=== PATIENT | male | born 1945 | race Caucasian/White ===

== ENCOUNTER 2020-08-28 09:01 | Outpatient (REF) | payer MEDICARE, SELFPAY ==
[2020-08-28 10:28] LABS: Alanine Aminotransferase 25 U/L (0-40); Alkaline Phosphatase 61 U/L (39-117); Anion Gap 12 (12-20); Aspartate Amino Transferase 19 U/L (5-37); Bilirubin Total 0.3 mg/dL (0.0-1.0); Blood Urea Nitrogen 15 mg/dL (9-16); Calcium 8.9 mg/dL (8.4-10.2); Carbon Dioxide 25 mmol/L (22-29); Chloride 106 mmol/L (96-108); Cholesterol 125 mg/dL; Estimated Glomerular Filt Rate > 60; Glucose Fasting 107 mg/dL (60-99); HDL Cholesterol 44 mg/dL; LDL Cholesterol Calculated 68 mg/dl; Potassium 4.4 mmol/l (3.3-5.1); Sodium 139 mmol/L (135-145); Total Protein 6.4 g/dL (6.5-8.0); Triglycerides 69 mg/dL
== END 2020-08-28 09:02 | disposition home or self-care (01) ==
LOC: HO.LAB 09:01
PROVIDERS: PCP Internal Medicine; Visit Provider Internal Medicine
DX: E78.5 Hyperlipidemia, unspecified (principal); R73.01 Impaired fasting glucose
CPT/HCPCS: 36415; 80053; 80061

== ENCOUNTER 2021-05-15 07:16 | Day surgery (SDC) | payer MEDICARE, SELFPAY ==
--- NOTE | 2021-05-09 13:35 | P.CONAN_ITS ---
HPI - Anesthesia Eval Consult details Narrative: 76yo M for Colonoscopy Xarelto for afib. S/P pulm vein isolation 08/2020. No issues since per last cardiac eval. [facility] Active Problems Active Problems: All Active Problems (Updated 05/09/21 @ 10:22 by Prudence Knight) Low back pain (Acute) Obesity (BMI 30-39.9) (Acute) Coronary artery disease (Acute) BPH (benign prostatic hyperplasia) (Acute) Hyperlipidemia (Acute) Impaired glucose tolerance (Acute) Hypertension (Acute) Paroxysmal atrial fibrillation (Acute) Past Medical History Medical History BPH (benign prostatic hyperplasia) COPD (chronic obstructive pulmonary disease) Coronary artery disease Hx of bronchitis Hx of myocardial infarction Hyperlipidemia Hypertension Impaired glucose tolerance Nephrolithiasis Obesity (BMI 30-39.9) On anticoagulant therapy On beta didi at home Paroxysmal atrial fibrillation PONV (postoperative nausea and vomiting) Family History Family History Father No problems noted. Mother No problems noted. Surgical History Surgical History H/O excision of lamina of cervical vertebra for decompression of spinal cord H/O rhinoplasty History of blepharoplasty History of cardiac radiofrequency ablation (RFA) History of lumbar surgery Hx of appendectomy Social History Social History Alcohol intake: never Patient Tobacco Use Status: Former Tobacco user Use of substances other than those prescribed or required for medical reasons: No Have you been hit, kicked, punched, or otherwise hurt by someone within the past year? If so, by whom?: No Are you DNR?: No Advance Directives: No Advance Directives Information Provided: Yes Meds Allergies Allergy/AdvReac Type Severity Reaction Status Date / Time morphine [MORPHINE] Allergy Unknown NAUSEA & Verified 05/09/21 10:23 VOMITING simvastatin Allergy Unknown muscle Verified 05/09/21 10:23 pains and med ineffective enviromental allergies Allergy Unknown Unknown Uncoded 05/09/21 10:23 Home Medications Medication Instructions Recorded Confirmed Last Taken Type albuterol sulfate 90 mcg/actuation 2 inh INHALATION Q4-6H PRN 09/13/20 05/09/21 Unknown History breath activated powder inhaler aspirin 81 mg tablet,delayed 81 mg PO DAILY 09/13/20 05/09/21 Unknown History release finasteride 5 mg tablet 5 mg PO DAILY 09/13/20 05/09/21 Unknown History mometasone 50 mcg/actuation nasal 2 spray INTRANASAL DAILY 09/13/20 05/09/21 Unknown History spray metoprolol succinate 25 mg 37.5 mg PO DAILY tab 01/15/21 05/09/21 Unknown History tablet,extended release 24 hr rivaroxaban 20 mg tablet 20 mg PO DAILY 01/15/21 05/09/21 Unknown History Exam Exam Date and Time: May 09, 2021 1335 Narrative Narrative: Echo 11/2019 1. LV is normal in size. Mild concentric LVH. No RWMA 2. Normal LV systolic function. LVEF 55-60%. Mild diastolic relaxation abnormality. 3. RV is normal in size and function 4. Mild aortic insufficiency. 5. Asc aortic dilation (4.1cm) Per cardiac note, last nuc stress done 2015 was negative Assessment and Plan Assessment Anesthesia Assessment: Chart Reviewed
[2021-05-15 08:04] VITALS: BP 143/76; PULSE 85; RESP 18; TEMP 36.3; O2SAT 95
[2021-05-15 08:10] VITALS: BMI 29.0
[2021-05-15] MEDS: Lactated Ringers 1,000 ML 100 ML IVCONT (08:15)
--- NOTE | 2021-05-15 08:26 | HO.ANESPROP2 ---
[facility] Active Problems Active Problems: All Active Problems (Updated 05/09/21 @ 10:22 by Prudence Knight) Low back pain (Acute) Obesity (BMI 30-39.9) (Acute) Coronary artery disease (Acute) BPH (benign prostatic hyperplasia) (Acute) Hyperlipidemia (Acute) Impaired glucose tolerance (Acute) Hypertension (Acute) Paroxysmal atrial fibrillation (Acute) Past Medical History Medical History BPH (benign prostatic hyperplasia) COPD (chronic obstructive pulmonary disease) Coronary artery disease Hx of bronchitis Hx of myocardial infarction Hyperlipidemia Hypertension Impaired glucose tolerance Nephrolithiasis Obesity (BMI 30-39.9) On anticoagulant therapy On beta didi at home Paroxysmal atrial fibrillation PONV (postoperative nausea and vomiting) Family History Family History Father No problems noted. Mother No problems noted. Surgical History Surgical History H/O excision of lamina of cervical vertebra for decompression of spinal cord H/O rhinoplasty History of blepharoplasty History of cardiac radiofrequency ablation (RFA) History of lumbar surgery Hx of appendectomy Social History Social History Alcohol intake: never Patient Tobacco Use Status: Former Tobacco user Use of substances other than those prescribed or required for medical reasons: No Have you been hit, kicked, punched, or otherwise hurt by someone within the past year? If so, by whom?: No Are you DNR?: No Advance Directives: No Advance Directives Information Provided: Yes Meds Allergies Allergy/AdvReac Type Severity Reaction Status Date / Time morphine [MORPHINE] Allergy Unknown NAUSEA & Verified 05/09/21 10:23 VOMITING simvastatin Allergy Unknown muscle Verified 05/09/21 10:23 pains and med ineffective enviromental allergies Allergy Unknown Unknown Uncoded 05/09/21 10:23 Active Medications: Current Medications Generic Name Dose Route Start Last Admin Trade Name Freq PRN Reason Stop Dose Admin Albuterol Sulfate 2.5 mg 05/15/21 07:34 Albuterol Sulfate (0.083%) 2.5 Mg/3 Ml Vial.Neb INHALE ONCE PRN Shortness of Breath/Wheezing Lactated Ringer's 1,000 mls @ 100 mls/hr 05/15/21 07:45 05/15/21 08:15 Lr IVCONT 100 mls/hr .Q10H MARLENY Administration Home Medications Medication Instructions Recorded Confirmed Last Taken Type albuterol sulfate 90 mcg/actuation 2 inh INHALATION Q4-6H PRN 09/13/20 05/09/21 Unknown History breath activated powder inhaler aspirin 81 mg tablet,delayed 81 mg PO DAILY 09/13/20 05/09/21 Unknown History release finasteride 5 mg tablet 5 mg PO DAILY 09/13/20 05/09/21 Unknown History mometasone 50 mcg/actuation nasal 2 spray INTRANASAL DAILY 09/13/20 05/09/21 Unknown History spray metoprolol succinate 25 mg 37.5 mg PO DAILY tab 01/15/21 05/09/21 Unknown History tablet,extended release 24 hr rivaroxaban 20 mg tablet 20 mg PO DAILY 01/15/21 05/09/21 Unknown History Exam Exam Date and Time: May 15, 2021 0826 Height,Weight and Vital Signs: Height 5 ft 8 in Weight 86.636 kg Last Vital Signs Temp 97.3 F 05/15/21 08:04 Pulse 85 05/15/21 08:04 Resp 18 05/15/21 08:04 BP 143/76 H 05/15/21 08:04 Pulse Ox 95 05/15/21 08:04 Airway Mallampati Class: III TM Dist: >3cm Neck ROM: Full Heart: RRR Lungs: CTA
--- NOTE | 2021-05-15 08:40 | MHC.SHP ---
Pre-Procedural Eval Section B Chief Complaint: screening Details of Present Illness: see H&P no changes Relevant Family History (Specify if Yes): No Relevant Social History: None Present Medications: see Short Stay Collaborative assessment Medical History: No relevant PMH History of Previous Operations: No relevant previous surgery Allergies: Allergies Allergy/AdvReac Type Severity Reaction Status Date / Time morphine [MORPHINE] Allergy Unknown NAUSEA & Verified 05/09/21 10:23 VOMITING simvastatin Allergy Unknown muscle Verified 05/09/21 10:23 pains and med ineffective enviromental allergies Allergy Unknown Unknown Uncoded 05/09/21 10:23 Review of Systems Sugical H&P ROS: Negative: Constitution, Cardiovascular, Respiratory, Neurological, Psychiatric, Hem-Onc, Allergic/Immunologic, Gastrointestinal, Genitourinary, Musculoskeletal, Integumentary, Endocrine and Eyes/Ears/Nose/Throat Exam Surgical H&P Exam: Normal: HEENT, Normal: Heart, Normal: Lungs, Normal: Extremities, Normal: Abdomen, Normal: Skin and Normal: Neurological Plan Diagnosis/Plan: Unchanged I have reviewed the history and physical and performed a pertinent physical examination on my patient. No changes have occurred unless specified.
--- NOTE | 2021-05-15 09:21 | PM.OP ---
Brief Operative Note Date of Service: 05/15/21 Pre-op diagnosis: screening Post-op diagnosis: same (colon polyps) Procedure: colonosocpy Surgeon: Osmany Alcantar Anesthesia: MAC Was an Correspondence Representative used for this Procedure?: No Estimated blood loss (mL): 2 Pathology: other (multiple polyps) Condition: stable Disposition: PACU
[2021-05-15 09:24] VITALS: BP 95/40; PULSE 66; RESP 16; TEMP 36.4; O2SAT 99
[2021-05-15 09:38] VITALS: BP 110/61; PULSE 68; RESP 15; TEMP 36.4; O2SAT 97
--- NOTE | 2021-05-15 11:51 | HO.POSTANES ---
Post Anesthesia Evaluation Post Anesthesia Evaluation Vital Signs: Vital Signs Temp Pulse Resp BP Pulse Ox 05/15/21 09:38 97.6 F 68 15 110/61 97 05/15/21 09:24 97.6 F 66 16 95/40 L 99 05/15/21 08:04 97.3 F 85 18 143/76 H 95 Anesthesia: Monitored Mental Status: Awake Pain Control: Satisfactory Nausea/Vomiting: None Hydration: Adequate Anesthesia-Related Issues: No Anes. Related Issues
--- NOTE | 2021-05-15 12:39 | OP_ITS ---
SURGEON: Osmany Alcantar MD INDICATIONS: Colon cancer screening. PREOPERATIVE DIAGNOSIS: POSTOPERATIVE DIAGNOSIS: PROCEDURE PERFORMED: Colonoscopy to the terminal ileum with snare polypectomy and biopsy. ESTIMATED BLOOD LOSS: COMPLICATIONS: ANESTHESIA: ASSISTANTS: SPECIMENS: MEDICATIONS: Monitored anesthesia care. DESCRIPTION OF PROCEDURE: History and physical performed. The risks and benefits of the procedure were explained to the patient. Informed consent was obtained. The patient was placed in the left lateral decubitus position. A digital rectal exam was performed and was found to be normal. The Olympus pediatric video colonoscope was introduced into the rectum and advanced to the cecum without difficulty. The cecum was identified by transillumination, palpation, and identification of ileocecal valve. Examination was performed and the scope was removed. He tolerated the procedure well and was taken to recovery area in stable condition. FINDINGS: The terminal ileum was examined and appeared normal. The visualized colonic mucosa was normal. Multiple colonic polyps were present and were removed using the snare and biopsy forceps. One was located in the cecum measuring 6 mm. Two were located/snared in the right colon, one measured 10 mm, one measured 5 mm. There was a polyp at 40 cm that was removed with a snare measuring 6 mm and a polyp at 25 cm that was removed with biopsy forceps measuring less than 5 mm. There was mild sigmoid diverticulosis. There was some liquid stool coating the mucosa, which was removed using suction. There were several less than 5 mm hyperplastic appearing rectal polyps that were not removed. In the rectum on retroflexed view, internal hemorrhoids were noted. There was a 10mm nonbleeding AVM in the cecum. IMPRESSION: Colon polyps. RECOMMENDATION: Follow up the biopsy results. MD KADI Dockery/HERVE / [id number] MTDD
== END 2021-05-15 10:18 | disposition home or self-care (01) ==
PROVIDERS: PCP Internal Medicine; Visit Provider Internal Medicine Gastroenterology
PROC: 0DJD8ZZ Inspection of Lower Intestinal Tract, Via Natural or Artificial Opening Endoscopic (ICD-10-PCS; CPT 45378; principal; 2021-05-15 08:50)
DX: Z12.11 Encounter for screening for malignant neoplasm of colon (principal); D12.0 Benign neoplasm of cecum; D12.2 Benign neoplasm of ascending colon; D12.5 Benign neoplasm of sigmoid colon; K62.1 Rectal polyp; K57.30 Diverticulosis of large intestine without perforation or abscess without bleeding; K64.8 Other hemorrhoids; J44.9 Chronic obstructive pulmonary disease, unspecified; I10 Essential (primary) hypertension; I48.0 Paroxysmal atrial fibrillation; Z79.01 Long term (current) use of anticoagulants; Z79.82 Long term (current) use of aspirin; Z79.899 Other long term (current) drug therapy; Z87.891 Personal history of nicotine dependence; Z88.8 Allergy status to other drugs, medicaments and biological substances
CPT/HCPCS: 45385; 45380; 88305

== ENCOUNTER 2021-09-28 10:03 | Outpatient (REF) | payer MEDICARE, SELFPAY ==
--- NOTE | ~2021-09-28 | XR_ITS ---
EXAMINATION: XR SACRUM AND COCCYX CLINICAL INFORMATION: Sacrococcygeal disorder, not elsewhere classified. COMPARISON: None TECHNIQUE: 2 views of the sacrum and 2 views of the coccyx were obtained. FINDINGS: There are no fractures. No bone, joint abnormality is demonstrated. Note is made of postsurgical changes between the spinous process of L4 and L5 with intact hardware. Note is also made of degenerative spondylosis at L4-L5 and L5-S1. Mild diffuse osteopenia. Note is made of significant atherosclerotic disease of the aortoiliac arteries. XR/XR sacrum coccyx min 2V IMPRESSION: No radiographic evidence of any osseous or articular abnormalities. Significant atherosclerotic disease of the aortoiliac arteries.
[2021-09-28 10:49] LABS: MANUAL DIFF FLAG NO
[2021-09-28 11:06] LABS: Basophils Percent Auto 0.7 % (0-2); Eosinophils Absolute Auto 0.1 X10*3/uL (0.0-0.4); Eosinophils Percent Auto 1.7 % (0-4); Hemoglobin 14.9 g/dl (14.0-18.0); Imm Gran Abs Auto 0.02 X10*3/uL (0.00-0.03); Imm Gran Pct Auto 0.4 % (0.0-0.4); Lymphocytes Absolute Auto 1.9 X10*3/uL (1.2-4.9); Lymphocytes Percent Auto 34.6 % (20-40); Mean Corpuscular HGB Conc 33.1 g/dl (31.0-36.0); Mean Corpuscular Hemoglobin 31.4 pg (27.0-33.0); Mean Corpuscular Volume 94.9 fL (80.0-98.0); Mean Platelet Volume 9.7 fL (9.4-12.4); Monocytes Absolute Auto 0.6 X10*3/uL (0.1-1.2); Monocytes Percent Auto 11.1 % (2-11); Neutrophils Absolute Auto 2.8 x10*3/uL (2.0-8.3); Neutrophils Percent Auto 51.5 % (45-73); Platelet Count 236 X10*3/uL (160-400); Red Blood Count 4.74 X10*6/uL (4.60-5.80); Red Cell Distribution Width 13.1 % (11.0-16.0); White Blood Count 5.4 X10*3/uL (4.8-10.8)
[2021-09-28 11:31] LABS: Alanine Aminotransferase 19 U/L (0-40); Albumin Level 4.1 g/dL (3.5-5.0); Alkaline Phosphatase 76 U/L (39-117); Anion Gap 11 (12-20); Aspartate Amino Transferase 19 U/L (5-37); Bilirubin Total 0.9 mg/dL (0.0-1.0); Blood Urea Nitrogen 16 mg/dL (9-16); Calcium 9.2 mg/dL (8.4-10.2); Carbon Dioxide 26 mmol/L (22-29); Chloride 107 mmol/L (96-108); Cholesterol 187 mg/dL; Estimated Glomerular Filt Rate > 60; Glucose Random 108 mg/dL (60-115); HDL Cholesterol 43 mg/dL; LDL Cholesterol Calculated 124 mg/dl; Potassium 4.8 mmol/L (3.3-5.1); Sodium 139 mmol/L (135-145); Total Protein 6.8 g/dL (6.5-8.0); Triglycerides 102 mg/dL
[2021-09-28 11:33] LABS: B Type Natriuretic Peptide 30 pg/mL (<100)
[2021-09-28 11:55] LABS: Thyroid Stimulating Hormone 1.08 uIU/mL (0.32-4.0)
[2021-09-28 12:11] LABS: Folate 13.3 ng/mL (> or = 4.0); Vitamin B12 381 pg/mL (200-900)
== END 2021-09-28 10:04 | disposition home or self-care (01) ==
LOC: HO.XRAY 10:03
PROVIDERS: PCP Internal Medicine; Visit Provider Internal Medicine
DX: N40.1 Benign prostatic hyperplasia with lower urinary tract symptoms (principal); R39.12 Poor urinary stream; I10 Essential (primary) hypertension; E78.00 Pure hypercholesterolemia, unspecified; R73.02 Impaired glucose tolerance (oral); M53.3 Sacrococcygeal disorders, not elsewhere classified
CPT/HCPCS: 36415; 51798; 72220; 80053; 80061; 82607; 82746; 83880; 84439; 84443; 85025; 99212

== ENCOUNTER 2022-03-29 08:52 | Outpatient (REF) | payer MEDICARE, SELFPAY ==
[2022-03-29 10:24] LABS: Alanine Aminotransferase 19 U/L (0-40); Albumin Level 3.9 g/dL (3.5-5.0); Alkaline Phosphatase 80 U/L (39-117); Anion Gap 10 (12-20); Aspartate Amino Transferase 15 U/L (5-37); Bilirubin Total 0.4 mg/dL (0.0-1.0); Blood Urea Nitrogen 19 mg/dL (9-16); Calcium 9.5 mg/dL (8.4-10.2); Carbon Dioxide 28 mmol/L (22-29); Chloride 108 mmol/L (96-108); Cholesterol 147 mg/dL; Estimated Glomerular Filt Rate > 60; Glucose Random 112 mg/dL (60-115); HDL Cholesterol 47 mg/dL; LDL Cholesterol Calculated 90 mg/dl; Sodium 141 mmol/L (135-145); Total Protein 6.9 g/dL (6.5-8.0); Triglycerides 54 mg/dL
== END 2022-03-29 08:53 | disposition home or self-care (01) ==
LOC: HO.LAB 08:52
PROVIDERS: PCP Internal Medicine; Visit Provider Internal Medicine
DX: E78.00 Pure hypercholesterolemia, unspecified (principal)
CPT/HCPCS: 36415; 80053; 80061

== ENCOUNTER → 2022-05-09 14:51 | Outpatient (REF) | payer MEDICARE, SELFPAY ==
--- NOTE | 2022-05-09 14:56 | CA_ITS ---
Transthoracic Echocardiogram Patient (Last, First, Middle): Dl Rollins B Gender: Male Date of : 1945 Age: 77 Procedure Date: 05/09/2022 Procedure Type: Transthoracic Echocardiogram Location: OP Height: 172.72 cm Weight: 89.81 kg BSA: 2.04 m2 Heart Rate: bpm BP: 128 / 50 mmHg Machine Printer Hose: KATE Referring MD: Bianca You MD Tube Drawing Supervisor: Lupillo Tinajero MD Symptoms: I77.810 - Thoracic aortic ectasia Study Quality: Adequate ECG Rhythm: Sinus Conclusions: - 1. Normal LV systolic function with impaired relaxation filling pattern 2. Mild aortic regurgitation most likely due to ascending aortic pathology 3. Mildly dilated ascending aorta at 4 cm 4. No pericardial effusion Findings Left Ventricle Normal left ventricular size, thickness, and systolic function. The visually estimated ejection fraction is between 55-60%. Spectral Doppler is indicative of an impaired relaxation filling pattern. E/E prime ratio is <8, consistent with normal filling pressures. Evidence suggests grade I (mild) diastolic dysfunction. Right Ventricle Normal right ventricular cavity size and systolic function. Atria Both atria are normal in size. Interatrial shunt cannot be excluded. Aortic Valve The aortic valve was not well visualized. There is no aortic valve stenosis. There is mild aortic valve regurgitation. Mitral Valve Likely normal mitral valve structure and function. There is trace mitral valve regurgitation. There is no mitral valve stenosis. Pulmonic Valve The pulmonic valve was not well visualized. Tricuspid Valve Normal tricuspid valve structure. Tricuspid regurgitation envelope is inadequate for calculation of right ventricular systolic pressure. Great Vessels The pulmonary artery was not well visualized. There is mild dilatation of the ascending aorta measuring 4.00 cm. Small plaque is seen in the sino tubular ridge. Venous The inferior vena cava was not well visualized. Pericardium/Pleural There is no evidence of pericardial effusion. Prior Study Comparison Changes noted compared to prior study dated: 07/21/2019. Mildly dilated ascending aorta Measurements 2D Linear Measurements IVSd: 0.90 0.6-0.9/0.6-1.0 cm LVIDd: 4.85 3.9-5.3/4.2-5.9 cm LVIDd Index: 2.38 2.4-3.2/2.2-3.1 cm/m2 LVIDs: 3.23 2.0-3.6 cm LVPWd: 1.03 0.7-1.1 cm LA Diam: 3.40 2.7-3.8/3.0-4.0 cm LAIDs Index: 1.67 1.5-2.3 cm/m2 LV Mass: 205.20 67-162/88-224 g LV Mass Index: 100.59 43-95/49-115 g/m2 LVOT Diam: 2.00 3.0+(-)1.3 cm 2D Systolic Function EF 4C: 57.70 >55% EF 2C: 53.70 >55% EF BiP: 55.70 >55% Mitral Valve MV Pk E: 0.85 MV PK A: 1.17 MV Decel Time: 295.00 E/A: 0.70 E'Lateral: 8.70 E'Medial: 6.31 E/E' Med: 13.40 E/E' Lat: 9.70 PHT: 86.00 MVA PHT: 2.56 Decel [place]: 2.87 Aortic Valve AoV Pk Sukhdev: 2.05 AoV Mn Sukhdev: 1.37 AoV VTI: 0.42 AoV Pk Grad: 17.00 Aov Mn Grad: 9.00 EVENS Cont.VTI: 2.48 LVOT LVOT Pk Sukhdev: 1.34 LVOT Mn Sukhdev: 0.91 LVOT VTI: 0.33 LVOT Pk Grad: 7.00 LVOT Mn Grad: 4.00 LVOT Diam: 2.00 LVOT Area: 3.14 Diastolic Function MV Pk E: 0.85 MV Pk A: 1.17 E/A: 0.70 E'Medial: 6.31 E/E' Med: 13.40 E' Laterial: 8.70 E/E' Lat: 9.70 Right Ventricle TAPSE (mm): 19.20 TVS' Sukhdev: 9.25 Great Vessels Aorta Sinus of Valsalva: 3.98 2.0-3.[address] [place]: 3.02 1.7-3.4 cm Ao Asc: 4.00 2.1-3.4 cm Updated in Other Vendor System with Status of Final Lupillo Tinajero MD electronically signed on 05/10/2022 8:49:48 AM with status of Final
== END ==
LOC: HO.CARD 14:51
PROVIDERS: Visit Provider Internal Medicine
DX: I77.810 Thoracic aortic ectasia (principal)
CPT/HCPCS: 93306

== ENCOUNTER 2022-07-19 08:14 | Outpatient (REF) | payer MEDICARE, SELFPAY ==
--- NOTE | ~2022-07-19 | XR_ITS ---
EXAMINATION: XR FOOT, RIGHT CLINICAL INFORMATION: M67.88 - Other specified disorders of synovium and tendon, other site. COMPARISON: None TECHNIQUE: AP, lateral, and oblique views of the right foot. FINDINGS: Moderate sized enthesopathic spurs are present at the Achilles tendon insertion and plantar fascial origin on the calcaneus. No fracture or malalignment. Bone mineralization is normal. Mild 1st MTP osteoarthritis. Joints are otherwise relatively well preserved. No erosions. Bone mineralization is normal. XR/XR foot RT min 3V IMPRESSION: Prominent enthesopathic spurs at the Achilles tendon insertion and plantar fascial origin on the calcaneus. Mild 1st MTP osteoarthritis.
[2022-07-19 08:38] LABS: MANUAL DIFF FLAG NO
[2022-07-19 08:56] LABS: Basophils Percent Auto 0.8 % (0-2); Eosinophils Absolute Auto 0.1 X10*3/uL (0.0-0.4); Eosinophils Percent Auto 1.9 % (0-4); Hematocrit 44.1 % (42.0-52.0); Hemoglobin 14.9 g/dl (14.0-18.0); Imm Gran Abs Auto 0.01 X10*3/uL (0.00-0.03); Imm Gran Pct Auto 0.2 % (0.0-0.4); Lymphocytes Absolute Auto 1.9 X10*3/uL (1.2-4.9); Lymphocytes Percent Auto 35.2 % (20-40); Mean Corpuscular HGB Conc 33.8 g/dl (31.0-36.0); Mean Corpuscular Hemoglobin 31.8 pg (27.0-33.0); Mean Platelet Volume 9.3 fL (9.4-12.4); Monocytes Percent Auto 19.3 % (2-11); Neutrophils Absolute Auto 2.3 x10*3/uL (2.0-8.3); Neutrophils Percent Auto 42.6 % (45-73); Platelet Count 210 X10*3/uL (160-400); Red Blood Count 4.69 X10*6/uL (4.60-5.80); Red Cell Distribution Width 13.3 % (11.0-16.0); White Blood Count 5.3 X10*3/uL (4.8-10.8)
[2022-07-19 09:06] LABS: Estimated Average Glucose 120 mg/dL; Hemoglobin A1c % 5.8 %
[2022-07-19 09:31] LABS: Alanine Aminotransferase 26 U/L (0-40); Alkaline Phosphatase 78 U/L (39-117); Anion Gap 12 (12-20); Aspartate Amino Transferase 24 U/L (5-37); Bilirubin Total 0.6 mg/dL (0.0-1.0); Blood Urea Nitrogen 19 mg/dL (9-16); Calcium 8.9 mg/dL (8.4-10.2); Carbon Dioxide 26 mmol/L (22-29); Chloride 105 mmol/L (96-108); Cholesterol 143 mg/dL; Estimated Glomerular Filt Rate > 60; Glucose Random 113 mg/dL (60-115); HDL Cholesterol 42 mg/dL; LDL Cholesterol Calculated 87 mg/dl; Potassium 4.4 mmol/L (3.3-5.1); Sodium 139 mmol/L (135-145); Total Protein 6.7 g/dL (6.5-8.0); Triglycerides 72 mg/dL
[2022-07-19 09:54] LABS: Free T4 (Free Thyroxine) 1.28 ng/dL (0.71-1.85); Thyroid Stimulating Hormone 1.27 uIU/mL (0.32-4.0)
== END 2022-07-19 08:15 | disposition home or self-care (01) ==
LOC: HO.LAB 08:14
PROVIDERS: PCP Internal Medicine; Visit Provider Internal Medicine
DX: E78.00 Pure hypercholesterolemia, unspecified (principal); R73.02 Impaired glucose tolerance (oral)
CPT/HCPCS: 36415; 73630; 80053; 80061; 83036; 84439; 84443; 85025

== ENCOUNTER 2022-07-25 14:00 | Outpatient (RCR) | payer MEDICARE, SELFPAY ==
--- NOTE | 2022-06-07 13:51 | MHC.PT.EP ---
[facility] [place] Office [place] Office [place] Office [address] [phone] F: [phone] F: [phone] F: [phone] F: [phone] Physical Therapy Plan of Care Date of Evaluation: Date of Surgery: N/A Diagnosis: R insertional achilles tendonitis/bursitis Assessment: Pt is a pleasant 77yo M who presents to PT with R heel/achilles pain after hitting the back of his heel on a deck on 03/28/22. Pt presents with current impairments in pain, decreased R ankle ROM, decreased ankle strength, soft tissue restrictions, and decreased muscle length. He is TTP throughout R lateral ankle, achilles tendon, and gastroc/soleus complex. He is limited functionally by prolonged standing and walking, ascending stairs, golfing, and biking. Pt is a good candidate for skilled PT in order to address current impairments to facilitate return to PLOF. Pt will be seen 2x/week for 4 weeks and will be reassessed at that time. Frequency and Duration: The patient will be seen 2x/week for 4 weeks Short Term Goals: Pt will be I with HEP to promote self management of symptoms Pt will improve R DF by 5 degrees [place] Goals: Pt will demonstrate full ROM and strength throughout R ankle Pt will return to golfing on even and uneven surfaces with minimal to no pain or compensation Pt will demonstrate improvements in function as evidenced by statistically significant improvement in LEFI outcome measure Treatment Plan: Modalities to reduce pain, spasms and effusion. Manual therapy to restore motion and function. Therapeutic exercise to improve strength and flexibility. Neuromuscular re-education for posture and balance. Therapeutic activities to return to functional activities of daily living. Electronically signed by: Shira Nguyen, PT, DPT Please sign and return to therapist. Thank you for your referral.
--- NOTE | 2022-07-26 14:31 | MHC.PT.DC ---
[facility] [place] Office [place] Office [place] Office [address]a Alvarado [address] [phone] F: [phone] F: [phone] F: [phone] F: [phone] Physical Therapy Discharge Report Diagnosis: R insertional achilles tendonitis/bursitis Date of Surgery: N/A Date of Evaluation: 06/06/22 Date of Discharge: 07/26/22 Treatments to Date: 13 Cancellations to Date: 1 No Shows to Date: 0 Discharge Status: Achieved Goals Improved Function Independent with HEP Discharge Summary: Pt was seen for PT from 06/06/22-07/25/22. He has made good progress since SOC. He has met his STGs and LTGs. He has ROM and strength WFL throughout R ankle. He has returned to biking and golfing. He has improved his score on LEFI outcome measure from 23/80 on initial PT evaluation to 50/80 at D/C. Pt is I with HEP. Pt is being D/C from skilled PT at this time. Electronically signed by: Shira Nguyen, PT, DPT Please sign and return to therapist. Thank you for your referral.
== END 2022-07-26 14:32 | disposition home or self-care (01) ==
LOC: HO.PT 14:00
PROVIDERS: PCP Internal Medicine; Visit Provider Podiatrist
DX: M76.61 Achilles tendinitis, right leg (principal)
CPT/HCPCS: 97110; 97112; 97140; 97162; 97530

== ENCOUNTER → 2022-08-23 12:46 | Outpatient (BNVA) | payer MEDICARE, SELFPAY | PROVIDERS: PCP Internal Medicine; Visit Provider Physician Assistant | DX: M76.61 Achilles tendinitis, right leg (principal) | CPT/HCPCS: 99202 ==

== ENCOUNTER → 2022-09-27 09:24 | Outpatient (BNVA) | payer MEDICARE, SELFPAY | PROVIDERS: PCP Internal Medicine; Visit Provider Urology | DX: N40.1 Benign prostatic hyperplasia with lower urinary tract symptoms (principal); N13.8 Other obstructive and reflux uropathy; R31.29 Other microscopic hematuria; R39.12 Poor urinary stream; R73.02 Impaired glucose tolerance (oral) | CPT/HCPCS: 99212 ==

== ENCOUNTER 2023-03-11 07:32 | Outpatient (REF) | payer MEDICARE, SELFPAY ==
--- NOTE | ~2023-03-11 | XR_ITS ---
EXAMINATION: XR KNEE, RIGHT CLINICAL INFORMATION: Pain in right knee. COMPARISON: None available. TECHNIQUE: 2 views of the right knee. FINDINGS: Trace joint effusion. Bones and joint spaces appear normal. Surrounding bone and soft tissues unremarkable. XR/XR knee RT 2V IMPRESSION: Trace joint effusion.
[2023-03-11 07:49] LABS: MANUAL DIFF FLAG NO
[2023-03-11 08:19] LABS: Basophils Absolute Auto 0.1 X10*3/uL (0.0-0.2); Basophils Percent Auto 0.9 % (0-2); Eosinophils Absolute Auto 0.1 X10*3/uL (0.0-0.4); Eosinophils Percent Auto 1.6 % (0-4); Hematocrit 43.8 % (42.0-52.0); Hemoglobin 14.3 g/dl (14.0-18.0); Imm Gran Abs Auto 0.02 X10*3/uL (0.00-0.03); Imm Gran Pct Auto 0.3 % (0.0-0.4); Lymphocytes Absolute Auto 2.6 X10*3/uL (1.2-4.9); Mean Corpuscular HGB Conc 32.6 g/dl (31.0-36.0); Mean Corpuscular Hemoglobin 31.4 pg (27.0-33.0); Mean Corpuscular Volume 96.3 fL (80.0-98.0); Monocytes Absolute Auto 0.8 X10*3/uL (0.1-1.2); Monocytes Percent Auto 11.3 % (2-11); Neutrophils Absolute Auto 3.3 x10*3/uL (2.0-8.3); Neutrophils Percent Auto 47.9 % (45-73); Platelet Count 238 X10*3/uL (160-400); Red Blood Count 4.55 X10*6/uL (4.60-5.80); Red Cell Distribution Width 13.7 % (11.0-16.0); White Blood Count 6.9 X10*3/uL (4.8-10.8)
[2023-03-11 08:56] LABS: Estimated Average Glucose 123 mg/dL; Hemoglobin A1c % 5.9 %
[2023-03-11 09:02] LABS: Alanine Aminotransferase 27 U/L (0-40); Albumin Level 3.9 g/dL (3.5-5.0); Alkaline Phosphatase 73 U/L (39-117); Anion Gap 13 (12-20); Aspartate Amino Transferase 19 U/L (5-37); Bilirubin Total 0.4 mg/dL (0.0-1.0); Blood Urea Nitrogen 18 mg/dL (9-16); Carbon Dioxide 25 mmol/L (22-29); Chloride 109 mmol/L (96-108); Cholesterol 163 mg/dL; Estimated Glomerular Filt Rate > 60; Glucose Random 109 mg/dL (60-115); HDL Cholesterol 45 mg/dL; LDL Cholesterol Calculated 106 mg/dl; Potassium 4.6 mmol/L (3.3-5.1); Sodium 142 mmol/L (135-145); Total Protein 6.3 g/dL (6.5-8.0); Triglycerides 62 mg/dL
[2023-03-11 09:22] LABS: Free T4 (Free Thyroxine) 1.05 ng/dL (0.71-1.85); Thyroid Stimulating Hormone 2.26 uIU/mL (0.32-4.0)
== END 2023-03-11 07:33 | disposition home or self-care (01) ==
LOC: HO.LAB 07:32
PROVIDERS: PCP Internal Medicine; Visit Provider Internal Medicine
DX: I25.10 Atherosclerotic heart disease of native coronary artery without angina pectoris (principal); E78.00 Pure hypercholesterolemia, unspecified; R73.02 Impaired glucose tolerance (oral); M25.561 Pain in right knee
CPT/HCPCS: 36415; 73560; 80053; 80061; 83036; 84439; 84443; 85025

== ENCOUNTER 2023-06-13 14:34 | Outpatient (AMB) | payer MEDICARE, SELFPAY ==
--- NOTE | 2023-06-13 14:37 | A.OFFPC_ITS ---
Vital Signs 06/13/23 14:38 Height 5 ft 8 in Weight 201 lb BMI 30.6 BP 140/78 H Blood Pressure Location Lt brachial Position Sitting Pulse 67 Pulse Source Pulse Oximeter Pulse Oximetry (%) 98 Intake Visit Reasons: cholesterol Intake Note: pt is here for cholesterol [employer] Planner Required: No Allergies morphine [MORPHINE] Allergy (Unknown, Verified 06/13/23 14:37) NAUSEA & VOMITING simvastatin Allergy (Unknown, Verified 06/13/23 14:37) muscle pains and med ineffective enviromental allergies Allergy (Unknown, Uncoded 06/13/23 14:37) Unknown Medication List - Last Reconciled 06/13/23 by Bianca Alicea Po, albuterol sulfate 90 mcg/actuation (ProAir HFA) 2 puffs inhalation Q6H PRN aspirin (Adult Aspirin Regimen) 81 mg PO DAILY celecoxib (Celebrex) 200 mg PO DAILY finasteride 5 mg PO DAILY isosorbide mononitrate ER 30 mg PO DAILY metoprolol succinate ER 50 mg PO DAILY mometasone 50 mcg/actuation (Nasonex) 2 sprays intranasal DAILY rivaroxaban (Xarelto) 20 mg PO DAILY rosuvastatin 10 mg PO DAILY 90 days Tobacco use date assessed: 12/11/22 Fall risk assessment: 1 Fall in past year Last assessed Fall Risk: 06/13/23 Dental Screening Dental Screen Date: 06/13/23 Did you have a dental visit in the last 12 months?: Yes Did you have a dental problem in the last 6 months where you did not have access to dental care?: No Was dental information given to patient?: Patient has dentist HPI cholesterol HPI Details 78-year-old obese male smoker with atrial fibrillation status post ablation August 2020 hypertension impaired glucose tolerance hypercholesterolemia ascending aorta dilatation last seen in February 2023 patient complained of right knee pain and x-ray was requested. Echocardiogram last done January 2023 normal ejection fraction ascending aorta 4.2 cm. Patient just followed up with cardiology . Patient was started on isosorbide mononitrate 30 mg once a day Saurav Vasc for on anticoagulation Xarelto patient advised to have event monitor and referred to kacey Cannon ear checked. BM= diarrhea 5 weeks- state no new med PFSH Medical History BPH (benign prostatic hyperplasia) COPD (chronic obstructive pulmonary disease) Coronary artery disease Hx of bronchitis Hx of myocardial infarction Hyperlipidemia Hypertension Impaired glucose tolerance Nephrolithiasis Obesity (BMI 30-39.9) On anticoagulant therapy On beta didi at home Paroxysmal atrial fibrillation PONV (postoperative nausea and vomiting) Surgical History H/O excision of lamina of cervical vertebra for decompression of spinal cord H/O rhinoplasty History of blepharoplasty History of cardiac radiofrequency ablation (RFA) History of lumbar surgery Hx of appendectomy Family History Father No problems noted. Mother No problems noted. Social History Housing: House Alcohol intake: never Patient Tobacco Use Status: Former Tobacco user Tobacco use type: Cigarette e-Cigarette/Vaping Use: Never Used Second Hand Smoke Exposure: No Current occupational status: retired Cognitive needs: No Hearing needs: No Vision needs: Yes Questionnaire Thrive Questionnaire Date Thrive assessed: 12/11/22 FLYNN-7 AMB Questionnaire FLYNN-7 Date FLYNN - 7 assessed: 12/11/22 Source: Developed by Drs. Pierce Nair, Malena Crowell, James Huynh and colleagues, with an educational yonas from [employer]. Physical exam (Primary Care) Vital Signs: Last Vital Signs Pulse 67 06/13/23 14:38 BP 140/78 H 06/13/23 14:38 Pulse Ox 98 06/13/23 14:38 BMI result Body Mass Index 30.6 Tobacco/Smoking Status: Tobacco use Status Tobacco use date assessed 12/11/22 06/13/23 14:38 Patient Tobacco Use Status Former Tobacco user 06/13/23 14:38 Tobacco use type Cigarette 06/13/23 14:38 e-Cigarette/Vaping Use Never Used 06/13/23 14:38 Thrive Assessment: Date of Thrive Assessment Date Thrive assessed 12/11/22 06/13/23 14:38 Const General: alert; No acute distress Eyes Conjunctivae: conjunctivae normal Resp Auscultation: clear to auscultation bilaterally Cardio Rate: regular rate Rhythm: regular rhythm GI Inspection: Yes normal to inspection Extrem General: Yes normal to inspection and No edema Assessment and Plan Assessment & Plan (1) Paroxysmal atrial fibrillation: Comment: June 2019 echo normal LV impaired relaxation, November 2019 ear 55-60% her tick dilatation [address] Bonner 08/2020 Code(s): I48.0 - Paroxysmal atrial fibrillation Plan: Continue with anticoagulation patient was advised to see Dr. Yoder (2) Hypertension: Code(s): I10 - Essential (primary) hypertension Qualifiers: Hypertension type: essential hypertension Qualified Code(s): I10 - Essential (primary) hypertension Plan: Continue with blood pressure medication. Decrease salt intake and exercise patient is taking metoprolol 25 twice a day and has been started on isosorbide mononitrate (3) Impaired glucose tolerance: Code(s): R73.02 - Impaired glucose tolerance (oral) Plan: Decrease the amount of carbohydrate intake, pasta, bread, rice and potatoes are all sugar and that is aside from all the sweet stuff, remember that fruits are good but they are Sweet also. (4) Hyperlipidemia: Code(s): E78.5 - Hyperlipidemia, unspecified Qualifiers: Hyperlipidemia type: pure hypercholesterolemia Qualified Code(s): E78.00 - Pure hypercholesterolemia, unspecified Plan: Avoid fried foods, chicken skin, eggs, butter margarine, pastries and meat. Be it pork or beef they have a lot of cholesterol LDL goal of less than 70 and triglyceride of less than 150 patient on rosuvastatin 10 once a day (5) BPH (benign prostatic hyperplasia): Code(s): N40.0 - Benign prostatic hyperplasia without lower urinary tract symptoms Qualifiers: Lower urinary tract symptom presence: symptoms present Lower urinary tract symptom detail: weak urinary stream Qualified Code(s): N40.1 - Benign prostatic hyperplasia with lower urinary tract symptoms; R39.12 - Poor urinary stream Plan: Continue with finasteride 5 mg once a day (6) Coronary artery disease: Comment: 1995 Dr. Stacy Code(s): I25.10 - Atherosclerotic heart disease of [place] coronary artery without angina pectoris Qualifiers: Coronary Disease-Associated Artery/Lesion type: [place] artery [place] vs. transplanted heart: [place] heart Associated angina: without angina Qualified Code(s): I25.10 - Atherosclerotic heart disease of [place] coronary artery without angina pectoris Plan: Control the cholesterol, weight, blood pressure (7) Obesity (BMI 30-39.9): Code(s): E66.9 - Obesity, unspecified Plan: Diet and exercise (8) COPD (chronic obstructive pulmonary disease): Code(s): J44.9 - Chronic obstructive pulmonary disease, unspecified Plan: Continue with inhaler as needed (9) Ascending aorta dilatation: Comment: April 2022Normal LV systolic function with impaired relaxation ? ? ? filling pattern? 2.? Mild aortic regurgitation mos January 2023echocardiogram left ventricular hypertrophy ejection fraction 55-60% normal left ventricular diastolic function. ascending aorta 4.2 cm Code(s): I77.810 - Thoracic aortic ectasia Plan: Will continue to monitor (10) Diarrhea: Code(s): R19.7 - Diarrhea, unspecified (11) Otitis externa of right ear: Code(s): H60.91 - Unspecified otitis externa, right ear Orders: Orders Lipid Panel 3 Months E78.00 - Pure hypercholesterolemia, unspecified Comprehensive Met. Panel 3 Months E78.00 - Pure hypercholesterolemia, unspecified Hemoglobin A1c 3 Months R73.02 - Impaired glucose tolerance (oral) CDiff Gene PCR Today R19.7 - Diarrhea, unspecified Leukocytes Stool Qualitative Today R19.7 - Diarrhea, unspecified Medications: New isosorbide mononitrate ER 30 mg PO DAILY 30 tabs 0RF [id number] 3.5-10,000-1 mg/mL-unit/mL-% 4 drps otic (ear) right TID 10 days 10 mL 0RF H60.91 - Unspecified otitis externa, right ear Changed From rosuvastatin 10 mg PO DAILY 90 days 90 tabs 3RF E78.00 - Pure hypercholesterolemia, unspecified To rosuvastatin 20 mg PO DAILY 90 days 90 tabs 3RF E78.00 - Pure hypercholesterolemia, unspecified Coding Level of Care Code Est Pt Level 4 (98359) Diagnoses Paroxysmal atrial fibrillation I48.0 Hypertension I10 Hypertension type: essential hypertension Impaired glucose tolerance R73.02 Hyperlipidemia E78.00 Hyperlipidemia type: pure hypercholesterolemia BPH (benign prostatic hyperplasia) N40.1; R39.12 Lower urinary tract symptom presence: symptoms present Lower urinary tract symptom detail: weak urinary stream Coronary artery disease I25.10 Coronary Disease-Associated Artery/Lesion type: [place] artery [place] vs. transplanted heart: [place] heart Associated angina: without angina Obesity (BMI 30-39.9) E66.9 COPD (chronic obstructive pulmonary disease) J44.9 Ascending aorta dilatation I77.810 Diarrhea R19.7 Otitis externa of right ear H60.91
[2023-06-13 14:38] VITALS: BP 140/78; PULSE 67; O2SAT 98; BMI 30.6
== END 2023-06-13 15:26 | disposition home or self-care (01) ==
PROVIDERS: Visit Provider Internal Medicine
DX: E78.00 Pure hypercholesterolemia, unspecified (principal); I48.0 Paroxysmal atrial fibrillation; Z68.30 Body mass index [BMI] 30.0-30.9, adult; I10 Essential (primary) hypertension; R73.02 Impaired glucose tolerance (oral); E66.9 Obesity, unspecified; N40.1 Benign prostatic hyperplasia with lower urinary tract symptoms; R39.12 Poor urinary stream; I25.10 Atherosclerotic heart disease of native coronary artery without angina pectoris; J44.9 Chronic obstructive pulmonary disease, unspecified; I77.810 Thoracic aortic ectasia; H60.91 Unspecified otitis externa, right ear
CPT/HCPCS: 99214

== ENCOUNTER 2023-09-16 13:14 | Outpatient (AMB) | payer MEDICARE, SELFPAY ==
[2023-09-16 13:29] VITALS: BP 142/72; PULSE 76; RESP 16; O2SAT 96; BMI 30.9
--- NOTE | 2023-09-16 13:29 | A.OFFPC_ITS ---
Vital Signs 3 09/16/23 13:29 Height 5 ft 8 in Weight 203 lb BMI 30.9 BP 142/72 H Blood Pressure Location Lt brachial Position Sitting Respiration 16 Pulse 76 Pulse Source Pulse Oximeter Pulse Oximetry (%) 96 Oxygen Delivery Method Room Air Intake Visit Reasons: Cyst right side face/ear Intake Note: Pt is here for cyst near the ear on the right side of the face. Dynamic Etching Processor Required: No Accompanied by: Self / Same As Patient Allergies morphine [MORPHINE] Allergy (Unknown, Verified 06/13/23 14:37) NAUSEA & VOMITING simvastatin Allergy (Unknown, Verified 06/13/23 14:37) muscle pains and med ineffective enviromental allergies Allergy (Unknown, Uncoded 06/13/23 14:37) Unknown Tobacco use date assessed: 12/11/22 HPI HPI Comments 2 History of Present Illness0 Details 78-year-old obese male smoker with atria l fibrillation status post ablation August 2020 hypertension impaired glucose tolerance hypercholesterolemia ascending aorta dilatation. Patient reports 10 days ago noticed a lump to right cheek above ear. Patient states he went to [facility] last and was told he has at abscess cyst to right cheek and patient was prescribed cephalexin for this and advised to follow-up with PCP for general surgery consult for removal. Patient reports since being on cephalexin this cyst has decreased in size. Patient denies any fevers, chills, states cyst is tender to touch. [facility] Medical History BPH (benign prostatic hyperplasia) COPD (chronic obstructive pulmonary disease) Coronary artery disease Hx of bronchitis Hx of myocardial infarction Hyperlipidemia Hypertension Impaired glucose tolerance Nephrolithiasis Obesity (BMI 30-39.9) On anticoagulant therapy On beta didi at home Paroxysmal atrial fibrillation PONV (postoperative nausea and vomiting) Surgical History History of cardiac radiofrequency ablation (RFA) History of blepharoplasty Hx of appendectomy History of lumbar surgery H/O excision of lamina of cervical vertebra for decompression of spinal cord H/O rhinoplasty Family History Father No problems noted. Mother No problems noted. Social History Housing: House Alcohol intake: never Patient Tobacco Use Status: Former Tobacco user Tobacco use type: Cigarette e-Cigarette/Vaping Use: Never Used Second Hand Smoke Exposure: No Current occupational status: retired Cognitive needs: No Hearing needs: No Vision needs: Yes Questionnaire Thrive Questionnaire Date Thrive assessed: 12/11/22 FLYNN-7 AMB Questionnaire FLYNN-7 Date FLYNN - 7 assessed: 12/11/22 Source: Developed by Drs. Pierce Nair, Malena Crowell, James Huynh and colleagues, with an educational yonas from [employer]. Review of Systems Const Denies chills, Denies fatigue, Denies fever(s) and Denies poor appetite Eyes Denies no additional complaints ENT Reports Normal hearing present and Reports other (cyst right cheek above ear) Card Denies chest pain, Denies syncope, Denies rapid heart rate and Denies dyspnea Resp Denies cough and Denies dyspnea GI Denies change in stool character, Denies constipation, Denies diarrhea, Denies nausea and Denies vomiting Denies dysuria, Denies urinary frequency and Denies urinary urgency Neuro Reports Normal hearing present, Denies confusion and Denies syncope Psych Denies confusion Endo Denies fatigue Physical exam (Primary Care) Vital Signs: Last Vital Signs Pulse 76 09/16/23 13:29 Resp 16 09/16/23 13:29 BP 142/72 H 09/16/23 13:29 Pulse Ox 96 09/16/23 13:29 Oxygen Delivery Method Room Air 09/16/23 13:29 BMI result Body Mass Index 30.9 Tobacco/Smoking Status: Tobacco use Status Tobacco use date assessed 12/11/22 09/16/23 13:30 Patient Tobacco Use Status Former Tobacco user 09/16/23 13:30 Tobacco use type Cigarette 09/16/23 13:30 e-Cigarette/Vaping Use Never Used 09/16/23 13:30 Thrive Assessment: Date of Thrive Assessment Date Thrive assessed 12/11/22 09/16/23 13:30 Const General: No confusion Orientation/consciousness: No confusion HENMT Head: Yes normocephalic and Yes atraumatic Head images: 2 1. approxiamately 1 x 1cm firm nodule, erythematous cyst noted to right cheek above ear, non fluctuant, non indurated. no drainage noted. Eyes Conjunctivae: conjunctivae normal Chest Chest palpation & inspection: normal inspection of the chest Resp Effort & Inspection: normal respiratory effort Auscultation: clear to auscultation bilaterally, no crackles, no rhonchi and no wheezes Cardio Rate: regular rate Rhythm: regular rhythm Heart sounds: S1 normal heart sound present and S2 normal heart sound present GI Inspection: Yes normal to inspection Neuro General: No confusion Cranial nerves: Yes Normal hearing present Extrem General: No edema Assessment and Plan Assessment & Plan (1) Abscess: Comment: right face abscessed cyst. Code(s): L02.91 - Cutaneous abscess, unspecified Plan: Patient advised to complete previously prescribed cephalexin in its entirety. Referral entered to general surgery for removal of abscessed cyst. (2) Hypertension: Code(s): I10 - Essential (primary) hypertension Qualifiers: Hypertension type: essential hypertension Qualified Code(s): I10 - Essential (primary) hypertension Plan: Continue on Imdur 30 mg daily Follow low-salt diet and exercise (3) Paroxysmal atrial fibrillation: Comment: June 2019 echo normal LV impaired relaxation, November 2019 ear 55-60% her tick dilatation [address] Bonner 08/2020 Code(s): I48.0 - Paroxysmal atrial fibrillation Plan: Continue on Xarelto for anticoagulation and metoprolol for rate control. (4) Hyperlipidemia: Code(s): E78.5 - Hyperlipidemia, unspecified Qualifiers: Hyperlipidemia type: pure hypercholesterolemia Qualified Code(s): E 78.00 - Pure hypercholesterolemia, unspecified Plan: Continue on rosuvastatin 20 mg daily. Follow low-cholesterol diet. Plan Keep scheduled follow-up with PCP or follow-up sooner if needed. Orders: Referrals 2 General Surgery Referral L02.91 - Cutaneous abscess, unspecified Coding Level of Care Code Est Pt Level 3 (89045) Diagnoses Abscess L02.91 Essential hypertension I10 Hypertension type: essential hypertension Paroxysmal atrial fibrillation I48.0 Pure hypercholesterolemia E78.00 Hyperlipidemia type: pure hypercholesterolemia
== END 2023-09-16 13:43 | disposition home or self-care (01) ==
PROVIDERS: PCP Internal Medicine; Visit Provider Nurse Practitioner Family
DX: L02.91 Cutaneous abscess, unspecified (principal); I10 Essential (primary) hypertension; I48.0 Paroxysmal atrial fibrillation; E78.00 Pure hypercholesterolemia, unspecified
CPT/HCPCS: 99213

== ENCOUNTER 2023-09-23 14:11 | Outpatient (AMB) | payer MEDICARE, SELFPAY ==
--- NOTE | 2023-09-23 14:30 | A.OFFVIS_ITS ---
Intake Vital Signs 09/23/23 14:35 Height 5 ft 8 in Weight 204 lb 9.423 oz BMI 31.1 BP 183/74 H Blood Pressure Location Rt brachial Position Sitting Pulse 69 Intake Visit Reasons: Cyst~ Rt cheek above ear Intake Note: Patient referred for cyst on Rt superior preauricular area. Seen at urgent care 3wks ago for swelling and pain. Finished cephalexin course last . Cyst has decreased in size. Parachute Repairer Required: No Accompanied by: Self / Same As Patient Allergies morphine [MORPHINE] Allergy (Unknown, Verified 09/23/23 14:32) NAUSEA & VOMITING simvastatin Allergy (Unknown, Verified 09/23/23 14:32) muscle pains and med ineffective enviromental allergies Allergy (Unknown, Uncoded 09/23/23 14:32) Unknown HPI HPI Comments History of Present Illness Details Patient presents for evaluation of resolving right latter day area infected sebaceous cyst. This was seen at a walk-in clinic approximately 10 days ago and patient was given antibiotics and local wound care. The cyst has markedly decreased in size and become less symptomatic. Chart was reviewed patient evaluated. Patient is on Xarelto for atrial fibrillation. [facility] Medical History COPD (chronic obstructive pulmonary disease) Nephrolithiasis Hx of bronchitis Hx of myocardial infarction PONV (postoperative nausea and vomiting) On beta didi at home On anticoagulant therapy Obesity (BMI 30-39.9) Coronary artery disease BPH (benign prostatic hyperplasia) Hyperlipidemia Impaired glucose tolerance Hypertension Paroxysmal atrial fibrillation Surgical History History of cardiac radiofrequency ablation (RFA) History of blepharoplasty Hx of appendectomy History of lumbar surgery H/O excision of lamina of cervical vertebra for decompression of spinal cord H/O rhinoplasty Family History Father No problems noted. Mother No problems noted. Social History Housing: House Alcohol intake: never Patient Tobacco Use Status: Former Tobacco user Tobacco use type: Cigarette e-Cigarette/Vaping Use: Never Used Second Hand Smoke Exposure: No Current occupational status: retired Cognitive needs: No Hearing needs: No Vision needs: Yes Physical Exam Vital Signs: Last Vital Signs Pulse 69 09/23/23 14:35 BP 183/74 H 09/23/23 14:35 BMI result Body Mass Index 31.1 HEENT Other: Patient has a resolving infected sebaceous cyst measuring approximately 2 x 2 cm of the right preauricular area of the latter day. No cervical periclavicular adenopathy. Assessment & Plan Assessment & Plan (1) Sebaceous cyst: Code(s): L72.3 - Sebaceous cyst Plan Current plan is continue conservative therapy; warm compresses. He will see me in a proximal weeks time. Once the inflammatory process has completely resolved, consideration will be made for excision of the cyst with appropriate holding of Xarelto prior. All questions were answered. Coding Level of Care Code New Pt Level 4 (29251) Diagnoses Sebaceous cyst L72.3
[2023-09-23 14:35] VITALS: BP 183/74; PULSE 69; BMI 31.1
== END 2023-09-23 14:44 | disposition home or self-care (01) ==
PROVIDERS: PCP Internal Medicine; Referring Provider Nurse Practitioner Family; Visit Provider Surgery
DX: L72.3 Sebaceous cyst (principal)
CPT/HCPCS: 99204

== ENCOUNTER → 2023-09-23 14:11 | Outpatient (BNVA) | payer MEDICARE, SELFPAY | PROVIDERS: PCP Internal Medicine; Referring Provider Nurse Practitioner Family; Visit Provider Surgery | DX: L72.3 Sebaceous cyst (principal) | CPT/HCPCS: 99202 ==

== ENCOUNTER 2023-09-24 09:54 | Outpatient (AMB) | payer MEDICARE, SELFPAY ==
--- NOTE | 2023-09-24 09:55 | MHC.OFFVIS ---
Intake Intake Visit Reasons: 1yr follow up Intake Note: Patient is Present for Telephone Follow Up Urology Med: Finasteride Antibiotic Allergy: None Blood Thinner: Xarelto Pharamcy: [facility] Allergies morphine [MORPHINE] Allergy (Unknown, Verified 09/24/23 09:56) NAUSEA & VOMITING simvastatin Allergy (Unknown, Verified 09/24/23 09:56) muscle pains and med ineffective enviromental allergies Allergy (Unknown, Uncoded 09/24/23 09:56) Unknown HPI HPI Comments History of Present Illness Details Dl TITUS is a very pleasant male. They are a patient of Dr Jones. They are seen in the office today for the following urologic conditions. 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 - lower urinary tract symptoms - microscopic hematuria Telemedicine Evaluation 15 min Consultation Second Decimal Ottoniel Video attempted Continue finasteride [id number] Happy with current voiding parameters Nocturia x1 Lower urinary tract symptoms Happy with current urinary performance Minimal nocturia Main issue currently is bone spur on right Achilles which wakes him at night Not waking to void Current medication finasteride every other day Microscopic Hematuria:? Stable ? Microscopic hematuria was diagnosed during?routine UA.? Since the last visit the patient has?noticed gross hematuria ?- occured when started xeralto at 20mg Jun 2017.? Relevant medical history for?anticoagulation therapy - xeralto and ASA ?, tobacco use 40 yppd ?,workplace exposures - organic solvents.? Radiographic imaging:?CT IVP 08/10 .? Radiology report?enlarged prostate , I have reviewed the films.? Other investigations?08/10 , cytology, normal.? Cystoscopy findings?08/10 enlarged prostate right lobe.? Therapeutic plan?follow in 12 months with appropriate investigations, continue medications.? PFSH Medical History COPD (chronic obstructive pulmonary disease) Nephrolithiasis Hx of bronchitis Hx of myocardial infarction PONV (postoperative nausea and vomiting) On beta didi at home On anticoagulant therapy Obesity (BMI 30-39.9) Coronary artery disease BPH (benign prostatic hyperplasia) Hyperlipidemia Impaired glucose tolerance Hypertension Paroxysmal atrial fibrillation Surgical History History of cardiac radiofrequency ablation (RFA) History of blepharoplasty Hx of appendectomy History of lumbar surgery H/O excision of lamina of cervical vertebra for decompression of spinal cord H/O rhinoplasty Family History Father No problems noted. Mother No problems noted. Social History Housing: House Alcohol intake: never Patient Tobacco Use Status: Former Tobacco user Tobacco use type: Cigarette e-Cigarette/Vaping Use: Never Used Second Hand Smoke Exposure: No Current occupational status: retired Cognitive needs: No Hearing needs: No Vision needs: Yes Review of Systems Const All systems reviewed & are unremarkable except as noted in HPI and below Reports no additional complaints Resp Reports no additional complaints GI Reports no additional complaints Reports as per HPI Musc Reports no additional complaints Physical Exam Telemedicine evaluation Appropriate responses Regular breathing rate and rhythm HEENT Head: Yes normal to inspection Ears: hearing grossly normal bilaterally Eyes General: appearance normal, both eyes and all related structures Neck Neck: Yes normal visual inspection Chest Chest palpation & inspection: normal inspection of the chest Resp Effort & Inspection: normal respiratory effort and able to speak in complete sentences Assessment & Plan Assessment & Plan (1) BPH (benign prostatic hyperplasia): Code(s): N40.0 - Benign prostatic hyperplasia without lower urinary tract symptoms Qualifiers: Lower urinary tract symptom presence: symptoms present Lower urinary tract symptom detail: weak urinary stream Qualified Code(s): N40.1 - Benign prostatic hyperplasia with lower urinary tract symptoms; R39.12 - Poor urinary stream Plan Continue finasteride every other day Patient Instructions: Imaging studies, laboratory and physical exam results were discussed and reviewed in detail. No major barriers to patient understanding were identified. An opportunity to ask questions regarding the treatment plan was provided. All questions were answered. The patient expressed understanding and agreement with the above treatment plan. The patient is aware they should contact our office by phone for worsening of their current condition or the appearance of new urologic symptoms. Compliance is encouraged with any medications and followup testing that is ordered. It is a privilege to participate in the urologic care of your patient. If you have any questions or concerns regarding treatment for the above conditions, or other urologic issues, please do not hesitate to contact me. The office telephone contact is [phone]. This note is constructed using voice recognition software. While every effort has been made to ensure accuracy check pilot errors may have been included. Yours sincerely, Dr Thom Billingsley MD, [facility] - Urology Providers of Expert, Compassionate Care for the Genitourinary System Telehealth Telehealth Location of provider rendering services: practice address Location of patient: address on file Patient Identification confirmed using: Name, : Yes Telehealth method: video Patient verbally consented to treatment: Yes Patient verbally consented to billing insurance company: Yes Patient informed of any privacy concerns related to visit: Yes Coding Level of Care Code Tele Est Pt Level 4 (64823) Diagnoses Benign prostatic hyperplasia with weak urinary stream N40.1; R39.12 Lower urinary tract symptom presence: symptoms present Lower urinary tract symptom detail: weak urinary stream
== END 2023-09-24 10:49 | disposition home or self-care (01) ==
LOC: HO.HUSH 09:54
PROVIDERS: PCP Internal Medicine; Visit Provider Urology
DX: N40.1 Benign prostatic hyperplasia with lower urinary tract symptoms (principal); R39.12 Poor urinary stream
CPT/HCPCS: 99213

== ENCOUNTER → 2023-09-24 09:54 | Outpatient (BNVA) | payer MEDICARE, SELFPAY | PROVIDERS: PCP Internal Medicine; Visit Provider Urology ==

== ENCOUNTER 2023-09-30 15:14 | Outpatient (AMB) | payer MEDICARE, SELFPAY ==
[2023-09-30 15:34] VITALS: BP 159/72; PULSE 69; BMI 31.3
--- NOTE | 2023-09-30 15:34 | A.OFFVIS_ITS ---
Intake Vital Signs 09/30/23 15:34 Height 5 ft 8 in Weight 206 lb BMI 31.3 BP 159/72 H Blood Pressure Location Rt brachial Position Sitting Pulse 69 Intake Visit Reasons: Sebaceous cyst, 1 wk follow up Intake Note: Patient here to f/u cyst above Rt ear along hairline. Patient reports improvement since finished cephalexin course. 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 Required: No Accompanied by: Self / Same As Patient Allergies morphine [MORPHINE] Allergy (Unknown, Verified 09/30/23 15:35) NAUSEA & VOMITING simvastatin Allergy (Unknown, Verified 09/30/23 15:35) muscle pains and med ineffective enviromental allergies Allergy (Unknown, Uncoded 09/30/23 15:35) Unknown Medication List - Last Reconciled 09/30/23 by Harris Covarrubias MD albuterol sulfate 90 mcg/actuation (ProAir HFA) 2 puffs inhalation Q6H PRN aspirin (Adult Aspirin Regimen) 81 mg PO DAILY celecoxib (Celebrex) 200 mg PO DAILY finasteride 5 mg PO DAILY isosorbide mononitrate ER 30 mg PO DAILY losartan 25 mg PO DAILY mometasone 50 mcg/actuation (Nasonex) 2 sprays intranasal DAILY rivaroxaban (Xarelto) 20 mg PO DAILY rosuvastatin 20 mg PO DAILY 90 days HPI HPI Comments History of Present Illness Details Patient presents for follow-up of his left jainism sebaceous cyst. Symptoms are completely resolved. And exam the cyst demonstrates complete resolution of the erythema . Patient wishes to have this excised today. [facility] Medical History COPD (chronic obstructive pulmonary disease) Nephrolithiasis Hx of bronchitis Hx of myocardial infarction PONV (postoperative nausea and vomiting) On beta didi at home On anticoagulant therapy Obesity (BMI 30-39.9) Coronary artery disease BPH (benign prostatic hyperplasia) Hyperlipidemia Impaired glucose tolerance Hypertension Paroxysmal atrial fibrillation Surgical History History of cardiac radiofrequency ablation (RFA) History of blepharoplasty Hx of appendectomy History of lumbar surgery H/O excision of lamina of cervical vertebra for decompression of spinal cord H/O rhinoplasty Family History Father No problems noted. Mother No problems noted. Social History Housing: House Alcohol intake: never Patient Tobacco Use Status: Former Tobacco user Tobacco use type: Cigarette e-Cigarette/Vaping Use: Never Used Second Hand Smoke Exposure: No Current occupational status: retired Cognitive needs: No Hearing needs: No Vision needs: Yes Physical Exam Vital Signs: Last Vital Signs Pulse 69 09/30/23 15:34 BP 159/72 H 09/30/23 15:34 BMI result Body Mass Index 31.3 Office Procedures Excision Details: Risks, benefits, alternatives of right temporal sebaceous cyst excision reviewed the patient and included but not limited to bleeding, infection, recurrence, numbness, pain, scarring and the patient wished to proceed. All questions were answered. Consent was signed. After appropriate positioning, patient under 1% lidocaine and Betadine prep to the right jainism sebaceous cyst. A longitudinal bi- elliptical incision made around the lesion and there was uneventfully dissected out. Specimen sent to pathology. Wound was irrigated, secured hemostasis, and closed using running subcuticular 3-0 Vicryl suture followed by Steri-Strips and sterile dressing. Patient tolerated procedure well. 46415-Ektthvdp scalp/neck/hands/feet/genitalia 2.1cm-3cm Procedure code (CPT) selection complete Office Meds lidocaine 1 %-epinephrine 1:100,000 injection solution Performing Provider: Harris Covarrubias MD Performing Location[place] [facility] Administered by: Harris Covarrubias MD on 09/30/23 16:13 Dose Route Admin Location Dispensed Lot Number Expiration Date [facility] Leather Colorer 10 mL Infiltration 10 mL Assessment & Plan Assessment & Plan (1) Sebaceous cyst: Code(s): L72.3 - Sebaceous cyst Plan: Patient has been given local wound instructions including ice to the wound periodically today and tomorrow, may shower in 2 days, and will follow-up as directed or p.r.n.. Orders: Orders AMB Excision Today L72.3 - Sebaceous cyst Coding Level of Care Code Est Pt Level 4 (39718) Diagnoses Sebaceous cyst L72.3 CPT Codes Scalp/Neck/Hands/Feet/Genetalia - CPT: 54510-Afingscm scalp/neck/hands/feet/genitalia 2.1cm-3cm ([id number])
== END 2023-09-30 16:02 | disposition home or self-care (01) ==
PROVIDERS: PCP Internal Medicine; Visit Provider Surgery
DX: L72.0 Epidermal cyst (principal)
CPT/HCPCS: 11423

== ENCOUNTER 2023-09-30 15:14 | Outpatient (REF) | payer MEDICARE, SELFPAY | END 2023-09-30 15:15 | disposition home or self-care (01) | LOC: HO.LNP 15:14 | PROVIDERS: PCP Internal Medicine; Visit Provider Surgery | DX: L72.3 Sebaceous cyst (principal); Z79.899 Other long term (current) drug therapy | CPT/HCPCS: 11423; 88304 ==

== ENCOUNTER 2023-10-10 09:47 | Outpatient (AMB) | payer MEDICARE, SELFPAY ==
[2023-10-10 09:57] VITALS: BP 142/65; PULSE 89; O2SAT 96; BMI 31.4
--- NOTE | 2023-10-10 09:57 | A.OFFVIS_ITS ---
Intake Vital Signs 3 10/10/23 09:57 Height 5 ft 8 in Weight 206 lb 5.643 oz BMI 31.4 BP 142/65 H Blood Pressure Location Lt brachial Position Sitting Pulse 89 Pulse Source Pulse Oximeter Pulse Oximetry (%) 96 Oxygen Delivery Method Room Air Intake Visit Reasons: 1 wk follow up, sebaceous cyst Intake Note: Pt presents to the office today for a 1 week follow up for sebaceous cyst. Pt states he is feeling well but he states that he can still feel a bump above his ear. Allergies morphine [MORPHINE] Allergy (Unknown, Verified 10/10/23 09:59) NAUSEA & VOMITING simvastatin Allergy (Unknown, Verified 10/10/23 09:59) muscle pains and med ineffective enviromental allergies Allergy (Unknown, Uncoded 10/10/23 09:59) Unknown HPI HPI Comments 2 History of Present Illness0 Details Patient returns 1 week following excision of a sebaceous cyst over the right ear. He feels well and denies any bleeding or discharge. He does note a small bump in the posterior aspect of the incision. He denies any pain associated with this. He is uncertain if this is a new cyst or related to the suture. [facility] Medical History COPD (chronic obstructive pulmonary disease) Nephrolithiasis Hx of bronchitis Hx of myocardial infarction PONV (postoperative nausea and vomiting) On beta didi at home On anticoagulant therapy Obesity (BMI 30-39.9) Coronary artery disease BPH (benign prostatic hyperplasia) Hyperlipidemia Impaired glucose tolerance Hypertension Paroxysmal atrial fibrillation Surgical History History of cardiac radiofrequency ablation (RFA) History of blepharoplasty Hx of appendectomy History of lumbar surgery H/O excision of lamina of cervical vertebra for decompression of spinal cord H/O rhinoplasty Family History Father No problems noted. Mother No problems noted. Social History Housing: House Alcohol intake: never Patient Tobacco Use Status: Former Tobacco user Tobacco use type: Cigarette e-Cigarette/Vaping Use: Never Used Second Hand Smoke Exposure: No Current occupational status: retired Cognitive needs: No Hearing needs: No Vision needs: Yes Physical Exam Vital Signs: Last Vital Signs Pulse 89 10/10/23 09:57 BP 142/65 H 10/10/23 09:57 Pulse Ox 96 10/10/23 09:57 Oxygen Delivery Method Room Air 10/10/23 09:57 BMI result Body Mass Index 31.4 HEENT Other: Well-healed incision over the right ear with a small lump measuring approximately 3 mm in the posterior aspect of the incision. This may be the not from the underlying Vicryl suture. Head images: 2 1. Incision over right ear Assessment & Plan Assessment & Plan (1) Sebaceous cyst: Code(s): L72.3 - Sebaceous cyst Plan: Status post excision of a cyst over the right ear. His wounds are clean and intact without evidence of infection. Recommending observing the lump in the posterior scalp for 1 month. If still present he should call the office for follow-up visit. Coding Level of Care Code Global (81372) Diagnoses Sebaceous cyst L72.3
== END 2023-10-10 10:10 | disposition home or self-care (01) ==
PROVIDERS: PCP Internal Medicine; Visit Provider Surgery
DX: L72.3 Sebaceous cyst (principal)
CPT/HCPCS: 99024

== ENCOUNTER → 2023-10-10 09:47 | Outpatient (BNVA) | payer MEDICARE, SELFPAY | PROVIDERS: PCP Internal Medicine; Visit Provider Surgery ==

== ENCOUNTER 2023-12-16 09:24 | Outpatient (AMB) | payer MEDICARE, SELFPAY ==
[2023-12-16 10:42] VITALS: BP 128/74; PULSE 76; TEMP 36.8; O2SAT 97; BMI 30.2
--- NOTE | 2023-12-16 10:42 | MHC.OFFWIV ---
Intake Vital Signs 12/16/23 10:42 Height 5 ft 8 in Weight 198 lb 6 oz BMI 30.2 BP 128/74 Blood Pressure Location Lt brachial Position Sitting Pulse 76 Pulse Source Pulse Oximeter Temp 98.3 F Temp Source Oral Pulse Oximetry (%) 97 Intake Visit Reasons: EP COVID + 12/03 RT side pain/Blood in Mucus Intake Note: pt is here for c.o right side pain, blood in mucus had positive covid test on 12/03/23 Patient Tobacco Use Status: Former Tobacco user Allergies morphine [MORPHINE] Allergy (Unknown, Verified 12/16/23 10:43) NAUSEA & VOMITING simvastatin Allergy (Unknown, Verified 12/16/23 10:43) muscle pains and med ineffective enviromental allergies Allergy (Unknown, Uncoded 10/10/23 09:59) Unknown Do you need a note to return to daycare/school/sports/work: Yes HPI HPI Comments History of Present Illness Details Patient is a 78-year-old male in today for a sick visit. He states that for the past several days he has developed symptoms of sore throat, cough, right-sided chest wall pain, and subjective fever. Denies chest pain, shortness a breath, dyspnea on exertion, nausea, vomiting, diarrhea, dizziness, numbness. He has tried taking [id number] medicine with little effect. He has a past medical history significant for COPD, hypertension, proximal AFib. [facility] Medical History COPD (chronic obstructive pulmonary disease) Nephrolithiasis Hx of bronchitis Hx of myocardial infarction PONV (postoperative nausea and vomiting) On beta didi at home On anticoagulant therapy Obesity (BMI 30-39.9) Coronary artery disease BPH (benign prostatic hyperplasia) Hyperlipidemia Impaired glucose tolerance Hypertension Paroxysmal atrial fibrillation Surgical History History of cardiac radiofrequency ablation (RFA) History of blepharoplasty Hx of appendectomy History of lumbar surgery H/O excision of lamina of cervical vertebra for decompression of spinal cord H/O rhinoplasty Family History Father No problems noted. Mother No problems noted. Social History Housing: House Alcohol intake: never Patient Tobacco Use Status: Former Tobacco user Tobacco use type: Cigarette e-Cigarette/Vaping Use: Never Used Second Hand Smoke Exposure: No Current occupational status: retired Cognitive needs: No Hearing needs: No Vision needs: Yes Review of Systems Const Details: Constitutional : No Weight loss, No Fever, No Chills, Admits Fatigue, No Malaise ENT/Mouth : Admits sore throat, No Rhinorrhea. Denies ear fullness. Eyes: No Eye Pain, No Swelling, No Redness Cardiovascular : No Chest Pain, No SOB, No Dyspnea on Exertion, No Orthopnea, No Edema, No Palpitations Respiratory : Admits Cough, Admits Sputum, Admits Wheezing Gastrointestinal : No Nausea, No Vomiting, Denies diarrhea, No Constipation, No abdominal Pain, No Hematochezia, No Melena Genitourinary : No Dysuria, No Urinary Frequency, No Hematuria, Musculoskeletal : No joint pain, Admits Myalgias, No Joint Swelling Skin : No Skin Lesions, No rash Neuro : No Weakness, No Numbness, No Dizziness, No Headache Psych : No Anxiety/Panic, No Depression Heme/Lymph: No Bruising, No Bleeding,No Lymphadenopathy Endocrine : No Polyuria, No Polydipsia All other systems reviewed and are negative Physical Exam Vital Signs: Last Vital Signs Temp 98.3 F 12/16/23 10:42 Pulse 76 12/16/23 10:42 BP 128/74 12/16/23 10:42 Pulse Ox 97 12/16/23 10:42 BMI result Body Mass Index 30.2 Patient's vital signs reviewed and stable. Results Reviewed Results Reviewed: Results of x-ray demonstrates atelectasis. Assessment & Plan Assessment & Plan (1) Pneumonia: Comment: X-ray in office demonstrated atelectasis. Based on patient's physical exam and presentation will treat for pneumonia. Will prescribe Augmentin, doxycycline, prednisone. Patient has been instructed on the side effects of these medications. Patient has been educated on signs of worsening symptoms when to report back to the walk-in clinic and when to report to the emergency room. Patient states he understands Code(s): J18.9 - Pneumonia, unspecified organism Qualifiers: Pneumonia type: due to unspecified organism Laterality: unspecified laterality Lung location: unspecified part of lung Qualified Code(s): J18.9 - Pneumonia, unspecified organism Plan: Take your medications as prescribed. If you were prescribed antibiotics today, it is important that you take your medication to their entirety, do not skip any doses, do not finish them early. Follow-up with your primary care provider this week. Return to the emergency department with new or worsening symptoms. Such as fevers, chills, chest pain, shortness of breath, nausea, vomiting, dizziness, headache, vision changes, lethargy In case of emergency call 911 Plan Follow-up with PCP. Orders: Orders XR chest 2V Today J06.9 - Acute upper respiratory infection, unspecified Medications: New doxycycline hyclate 100 mg PO BID 20 caps 0RF amoxicillin-pot clavulanate 875-125 mg 1 tab PO Q12H 20 tabs 0RF prednisone 20 mg PO BID 10 tabs 0RF benzonatate 100 mg PO BID-TID PRN 30 caps 0RF cough Coding Level of Care Code Est Pt Level 3 (41041) Diagnoses Pneumonia due to infectious organism, unspecified laterality, unspecified part of lung J18.9 Pneumonia type: due to unspecified organism Laterality: unspecified laterality Lung location: unspecified part of lung Time Spent (min) 28
== END 2023-12-16 13:11 | disposition home or self-care (01) ==
PROVIDERS: PCP Internal Medicine; Visit Provider Nurse Practitioner Primary Care
DX: J18.9 Pneumonia, unspecified organism (principal)
CPT/HCPCS: 99213

== ENCOUNTER 2023-12-16 11:00 | Outpatient (REF) | payer MEDICARE, SELFPAY ==
--- NOTE | ~2023-12-16 | XR_ITS ---
EXAMINATION: XR CHEST CLINICAL INFORMATION: Acute upper respiratory infection COMPARISON: Chest CT August 13, 2019 and chest x-ray June 24, 2019 TECHNIQUE: 2 views of the chest were obtained. FINDINGS: Cardiac silhouette is normal in size. Lungs are well aerated. Subtle bibasilar linear opacities are most suggestive of atelectasis. No lobar consolidation. No pleural effusion or pneumothorax. Mild to moderate degenerative changes of the spine. XR/XR chest 2V IMPRESSION: Suspected bibasilar atelectasis. No lobar consolidation.
== END 2023-12-16 11:01 | disposition home or self-care (01) ==
LOC: HO.HMGCX 11:00
PROVIDERS: PCP Internal Medicine; Visit Provider Nurse Practitioner Primary Care
DX: J06.9 Acute upper respiratory infection, unspecified (principal)
CPT/HCPCS: 71046

== ENCOUNTER 2023-12-25 15:37 | Outpatient (AMB) | payer MEDICARE, SELFPAY ==
[2023-12-25 15:40] VITALS: BP 140/70; PULSE 83; O2SAT 96; BMI 30.4
--- NOTE | 2023-12-25 15:40 | A.OFFPC_ITS ---
Vital Signs 12/25/23 15:40 Height 5 ft 8 in Weight 200 lb 0.6 oz BMI 30.4 BP 140/70 H Blood Pressure Location Lt brachial Position Sitting Pulse 83 Pulse Source Pulse Oximeter Pulse Oximetry (%) 96 Oxygen Delivery Method Room Air Intake Visit Reasons: 3mth f/u Intake Note: Patient is here to follow up on 3 months Roof Slater Required: No Allergies morphine [MORPHINE] Allergy (Unknown, Verified 12/25/23 15:40) NAUSEA & VOMITING simvastatin Allergy (Unknown, Verified 12/25/23 15:40) muscle pains and med ineffective enviromental allergies Allergy (Unknown, Uncoded 12/25/23 15:40) Unknown Tobacco use date assessed: 12/25/23 HPI 3mth f/u HPI Details 78-year-old obese male with hypertension atrial fibrillation ablation 2019 hypercholesterolemia last seen in August 2023. Patient had cyst that became an abscess and was taken out by the surgeon. Patient is here for follow- up patient's colonoscopy is up-to-date April 2021 last echocardiogram January 2023 ejection fraction normal ascending aorta 4.2 cm. Recent Urgent Center had pneumonia treated with Augmentin and doxycycline and was given prednisone. Patient is so Cardiology September [address]23 Dr. Faith has been feeling better with addition of Multaq. With the elevation in blood pressure losartan increased from 25-50 mg patient follows up with urology also microscopic hematuria on cat steride every other day now continues to have some problem with breathing not any better after 1 week of the antibiotic had a chest x-ray done which did not reveal any pneumonia but had some mild atelectasis. Presently patient keeps on coughing sore throat as well as productive cough. Patient did have COVID-19 infection early on around the month. [facility] Medical History COPD (chronic obstructive pulmonary disease) Nephrolithiasis Hx of bronchitis Hx of myocardial infarction PONV (postoperative nausea and vomiting) On beta didi at home On anticoagulant therapy Obesity (BMI 30-39.9) Coronary artery disease BPH (benign prostatic hyperplasia) Hyperlipidemia Impaired glucose tolerance Hypertension Paroxysmal atrial fibrillation Surgical History History of cardiac radiofrequency ablation (RFA) History of blepharoplasty Hx of appendectomy History of lumbar surgery H/O excision of lamina of cervical vertebra for decompression of spinal cord H/O rhinoplasty Family History Father No problems noted. Mother No problems noted. Social History Housing: House Alcohol intake: never Patient Tobacco Use Status: Former Tobacco user Tobacco use type: Cigarette e-Cigarette/Vaping Use: Never Used Second Hand Smoke Exposure: No Current occupational status: retired Cognitive needs: No Hearing needs: No Vision needs: Yes Questionnaire Thrive Questionnaire Date Thrive assessed: 12/25/23 AUDIT C Alcohol Use Questionnaire (AUDIT-C) 1. How often do you have a drink containing alcohol?: Never 3. How often do you have six or more drinks on one occasion?: Never Total Score: 0 FLYNN-7 AMB Questionnaire FLYNN-7 Date FLYNN - 7 assessed: 12/25/23 Source: Developed by Drs. Pierce Nair, Malena Crowell, James Huynh and colleagues, with an educational yonas from [employer]. Physical exam (Primary Care) Vital Signs: Last Vital Signs Pulse 83 12/25/23 15:40 BP 140/70 H 12/25/23 15:40 Pulse Ox 96 12/25/23 15:40 Oxygen Delivery Method Room Air 12/25/23 15:40 BMI result Body Mass Index 30.4 Tobacco/Smoking Status: Tobacco use Status Tobacco use date assessed 12/25/23 12/25/23 15:41 Patient Tobacco Use Status Former Tobacco user 12/25/23 15:41 Tobacco use type Cigarette 12/25/23 15:41 e-Cigarette/Vaping Use Never Used 12/25/23 15:41 Thrive Assessment: Date of Thrive Assessment Date Thrive assessed 12/25/23 12/25/23 15:41 Const General: alert; No acute distress Eyes Conjunctivae: conjunctivae normal Resp Other: Rhonchi noted bilateral with crackles. Cardio Rate: regular rate Rhythm: regular rhythm GI Other: Tender on the right lower quadrant with no rebound but some guarding Extrem General: Yes normal to inspection and No edema Assessment and Plan Assessment & Plan (1) Paroxysmal atrial fibrillation: Comment: June 2019 echo normal LV impaired relaxation, November 2019 ear 55-60% her tick dilatation [address] Bonner 08/2020 Code(s): I48.0 - Paroxysmal atrial fibrillation Plan: Patient is being followed up by Cardiology and Dr. Mcintosh placed on Multaq (2) Hypertension: Code(s): I10 - Essential (primary) hypertension Qualifiers: Hypertension type: essential hypertension Qualified Code(s): I10 - Essential (primary) hypertension Plan: Continue with blood pressure medication. Decrease salt intake and exercise losartan increased to 50 mg (3) Impaired glucose tolerance: Code(s): R73.02 - Impaired glucose tolerance (oral) Plan: Decrease the amount of carbohydrate intake, pasta, bread, rice and potatoes are all sugar and that is aside from all the sweet stuff, remember that fruits are good but they are Sweet also. (4) Hyperlipidemia: Code(s): E78.5 - Hyperlipidemia, unspecified Qualifiers: Hyperlipidemia type: pure hypercholesterolemia Qualified Code(s): E78.00 - Pure hypercholesterolemia, unspecified Plan: Avoid fried foods, chicken skin, eggs, butter margarine, pastries and meat. Be it pork or beef they have a lot of cholesterol presently on rosuvastatin 20 mg once a day LDL goal of less than 70 (5) BPH (benign prostatic hyperplasia): Code(s): N40.0 - Benign prostatic hyperplasia without lower urinary tract symptoms Qualifiers: Lower urinary tract symptom presence: symptoms present Lower urinary tract symptom detail: weak urinary stream Qualified Code(s): N40.1 - Benign prostatic hyperplasia with lower urinary tract symptoms; R39.12 - Poor urinary stream Plan: Follows up with urology continuing with finasteride (6) Coronary artery disease: Comment: 1995 Dr. Stacy Code(s): I25.10 - Atherosclerotic heart disease of [place] coronary artery without angina pectoris Qualifiers: Coronary Disease-Associated Artery/Lesion type: [place] artery [place] vs. transplanted heart: [place] heart Associated angina: without angina Qualified Code(s): I25.10 - Atherosclerotic heart disease of [place] coronary artery without angina pectoris Plan: Control the cholesterol, weight, blood pressure, diabetes continue with anticoagulation and aspirin (7) COPD (chronic obstructive pulmonary disease): Code(s): J44.9 - Chronic obstructive pulmonary disease, unspecified Plan: Continue with the inhaler as needed COPD exacerbation steroid prescription sent in sent in controller inhaler Symbicort continue with albuterol inhaler antibiotic changed to 3rd generation cephalosporin, (8) Ascending aorta dilatation: Comment: April 2022Normal LV systolic function with impaired relaxation ? ? ? filling pattern? 2.? Mild aortic regurgitation mos January 2023echocardiogram left ventricular hypertrophy ejection fraction 55-60% normal left ventricular diastolic function. ascending aorta 4.2 cm Code(s): I77.810 - Thoracic aortic ectasia Plan: Advised follow-up echocardiogram (9) Pneumonia: Comment: X-ray in office demonstrated atelectasis. Based on patient's physical exam and presentation will treat for pneumonia. Will prescribe Augmentin, doxycycline, prednisone. Patient has been instructed on the side effects of these medications. Patient has been educated on signs of worsening symptoms when to report back to the walk-in clinic and when to report to the emergency room. Patient states he understands Code(s): J18.9 - Pneumonia, unspecified organism Qualifiers: Pneumonia type: due to unspecified organism Laterality: unspecified laterality Lung location: unspecified part of lung Qualified Code(s): J18.9 - Pneumonia, unspecified organism Plan: Repeat chest x-ray done and changed antibiotic. Can not do macrolide due to Multaq. (10) RLQ abdominal pain: Code(s): R10.31 - Right lower quadrant pain Plan: CT scan of and abdomen requested Orders: Orders CT abdomen pelvis w IV con Today R10.31 - Right lower quadrant pain XR chest 2V Today J18.9 - Pneumonia, unspecified organism Medications: New cefpodoxime must administer with a meal/food 200 mg PO Q12H 14 tabs 0RF J44.9 - Chronic obstructive pulmonary disease, unspecified budesonide-formoterol 160-4.5 mcg/actuation (Symbicort) 2 puffs inhalation BID 10.2 grams 12RF J44.9 - Chronic obstructive pulmonary disease, unspecified prednisone 4 tabs QD x 2 days then 3 tabs QD x 2 days then 2 tabs Qd x 2 days then 1 tab QD x 2 days PO daily; 20 tabs 0RF J44.9 - Chronic obstructive pulmonary disease, unspecified, J45.909 - Unspecified asthma, uncomplicated Coding Level of Care Code Est Pt Level 4 (75084) Diagnoses Paroxysmal atrial fibrillation I48.0 Essential hypertension I10 Hypertension type: essential hypertension Impaired glucose tolerance R73.02 Pure hypercholesterolemia E78.00 Hyperlipidemia type: pure hypercholesterolemia Benign prostatic hyperplasia with weak urinary stream N40.1; R39.12 Lower urinary tract symptom presence: symptoms present Lower urinary tract symptom detail: weak urinary stream Coronary artery disease involving [place] coronary artery of [place] heart without angina pectoris I25.10 Coronary Disease-Associated Artery/Lesion type: [place] artery [place] vs. transplanted heart: [place] heart Associated angina: without angina COPD (chronic obstructive pulmonary disease) J44.9 Ascending aorta dilatation I77.810 Pneumonia due to infectious organism, unspecified laterality, unspecified part of lung J18.9 Pneumonia type: due to unspecified organism Laterality: unspecified laterality Lung location: unspecified part of lung RLQ abdominal pain R10.31
== END 2023-12-25 16:41 | disposition home or self-care (01) ==
PROVIDERS: PCP Internal Medicine; Visit Provider Internal Medicine
DX: I48.0 Paroxysmal atrial fibrillation (principal); J44.9 Chronic obstructive pulmonary disease, unspecified; I77.810 Thoracic aortic ectasia; I10 Essential (primary) hypertension; R73.02 Impaired glucose tolerance (oral); E78.00 Pure hypercholesterolemia, unspecified; N40.1 Benign prostatic hyperplasia with lower urinary tract symptoms; R39.12 Poor urinary stream; I25.10 Atherosclerotic heart disease of native coronary artery without angina pectoris; J18.9 Pneumonia, unspecified organism; R10.31 Right lower quadrant pain
CPT/HCPCS: 99214

== ENCOUNTER 2023-12-26 08:12 | Outpatient (REF) | payer MEDICARE, SELFPAY ==
--- NOTE | ~2023-12-26 | XR_ITS ---
EXAMINATION: XR CHEST 2 VIEWS CLINICAL INFORMATION: Cough. COMPARISON: Chest radiographs dated 12/16/2023. TECHNIQUE: Frontal and lateral views of the chest were obtained. FINDINGS: The heart, great vessels, pulmonary vasculature and mediastinum are normal. The lungs show no focal infiltrate, effusion or pneumothorax. There is no acute osseous abnormality. There is multi-level thoracic spondylosis. XR/XR chest 2V IMPRESSION: No active cardiopulmonary disease.
[2023-12-26 15:07] LABS: Appearance Urine Clear; Color Urine Dark Yellow; Glucose Urine UA Negative (Negative); Leukocyte Esterase Urine Trace (Negative); Nitrite Urine Negative (Negative); Specific Gravity - Urine >= 1.030 (1.005-1.025); UMIC TRIGGER UA YES; Urine Blood Negative (Negative); Urine Ketones Trace mg/dL (Negative); Urine Protein Trace mg/dL (Neg-Trace)
[2023-12-26 15:12] LABS: Bacteria Urine None Seen (None Seen); Hyaline Casts Urine 0-2 /LPF (0-2); RBC Urine 0-2 /HPF (0-2); Squamous Epithelial Cell Urine 0-2 /HPF (0-2)
== END 2023-12-26 08:13 | disposition home or self-care (01) ==
LOC: HO.XRAY 08:12
PROVIDERS: Urology; PCP Internal Medicine; Visit Provider Internal Medicine
DX: J18.9 Pneumonia, unspecified organism (principal); R39.12 Poor urinary stream; N40.1 Benign prostatic hyperplasia with lower urinary tract symptoms
CPT/HCPCS: 71046; 81001; 87086

== ENCOUNTER 2024-01-20 12:45 | Outpatient (AMB) | payer MEDICARE, SELFPAY ==
--- NOTE | 2024-01-20 13:03 | MHC.OFFVIS ---
Intake Intake Visit Reasons: nocturia concerns(Conf) Intake Note: Patient is Present for Follow Up Nocturia issues Urology Medication: Finasteride Antibiotic Allergies:None Blood Thinners: Xarelto PVR:42 Patient states he is feeling a lot of discomfort and feels that he is urinating a whole lot. Patient is scheduled for CT scan by pcp february 22. Recent culture results shown no infection. Allergies morphine [MORPHINE] Allergy (Unknown, Verified 01/20/24 13:15) NAUSEA & VOMITING simvastatin Allergy (Unknown, Verified 01/20/24 13:15) muscle pains and med ineffective enviromental allergies Allergy (Unknown, Uncoded 01/20/24 13:15) Unknown HPI HPI Comments History of Present Illness Details Dl TITUS is a very pleasant male. They are a patient of Dr Jones. They are seen in the office today for the following urologic conditions. 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 - lower urinary tract symptoms - microscopic hematuria Has been on finasteride every other day Recurrence of weak stream with frequent urination since end of last year Had some stomach related issues and had been on antibiotics for COVID in November with pneumonia Suggest cystoscopy Has planned CT scan beginning of February Trial terazosin Lower urinary tract symptoms Happy with current urinary performance Minimal nocturia Main issue currently is bone spur on right Achilles which wakes him at night Not waking to void Current medication finasteride every other day Microscopic Hematuria:? Stable ? Microscopic hematuria was diagnosed during?routine UA.? Since the last visit the patient has?noticed gross hematuria ?- occured when started xeralto at 20mg Jun 2017.? Relevant medical history for?anticoagulation therapy - xeralto and ASA ?, tobacco use 40 yppd ?,workplace exposures - organic solvents.? Radiographic imaging:?CT IVP 08/10 .? Radiology report?enlarged prostate , I have reviewed the films.? Other investigations?08/10 , cytology, normal.? Cystoscopy findings?08/10 enlarged prostate right lobe.? Therapeutic plan?follow in 12 months with appropriate investigations, continue medications.? [facility] Medical History COPD (chronic obstructive pulmonary disease) Nephrolithiasis Hx of bronchitis Hx of myocardial infarction PONV (postoperative nausea and vomiting) On beta didi at home On anticoagulant therapy Obesity (BMI 30-39.9) Coronary artery disease BPH (benign prostatic hyperplasia) Hyperlipidemia Impaired glucose tolerance Hypertension Paroxysmal atrial fibrillation Surgical History History of cardiac radiofrequency ablation (RFA) History of blepharoplasty Hx of appendectomy History of lumbar surgery H/O excision of lamina of cervical vertebra for decompression of spinal cord H/O rhinoplasty Family History Father No problems noted. Mother No problems noted. Social History Housing: House Alcohol intake: never Patient Tobacco Use Status: Former Tobacco user Tobacco use type: Cigarette e-Cigarette/Vaping Use: Never Used Second Hand Smoke Exposure: No Current occupational status: retired Cognitive needs: No Hearing needs: No Vision needs: Yes Review of Systems Const Denies chills and Denies fever(s) Card Reports no additional complaints and Denies syncope Resp Denies cough GI Denies abdominal pain and Denies heartburn Reports as per HPI and Denies change in libido Neuro Denies syncope Psych Denies change in libido Endo Denies change in libido Physical Exam Const General: cooperative, healthy appearing, comfortable and no acute distress Orientation/consciousness: patient oriented x3 HEENT Face and sinus: Yes normal facial exam Mouth: moist mucous membranes Neck Neck: Yes normal visual inspection, Yes full ROM and Yes trachea midline Chest Chest palpation & inspection: normal inspection of the chest Resp Effort & Inspection: normal respiratory effort, able to speak in complete sentences and no respiratory distress GI Inspection: Yes normal to inspection Back/Spine/Pelvis Cervical Spine: normal cervical lordosis Thoracic/Lumbar Spine: thoracic and lumbar spine normal to inspection Skin General skin exam: no rashes or lesions noted Neuro General: patient oriented x3, gait normal, tone normal and moves all extremities Extrem General: Yes normal to inspection and Yes capillary refill normal Office Procedures Post Void Residual Post Residual Void Post Void Residual (PVR): 42 [id number] Void Residual by ultrasound Assessment & Plan Assessment & Plan (1) Weak urinary stream: Code(s): R39.12 - Poor urinary stream Plan Trial terazosin Plan cystoscopy Orders: Orders AMB Urinalysis Automated Today Z13.9 - Encounter for screening, unspecified AMB Post Void Residual by ultrasound Today N40.1 - Benign prostatic hyperplasia with lower urinary tract symptoms, R39.12 - Poor urinary stream Medications: New terazosin 5 mg PO BEDTIME 30 caps 1RF 30 days N40.1 - Benign prostatic hyperplasia with lower urinary tract symptoms, R35.0 - Frequency of micturition, R39.12 - Poor urinary stream Patient Instructions: Imaging studies, laboratory and physical exam results were discussed and reviewed in detail. No major barriers to patient understanding were identified. An opportunity to ask questions regarding the treatment plan was provided. All questions were answered. The patient expressed understanding and agreement with the above treatment plan. The patient is aware they should contact our office by phone for worsening of their current condition or the appearance of new urologic symptoms. Compliance is encouraged with any medications and followup testing that is ordered. It is a privilege to participate in the urologic care of your patient. If you have any questions or concerns regarding treatment for the above conditions, or other urologic issues, please do not hesitate to contact me. The office telephone contact is [phone]. This note is constructed using voice recognition software. While every effort has been made to ensure accuracy grant specialist errors may have been included. Yours sincerely, Dr Thom Billingsley MD, [facility] - Urology Providers of Expert, Compassionate Care for the Genitourinary System Coding Level of Care Code Est Pt Level 4 (51189) Diagnoses Weak urinary stream R39.12 CPT Codes Post Residual Void - PVR CPT Code: 62385-Ikya Void Residual by ultrasound ([id number])
== END 2024-01-20 13:43 | disposition home or self-care (01) ==
PROVIDERS: PCP Internal Medicine; Visit Provider Urology
DX: R39.12 Poor urinary stream (principal)
CPT/HCPCS: 99214

== ENCOUNTER → 2024-01-20 12:45 | Outpatient (BNVA) | payer MEDICARE, SELFPAY | PROVIDERS: PCP Internal Medicine; Visit Provider Urology | DX: R39.12 Poor urinary stream (principal) | CPT/HCPCS: 51798; 99212 ==

== ENCOUNTER 2024-01-27 14:47 | Outpatient (AMB) | payer MEDICARE, SELFPAY ==
[2024-01-27 14:48] VITALS: BP 152/76; PULSE 87; O2SAT 97; BMI 30.9
--- NOTE | 2024-01-27 14:48 | MHC.PC.OV ---
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: No Allergies morphine [MORPHINE] Allergy (Unknown, Verified 01/27/24 14:49) NAUSEA & VOMITING simvastatin Allergy (Unknown, Verified 01/27/24 14:49) muscle pains and med ineffective enviromental allergies Allergy (Unknown, Uncoded 01/27/24 14:49) Unknown Tobacco use date assessed: 01/27/24 Fall risk assessment: No Falls in past year Last assessed Fall Risk: 01/27/24 HPI COPD exacerbation, right lower quadrant pain HPI Details 78-year-old obese male with atrial fibrillation hypertension impaired glucose tolerance hypercholesterolemia BPH coronary artery disease COPD ascending aorta dilatation last seen in December 2023. Patient had right lower quadrant abdominal pain and CT scan was requested. Patient is up-to-date with colonoscopy. Patient was seen by Urology for nocturia planned cystoscopy placed on terazosin. Patient also was seen by the vascular and had ankle-brachial index showing peripheral vascular disease. [facility] Medical History COPD (chronic obstructive pulmonary disease) Nephrolithiasis Hx of bronchitis Hx of myocardial infarction PONV (postoperative nausea and vomiting) On beta didi at home On anticoagulant therapy Obesity (BMI 30-39.9) Coronary artery disease BPH (benign prostatic hyperplasia) Hyperlipidemia Impaired glucose tolerance Hypertension Paroxysmal atrial fibrillation Surgical History History of cardiac radiofrequency ablation (RFA) History of blepharoplasty Hx of appendectomy History of lumbar surgery H/O excision of lamina of cervical vertebra for decompression of spinal cord H/O rhinoplasty Family History Father No problems noted. Mother No problems noted. Social History Housing: House Alcohol intake: never Patient Tobacco Use Status: Former Tobacco user Tobacco use type: Cigarette e-Cigarette/Vaping Use: Never Used Second Hand Smoke Exposure: No Current occupational status: retired Cognitive needs: No Hearing needs: No Vision needs: Yes Questionnaire Thrive Questionnaire Date Thrive assessed: 12/25/23 AUDIT C Alcohol Use Questionnaire (AUDIT-C) 1. How often do you have a drink containing alcohol?: Never 3. How often do you have six or more drinks on one occasion?: Never Total Score: 0 FLYNN-7 AMB Questionnaire FLYNN-7 Date FLYNN - 7 assessed: 12/25/23 Source: Developed by Drs. Pierce Nair, Malena Crowell, James Huynh and colleagues, with an educational yonas from [employer]. Physical exam (Primary Care) Vital Signs: Last Vital Signs Pulse 87 01/27/24 14:48 BP 152/76 H 01/27/24 14:48 Pulse Ox 97 01/27/24 14:48 Oxygen Delivery Method Room Air 01/27/24 14:48 BMI result Body Mass Index 30.9 Tobacco/Smoking Status: Tobacco use Status Tobacco use date assessed 01/27/24 01/27/24 14:51 Patient Tobacco Use Status Former Tobacco user 01/27/24 14:51 Tobacco use type Cigarette 01/27/24 14:51 e-Cigarette/Vaping Use Never Used 01/27/24 14:51 Thrive Assessment: Date of Thrive Assessment Date Thrive assessed 12/25/23 01/27/24 14:51 Const General: alert; No acute distress Eyes Conjunctivae: conjunctivae normal Resp Other: Noted rhonchi bilaterally Cardio Rate: regular rate Rhythm: regular rhythm GI Inspection: Yes normal to inspection Extrem General: Yes normal to inspection and No edema Assessment and Plan Assessment & Plan (1) RLQ abdominal pain: Code(s): R10.31 - Right lower quadrant pain Plan: CT scan pending February 2024 (2) Peripheral vascular disease: Comment: December 2023 ankle-brachial index right below 0.8, left below 0.7 Code(s): I73.9 - Peripheral vascular disease, unspecified Plan: When sitting down elevate the legs, exercise, and support stockings patient follows up with vascular surgeon and will be seeing tomorrow (3) Ascending aorta dilatation: Comment: April 2022Normal LV systolic function with impaired relaxation ? ? ? filling pattern? 2.? Mild aortic regurgitation mos January 2023echocardiogram left ventricular hypertrophy ejection fraction 55-60% normal left ventricular diastolic function. ascending aorta 4.2 cm January 2023 Code(s): I77.810 - Thoracic aortic ectasia Plan: Continuing to follow-up last time tested January 2023 (4) Obesity (BMI 30-39.9): Code(s): E66.9 - Obesity, unspecified Plan: Diet and exercise (5) Coronary artery disease: Comment: 1995 Dr. Stacy Code(s): I25.10 - Atherosclerotic heart disease of [place] coronary artery without angina pectoris Qualifiers: Coronary Disease-Associated Artery/Lesion type: [place] artery [place] vs. transplanted heart: [place] heart Associated angina: without angina Qualified Code(s): I25.10 - Atherosclerotic heart disease of [place] coronary artery without angina pectoris Plan: Control the cholesterol, weight, blood pressure, diabetes (6) Hypertension: Code(s): I10 - Essential (primary) hypertension Qualifiers: Hypertension type: essential hypertension Qualified Code(s): I10 - Essential (primary) hypertension Plan: Continue with blood pressure medication. Decrease salt intake and exercise takes losartan 50 mg once a day (7) Hyperlipidemia: Code(s): E78.5 - Hyperlipidemia, unspecified Qualifiers: Hyperlipidemia type: pure hypercholesterolemia Qualified Code(s): E78.00 - Pure hypercholesterolemia, unspecified Plan: Avoid fried foods, chicken skin, eggs, butter margarine, pastries and meat. Be it pork or beef they have a lot of cholesterol on rosuvastatin 20 mg once a day (8) Paroxysmal atrial fibrillation: Comment: June 2019 echo normal LV impaired relaxation, November 2019 ear 55-60% her tick dilatation [address] Bonner 08/2020 Code(s): I48.0 - Paroxysmal atrial fibrillation Plan: Continue with anticoagulation with Xarelto (9) COPD (chronic obstructive pulmonary disease): Code(s): J44.9 - Chronic obstructive pulmonary disease, unspecified Plan: Patient has coughing a lot Breo is taken at nighttime and starts to cough during the daytime but does help at night. With this discussed about a 2nd controller to help with breathing. Call if not having any success/relief Orders: Orders CA echo transthoracic complete Today I77.810 - Thoracic aortic ectasia Medications: New umeclidinium 62.5 mcg/actuation (Incruse Ellipta) 1 inh inhalation DAILY 30 ea 2RF J44.9 - Chronic obstructive pulmonary disease, unspecified Coding Level of Care Code Est Pt Level 4 (83485) Diagnoses RLQ abdominal pain R10.31 Peripheral vascular disease I73.9 Ascending aorta dilatation I77.810 Obesity (BMI 30-39.9) E66.9 Coronary artery disease involving [place] coronary artery of [place] heart without angina pectoris I25.10 Coronary Disease-Associated Artery/Lesion type: [place] artery [place] vs. transplanted heart: [place] heart Associated angina: without angina Essential hypertension I10 Hypertension type: essential hypertension Pure hypercholesterolemia E78.00 Hyperlipidemia type: pure hypercholesterolemia Paroxysmal atrial fibrillation I48.0 COPD (chronic obstructive pulmonary disease) J44.9
== END 2024-01-27 15:46 | disposition home or self-care (01) ==
PROVIDERS: PCP Internal Medicine; Visit Provider Internal Medicine
DX: I73.9 Peripheral vascular disease, unspecified (principal); I77.810 Thoracic aortic ectasia; I48.0 Paroxysmal atrial fibrillation; J44.9 Chronic obstructive pulmonary disease, unspecified; R10.31 Right lower quadrant pain; Z68.30 Body mass index [BMI] 30.0-30.9, adult; E66.9 Obesity, unspecified; I25.10 Atherosclerotic heart disease of native coronary artery without angina pectoris; I10 Essential (primary) hypertension; E78.00 Pure hypercholesterolemia, unspecified
CPT/HCPCS: 99214

== ENCOUNTER 2024-02-09 07:37 | Outpatient (REF) | payer MEDICARE, SELFPAY ==
[2024-02-09 08:11] LABS: Estimated Average Glucose 123 mg/dL; Hemoglobin A1c % 5.9 % (<6.0)
[2024-02-09 08:30] LABS: Anion Gap 12 (12-20); Blood Urea Nitrogen 16 mg/dL (9-16); Calcium 9.2 mg/dL (8.4-10.2); Carbon Dioxide 26 mmol/L (22-29); Chloride 108 mmol/L (96-108); Cholesterol 109 mg/dL (<200); Estimated Glomerular Filt Rate > 60; Glucose Random 120 mg/dL (60-115); HDL Cholesterol 46 mg/dL (>40); LDL Cholesterol Calculated 51 mg/dL (<100); Potassium 3.8 mmol/L (3.3-5.1); Sodium 142 mmol/L (135-145); Triglycerides 61 mg/dL (<150)
== END 2024-02-09 07:38 | disposition home or self-care (01) ==
LOC: HO.LAB 07:37
PROVIDERS: PCP Internal Medicine; Visit Provider Internal Medicine
DX: R73.02 Impaired glucose tolerance (oral) (principal); E78.00 Pure hypercholesterolemia, unspecified; R10.31 Right lower quadrant pain
CPT/HCPCS: 36415; 80048; 80061; 83036

== ENCOUNTER → 2024-02-20 12:32 | Outpatient (REF) | payer MEDICARE, SELFPAY ==
--- NOTE | 2024-02-20 12:36 | CA_ITS ---
Transthoracic Echocardiogram Patient (Last, First, Middle): Dl Rollins B Gender: Male Date of : 1945 Age: 79 Procedure Date: 02/20/2024 Procedure Type: Transthoracic Echocardiogram Location: OP Height: 172.72 cm Weight: 88.91 kg BSA: 2.03 m2 Heart Rate: bpm BP: 150 / 68 mmHg Esl Tutor: TO Referring MD: Bianca You MD Symptoms: I77.810 - Thoracic aortic ectasia Study Quality: Adequate Conclusions: - Normal left ventricular size and systolic function. The visually estimated ejection fraction is between 55-60%. There is no evidence of regional wall motion abnormalities. Abnormal diastolic function is noted. Spectral Doppler is indicative of an impaired relaxation filling pattern. E/E prime ratio is between 8 and 15 consistent with indeterminate filling pressures. There is severe septal asymmetric hypertrophy. - Normal right ventricular cavity size and systolic function. - There is mild aortic valve stenosis. - There is mild aortic valve regurgitation. - There is mild dilatation of the sinuses of Valsalva measuring 4.17 cm and mild dilatation of the ascending aorta measuring 4.10 cm. Findings Left Ventricle Normal left ventricular size and systolic function. The visually estimated ejection fraction is between 55-60%. There is no evidence of regional wall motion abnormalities. Abnormal diastolic function is noted. Spectral Doppler is indicative of an impaired relaxation filling pattern. E/E prime ratio is between 8 and 15 consistent with indeterminate filling pressures. There is severe septal asymmetric hypertrophy. Right Ventricle Normal right ventricular cavity size and systolic function. Atria The left atrium is likely dilated. The right atrium is normal in size. Aortic Valve There is a normal trileaflet aortic valve. There is mild calcification of the aortic valve. There is mild aortic valve stenosis. There is mild aortic valve regurgitation. Mitral Valve The mitral valve appears normal. There is no mitral valve regurgitation. There is no mitral valve stenosis. Pulmonic Valve The pulmonic valve is normal. There is no pulmonic valve regurgitation. Tricuspid Valve Normal tricuspid valve structure. There is no tricuspid valve regurgitation. Normal right atrial pressure. There is no evidence of pulmonary hypertension. Great Vessels There is mild dilatation of the sinuses of Valsalva measuring 4.17 cm and mild dilatation of the ascending aorta measuring 4.10 cm. The visualized portions of the pulmonary artery and branches are normal. Venous The inferior vena cava is normal in size and collapses greater than 50% with inspiration. Pericardium/Pleural There is no evidence of pericardial effusion. Prior Study Comparison No significant change compared to prior study dated: 05/09/2022. Ascending aorta 4.1 cm. Measurements 2D Linear Measurements IVSd: 1.58 0.6-0.9/0.6-1.0 cm LVIDd: 4.34 3.9-5.3/4.2-5.9 cm LVIDd Index: 2.14 2.4-3.2/2.2-3.1 cm/m2 LVIDs: 2.91 2.0-3.6 cm LVPWd: 1.00 0.7-1.1 cm LA Diam: 3.60 2.7-3.8/3.0-4.0 cm LAIDs Index: 1.77 1.5-2.3 cm/m2 LV Mass: 259.61 67-162/88-224 g LV Mass Index: 127.89 43-95/49-115 g/m2 LVOT Diam: 2.30 3.0+(-)1.3 cm 2D Systolic Function EF 4C: 60.90 >55% EF 2C: 62.40 >55% EF BiP: 62.00 >55% Mitral Valve MV VTI: 0.38 MV Pk Sukhdev: 1.48 MV Mn Sukhdev: 0.72 MV Pk Grad: 9.00 MV Mn Grad: 3.00 MV Pk E: 0.90 MV PK A: 1.25 MV Decel Time: 232.00 E/A: 0.70 E'Lateral: 7.07 E'Medial: 6.09 E/E' Med: 14.80 E/E' Lat: 12.70 PHT: 68.00 MVA PHT: 3.24 MVA Continuity: 3.03 Decel [place]: 3.88 Aortic Valve AoV Pk Sukhdev: 1.98 AoV Mn Sukhdev: 1.35 AoV VTI: 0.42 AoV Pk Grad: 16.00 Aov Mn Grad: 8.00 [place] Cont.VTI: 2.88 LVOT LVOT Pk Sukhdev: 1.23 LVOT Mn Sukhdev: 0.76 LVOT VTI: 0.28 LVOT Pk Grad: 6.00 LVOT Mn Grad: 3.00 LVOT Diam: 2.30 LVOT Area: 4.15 Diastolic Function MV Pk E: 0.90 MV Pk A: 1.25 E/A: 0.70 E'Medial: 6.09 E/E' Med: 14.80 E' Laterial: 7.07 E/E' Lat: 12.70 Right Ventricle TAPSE (mm): 21.70 TVS' Sukhdev: 13.50 Tricuspid Valve TR Pk Sukhdev: 1.89 TR Pk Grad: 14.00 RA Press: 3.00 RVSP: 17.00 Great Vessels Aorta Sinus of Valsalva: 4.17 2.0-3.5 cm Ao Asc: 4.10 2.1-3.4 cm Ao Arch: 3.40 Updated in Other Vendor System with Status of Final Antonio Nunez MD electronically signed on 02/22/2024 11:36:56 AM with status of Final
== END ==
LOC: HO.CARD 12:32
PROVIDERS: PCP Internal Medicine; Visit Provider Internal Medicine
DX: I77.810 Thoracic aortic ectasia (principal)
CPT/HCPCS: 93306

== ENCOUNTER → 2024-02-20 12:36 | Outpatient (BNV) | payer MEDICARE, SELFPAY | PROVIDERS: PCP Internal Medicine; Visit Provider Internal Medicine Cardiovascular Disease | DX: I35.2 Nonrheumatic aortic (valve) stenosis with insufficiency (principal); I71.21 Aneurysm of the ascending aorta, without rupture | CPT/HCPCS: 93306 ==

== ENCOUNTER 2024-02-23 08:15 | Outpatient (REF) | payer MEDICARE, SELFPAY ==
--- NOTE | ~2024-02-23 | CT_ITS ---
EXAMINATION: CT ABDOMEN AND PELVIS WITH CONTRAST CLINICAL INFORMATION: Right lower quadrant pain. COMPARISON: Multiple prior CT scans of the abdomen and pelvis, most recently 01/26/2018. TECHNIQUE: Multidetector volumetric images were obtained from the superior aspect of the liver through the pubic symphysis following administration 85 mL of Omnipaque 350 intravenous contrast. Sagittal and coronal reformatted images were obtained on the technologist's workstation. Oral contrast: No This CT examination was performed using dose optimization techniques as appropriate, variously including the following: *Automated exposure control *Adjustment of mA and/or kV according to patient size (this includes techniques or standardized protocols for targeted exams where dose is matched to indication/reason for exam; i.e. extremities or head) *Use of iterative reconstruction technique DLP: 488 mGy-cm. FINDINGS: LUNG BASES: The visualized lung bases are unremarkable aside from some mild bronchial thickening. LIVER, GALLBLADDER, AND BILIARY TREE: The liver is normal in size, shape, and attenuation. No focal hepatic lesion or biliary ductal dilatation is present. The gallbladder is unremarkable with no evidence of radiopaque gallstones, gallbladder wall thickening, or obvious pericholecystic inflammatory changes. PANCREAS: Unremarkable. SPLEEN: Unremarkable. ADRENAL GLANDS: Tiny water density nodule seen in the right adrenal gland consistent with a benign adenoma. KIDNEYS AND URETERS: The kidneys are normal in size, shape, and attenuation. No hydronephrosis, hydroureter, or calculi seen. No perinephric stranding. BLADDER AND PROSTATE: The prostate is mildly enlarged. There is some irregularity at the bladder base, which may be due to the median lobe of the prostate. Correlate with microscopic hematuria. GASTROINTESTINAL TRACT: The small and large bowel are unremarkable. The appendix has been removed. ABDOMINAL WALL: No significant hernia is appreciated. There are small bilateral inguinal hernias seen containing only fat. Tiny periumbilical hernia contains fat. LYMPH NODES: No retroperitoneal lymphadenopathy is seen. Minimally prominent cisterna chyli at thoracoabdominal junction. VASCULAR: Severe calcific atherosclerotic changes are present in the aorta and iliofemoral vessels. There is no evidence of an abdominal aortic aneurysm. PELVIC VISCERA: No free pelvic fluid is seen. Please see discussion above regarding prostate. Seminal vesicles appear normal. OSSEOUS STRUCTURES: Mild degenerative changes are present in the spine. No bony destructive lesions. CT/CT abdomen pelvis w IV con IMPRESSION: 1. A cause for the patient's right lower quadrant pain has not been found. 2. Tiny right adrenal adenoma needs no additional imaging or follow-up. 3. Mildly enlarged prostate with some irregularity at the bladder base. Correlate with microscopic hematuria. 4. Severe calcific atherosclerotic changes in the aorta and iliofemoral vessels. 5. Small bilateral inguinal hernias containing only fat and tiny periumbilical hernia containing fat. Fleischner guidelines were followed.
[2024-02-23] MEDS: iohexoL 350 MG/ML 100 ML INFUS..BTL 85 ML IV (10:45)
[2024-02-23] MEDS: Barium Sulfate Oral (Vanilla) 450 ML ORAL.SUSP 900 ML PO (10:46)
== END 2024-02-23 08:16 | disposition home or self-care (01) ==
LOC: HO.CT 08:15
PROVIDERS: PCP Internal Medicine; Visit Provider Internal Medicine
DX: R10.31 Right lower quadrant pain (principal)
CPT/HCPCS: 74177; Q9967

== ENCOUNTER 2024-02-24 12:15 | Outpatient (AMB) | payer MEDICARE, SELFPAY ==
[2024-02-24 12:32] VITALS: BP 158/72; PULSE 69; O2SAT 95; BMI 30.7
--- NOTE | 2024-02-24 12:32 | A.OFFPC_ITS ---
Vital Signs 3 02/24/24 12:32 Height 5 ft 8 in Weight 202 lb 0.8 oz BMI 30.7 BP 158/72 H Blood Pressure Location Lt brachial Position Sitting Pulse 69 Pulse Source Pulse Oximeter Pulse Oximetry (%) 95 Oxygen Delivery Method Room Air Intake Visit Reasons: Follow Up Allergies morphine [MORPHINE] Allergy (Unknown, Verified 02/24/24 12:35) NAUSEA & VOMITING simvastatin Allergy (Unknown, Verified 02/24/24 12:35) muscle pains and med ineffective enviromental allergies Allergy (Unknown, Uncoded 02/24/24 12:35) Unknown Medication List - Last Reconciled 02/24/24 by Bianca Alicea Po, albuterol sulfate 90 mcg/actuation (ProAir HFA) 2 puffs inhalation Q6H PRN amoxicillin-pot clavulanate 875-125 mg 1 tab PO Q12H aspirin (Adult Aspirin Regimen) 81 mg PO DAILY benzonatate 100 mg PO BID-TID PRN celecoxib (Celebrex) 200 mg PO DAILY dronedarone (Multaq) 400 mg PO BID finasteride 5 mg PO DAILY 90 days fluticasone furoate-vilanterol 200-25 mcg/dose (Breo Ellipta) 1 inh inhalation DAILY isosorbide mononitrate ER 30 mg PO DAILY losartan 50 mg PO DAILY rivaroxaban (Xarelto) 20 mg PO DAILY rosuvastatin 20 mg PO DAILY 90 days terazosin 5 mg PO BEDTIME 30 days umeclidinium 62.5 mcg/actuation (Incruse Ellipta) 1 inh inhalation DAILY Tobacco use date assessed: 02/24/24 Fall risk assessment: No Falls in past year Last assessed Fall Risk: 02/24/24 Dental Screening Dental Screen Date: 06/13/23 HPI Follow Up 2 HPI0 Details 79-year-old obese male with multiple med ical problems patient has atrial fibrillation hypertension impaired glucose tolerance hypercholesterolemia BPH coronary artery disease COPD last seen last month. Patient had right lower quadrant abdominal pain and CT scan was ordered. Results are pending. Echocardiogram done January 2024 Normal left ventricular size and systolic function. The visually estimated ejection fraction is between 55-60%. There is no evidence of regional wall motion abnormalities. Abnormal diastolic function is noted. Spectral Doppler is indicative of an impaired relaxation filling pattern. E/E prime ratio is between 8 and 15 consistent with indeterminate filling pressures. There is severe septal asymmetric hypertrophy. - Normal right ventricular cavity size a nd systolic function. - There is mild aortic valve stenosis. - There is mild aortic valve regurgitati on. - There is mild dilatation of the sinuse s of Valsalva measuring 4.17 cm and mild dilatation of the ascen ding aorta measuring 4.10 cm. Is familiar with the labs and awaiting the results of the CT scan also. As for acute problems right now. Cough is less with the use of Incruse and Breo and would like refills on the Incruse. Complains also when he coughs that he has this pain on his right anterior year area radiating to the right temporal area. Denies any ear discharge and would like to have the ears checked. Patient on Tessalon and would like an increase in dose. Patient also complains of the pilonidal cyst having a problem and does know to call the surgeon but meanwhile with the infection right now would like an antibiotic. [facility] Medical History COPD (chronic obstructive pulmonary disease) Nephrolithiasis Hx of bronchitis Hx of myocardial infarction PONV (postoperative nausea and vomiting) On beta didi at home On anticoagulant therapy Obesity (BMI 30-39.9) Coronary artery disease BPH (benign prostatic hyperplasia) Hyperlipidemia Impaired glucose tolerance Hypertension Paroxysmal atrial fibrillation Surgical History History of cardiac radiofrequency ablation (RFA) History of blepharoplasty Hx of appendectomy History of lumbar surgery H/O excision of lamina of cervical vertebra for decompression of spinal cord H/O rhinoplasty Family History Father No problems noted. Mother No problems noted. Social History Housing: House Alcohol intake: never Patient Tobacco Use Status: Former Tobacco user Tobacco use type: Cigarette e-Cigarette/Vaping Use: Never Used Second Hand Smoke Exposure: No Current occupational status: retired Cognitive needs: No Hearing needs: No Vision needs: Yes Questionnaire Thrive Questionnaire Date Thrive assessed: 12/25/23 AUDIT C Alcohol Use Questionnaire (AUDIT-C) 1. How often do you have a drink containing alcohol?: Never 3. How often do you have six or more drinks on one occasion?: Never Total Score: 0 FLYNN-7 AMB Questionnaire FLYNN-7 Date FLYNN - 7 assessed: 12/25/23 Source: Developed by Drs. Pierce Nair, Malena Crowell, James Huynh and colleagues, with an educational yonas from [employer]. Physical exam (Primary Care) Tobacco/Smoking Status: Tobacco use Status Tobacco use date assessed 01/27/24 01/27/24 14:51 Patient Tobacco Use Status Former Tobacco user 01/27/24 14:51 Tobacco use type Cigarette 01/27/24 14:51 e-Cigarette/Vaping Use Never Used 01/27/24 14:51 Thrive Assessment: Date of Thrive Assessment Date Thrive assessed 12/25/23 01/27/24 14:51 Const General: alert; No acute distress Eyes Conjunctivae: conjunctivae normal Resp Auscultation: clear to auscultation bilaterally Cardio Rate: regular rate Rhythm: regular rhythm GI Inspection: Yes normal to inspection Back/Spine/Pelvis Back/spine/pelvis image: 2 1. 2. Noted 2 cm polypoid mass out of the rectum. Extrem General: Yes normal to inspection and No edema Assessment and Plan Assessment & Plan (1) Ascending aorta dilatation: Comment: April 2022Normal LV systolic function with impaired relaxation ? ? ? filling pattern? 2.? Mild aortic regurgitation mos January 2023echocardiogram left ventricular hypertrophy ejection fraction 55-60% normal left ventricular diastolic function. ascending aorta 4.2 cm January 202301/2024 4.1 cm Code(s): I77.810 - Thoracic aortic ectasia Plan: January 2024 echocardiogram stable size (2) Paroxysmal atrial fibrillation: Comment: June 2019 echo normal LV impaired relaxation, November 2019 ear 55-60% her tick dilatation [address] Bonner 08/2020 Code(s): I48.0 - Paroxysmal atrial fibrillation Plan: Continue with anticoagulation (3) RLQ abdominal pain: Code(s): R10.31 - Right lower quadrant pain Plan: CT scan done in the waiting reading. (4) Infected pilonidal cyst: Code(s): L05.91 - Pilonidal cyst without abscess Plan: Antibiotics sent and patient knows to call the surgeon. (5) COPD (chronic obstructive pulmonary disease): Code(s): J44.9 - Chronic obstructive pulmonary disease, unspecified Plan: Better with the inhalers will increase the Tessalon to help with the cough. Medications: New 2 amoxicillin-pot clavulanate 875-125 mg 1 tab PO Q12H 14 tabs 0RF L05.91 - Pilonidal cyst without abscess Changed 2 From benzonatate 100 mg PO BID-TID PRN 30 caps 0RF cough L05.91 - Pilonidal cyst without abscess To benzonatate 200 mg PO BID-TID PRN 60 caps 0RF cough L05.91 - Pilonidal cyst without abscess Refilled 2 umeclidinium 62.5 mcg/actuation (Incruse Ellipta) 1 inh inhalation DAILY 3 ea 3RF J44.9 - Chronic obstructive pulmonary disease, unspecified Coding Level of Care Code Est Pt Level 4 (74626) Diagnoses Ascending aorta dilatation I77.810 Paroxysmal atrial fibrillation I48.0 RLQ abdominal pain R10.31 Infected pilonidal cyst L05.91 COPD (chronic obstructive pulmonary disease) J44.9
== END 2024-02-24 12:52 | disposition home or self-care (01) ==
PROVIDERS: PCP Internal Medicine; Visit Provider Internal Medicine
DX: I77.810 Thoracic aortic ectasia (principal); I48.0 Paroxysmal atrial fibrillation; J44.9 Chronic obstructive pulmonary disease, unspecified; R10.31 Right lower quadrant pain; L05.91 Pilonidal cyst without abscess
CPT/HCPCS: 99214

== ENCOUNTER 2024-02-28 12:10 | Emergency (ER) | payer MEDICARE, SELFPAY ==
[2024-02-28 12:16] VITALS: BP 151/45; PULSE 90; RESP 20; TEMP 36.5; O2SAT 94; BMI 30.7
--- NOTE | 2024-02-28 12:16 | ED.GENADULT ---
HPI - General Adult General Chief complaint: Skin/Abscess/Foreign Body Stated complaint: Cyst Time Seen by Provider: 02/28/24 17:39 History of Present Illness HPI narrative: Patient is 79 years old presents today with having a cyst in his right gluteal area. Red swollen. Patient has been taking Augmentin since Friday. No history of diabetes. No nausea no vomiting. Related Data Home Medications ?Medication ?Instructions ?Recorded ?Confirmed aspirin 81 mg tablet,delayed 81 mg PO DAILY 09/13/20 02/24/24 release (Adult Aspirin Regimen) rivaroxaban 20 mg tablet (Xarelto) 20 mg PO DAILY 07/17/22 02/24/24 dronedarone 400 mg tablet (Multaq) 400 mg PO BID 12/16/23 02/24/24 losartan 50 mg tablet 50 mg PO DAILY 01/27/24 02/24/24 Previous Rx's ?Medication ?Instructions ?Recorded celecoxib 200 mg capsule (Celebrex) 200 mg PO DAILY #90 caps 12/16/22 isosorbide mononitrate 30 mg 30 mg PO DAILY #30 tabs 06/13/23 tablet,extended release 24 hr rosuvastatin 20 mg tablet 20 mg PO DAILY 90 days #90 tabs 06/13/23 finasteride 5 mg tablet 5 mg PO DAILY 90 days #90 tabs 11/11/23 fluticasone furoate 200 1 inh inhalation DAILY #60 ea 12/26/23 mcg-vilanterol 25 mcg/dose inhalation powder (Breo Ellipta) albuterol sulfate 90 mcg/actuation 2 puff inhalation Q6H PRN 01/20/24 aerosol inhaler (ProAir HFA) shortness of breath or wheezing #8.5 grams terazosin 5 mg capsule 5 mg PO BEDTIME 30 days #30 caps 01/20/24 amoxicillin 875 mg-potassium 1 tab PO Q12H #14 tabs 02/24/24 clavulanate 125 mg tablet benzonatate 200 mg capsule 200 mg PO BID-TID PRN cough #60 02/24/24 caps umeclidinium 62.5 mcg/actuation 1 inh inhalation DAILY #3 ea 02/24/24 blister powder for inhalation (Incruse Ellipta) Allergies Allergy/AdvReac Type Severity Reaction Status Date / Time morphine [MORPHINE] Allergy Unknown NAUSEA & Verified 02/28/24 12:19 VOMITING simvastatin Allergy Unknown muscle Verified 02/28/24 12:19 pains and med ineffective enviromental allergies Allergy Unknown Unknown Uncoded 02/24/24 12:35 Review of Systems Review of Systems: No chest pain or shortness of breath no diaphoresis Yes all other systems are reviewed and are negative [facility] Past Medical History Attestation statement: The following information was validated with the patient. Medical History COPD (chronic obstructive pulmonary disease) Nephrolithiasis Hx of bronchitis Hx of myocardial infarction PONV (postoperative nausea and vomiting) On beta didi at home On anticoagulant therapy Obesity (BMI 30-39.9) Coronary artery disease BPH (benign prostatic hyperplasia) Hyperlipidemia Impaired glucose tolerance Hypertension Paroxysmal atrial fibrillation Surgical History History of cardiac radiofrequency ablation (RFA) History of blepharoplasty Hx of appendectomy History of lumbar surgery H/O excision of lamina of cervical vertebra for decompression of spinal cord H/O rhinoplasty Family History Family History Father No problems noted. Mother No problems noted. Social History Social History Housing: House Alcohol intake: never Patient Tobacco Use Status: Former Tobacco user Tobacco use type: Cigarette e-Cigarette/Vaping Use: Never Used Second Hand Smoke Exposure: No Advance Directives: No Advance Directives Information Provided: Yes Current occupational status: retired Cognitive needs: No Hearing needs: No Vision needs: Yes Physical Exam ED Vital Signs: Vital Signs - 24 hr 02/28/24 12:16 02/28/24 20:09 Temperature 97.7 F 98.0 F Pulse Rate 90 71 Respiratory Rate 20 20 Blood Pressure 151/45 H 143/49 H Pulse Oximetry 94 95 Oxygen Delivery Method Room Air Room Air BMI result Body Mass Index 30.7 Appearance: Alert. Oriented X3. No acute distress. Eyes: Pupils equal, round and reactive to light. ENT: Pharynx normal. Neck: Normal inspection. Neck supple. No lymph nodes noted. No crepitus CVS: Normal heart rate and rhythm. Pulses normal. Normal S1 and S2 Respiratory: No respiratory distress. Breath sounds normal. No Wheezing. No rales Abdomen: Soft and nontender. No rigidity. No distention. good BS x4 Skin: Positive redness warmth touch positive fluctuant mass in the right gluteal area not involving the anus approximately 5 cm x 3 cm in size. Oozing pus Extremities: No lower extremity edema. Neurovascular intact to all extremities. No Lacerations. No Rash Neuro: Oriented X 3. No motor deficit. No sensory deficit. Moving all extermities. No slurred speech Course Course Course Narrative: This is a Rapid Medical Examination (RME) in triage, full HPI, ROS, assessment and plan per primary provider in the Main ED. 79 yo male with history of afib on Xarelto, history of pilonidal cyst excision 10 years ago presents to the ER for worsening pain and swelling due to an enlarging cyst. He states it starts in the right upper buttock area and extends down to his rectal area. Pain 10/10 this morning and took oxycodone. Has been on Amoxicillin for 4 days with worsening symptoms. He is not diabetic. Plan: labs, exam, imaging per primary provider Medications Administered Discontinued Medications Generic Name Dose Route Start Last Admin Trade Name Freq PRN Reason Stop Dose Admin Lidocaine HCl 15 ml 02/28/24 18:05 02/28/24 19:04 Lidocaine Hcl 1 % Mpf 5 Ml Vial SUBCUT 02/28/24 18:06 15 ml ONCE ONE Administration Medical Decision Making Medical Decision Making [facility] Narrative: Patient has a large abscess that was I and D. Risks and benefits of I and D explained to patient including the risk of bleeding as patient is on Xarelto. Patient's wound was open hospitalist express packed make sure bleeding stopped. Patient well-appearing no distress. Is already on Augmentin will have patient continue patient's white count is 10 kidney functions are normal will discharge patient home close follow-up on an outpatient basis patient already has an appointment for surgery on Friday. Differential Diagnosis Differential Diagnoses: The differential diagnosis associated with the presentation includes Perirectal abscess, pilonidal cyst, abscess Admission/Observation Consideration of admission/observation: Escalation of care including admission/observation considered Lab Data [facility] Lab Attestation statement: I reviewed the patient's lab results. 02/28/24 12:51 02/28/24 12:51 Labs: Lab Results 04/06/24 04/06/24 Range/Units 12:51 18:13 WBC 9.4 (4.8-10.8) X10*3/uL RBC 3.88 L (4.60-5.80) X10*6/uL Hgb 12.3 L (14.0-18.0) g/dl Hct 36.5 L (42.0-52.0) % MCV 94.1 (80.0-98.0) fL MCH 31.7 (27.0-33.0) pg MCHC 33.7 (31.0-36.0) g/dl RDW 13.7 (11.0-16.0) % Plt Count 241 (160-400) X10*3/uL MPV 9.3 L (9.4-12.4) fL Immature Gran % (Auto) 0.3 (0.0-0.4) % Neut % (Auto) 67.7 (45-73) % Lymph % (Auto) 18.0 L (20-40) % Mills % (Auto) 12.5 H (2-11) % Eos % (Auto) 1.1 (0-4) % Baso % (Auto) 0.4 (0-2) % Lymph # (Auto) 1.7 (1.2-4.9) X10*3/uL Mills # (Auto) 1.2 (0.1-1.2) X10*3/uL Eos # (Auto) 0.1 (0.0-0.4) X10*3/uL Baso # (Auto) 0.0 (0.0-0.2) X10*3/uL Abs Immat Gran (auto) 0.03 (0.00-0.03) X10*3/uL Absolute Neuts (auto) 6.3 (2.0-8.3) x10*3/uL Absolute Nucleated RBC 0.000 (0.0-0.012) X10*3/uL Nucleated RBC % (auto) 0.0 (0.0-0.2) /100WBC ESR 34 H (0-15) MM/HR Sodium 141 (135-145) mmol/L Potassium 4.0 (3.3-5.1) mmol/L Chloride 110 H (96-108) mmol/L Carbon Dioxide 26 (22-29) mmol/L Anion Gap 9 L (12-20) BUN 19 H (9-16) mg/dL Creatinine 0.92 (0.5-1.4) mg/dL Estim Creat Clear Calc 73.9 Estimated GFR > 60 Random Glucose 126 H (60-115) mg/dL Calcium 9.0 (8.4-10.2) mg/dL Magnesium 2.3 (1.6-2.6) mg/dL Total Bilirubin 0.3 (0.0-1.0) mg/dL Direct Bilirubin 0.2 (0.0-0.5) mg/dL AST 12 (5-37) U/L ALT 12 (0-40) U/L Alkaline Phosphatase 62 (39-117) U/L C-Reactive Protein 3.83 H (< or = 0.50) mg/dL Total Protein 6.7 (6.5-8.0) g/dL Albumin 3.5 (3.5-5.0) g/dL Urine Color Dark Yellow Urine Appearance Cloudy Urine pH 5.0 (5.0-9.0) Ur Specific [place] >= 1.030 H (1.005-1.025) Urine Protein Trace (Neg-Trace) mg/dL Urine Glucose (UA) Negative (Negative) mg/dL Urine Ketones Trace (Negative) mg/dL Urine Blood Negative (Negative) Urine Nitrite Negative (Negative) Ur Leukocyte Esterase Trace H (Negative) Urine RBC 0-2 (0-2) /HPF Urine WBC 21-50 H (0-5) /HPF Ur Squamous Epith Cells 0-2 (0-2) /HPF Urine Bacteria None Seen (None Seen) Hyaline Casts 0-2 (0-2) /LPF External Record Review External record reviewed: Inpatient record Chronic Conditions Patient?s care impacted by: Diabetes History of peripheral vascular disease Discharge Plan Discharge Clinical Impression: Abscess Patient Disposition: Home, Self-Care Instructions: Abscess (ED), Abscess Incision and Drainage (DC) Prescriptions: No Action celecoxib [Celebrex] 200 mg capsule 200 mg PO DAILY Qty: 90 2RF finasteride 5 mg tablet 5 mg PO DAILY 90 Days Qty: 90 1RF fluticasone furoate-vilanterol [Breo Ellipta] 200-25 mcg/dose blister with device 1 inh inhalation DAILY Qty: 60 12RF albuterol sulfate [ProAir HFA] 90 mcg/actuation HFA aerosol inhaler 2 puff inhalation Q6H PRN (Reason: shortness of breath or wheezing) Qty: 8.5 0RF aspirin [Adult Aspirin Regimen] 81 mg tablet,delayed release (DR/EC) 81 mg PO DAILY Hold Instructions: Resume on 05/22/21. restart in 1 week Multaq 400 mg tablet 400 mg PO BID Xarelto 20 mg tablet 20 mg PO DAILY Rx Instructions: must administer with evening meal isosorbide mononitrate 30 mg tablet extended release 24 hr 30 mg PO DAILY Qty: 30 0RF rosuvastatin 20 mg tablet 20 mg PO DAILY 90 Days Qty: 90 3RF amoxicillin-pot clavulanate 875-125 mg tablet 1 tab PO Q12H Qty: 14 0RF Incruse Ellipta 62.5 mcg/actuation blister with device 1 inh inhalation DAILY Qty: 3 3RF benzonatate 200 mg capsule 200 mg PO BID-TID PRN (Reason: cough) Qty: 60 0RF losartan 50 mg tablet 50 mg PO DAILY terazosin 5 mg capsule 5 mg PO BEDTIME 30 Days Qty: 30 1RF Referrals: Harris Covarrubias MD [Physician] - 03/03/24 Print Language: Burmese
[2024-02-28 12:55] LABS: MANUAL DIFF FLAG NO
[2024-02-28 13:00] LABS: Basophils Percent Auto 0.4 % (0-2); Eosinophils Absolute Auto 0.1 X10*3/uL (0.0-0.4); Eosinophils Percent Auto 1.1 % (0-4); Hematocrit 36.5 % (42.0-52.0); Hemoglobin 12.3 g/dl (14.0-18.0); Imm Gran Abs Auto 0.03 X10*3/uL (0.00-0.03); Imm Gran Pct Auto 0.3 % (0.0-0.4); Lymphocytes Absolute Auto 1.7 X10*3/uL (1.2-4.9); Mean Corpuscular HGB Conc 33.7 g/dl (31.0-36.0); Mean Corpuscular Hemoglobin 31.7 pg (27.0-33.0); Mean Corpuscular Volume 94.1 fL (80.0-98.0); Mean Platelet Volume 9.3 fL (9.4-12.4); Monocytes Absolute Auto 1.2 X10*3/uL (0.1-1.2); Monocytes Percent Auto 12.5 % (2-11); Neutrophils Absolute Auto 6.3 x10*3/uL (2.0-8.3); Neutrophils Percent Auto 67.7 % (45-73); Platelet Count 241 X10*3/uL (160-400); Red Blood Count 3.88 X10*6/uL (4.60-5.80); Red Cell Distribution Width 13.7 % (11.0-16.0); White Blood Count 9.4 X10*3/uL (4.8-10.8)
[2024-02-28 13:19] LABS: Alanine Aminotransferase 12 U/L (0-40); Albumin Level 3.5 g/dL (3.5-5.0); Alkaline Phosphatase 62 U/L (39-117); Anion Gap 9 (12-20); Aspartate Amino Transferase 12 U/L (5-37); Bilirubin Direct 0.2 mg/dL (0.0-0.5); Bilirubin Total 0.3 mg/dL (0.0-1.0); Blood Urea Nitrogen 19 mg/dL (9-16); C Reactive Protein 3.83 mg/dL (< or = 0.50); Carbon Dioxide 26 mmol/L (22-29); Chloride 110 mmol/L (96-108); Creatinine Clr Calc Pharmacy 73.9; Estimated Glomerular Filt Rate > 60; Glucose Random 126 mg/dL (60-115); Magnesium 2.3 mg/dL (1.6-2.6); Sodium 141 mmol/L (135-145); Total Protein 6.7 g/dL (6.5-8.0)
[2024-02-28 13:48] LABS: Erythrocyte Sedimentation Rate 34 MM/HR (0-15)
--- NOTE | 2024-02-28 18:13 | ED.SKABFB ---
HPI - Skin/Abscess/Foreign Bdy General Chief complaint: Skin/Abscess/Foreign Body Stated complaint: Cyst Time Seen by Provider: 02/28/24 17:39 Related Data Home Medications ?Medication ?Instructions ?Recorded ?Confirmed aspirin 81 mg tablet,delayed 81 mg PO DAILY 09/13/20 02/24/24 release (Adult Aspirin Regimen) rivaroxaban 20 mg tablet (Xarelto) 20 mg PO DAILY 07/17/22 02/24/24 dronedarone 400 mg tablet (Multaq) 400 mg PO BID 12/16/23 02/24/24 losartan 50 mg tablet 50 mg PO DAILY 01/27/24 02/24/24 Previous Rx's ?Medication ?Instructions ?Recorded celecoxib 200 mg capsule (Celebrex) 200 mg PO DAILY #90 caps 12/16/22 isosorbide mononitrate 30 mg 30 mg PO DAILY #30 tabs 06/13/23 tablet,extended release 24 hr rosuvastatin 20 mg tablet 20 mg PO DAILY 90 days #90 tabs 06/13/23 finasteride 5 mg tablet 5 mg PO DAILY 90 days #90 tabs 11/11/23 fluticasone furoate 200 1 inh inhalation DAILY #60 ea 12/26/23 mcg-vilanterol 25 mcg/dose inhalation powder (Breo Ellipta) albuterol sulfate 90 mcg/actuation 2 puff inhalation Q6H PRN 01/20/24 aerosol inhaler (ProAir HFA) shortness of breath or wheezing #8.5 grams terazosin 5 mg capsule 5 mg PO BEDTIME 30 days #30 caps 01/20/24 amoxicillin 875 mg-potassium 1 tab PO Q12H #14 tabs 02/24/24 clavulanate 125 mg tablet benzonatate 200 mg capsule 200 mg PO BID-TID PRN cough #60 02/24/24 caps umeclidinium 62.5 mcg/actuation 1 inh inhalation DAILY #3 ea 02/24/24 blister powder for inhalation (Incruse Ellipta) Allergies Allergy/AdvReac Type Severity Reaction Status Date / Time morphine [MORPHINE] Allergy Unknown NAUSEA & Verified 02/28/24 12:19 VOMITING simvastatin Allergy Unknown muscle Verified 02/28/24 12:19 pains and med ineffective enviromental allergies Allergy Unknown Unknown Uncoded 02/24/24 12:35 [facility] Past Medical History Medical History COPD (chronic obstructive pulmonary disease) Nephrolithiasis Hx of bronchitis Hx of myocardial infarction PONV (postoperative nausea and vomiting) On beta didi at home On anticoagulant therapy Obesity (BMI 30-39.9) Coronary artery disease BPH (benign prostatic hyperplasia) Hyperlipidemia Impaired glucose tolerance Hypertension Paroxysmal atrial fibrillation Surgical History History of cardiac radiofrequency ablation (RFA) History of blepharoplasty Hx of appendectomy History of lumbar surgery H/O excision of lamina of cervical vertebra for decompression of spinal cord H/O rhinoplasty Family History Family History Father No problems noted. Mother No problems noted. Social History Social History Housing: House Alcohol intake: never Patient Tobacco Use Status: Former Tobacco user Tobacco use type: Cigarette e-Cigarette/Vaping Use: Never Used Second Hand Smoke Exposure: No Advance Directives: No Advance Directives Information Provided: Yes Current occupational status: retired Cognitive needs: No Hearing needs: No Vision needs: Yes Physical Exam Vital Signs: Vital Signs: Last Vital Signs Temp 97.7 F 02/28/24 12:16 Pulse 90 02/28/24 12:16 Resp 20 02/28/24 12:16 BP 151/45 H 02/28/24 12:16 Pulse Ox 94 02/28/24 12:16 O2 Del Method Room Air 02/28/24 12:16 BMI result Body Mass Index 30.7 Medical Decision Making Medical Decision Making [facility] Narrative: Significant abscess to the gluteal area. Not involving the anus. The area was numb subsequently drained. Large amount of pus resulted. The area was packed. Prior to procedure discussed with patient the risk of bleeding as patient is on Xarelto. Patient states understanding she continue antibiotics follow-up on an outpatient basis with Dr. Covarrubias. Differential Diagnosis Differential Diagnoses: The differential diagnosis associated with the presentation includes Pilonidal abscess, perirectal abscess, gluteal abscess Admission/Observation Consideration of admission/observation: Escalation of care including admission/observation considered Symptom improved dramatically no need for admission Lab Data [facility] Lab Attestation statement: I reviewed the patient's lab results. 02/28/24 12:51 02/28/24 12:51 Labs: Lab Results 02/28/24 02/28/24 Range/Units 12:51 18:13 WBC 9.4 (4.8-10.8) X10*3/uL RBC 3.88 L (4.60-5.80) X10*6/uL Hgb 12.3 L (14.0-18.0) g/dl Hct 36.5 L (42.0-52.0) % MCV 94.1 (80.0-98.0) fL MCH 31.7 (27.0-33.0) pg MCHC 33.7 (31.0-36.0) g/dl RDW 13.7 (11.0-16.0) % Plt Count 241 (160-400) X10*3/uL MPV 9.3 L (9.4-12.4) fL Immature Gran % (Auto) 0.3 (0.0-0.4) % Neut % (Auto) 67.7 (45-73) % Lymph % (Auto) 18.0 L (20-40) % Elk % (Auto) 12.5 H (2-11) % Eos % (Auto) 1.1 (0-4) % Baso % (Auto) 0.4 (0-2) % Lymph # (Auto) 1.7 (1.2-4.9) X10*3/uL Elk # (Auto) 1.2 (0.1-1.2) X10*3/uL Eos # (Auto) 0.1 (0.0-0.4) X10*3/uL Baso # (Auto) 0.0 (0.0-0.2) X10*3/uL Abs Immat Gran (auto) 0.03 (0.00-0.03) X10*3/uL Absolute Neuts (auto) 6.3 (2.0-8.3) x10*3/uL Absolute Nucleated RBC 0.000 (0.0-0.012) X10*3/uL Nucleated RBC % (auto) 0.0 (0.0-0.2) /100WBC ESR 34 H (0-15) MM/HR Sodium 141 (135-145) mmol/L Potassium 4.0 (3.3-5.1) mmol/L Chloride 110 H (96-108) mmol/L Carbon Dioxide 26 (22-29) mmol/L Anion Gap 9 L (12-20) BUN 19 H (9-16) mg/dL Creatinine 0.92 (0.5-1.4) mg/dL Estim Creat Clear Calc 73.9 Estimated GFR > 60 Random Glucose 126 H (60-115) mg/dL Calcium 9.0 (8.4-10.2) mg/dL Magnesium 2.3 (1.6-2.6) mg/dL Total Bilirubin 0.3 (0.0-1.0) mg/dL Direct Bilirubin 0.2 (0.0-0.5) mg/dL AST 12 (5-37) U/L ALT 12 (0-40) U/L Alkaline Phosphatase 62 (39-117) U/L C-Reactive Protein 3.83 H (< or = 0.50) mg/dL Total Protein 6.7 (6.5-8.0) g/dL Albumin 3.5 (3.5-5.0) g/dL Urine Color Dark Yellow Urine Appearance Cloudy Urine pH 5.0 (5.0-9.0) Ur Specific Colon >= 1.030 H (1.005-1.025) Urine Protein Trace (Neg-Trace) mg/dL Urine Glucose (UA) Negative (Negative) mg/dL Urine Ketones Trace (Negative) mg/dL Urine Blood Negative (Negative) Urine Nitrite Negative (Negative) Ur Leukocyte Esterase Trace H (Negative) Urine RBC 0-2 (0-2) /HPF Urine WBC 21-50 H (0-5) /HPF Ur Squamous Epith Cells 0-2 (0-2) /HPF Urine Bacteria None Seen (None Seen) Hyaline Casts 0-2 (0-2) /LPF Prescription Management I considered prescription management with: Antibiotic Patient already on antibiotics Chronic Conditions History of peripheral vascular disease on blood thinners Procedures Abscess I/D Site: other (Right gluteal) Local Anesthetic: lidocaine 1% Amount of anesthesia used (mL): 5 Technique: needle aspiration and incised with blade Amount of fluid expressed (mL): 15 Sent for culture/gram staining?: Yes Irrigation: Yes Packing used?: plain Discharge Plan Discharge Clinical Impression: Abscess Patient Disposition: Home, Self-Care Instructions: Abscess (ED), Abscess Incision and Drainage (DC) Prescriptions: No Action celecoxib [Celebrex] 200 mg capsule 200 mg PO DAILY Qty: 90 2RF finasteride 5 mg tablet 5 mg PO DAILY 90 Days Qty: 90 1RF fluticasone furoate-vilanterol [Breo Ellipta] 200-25 mcg/dose blister with device 1 inh inhalation DAILY Qty: 60 12RF albuterol sulfate [ProAir HFA] 90 mcg/actuation HFA aerosol inhaler 2 puff inhalation Q6H PRN (Reason: shortness of breath or wheezing) Qty: 8.5 0RF aspirin [Adult Aspirin Regimen] 81 mg tablet,delayed release (DR/EC) 81 mg PO DAILY Hold Instructions: Resume on 05/22/21. restart in 1 week Multaq 400 mg tablet 400 mg PO BID Xarelto 20 mg tablet 20 mg PO DAILY Rx Instructions: must administer with evening meal isosorbide mononitrate 30 mg tablet extended release 24 hr 30 mg PO DAILY Qty: 30 0RF rosuvastatin 20 mg tablet 20 mg PO DAILY 90 Days Qty: 90 3RF amoxicillin-pot clavulanate 875-125 mg tablet 1 tab PO Q12H Qty: 14 0RF Incruse Ellipta 62.5 mcg/actuation blister with device 1 inh inhalation DAILY Qty: 3 3RF benzonatate 200 mg capsule 200 mg PO BID-TID PRN (Reason: cough) Qty: 60 0RF losartan 50 mg tablet 50 mg PO DAILY terazosin 5 mg capsule 5 mg PO BEDTIME 30 Days Qty: 30 1RF Referrals: Harris Covarrubias MD [Physician] - 03/03/24 Print Language: Nepali
[2024-02-28 18:25] LABS: Appearance Urine Cloudy; Color Urine Dark Yellow; Glucose Urine UA Negative (Negative); Leukocyte Esterase Urine Trace (Negative); Nitrite Urine Negative (Negative); Specific Gravity - Urine >= 1.030 (1.005-1.025); UMIC TRIGGER UACC YES; Urine Blood Negative (Negative); Urine Ketones Trace mg/dL (Negative); Urine Protein Trace mg/dL (Neg-Trace)
[2024-02-28 18:27] LABS: Bacteria Urine None Seen (None Seen); Hyaline Casts Urine 0-2 /LPF (0-2); RBC Urine 0-2 /HPF (0-2); Squamous Epithelial Cell Urine 0-2 /HPF (0-2); UACC Culture Trigger YES; WBC Urine 21-50 /HPF (0-5)
[2024-02-28] MEDS: Lidocaine HCl 1 % MPF 5 ML VIAL 15 ML SUBCUT (19:04)
[2024-02-28 20:09] VITALS: BP 143/49; PULSE 71; RESP 20; TEMP 36.7; O2SAT 95
[2024-02-29 07:20] VITALS: BP 143/49; PULSE 71; RESP 20; TEMP 36.6; O2SAT 95
== END 2024-02-28 20:50 | disposition home or self-care (01) ==
PROVIDERS: Physician Assistant; Emergency Provider Emergency Medicine Emergency Medical Services; PCP Internal Medicine
DX: L02.31 Cutaneous abscess of buttock (principal); Z79.899 Other long term (current) drug therapy
CPT/HCPCS: 10060; 36415; 80048; 80076; 81001; 83735; 85025; 85652; 86140; 87086; 99284

== ENCOUNTER 2024-03-03 14:22 | Outpatient (AMB) | payer MEDICARE, SELFPAY ==
--- NOTE | 2024-03-03 14:25 | A.OFFVIS_ITS ---
Intake Vital Signs 03/03/24 14:31 Weight 200 lb 9.93 oz BP 136/88 Blood Pressure Location Rt brachial Position Sitting Pulse 88 Intake Visit Reasons: Pilonidal cyst abscess Intake Note: Patient here for pilonidal cyst on Rt buttock PCP Dr. You prescribed amoxicillin and course finished yesterday only on for 7d. Patient c/o: pain, swelling. Was seen at ER on Friday. Was I&D and currently packed. Previously seen on 09-30-23 for cyst above rt ear along hairline. Reports exc site healed well. Barber Stylist Required: No Accompanied by: Self / Same As Patient Allergies morphine [MORPHINE] Allergy (Unknown, Verified 03/03/24 14:) NAUSEA & VOMITING simvastatin Allergy (Unknown, Verified 03/03/24 14:) muscle pains and med ineffective enviromental allergies Allergy (Unknown, Uncoded 03/03/24:) Unknown HPI HPI Comments History of Present Illness Details Patient is well known to me who presents here status post I&D of a pilonidal cyst abscess in the emergency department over the weekend. Patient presents for wound follow-up. 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 [facility] Medical History COPD (chronic obstructive pulmonary disease) Nephrolithiasis Hx of bronchitis Hx of myocardial infarction PONV (postoperative nausea and vomiting) On beta didi at home On anticoagulant therapy Obesity (BMI 30-39.9) Coronary artery disease BPH (benign prostatic hyperplasia) Hyperlipidemia Impaired glucose tolerance Hypertension Paroxysmal atrial fibrillation Surgical History History of cardiac radiofrequency ablation (RFA) History of blepharoplasty Hx of appendectomy History of lumbar surgery H/O excision of lamina of cervical vertebra for decompression of spinal cord H/O rhinoplasty Family History Father No problems noted. Mother No problems noted. Social History Housing: House Alcohol intake: never Patient Tobacco Use Status: Former Tobacco user Tobacco use type: Cigarette e-Cigarette/Vaping Use: Never Used Second Hand Smoke Exposure: No Current occupational status: retired Cognitive needs: No Hearing needs: No Vision needs: Yes Physical Exam Vital Signs: Last Vital Signs Pulse 88 03/03/24 14:31 BP 136/88 03/03/24 14:31 Back/Spine/Pelvis Other: Right sided cleft I&D site from pilonidal cyst drainage. Wound granulating well. Packing removed. Dressing applied. Assessment & Plan Assessment & Plan (1) Infected pilonidal cyst: Code(s): L05. - Pilonidal cyst without abscess Plan Current plan is for patient to go home and shower and to return tomorrow for every other day packing changes which would be undertaken by Berry. He is to complete his antibiotic course. He does not wish any analgesics. He is taken Tylenol. He has been instructed take one 1 hour prior to visit. All questions answered. Patient will see me in the proximal weeks time for follow-up. All questions answered. Coding Level of Care Code New Pt Level 4 (96070) Diagnoses Infected pilonidal cyst L
[2024-03-03 14:31] VITALS: BP 136/88; PULSE 88
== END 2024-03-03 14:38 | disposition home or self-care (01) ==
PROVIDERS: PCP Internal Medicine; Visit Provider Surgery
DX: L05.91 Pilonidal cyst without abscess (principal)
CPT/HCPCS: 99214

== ENCOUNTER → 2024-03-03 14:22 | Outpatient (BNVA) | payer MEDICARE, SELFPAY | PROVIDERS: PCP Internal Medicine; Visit Provider Surgery | DX: L05.91 Pilonidal cyst without abscess (principal) | CPT/HCPCS: 99212 ==

== ENCOUNTER → 2024-03-04 12:44 | Outpatient (BNVA) | payer MEDICARE, SELFPAY | PROVIDERS: PCP Internal Medicine; Visit Provider Surgery ==

== ENCOUNTER → 2024-03-05 10:46 | Outpatient (BNVA) | payer MEDICARE, SELFPAY | PROVIDERS: PCP Internal Medicine; Visit Provider Surgery ==

== ENCOUNTER 2024-03-12 12:47 | Outpatient (AMB) | payer MEDICARE, SELFPAY ==
--- NOTE | 2024-03-12 13:04 | A.OFFVIS_ITS ---
Intake Visit Reasons: cysto(Confirmed) Intake Note: Patient is Present for Cystoscopy Urology Med: Finasteride, Terazosin Antibiotic Allergy: None Blood Thinner: Xarelto URO- G Disposable Cystoscope lot: [id number] exp: 10/02/2026 Allergies morphine [MORPHINE] Allergy (Unknown, Verified 03/12/24 13:09) NAUSEA & VOMITING simvastatin Allergy (Unknown, Verified 03/12/24 13:09) muscle pains and med ineffective enviromental allergies Allergy (Unknown, Uncoded 03/12/24 13:09) Unknown HPI Comments Details: Dl TITUS is a very pleasant male. They are a patient of Dr Jones. They are seen in the office today for the following urologic conditions. 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 - lower urinary tract symptoms - microscopic hematuria Cystoscopy today shows enlarged right lateral lobe impinging on the bladder outlet Recommend GreenLight laser prostatectomy He is busy with golf season through August Has been on finasteride every other day Lower urinary tract symptoms Happy with current urinary performance Minimal nocturia Main issue currently is bone spur on right Achilles which wakes him at night Not waking to void Current medication finasteride every other day Microscopic Hematuria:? Stable ? Microscopic hematuria was diagnosed during?routine UA.? Since the last visit the patient has?noticed gross hematuria ?- occured when started xeralto at 20mg Jun 2017.? Relevant medical history for?anticoagulation therapy - xeralto and ASA ?, tobacco use 40 yppd ?,workplace exposures - organic solvents.? Radiographic imaging:?CT IVP 08/10 .? Radiology report?enlarged prostate , I have reviewed the films.? Other investigations?08/10 , cytology, normal.? Cystoscopy findings?08/10 enlarged prostate right lobe.? Therapeutic plan?follow in 12 months with appropriate investigations, continue medications.? PFSH Medical History COPD (chronic obstructive pulmonary disease) Nephrolithiasis Hx of bronchitis Hx of myocardial infarction PONV (postoperative nausea and vomiting) On beta didi at home On anticoagulant therapy Obesity (BMI 30-39.9) Coronary artery disease BPH (benign prostatic hyperplasia) Hyperlipidemia Impaired glucose tolerance Hypertension Paroxysmal atrial fibrillation Surgical History History of cardiac radiofrequency ablation (RFA) History of blepharoplasty Hx of appendectomy History of lumbar surgery H/O excision of lamina of cervical vertebra for decompression of spinal cord H/O rhinoplasty Family History Father No problems noted. Mother No problems noted. Social History Housing: House Alcohol intake: never Patient Tobacco Use Status: Former Tobacco user Tobacco use type: Cigarette e-Cigarette/Vaping Use: Never Used Second Hand Smoke Exposure: No Current occupational status: retired Cognitive needs: No Hearing needs: No Vision needs: Yes Review of Systems Const Denies chills and Denies fever(s) Card Reports no additional complaints and Denies syncope Resp Denies cough GI Denies abdominal pain and Denies heartburn Reports as per HPI and Denies change in libido Neuro Denies syncope Psych Denies change in libido Endo Denies change in libido Physical Exam Const General: cooperative, healthy appearing, comfortable and no acute distress Orientation/consciousness: patient oriented x3 HEENT Face and sinus: Yes normal facial exam Mouth: moist mucous membranes Neck Neck: Yes normal visual inspection, Yes full ROM and Yes trachea midline Chest Chest palpation & inspection: normal inspection of the chest Resp Effort & Inspection: normal respiratory effort, able to speak in complete sentences and no respiratory distress GI Inspection: Yes normal to inspection Back/Spine/Pelvis Cervical Spine: normal cervical lordosis Thoracic/Lumbar Spine: thoracic and lumbar spine normal to inspection Skin General skin exam: no rashes or lesions noted Neuro General: patient oriented x3, gait normal, tone normal and moves all extremities Extrem General: Yes normal to inspection and Yes capillary refill normal Office Procedures Cystoscopy Consent Discussed risk and benefit or proposed procedure with the patient. Information consent for procedure given to the patient. Discussed technical aspects, risks, benefits and alternatives in full. Addressed all of the patient's questions and concerns regarding the procedure. The patient demonstrated knowledge and understanding. They wish to proceed with this procedure. Preparation The patient was prepped in the usual manner. A highway traffic control technician was present and in the room. Genitalia was prepped with betadine solution in a sterile manner. Lidocaine Jelly 2% was placed into the urethra and 16Fr flexible Olympus cystoscope was inserted into the meatus after adequate lubrication. Procedure Cystoscopy performed using a disposable Urovue digital 16 Persian cystoscope. Meatus circumcised Urethra anterior and posterior urethra normal Prostatic Urethra impinging right lateral lobe, with enlarged prostate Bladder examination with retroflexion of cystoscope Bladder Orifices normal shape and position Bladder Capacity normal Trabeculations grade 1/2 Cellule Formation - Diverticulum Formation - Mucosal Erythema - Bladder Tumor - [id number] DISPOSABLE SCOPE URO-G FLEXIBLE SCOPE Procedure code (CPT) selection complete Office Meds lidocaine HCl 2 % mucosal jelly in applicator Performing Provider: Thom Billingsley MD Performing Location: [facility] [place] [facility] Administered by: Sharon Zarco RN on 03/12/24 13:21 Dose Route Admin Location Dispensed Lot Number Expiration Date [facility] Recreation Leader 10 mL intra-urethral 10 mL nitrofurantoin monohydrate/macrocrystals 100 mg capsule Performing Provider: Thom Billingsley MD Performing Location: [facility] [place] [facility] Administered by: Sharon Zarco RN on 03/12/24 13:21 Dose Route Admin Location Dispensed Lot Number Expiration Date [place] Re[employer] Leader 100 mg PO 1 cap naproxen 500 mg tablet Performing Provider: Thom Billingsley MD Performing Location: [facility] [place] [facility] Administered by: Sharon Zarco RN on 03/12/24 13:21 Dose Route Admin Location Dispensed Lot Number Expiration Date [place] [employer] 500 mg PO 1 tab Results AMB Urinalysis, Automated UA Leukoctes 0 Whitney/uL Last Edit by HUMZA Merlos on 03/12/24 13:16 UA Nitrite Negative Last Edit by HUMZA Merlos on 03/12/24 13:16 UA Urobilinogen 0.2 mg/dL Last Edit by HUMZA Merlos on 03/12/24 13:1 6 UA Protein 0 mg/dL Last Edit by HUMZA Merlos on 03/12/24 13:16 UA pH 5.0 Last Edit by Sonja Hernandez, RMA on 03/12/24 13:16 UA Blood 0 Gildardo/uL Last Edit by Sonja Hernandez, RMA on 03/12/24 13:16 UA Specific [place] 1.015 Last Edit by Sonjamomo Hernandez, RMA on 03/12/24 13: 16 UA Ketone Negative Last Edit by Sonja Hernandez, RMA on 03/12/24 13:16 UA Bilirubin 0 mg/dL Last Edit by Sonja Hernandez, RMA on 03/12/24 13:16 UA Glucose 0 mg/dL Last Edit by Sonja Hernandez, RMA on 03/12/24 13:16 Results Reviewed Results Reviewed: Laboratory Last Values Urine pH (Auto) 5.0 03/12/24 13:10 Specific [place] (Auto) 1.015 03/12/24 13:10 Urine Protein (Auto) 0 mg/dL 03/12/24 13:10 Glucose (UA)(Auto) 0 mg/dL 03/12/24 13:10 Urine Ketones (Auto) Negative 03/12/24 13:10 Urine Blood (Auto) 0 Gildardo/uL 03/12/24 13:10 Urine Nitrite (Auto) Negative 03/12/24 13:10 Urine Bilirubin (Auto) 0 mg/dL 03/12/24 13:10 Urine Urobilinogen (Auto) 0.2 mg/dL 03/12/24 13:10 Leukocyte Esterase (Auto) 0 Whitney/uL 03/12/24 13:10 Assessment & Plan Assessment & Plan (1) Weak urinary stream: Code(s): R39.12 - Poor urinary stream Category: Medical (2) BPH (benign prostatic hyperplasia): Code(s): N40.0 - Benign prostatic hyperplasia without lower urinary tract symptoms Category: Medical Qualifiers: Lower urinary tract symptom presence: symptoms present Lower urinary tract symptom detail: weak urinary stream Qualified Code(s): N40.1 - Benign prostatic hyperplasia with lower urinary tract symptoms; R39.12 - Poor urinary stream Plan We discussed the nature of the decision and reasonable options for performing a prostate intervention. Interventions include TURP, GreenLight laser enucleation of the prostate, GreenLight laser ablation of the prostate, transurethral incision of the prostate, and I-Tend prostate procedure. Options such as medical therapy were discussed. The relative uncertainties and benefits related to each alternate procedure were adequately discussed. General surgical risks including, but not limited to, pain, bleeding, infection, myocardial infarction, pulmonary embolus, deep vein thrombosis and cerebrovascular accident which may result in further hospitalization were discussed. Full disclosure of the procedure as well as all major risks, benefits and complications were discussed including but not limited to damage to the urethra or bladder neck, recurrent BPH, retrograde ejaculation, bladder infection, urge, de toya frequency, incomplete emptying, dysuria, remote chance of erectile dysfunction, epididymitis, and meatal stenosis. The success rate of the procedure was discussed. Success of the procedure in the short-term does not necessarily guarantee that long-term success will be maintained. Suitable follow up will need to be maintained. The patient showed understanding of discussion. An opportunity was provided for questions to be answered and wishes to proceed with the following procedure. - GreenLight laser prostate October Orders: Orders AMB Urinalysis Automated Today Z13.9 - Encounter for screening, unspecified AMB Cystoscopy Today N40.1 - Benign prostatic hyperplasia with lower urinary tract symptoms, R39.12 - Poor urinary stream Patient Instructions: Imaging studies, laboratory and physical exam results were discussed and reviewed in detail. No major barriers to patient understanding were identified. An opportunity to ask questions regarding the treatment plan was provided. All questions were answered. The patient expressed understanding and agreement with the above treatment plan. The patient is aware they should contact our office by phone for worsening of their current condition or the appearance of new urologic symptoms. Compliance is encouraged with any medications and followup testing that is ordered. It is a privilege to participate in the urologic care of your patient. If you have any questions or concerns regarding treatment for the above conditions, or other urologic issues, please do not hesitate to contact me. The office telephone contact is [phone]. This note is constructed using voice recognition software. While every effort has been made to ensure accuracy traffic or system dispatcher errors may have been included. Yours sincerely, Dr Thom Billingsley MD, [facility] - Urology Providers of Expert, Compassionate Care for the Genitourinary System
== END 2024-03-12 13:58 | disposition home or self-care (01) ==
PROVIDERS: PCP Internal Medicine; Visit Provider Urology
DX: N40.1 Benign prostatic hyperplasia with lower urinary tract symptoms (principal); R39.12 Poor urinary stream; Z13.9 Encounter for screening, unspecified
CPT/HCPCS: 52000; 99214

== ENCOUNTER → 2024-03-12 12:47 | Outpatient (BNVA) | payer MEDICARE, SELFPAY | PROVIDERS: PCP Internal Medicine; Visit Provider Urology | DX: N40.1 Benign prostatic hyperplasia with lower urinary tract symptoms (principal); R39.12 Poor urinary stream | CPT/HCPCS: 52000; 81003; 99212 ==

== ENCOUNTER 2024-03-15 13:04 | Outpatient (AMB) | payer MEDICARE, SELFPAY ==
--- NOTE | 2024-03-15 13:09 | MHC.OFFVIS ---
Vital Signs 03/15/24 13:10 Weight 200 lb BP 142/49 H Blood Pressure Location Rt brachial Position Sitting Pulse 71 Intake Visit Reasons: Wound Check (Cash) Intake Note: Patient here to f/u pilonidal cyst on Rt buttock. Reports healing well. Finished amoxicillin course. Tag Meter Operator Required: No Accompanied by: Self / Same As Patient Allergies morphine [MORPHINE] Allergy (Unknown, Verified 03/15/24 13:09) NAUSEA & VOMITING simvastatin Allergy (Unknown, Verified 03/15/24 13:09) muscle pains and med ineffective enviromental allergies Allergy (Unknown, Uncoded 03/15/24 13:09) Unknown HPI Comments Details: The infected pilonidal cyst symptoms nearly completely resolved. [facility] Medical History COPD (chronic obstructive pulmonary disease) Nephrolithiasis Hx of bronchitis Hx of myocardial infarction PONV (postoperative nausea and vomiting) On beta didi at home On anticoagulant therapy Obesity (BMI 30-39.9) Coronary artery disease BPH (benign prostatic hyperplasia) Hyperlipidemia Impaired glucose tolerance Hypertension Paroxysmal atrial fibrillation Surgical History History of cardiac radiofrequency ablation (RFA) History of blepharoplasty Hx of appendectomy History of lumbar surgery H/O excision of lamina of cervical vertebra for decompression of spinal cord H/O rhinoplasty Family History Father No problems noted. Mother No problems noted. Social History Housing: House Alcohol intake: never Patient Tobacco Use Status: Former Tobacco user Tobacco use type: Cigarette e-Cigarette/Vaping Use: Never Used Second Hand Smoke Exposure: No Current occupational status: retired Cognitive needs: No Hearing needs: No Vision needs: Yes Physical Exam Vital Signs: Last Vital Signs Pulse 71 03/15/24 13:10 BP 142/49 H 03/15/24 13:10 Skin Other: Right upper buttock/molly cleft I&D site completely healed. Assessment & Plan Assessment & Plan (1) Infected pilonidal cyst: Code(s): L05.91 - Pilonidal cyst without abscess Category: Surgical Plan Patient has been given local instructions, and will follow-up p.r.n.. Should he have recurrence, patient instructed to call the office for evaluation and/or antibiotics. All questions answered. Patient will otherwise follow-up p.r.n..
[2024-03-15 13:10] VITALS: BP 142/49; PULSE 71
== END 2024-03-15 13:19 | disposition home or self-care (01) ==
LOC: HO.HGS 13:04
PROVIDERS: PCP Internal Medicine; Visit Provider Surgery
DX: L05.91 Pilonidal cyst without abscess (principal)
CPT/HCPCS: 99214

== ENCOUNTER → 2024-03-15 13:04 | Outpatient (BNVA) | payer MEDICARE, SELFPAY | PROVIDERS: PCP Internal Medicine; Visit Provider Surgery | DX: Z48.1 Encounter for planned postprocedural wound closure (principal); Z98.890 Other specified postprocedural states | CPT/HCPCS: 99212 ==

== ENCOUNTER 2024-03-23 10:40 | Outpatient (AMB) | payer MEDICARE, SELFPAY ==
[2024-03-23 10:45] VITALS: BP 140/62; PULSE 101
--- NOTE | 2024-03-23 10:45 | MHC.OFFVIS ---
Vital Signs 03/23/24 10:45 Weight 198 lb BP 140/62 H Blood Pressure Location Lt brachial Position Sitting Pulse 101 H Intake Visit Reasons: Pilonidal draining Intake Note: Patient tucked in this morning for inflamed pilonidal cyst. Patient c/o: redness, pain, oozing. Manager Corporate Marketing Required: No Accompanied by: Self / Same As Patient Allergies morphine [MORPHINE] Allergy (Unknown, Verified 03/23/24 10:46) NAUSEA & VOMITING simvastatin Allergy (Unknown, Verified 03/23/24 10:46) muscle pains and med ineffective enviromental allergies Allergy (Unknown, Uncoded 03/23/24 10:46) Unknown HPI Comments Details: Patient was riding his Vicryl in the weekend over the last few days developed pain and swelling of his recent pilonidal cyst drainage site. It is spontaneously drained and not presents here for further evaluation. This has been a chronic problem for him. [facility], [facility] Medical History COPD (chronic obstructive pulmonary disease) Nephrolithiasis Hx of bronchitis Hx of myocardial infarction PONV (postoperative nausea and vomiting) On beta didi at home On anticoagulant therapy Obesity (BMI 30-39.9) Coronary artery disease BPH (benign prostatic hyperplasia) Hyperlipidemia Impaired glucose tolerance Hypertension Paroxysmal atrial fibrillation Surgical History History of cardiac radiofrequency ablation (RFA) History of blepharoplasty Hx of appendectomy History of lumbar surgery H/O excision of lamina of cervical vertebra for decompression of spinal cord H/O rhinoplasty Family History Father No problems noted. Mother No problems noted. Social History Housing: House Alcohol intake: never Patient Tobacco Use Status: Former Tobacco user Tobacco use type: Cigarette e-Cigarette/Vaping Use: Never Used Second Hand Smoke Exposure: No Current occupational status: retired Cognitive needs: No Hearing needs: No Vision needs: Yes Physical Exam Vital Signs: Last Vital Signs Pulse 101 H 03/23/24 10:45 BP 140/62 H 03/23/24 10:45 Skin Other: Right upper cleft area spontaneously draining status post prior I&D of pilonidal cyst. Erythema but no underlying abscess. Assessment & Plan Assessment & Plan (1) Infected pilonidal cyst: Code(s): L05.91 - Pilonidal cyst without abscess Category: Surgical Plan Patient will be given a script for antibiotics and local wound care and see me in the proximal weeks time. During the center infiltrated of any issues actually been instructed to call the office. Down the road once this in infective process has resolved, consideration for excision should be discussed because of the chronicity and recurrence of his pilonidal issues. Coding Level of Care Code Est Pt Level 4 (98618) Diagnoses Infected pilonidal cyst L05.91
== END 2024-03-23 10:51 | disposition home or self-care (01) ==
PROVIDERS: PCP Internal Medicine; Visit Provider Surgery
DX: L05.91 Pilonidal cyst without abscess (principal)
CPT/HCPCS: 99214

== ENCOUNTER → 2024-03-23 10:40 | Outpatient (BNVA) | payer MEDICARE, SELFPAY | PROVIDERS: PCP Internal Medicine; Visit Provider Surgery | DX: L05.91 Pilonidal cyst without abscess (principal) | CPT/HCPCS: 99212 ==

== ENCOUNTER 2024-03-30 14:07 | Outpatient (AMB) | payer MEDICARE, SELFPAY ==
--- NOTE | 2024-03-30 13:47 | A.OFFVIS_ITS ---
Vital Signs 03/30/24 13:51 Weight 198 lb BP 137/63 Blood Pressure Location Lt brachial Position Sitting Pulse 87 Intake Visit Reasons: Pilonidal draining 1 week follow up Intake Note: Patient here for 1wk f/u pilonidal cyst on Rt upper molly cleft. Reports improvement with Cephalexin course. Patient c/o: has 2 more days of abx. 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 He has had improvement of his pilonidal symptoms. He is completing his antibiotic course. Drainage has completely resolved. [facility] Medical History COPD (chronic obstructive pulmonary disease) Nephrolithiasis Hx of bronchitis Hx of myocardial infarction PONV (postoperative nausea and vomiting) On beta didi at home On anticoagulant therapy Obesity (BMI 30-39.9) Coronary artery disease BPH (benign prostatic hyperplasia) Hyperlipidemia Impaired glucose tolerance Hypertension Paroxysmal atrial fibrillation Surgical History History of cardiac radiofrequency ablation (RFA) History of blepharoplasty Hx of appendectomy History of lumbar surgery H/O excision of lamina of cervical vertebra for decompression of spinal cord H/O rhinoplasty Family History Father No problems noted. Mother No problems noted. Social History Housing: House Alcohol intake: never Patient Tobacco Use Status: Former Tobacco user Tobacco use type: Cigarette e-Cigarette/Vaping Use: Never Used Second Hand Smoke Exposure: No Current occupational status: retired Cognitive needs: No Hearing needs: No Vision needs: Yes Physical Exam Vital Signs: Last Vital Signs Pulse 87 03/30/24 13:51 BP 137/63 03/30/24 13:51 Chest Other: Chest breath sounds bilaterally, HS 1 in 2 GI Other: Abdomen is soft, benign Back/Spine/Pelvis Other: Resolving pilonidal cyst inflammation of right buttock. Assessment & Plan Assessment & Plan (1) Infected pilonidal cyst: Code(s): L05. - Pilonidal cyst without abscess Category: Surgical Plan Patient would like to undergo an elective excision of this chronic recurring pilonidal cyst. Risks, benefits, alternatives of the procedure consisting of wide local excision of pilonidal cyst of cleft were reviewed with the patient and included but not limited to bleeding, infection, recurrence, numbness, pain, scarring, seroma formation, wound dehiscence. All questions answered. Patient wishes to proceed. I emphasized that he must remain sedentary for a few weeks after to avoid any wound issues. All questions answered. Arrangements were made for this. Coding Level of Care Code Est Pt Level 5 (08383) Diagnoses Infected pilonidal cyst L05.91
[2024-03-30 13:51] VITALS: BP 137/63; PULSE 87
== END 2024-03-30 14:26 | disposition home or self-care (01) ==
LOC: HO.HGS 14:07
PROVIDERS: PCP Internal Medicine; Visit Provider Surgery
DX: L05.91 Pilonidal cyst without abscess (principal)
CPT/HCPCS: 99214

== ENCOUNTER → 2024-03-30 14:07 | Outpatient (BNVA) | payer MEDICARE, SELFPAY | PROVIDERS: PCP Internal Medicine; Visit Provider Surgery | DX: L05.91 Pilonidal cyst without abscess (principal) | CPT/HCPCS: 99212 ==

== ENCOUNTER → 2024-04-15 13:42 | Outpatient (BNV) | payer MEDICARE, SELFPAY | PROVIDERS: PCP Internal Medicine; Visit Provider Internal Medicine Cardiovascular Disease | DX: L05.91 Pilonidal cyst without abscess (principal); Z01.810 Encounter for preprocedural cardiovascular examination | CPT/HCPCS: 93010 ==

== ENCOUNTER 2024-04-23 07:39 | Day surgery (SDC) | payer MEDICARE, SELFPAY ==
--- NOTE | 2024-04-15 | ECG_ITS ---
Test Reason : PREOP Blood Pressure : / mmHG Vent. Rate : 073 BPM Atrial Rate : 073 BPM P-R Int : 158 ms QRS Dur : 096 ms QT Int : 378 ms P-R-T Axes : -12 013 049 degrees QTc Int : 416 ms Normal sinus rhythm Normal ECG When compared with ECG of 26-JAN-2018 09:37, Premature ventricular complexes are no longer Present Referred By: Gail Rascon Electronically Signed By:Antonio Nunez
[2024-04-15 12:42] VITALS: BP 147/64; PULSE 95; RESP 16; O2SAT 96; BMI 29.6
--- NOTE | 2024-04-15 12:58 | P.CONAN_ITS ---
Documented by User: Gail Rascon NP 04/21/24 10:36 HPI - Anesthesia Eval Consult details Narrative: 79yo M for Wide Local Excision of pilonidal cyst molly cleft Pt would like to avoid GETA - prefers TIVA or spinal No recent illness No CP/SOB with biking 5 miles daily (pedal bike) Follows [facility]. Last office visit 09/2023 with 6 month f/u Xarelto for afib CAD stable COPD/Chronic cough: productive clear, scheduled inhalers BID, Albuterol rescue 2-3 x weekly PAD/AAA: follows vascular, last visit 03/2024 with 1 year f/u PONV: Scop not effective. Will try aponvie [facility] Active Problems Active Problems: All Active Problems Infected pilonidal cyst (Acute) Peripheral vascular disease (Acute) RLQ abdominal pain (Acute) Pneumonia (Acute) Upper respiratory infection (Acute) Sebaceous cyst (Acute) Abscess (Acute) Otitis externa of right ear (Acute) Diarrhea (Acute) Knee pain, right (Acute) Microscopic hematuria (Acute) Weak urinary stream (Acute) Calcaneal spur of right foot (Acute) Achilles tendinosis (Acute) Achilles tendinitis of right lower extremity (Acute) Ascending aorta dilatation (Acute) Medicare annual wellness visit, initial (Acute) Sacral pain (Acute) Low back pain (Acute) COPD (chronic obstructive pulmonary disease) (Acute) Obesity (BMI 30-39.9) (Acute) Coronary artery disease (Acute) BPH (benign prostatic hyperplasia) (Acute) Hyperlipidemia (Acute) Impaired glucose tolerance (Acute) Hypertension (Acute) Paroxysmal atrial fibrillation (Acute) Past Medical History Medical History (Updated 04/15/24 @ 12:59 by Lissett Ortez, WARNER) Abdominal aortic aneurysm (AAA) Chronic bronchitis Renal calculi COPD (chronic obstructive pulmonary disease) Nephrolithiasis Hx of myocardial infarction PONV (postoperative nausea and vomiting) On beta didi at home On anticoagulant therapy Obesity (BMI 30-39.9) Coronary artery disease BPH (benign prostatic hyperplasia) Hyperlipidemia Impaired glucose tolerance Hypertension Paroxysmal atrial fibrillation Family History Family History Father No problems noted. Mother No problems noted. Surgical History Surgical History (Updated 04/15/24 @ 12:41 by Lissett Ortez, RN) Hx of Achilles tendon repair (10/2022) Hx of basal cell carcinoma excision (~04/09/24) Hx of colonoscopy History of cardiac radiofrequency ablation (RFA) History of blepharoplasty Hx of appendectomy History of lumbar surgery H/O excision of lamina of cervical vertebra for decompression of spinal cord H/O rhinoplasty History of Problems with Anesthesia: Yes (PONV) Social History Social History (Updated 04/15/24 @ 12:52 by Lissett Ortez RN) Housing: House Are you a primary hospice spiritual care coordinator to a significant other at home: No Do you presently have visiting nurse or other home services: No Alcohol intake: never Patient Tobacco Use Status: Former Tobacco user Tobacco use type: Cigarette and Cigar Cigarettes Per Day: 0 (Cigar on occasion) Years Smoked: 48 e-Cigarette/Vaping Use: Never Used Second Hand Smoke Exposure: No Use of substances other than those prescribed or required for medical reasons: No Have you been hit, kicked, punched, or otherwise hurt by someone within the past year? If so, by whom?: No Are you DNR?: No Advance Directives: No Advance Directives Information Provided: Yes Advance Directives on File: No Recently lost weight without trying: No Poor oral hygiene: No Current occupational status: retired Cognitive needs: No Hearing needs: No Vision needs: Yes Meds Allergies Allergy/AdvReac Type Severity Reaction Status Date / Time morphine [MORPHINE] Allergy Unknown NAUSEA & Verified 03/23/24 10:46 VOMITING simvastatin Allergy Unknown muscle Verified 03/23/24 10:46 pains and med ineffective enviromental allergies Allergy Unknown Unknown Uncoded 03/23/24 10:46 Home Medications ?Medication ?Instructions ?Recorded ?Confirmed ?Last Taken ?Type aspirin 81 mg tablet,delayed 81 mg PO DAILY 09/13/20 04/15/24 04/19/24 History release (Adult Aspirin Regimen) rivaroxaban 20 mg tablet (Xarelto) 20 mg PO DAILY 07/17/22 04/15/24 04/19/24 History losartan 50 mg tablet 50 mg PO DAILY 01/27/24 04/15/24 Unknown History celecoxib 200 mg capsule (Celebrex) 200 mg PO DAILY PRN Pain 04/15/24 04/15/24 Unknown History dronedarone 400 mg tablet (Multaq) 400 mg PO BID 04/15/24 04/15/24 04/23/24 History finasteride 5 mg tablet 5 mg PO DAILY@1700 04/15/24 04/15/24 Unknown History fluticasone furoate 200 1 inh inhalation .QEVENING 04/15/24 04/15/24 04/23/24 History mcg-vilanterol 25 mcg/dose inhalation powder (Breo Ellipta) loratadine 10 mg tablet (Claritin) 10 mg PO DAILY 04/15/24 04/15/24 04/23/24 History Exam Height,Weight and Vital Signs: Height 5 ft 8 in Weight 88.451 kg Last Vital Signs Pulse 95 04/15/24 12:42 Resp 16 04/15/24 12:42 BP 147/64 H 04/15/24 12:42 Pulse Ox 96 04/15/24 12:42 O2 Del Method Room Air 04/15/24 12:42 Narrative Narrative: EKG 03/2024 Vent. Rate : 073 BPM Atrial Rate : 073 BPM P-R Int : 158 ms QRS Dur : 096 ms QT Int : 378 ms P-R-T Axes : -12 013 049 degrees QTc Int : 416 ms Normal sinus rhythm Normal ECG When compared with ECG of 26-JAN-2018 09:37, Premature ventricular complexes are no longer Present ECHO 01/2024 Conclusions: - Normal left ventricular size and systolic function. The visually estimated ejection fraction is between 55-60%. There is no evidence of regional wall motion abnormalities. Abnormal diastolic function is noted. Spectral Doppler is indicative of an impaired relaxation filling pattern. E/E prime ratio is between 8 and 15 consistent with indeterminate filling pressures. There is severe septal asymmetric hypertrophy. - Normal right ventricular cavity size and systolic function. - There is mild aortic valve stenosis. - There is mild aortic valve regurgitation. - There is mild dilatation of the sinuses of Valsalva measuring 4.17 cm and mild dilatation of the ascending aorta measuring 4.10 cm. Airway Mallampati Class: I TM Dist: >3cm Neck ROM: Limited Loose/Missing/Broken Teeth: Yes (2 x pulled, 1 x crown) Heart: RRR Lungs: RLL coarse, but clears wih deep cough Assessment and Plan Assessment Anesthesia Assessment: Anesthesia Plan Discussed and PAT Visit Final Anesthetic Review History of Problems with Anesthesia: Yes (PONV) Documented by User: Edward Villarreal MD 04/23/24 08:34 [facility] Past Medical History Medical History (Updated 04/15/24 @ 12:59 by Lissett Ortez, RN) Abdominal aortic aneurysm (AAA) Chronic bronchitis Renal calculi COPD (chronic obstructive pulmonary disease) Nephrolithiasis Hx of myocardial infarction PONV (postoperative nausea and vomiting) On beta didi at home On anticoagulant therapy Obesity (BMI 30-39.9) Coronary artery disease BPH (benign prostatic hyperplasia) Hyperlipidemia Impaired glucose tolerance Hypertension Paroxysmal atrial fibrillation Family History Family History Father No problems noted. Mother No problems noted. Family history of problems with anesthesia: No Surgical History Surgical History (Updated 04/15/24 @ 12:41 by Lissett Ortez RN) Hx of Achilles tendon repair (10/2022) Hx of basal cell carcinoma excision (~04/09/24) Hx of colonoscopy History of cardiac radiofrequency ablation (RFA) History of blepharoplasty Hx of appendectomy History of lumbar surgery H/O excision of lamina of cervical vertebra for decompression of spinal cord H/O rhinoplasty History of Problems with Anesthesia: No (PONV) Social History Social History (Updated 04/15/24 @ 12:52 by Lissett Ortez RN) Housing: House Are you a primary hospice spiritual care coordinator to a significant other at home: No Do you presently have visiting nurse or other home services: No Alcohol intake: never Patient Tobacco Use Status: Former Tobacco user Tobacco use type: Cigarette and Cigar Cigarettes Per Day: 0 (Cigar on occasion) Years Smoked: 48 e-Cigarette/Vaping Use: Never Used Second Hand Smoke Exposure: No Use of substances other than those prescribed or required for medical reasons: No Have you been hit, kicked, punched, or otherwise hurt by someone within the past year? If so, by whom?: No Are you DNR?: No Advance Directives: No Advance Directives Information Provided: Yes Advance Directives on File: No Recently lost weight without trying: No Poor oral hygiene: No Current occupational status: retired Cognitive needs: No Hearing needs: No Vision needs: Yes Meds Allergies Allergy/AdvReac Type Severity Reaction Status Date / Time morphine [MORPHINE] Allergy Unknown NAUSEA & Verified 03/23/24 10:46 VOMITING simvastatin Allergy Unknown muscle Verified 03/23/24 10:46 pains and med ineffective enviromental allergies Allergy Unknown Unknown Uncoded 03/23/24 10:46 Home Medications ?Medication ?Instructions ?Recorded ?Confirmed ?Last Taken ?Type aspirin 81 mg tablet,delayed 81 mg PO DAILY 09/13/20 04/15/24 04/19/24 History release (Adult Aspirin Regimen) rivaroxaban 20 mg tablet (Xarelto) 20 mg PO DAILY 07/17/22 04/15/24 04/19/24 History losartan 50 mg tablet 50 mg PO DAILY 01/27/24 04/15/24 Unknown History celecoxib 200 mg capsule (Celebrex) 200 mg PO DAILY PRN Pain 04/15/24 04/15/24 Unknown History dronedarone 400 mg tablet (Multaq) 400 mg PO BID 04/15/24 04/15/24 04/23/24 History finasteride 5 mg tablet 5 mg PO DAILY@1700 04/15/24 04/15/24 Unknown History fluticasone furoate 200 1 inh inhalation .QEVENING 04/15/24 04/15/24 04/23/24 History mcg-vilanterol 25 mcg/dose inhalation powder (Breo Ellipta) loratadine 10 mg tablet (Claritin) 10 mg PO DAILY 04/15/24 04/15/24 04/23/24 History Exam Airway Mallampati Class: III Assessment and Plan Assessment Anesthesia Assessment: Chart Reviewed Final Anesthetic Review Family History of Problems with Anesthesia: No History of Problems with Anesthesia: No (PONV) NPO: Yes ASA Class: III Final Preanesthetic Review: No Changes in Pt Med Stat, Meds/Allgs Chart Reviewed, Consent Obtained/Reviewed and Anes Risks/Benef Reviewed Patient Risk: Intermediate Procedure Risk: Low Anesthetic Plan Anesthetic Plan: GA Disposition: Standard PACU
--- NOTE | 2024-04-22 13:26 | MHC.SHP ---
Pre-Procedural Eval Section A - 24 Hr Update-Section A only Date of Service: 04/23/24 The patient is an INPATIENT: No Changes since office visit: No Cold of Flu in the past 2 weeks, No New Medical Problems, No Changes in Medication and No Patient answered all questions Section B - Complete if H&P > 30 days Chief Complaint: Pilonidal cyst without abscess Allergies: Allergies Allergy/AdvReac Type Severity Reaction Status Date / Time morphine [MORPHINE] Allergy Unknown NAUSEA & Verified 03/23/24 10:46 VOMITING simvastatin Allergy Unknown muscle Verified 03/23/24 10:46 pains and med ineffective enviromental allergies Allergy Unknown Unknown Uncoded 03/23/24 10:46 Plan I have reviewed the history and physical and performed a pertinent physical examination on my patient. No changes have occurred unless specified. Time Spent With Patient Time: Total time managing care of this patient today ____ minutes.
[2024-04-23 08:12] VITALS: BP 144/56; PULSE 65; RESP 16; TEMP 36.7; O2SAT 95; BMI 30.6
[2024-04-23] MEDS: Lactated Ringers 1,000 ML 100 ML IVCONT (08:28)
[2024-04-23] MEDS: Aprepitant 32 MG/4.4 ML VIAL IVPUSH (08:28)
[2024-04-23] MEDS: Albuterol Sulfate (0.083%) 2.5 MG/3 ML VIAL.NEB INHALE (08:40)
[2024-04-23 08:45] VITALS: PULSE 75; RESP 18; O2SAT 97
--- NOTE | 2024-04-23 10:52 | P.OP_ITS ---
Operative Note Operative Note Date of Service: 04/23/24 Narrative: Preoperative diagnosis: [] Right medial buttock symptomatic recurrent sebaceous cyst Postop diagnosis: [] The same Procedure [] wide local excision sebaceous cyst bright upper medial buttock Surgeon: [] Satish Manager Discovery: [] Type of Anesthesia: [] MAC Indication for surgery: [] Final specimen approximately 4 x 3 cm in size sent to pathology Findings: [] Patient brought to the operating room, placed on operative table in supine position, after an adequate level of MAC anesthesia was induced, patient was placed in the right lateral decubitus position. Left Upper buttock was retracted with tape and the operative area was prepped and draped in usual sterile fashion. Using a transverse by elliptical incision encompassing the mass in question with dimensions as described above, this carried down through skin, subcutaneous tissue, and undermined using Bovie. Specimen sent to pathology. Wound was irrigated, secured hemostasis, and closed using interrupted inverted dermal 3-0 Vicryl sutures followed by Steri-Strips and sterile dressings. Wound was infiltrated at the beginning at the end of the case with 0.5% Marcaine/1% lidocaine. Sponge, needle, and instrument counts were reported correct. Patient tolerated the procedure well and emerged from anesthesia stable condition. EBL minimal
[2024-04-23 11:00] VITALS: BP 93/42; PULSE 61; RESP 12; TEMP 36.1; O2SAT 97
[2024-04-23 11:15] VITALS: BP 112/49; PULSE 58; RESP 14; O2SAT 95
[2024-04-23 11:30] VITALS: BP 104/50; PULSE 59; RESP 15; O2SAT 94
[2024-04-23 11:45] VITALS: BP 141/60; PULSE 65; RESP 14; TEMP 36.2; O2SAT 96
== END 2024-04-23 13:16 | disposition home or self-care (01) ==
PROVIDERS: PCP Internal Medicine; Visit Provider Surgery
PROC: (CPT 11404; principal; 2024-04-23 10:40)
DX: L72.0 Epidermal cyst (principal); I10 Essential (primary) hypertension; I48.0 Paroxysmal atrial fibrillation; J44.9 Chronic obstructive pulmonary disease, unspecified; Z79.01 Long term (current) use of anticoagulants; Z79.899 Other long term (current) drug therapy; Z88.5 Allergy status to narcotic agent; Z88.8 Allergy status to other drugs, medicaments and biological substances
CPT/HCPCS: 11404; 88304; 93005; 94640; C9145; J0690; J2704; J2795; J3010

== ENCOUNTER → 2024-04-23 07:39 | Outpatient (BNV) | payer MEDICARE, SELFPAY | PROVIDERS: PCP Internal Medicine; Visit Provider Surgery | DX: L72.0 Epidermal cyst (principal) | CPT/HCPCS: 11404 ==

== ENCOUNTER 2024-05-03 10:11 | Outpatient (AMB) | payer MEDICARE, SELFPAY ==
--- NOTE | 2024-05-03 10:27 | A.OFFVIS_ITS ---
Intake Visit Reasons: S/P WLE pilonidal cyst cleft Allergies morphine [MORPHINE] Allergy (Unknown, Verified 03/23/24 10:46) NAUSEA & VOMITING simvastatin Allergy (Unknown, Verified 03/23/24 10:46) muscle pains and med ineffective enviromental allergies Allergy (Unknown, Uncoded 03/23/24 10:46) Unknown HPI Comments Details: Patient presents for follow-up. He has no wound issues or complaints. He is increasing his activity level. He is anxious to start golfing again. Pathology is benign. [facility] Medical History (Updated 04/15/24 @ 12:59 by Lissett Ortez, RN) Abdominal aortic aneurysm (AAA) Chronic bronchitis Renal calculi COPD (chronic obstructive pulmonary disease) Nephrolithiasis Hx of myocardial infarction PONV (postoperative nausea and vomiting) On beta didi at home On anticoagulant therapy Obesity (BMI 30-39.9) Coronary artery disease BPH (benign prostatic hyperplasia) Hyperlipidemia Impaired glucose tolerance Hypertension Paroxysmal atrial fibrillation Surgical History (Updated 05/03/24 @ 10:28 by Harris Covarrubias MD) Hx of surgical procedure (04/23/24) Hx of Achilles tendon repair (10/2022) Hx of basal cell carcinoma excision (~04/09/24) Hx of colonoscopy History of cardiac radiofrequency ablation (RFA) History of blepharoplasty Hx of appendectomy History of lumbar surgery H/O excision of lamina of cervical vertebra for decompression of spinal cord H/O rhinoplasty Family History Father No problems noted. Mother No problems noted. Social History (Updated 04/15/24 @ 12:52 by Lissett Ortez, WARNER) Housing: House Are you a primary care taker to a significant other at home: No Do you presently have visiting nurse or other home services: No Alcohol intake: never Patient Tobacco Use Status: Former Tobacco user Tobacco use type: Cigarette and Cigar Cigarettes Per Day: 0 (Cigar on occasion) Years Smoked: 48 e-Cigarette/Vaping Use: Never Used Second Hand Smoke Exposure: No Current occupational status: retired Cognitive needs: No Hearing needs: No Vision needs: Yes Physical Exam Back/Spine/Pelvis Other: Buttock wound clean dry and intact healing very well Assessment & Plan Assessment & Plan (1) Postop check: Code(s): Z09 - Encounter for follow-up examination after completed treatment for conditions other than malignant neoplasm Category: Surgical Plan Patient has been given local instructions including slowly easing into his activities. All questions answered. Patient will otherwise follow-up p.r.n. Coding Level of Care Code Global (22432) Diagnoses Postop check Z09
== END 2024-05-03 10:34 | disposition home or self-care (01) ==
PROVIDERS: PCP Internal Medicine; Visit Provider Surgery
DX: Z09 Encounter for follow-up examination after completed treatment for conditions other than malignant neoplasm (principal)
CPT/HCPCS: 99024

== ENCOUNTER → 2024-05-03 10:11 | Outpatient (BNVA) | payer MEDICARE, SELFPAY | PROVIDERS: PCP Internal Medicine; Visit Provider Surgery | DX: Z09 Encounter for follow-up examination after completed treatment for conditions other than malignant neoplasm (principal); Z98.890 Other specified postprocedural states | CPT/HCPCS: 99212 ==

== ENCOUNTER 2024-07-07 11:05 | Outpatient (AMB) | payer MEDICARE, SELFPAY ==
[2024-07-07 11:07] VITALS: BP 148/80; PULSE 78; O2SAT 98
--- NOTE | 2024-07-07 11:07 | A.OFFPC_ITS ---
Vital Signs 07/07/24 11:07 Height 5 ft 8 in Weight 197 lb BMI 30.0 BP 148/80 H Blood Pressure Location Lt brachial Position Sitting Pulse 78 Pulse Source Pulse Oximeter Pulse Oximetry (%) 98 Oxygen Delivery Method Room Air Intake Visit Reasons: 3m follow up/ pilonidal cyst Allergies morphine [MORPHINE] Allergy (Unknown, Verified 07/07/24 11:08) NAUSEA & VOMITING simvastatin Allergy (Unknown, Verified 07/07/24 11:08) muscle pains and med ineffective enviromental allergies Allergy (Unknown, Uncoded 07/07/24 11:08) Unknown Tobacco use date assessed: 02/24/24 Fall risk assessment: No Falls in past year Last assessed Fall Risk: 07/07/24 Dental Screening Dental Screen Date: 07/07/24 Did you have a dental visit in the last 12 months?: Yes Did you have a dental problem in the last 6 months where you did not have access to dental care?: No Was dental information given to patient?: Patient has dentist HPI 3m follow up/ pilonidal cyst HPI Details 79-year-old obese male with atrial fibri llation ascending aortic dilatation infected pilonidal cyst COPD coming in for follow-up. Last seen in 03/13/2024. Patient is up-to-date with colonoscopy 05/13/2021. Echocardiogram last January 2024 revealing 4.17 ascending aorta dilatation. Review of the notes has seen the surgeon post pilonidal cyst I and D March 2024. Patient also has seen Urology cystoscopy done showing enlarged right lateral lobe of the prostate and has recommended GreenLight laser prostatectomy on finasteride every other day. Patient had a CT scan done of the aorta 02/27/2024 which showed multiple things. Atherosclerotic disease, right punctate lower pole renal calculus as well as infected pilonidal cyst.. Small fat containing paraumbilical hernia FOR[facility]LY [facility], [facility] Medical History (Updated 07/07/24 @ 11:50 by Bianca You MD) Abdominal aortic aneurysm (AAA) Chronic bronchitis Renal calculi COPD (chronic obstructive pulmonary disease) Nephrolithiasis Hx of myocardial infarction PONV (postoperative nausea and vomiting) On beta didi at home On anticoagulant therapy Obesity (BMI 30-39.9) Coronary artery disease BPH (benign prostatic hyperplasia) Hyperlipidemia Impaired glucose tolerance Hypertension Paroxysmal atrial fibrillation Surgical History (Updated 07/07/24 @ 11:46 by Bianca You MD) Hx of surgical procedure (04/23/24) Hx of Achilles tendon repair (10/2022) Hx of basal cell carcinoma excision (~04/09/24) Hx of colonoscopy History of cardiac radiofrequency ablation (RFA) History of blepharoplasty Hx of appendectomy History of lumbar surgery H/O excision of lamina of cervical vertebra for decompression of spinal cord H/O rhinoplasty Family History Father No problems noted. Mother No problems noted. Social History (Updated 04/15/24 @ 12:52 by Lissett Ortez RN) Housing: House Are you a primary urgent care physician assistant to a significant other at home: No Do you presently have visiting nurse or other home services: No Alcohol intake: never Patient Tobacco Use Status: Former Tobacco user Tobacco use type: Cigarette and Cigar Cigarettes Per Day: 0 (Cigar on occasion) Years Smoked: 48 e-Cigarette/Vaping Use: Never Used Second Hand Smoke Exposure: No Current occupational status: retired Cognitive needs: No Hearing needs: No Vision needs: Yes Questionnaire PHQ-9 Over the last 2 weeks, how often have you been bothered by any of the following problems? 1. Little interest or pleasure in doing things: not at all 2. Feeling down, depressed, or hopeless: not at all 3. Trouble falling or staying asleep, or sleeping too much: not at all 4. Feeling tired or having little energy: not at all 5. Poor appetite or overeating: not at all 6. Feeling bad about yourself - or that you are a failure or have let yourself or your family down: not at all 7. Trouble concentrating on things, such as reading the newspaper or watching television: not at all 8. Moving or speaking so slowly that other people could have noticed. Or the opposite - being so fidgety or restless that you have been moving around a lot more than usual: not at all 9. Thoughts that you would be better off or of hurting yourself in some way: not at all Total score: 0 Depression Screening Interpretation: Negative (Patient refused to answer questions. ) Depression Screening Done: Yes 12814 - PHQ-9 Billing: Patient declined-do not bill Source: Developed by Drs. Pierce Nair, Malena Crowell, James Huynh and colleagues, with an educational yonas from [employer]. Thrive Questionnaire Date Thrive assessed: 12/25/23 AUDIT C Alcohol Use Questionnaire (AUDIT-C) 1. How often do you have a drink containing alcohol?: Never 3. How often do you have six or more drinks on one occasion?: Never Total Score: 0 FLYNN-7 AMB Questionnaire FLYNN-7 Date FLYNN - 7 assessed: 12/25/23 Source: Developed by Malena Roman Kurt Kroenke and colleagues, with an educational yonas from [employer]. Physical exam (Primary Care) Vital Signs: Last Vital Signs Pulse 78 07/07/24 11:07 BP 148/80 H 07/07/24 11:07 Pulse Ox 98 07/07/24 11:07 Oxygen Delivery Method Room Air 07/07/24 11:07 BMI result Body Mass Index 30.0 Tobacco/Smoking Status: Tobacco use Status Tobacco use date assessed 02/24/24 07/07/24 11:09 Patient Tobacco Use Status Former Tobacco user 07/07/24 11:09 Tobacco use type Cigarette,Cigar 07/07/24 11:09 e-Cigarette/Vaping Use Never Used 07/07/24 11:09 PHQ-9: PHQ-9 Score PHQ-9: Total score 0 07/07/24 11:09 Depression Screening Interpretation: Negative (Patient refused to answer questions. ) Thrive Assessment: Date of Thrive Assessment Date Thrive assessed 12/25/23 07/07/24 11:09 Const General: alert; No acute distress Eyes Conjunctivae: conjunctivae normal Resp Auscultation: clear to auscultation bilaterally Cardio Rate: regular rate Rhythm: regular rhythm GI Inspection: Yes normal to inspection Extrem General: Yes normal to inspection and No edema Assessment and Plan Assessment & Plan (1) Infected pilonidal cyst: Comment: Status post excision and drainage March 2024 Code(s): L05.91 - Pilonidal cyst without abscess Plan: Status post excision continues to follow up with the surgeon. (2) Ascending aorta dilatation: Comment: April 2022Normal LV systolic function with impaired relaxation ? ? ? filling pattern? 2.? Mild aortic regurgitation mos January 2023echocardiogram left ventricular hypertrophy ejection fraction 55-60% normal left ventricular diastolic function. ascending aorta 4.2 cm January 202301/2024 4.1 cm Code(s): I77.810 - Thoracic aortic ectasia Plan: This is being monitored regularly 01/2024 last stable (3) COPD (chronic obstructive pulmonary disease): Code(s): J44.9 - Chronic obstructive pulmonary disease, unspecified Plan: Continuing with albuterol as needed with Breo inhaler and Incruse as controller (4) Obesity (BMI 30-39.9): Code(s): E66.9 - Obesity, unspecified Plan: Diet and exercise (5) Coronary artery disease: Comment: 1995 Dr. Stacy Code(s): I25.10 - Atherosclerotic heart disease of [place] coronary artery without angina pectoris Qualifiers: Coronary Disease-Associated Artery/Lesion type: [place] artery [place] vs. transplanted heart: [place] heart Associated angina: without angina Qualified Code(s): I25.10 - Atherosclerotic heart disease of [place] coronary artery without angina pectoris Plan: Control the cholesterol, weight, blood pressure, diabetes on aspirin 81 mg once a day (6) Hyperlipidemia: Code(s): E78.5 - Hyperlipidemia, unspecified Qualifiers: Hyperlipidemia type: pure hypercholesterolemia Qualified Code(s): E78.00 - Pure hypercholesterolemia, unspecified Plan: Avoid fried foods, chicken skin, eggs, butter margarine, pastries and meat. Be it pork or beef they have a lot of cholesterol 02/11/2024 last blood work LDL goal of less than 70 (7) Hypertension: Code(s): I10 - Essential (primary) hypertension Qualifiers: Hypertension type: essential hypertension Qualified Code(s): I10 - Essential (primary) hypertension Plan: Continue with blood pressure medication. Decrease salt intake and exercise taking losartan (8) Impaired glucose tolerance: Code(s): R73.02 - Impaired glucose tolerance (oral) Plan: Decrease the amount of carbohydrate intake, pasta, bread, rice and potatoes are all sugar and that is aside from all the sweet stuff, remember that fruits are good but they are Sweet also. (9) Paroxysmal atrial fibrillation: Comment: June 2019 echo normal LV impaired relaxation, November 2019 ear 55-60% her tick dilatation [address] Bonner 08/2020 Code(s): I48.0 - Paroxysmal atrial fibrillation Plan: Continue with anticoagulation with Xarelto and Multaq (10) BPH (benign prostatic hyperplasia): Code(s): N40.0 - Benign prostatic hyperplasia without lower urinary tract symptoms Qualifiers: Lower urinary tract symptom presence: symptoms present Lower urinary tract symptom detail: weak urinary stream Qualified Code(s): N40.1 - Benign prostatic hyperplasia with lower urinary tract symptoms; R39.12 - Poor urinary stream Plan: will have the procedure 09/2024 (11) Tubular adenoma of colon: Code(s): D12.6 - Benign neoplasm of colon, unspecified Plan: schedule to see 07/2024 Dr[address] Alcantar (12) Basal cell carcinoma: Code(s): C44.91 - Basal cell carcinoma of skin, unspecified Plan: back surgery planned (13) Peripheral vascular disease: Comment: December 2023 ankle-brachial index right below 0.8, left below 0.7 Code(s): I73.9 - Peripheral vascular disease, unspecified Plan: Seeing vascular and continue with monitoring Orders: Orders Hemoglobin A1c 2 Months R73.02 - Impaired glucose tolerance (oral) Comprehensive Met. Panel 2 Months R73.02 - Impaired glucose tolerance (oral) Complete Blood Count Auto Diff 2 Months R73.02 - Impaired glucose tolerance (oral) Thyroid Stimulating Hormone 2 Months R73.02 - Impaired glucose tolerance (oral) Free T4 (Free Thyroxine) 2 Months R73.02 - Impaired glucose tolerance (oral) Coding Level of Care Code Est Pt Level 4 (28570) Diagnoses Infected pilonidal cyst L05.91 Ascending aorta dilatation I77.810 COPD (chronic obstructive pulmonary disease) J44.9 Obesity (BMI 30-39.9) E66.9 Coronary artery disease involving [place] coronary artery of [place] heart without angina pectoris I25.10 Coronary Disease-Associated Artery/Lesion type: [place] artery [place] vs. transplanted heart: [place] heart Associated angina: without angina Pure hypercholesterolemia E78.00 Hyperlipidemia type: pure hypercholesterolemia Essential hypertension I10 Hypertension type: essential hypertension Impaired glucose tolerance R73.02 Paroxysmal atrial fibrillation I48.0 Benign prostatic hyperplasia with weak urinary stream N40.1; R39.12 Lower urinary tract symptom presence: symptoms present Lower urinary tract symptom detail: weak urinary stream Tubular adenoma of colon D12.6 Basal cell carcinoma C44.91 Peripheral vascular disease I73.9
== END 2024-07-07 11:59 | disposition home or self-care (01) ==
PROVIDERS: PCP Internal Medicine; Visit Provider Internal Medicine
DX: L05.91 Pilonidal cyst without abscess (principal); I77.810 Thoracic aortic ectasia; J44.9 Chronic obstructive pulmonary disease, unspecified; E66.9 Obesity, unspecified; I25.10 Atherosclerotic heart disease of native coronary artery without angina pectoris; E78.00 Pure hypercholesterolemia, unspecified; I10 Essential (primary) hypertension; R73.02 Impaired glucose tolerance (oral); I48.0 Paroxysmal atrial fibrillation; N40.1 Benign prostatic hyperplasia with lower urinary tract symptoms; R39.12 Poor urinary stream; I73.9 Peripheral vascular disease, unspecified; D12.6 Benign neoplasm of colon, unspecified; C44.91 Basal cell carcinoma of skin, unspecified
CPT/HCPCS: 99214

== ENCOUNTER 2024-08-10 10:08 | Outpatient (AMB) | payer MEDICARE, SELFPAY ==
--- NOTE | 2024-08-10 10:09 | MHC.OFFVIS ---
Intake Visit Reasons: Discuss Greenlight Intake Note: Patient is Present for Telephone Follow Up discussion on Greenlight Urology Med: Terazosin, Finasteride Antibiotic Allergy: None Blood Thinner: Aspirin,Xarelto Resent A1C: 5.9 Solar Crew Member Required: No Accompanied by: Self / Same As Patient Allergies morphine [MORPHINE] Allergy (Unknown, Verified 08/10/24 10:12) NAUSEA & VOMITING simvastatin Allergy (Unknown, Verified 08/10/24 10:12) muscle pains and med ineffective enviromental allergies Allergy (Unknown, Uncoded 08/10/24 10:12) Unknown Medication List - Last Reconciled 08/10/24 by Thom Billingsley MD albuterol sulfate 90 mcg/actuation 2 puffs inhalation Q6H PRN aspirin (Adult Aspirin Regimen) 81 mg PO DAILY benzonatate 200 mg PO BID-TID PRN celecoxib (Celebrex) 200 mg PO DAILY PRN dronedarone (Multaq) 400 mg PO BID finasteride 5 mg PO DAILY@1700 fluticasone furoate-vilanterol 200-25 mcg/dose (Breo Ellipta) 1 inh inhalation .QEVENING hydrocodone-acetaminophen 5-325 mg 1 tab PO Q4-6H PRN loratadine (Claritin) 10 mg PO DAILY losartan 50 mg PO DAILY rivaroxaban (Xarelto) 20 mg PO DAILY rosuvastatin 20 mg PO DAILY 90 days terazosin 5 mg PO BEDTIME 30 days tolterodine ER 2 mg PO DAILY 30 days umeclidinium 62.5 mcg/actuation (Incruse Ellipta) 1 inh inhalation DAILY HPI Comments Details: Dl TITUS is a very pleasant male. They are a patient of Dr Jones. They are seen in the office today for the following urologic conditions. 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 - lower urinary tract symptoms - microscopic hematuria Telemedicine Evaluation 15 min Consultation [facility] Video Follow-up for discussion on GreenLight laser Having urgency and frequency Trial tolterodine Plan for GreenLight laser in early October Has colonoscopy October 26 Cystoscopy shows enlarged right lateral lobe impinging on the bladder outlet Recommend GreenLight laser prostatectomy He is busy with golf season through August Has been on finasteride every other day Lower urinary tract symptoms Has urge and frequency with unstable bladder Main issue currently is bone spur on right Achilles which wakes him at night Not waking to void Current medication finasteride every other day Microscopic Hematuria:? Stable ? Microscopic hematuria was diagnosed during?routine UA.? Since the last visit the patient has?noticed gross hematuria ?- occured when started xeralto at 20mg Jun 2017.? Relevant medical history for?anticoagulation therapy - xeralto and ASA ?, tobacco use 40 yppd ?,workplace exposures - organic solvents.? Radiographic imaging:?CT IVP 08/10 .? Radiology report?enlarged prostate , I have reviewed the films.? Other investigations?08/10 , cytology, normal.? Cystoscopy findings?08/10 enlarged prostate right lobe.? Therapeutic plan?follow in 12 months with appropriate investigations, continue medications.? [facility] Medical History Abdominal aortic aneurysm (AAA) Chronic bronchitis Renal calculi COPD (chronic obstructive pulmonary disease) Nephrolithiasis Hx of myocardial infarction PONV (postoperative nausea and vomiting) On beta didi at home On anticoagulant therapy Obesity (BMI 30-39.9) Coronary artery disease BPH (benign prostatic hyperplasia) Hyperlipidemia Impaired glucose tolerance Hypertension Paroxysmal atrial fibrillation Surgical History Hx of surgical procedure (04/23/24) Hx of Achilles tendon repair (10/2022) Hx of basal cell carcinoma excision (~04/09/24) Hx of colonoscopy History of cardiac radiofrequency ablation (RFA) History of blepharoplasty Hx of appendectomy History of lumbar surgery H/O excision of lamina of cervical vertebra for decompression of spinal cord H/O rhinoplasty Family History Father No problems noted. Mother No problems noted. Social History Housing: House Are you a primary healthcare consultant to a significant other at home: No Do you presently have visiting nurse or other home services: No Alcohol intake: never Patient Tobacco Use Status: Former Tobacco user Tobacco use type: Cigarette and Cigar Cigarettes Per Day: 0 (Cigar on occasion) Years Smoked: 48 e-Cigarette/Vaping Use: Never Used Second Hand Smoke Exposure: No Current occupational status: retired Cognitive needs: No Hearing needs: No Vision needs: Yes Review of Systems Const All systems reviewed & are unremarkable except as noted in HPI and below Reports no additional complaints Card Reports no additional complaints and Denies syncope Resp Reports no additional complaints GI Reports no additional complaints Reports as per HPI and Denies change in libido Musc Reports no additional complaints Neuro Denies syncope Psych Denies change in libido Endo Denies change in libido Physical Exam Telemedicine evaluation Appropriate responses Regular breathing rate and rhythm Const General: cooperative, healthy appearing, comfortable and no acute distress Orientation/consciousness: patient oriented x3 HEENT Head: Yes normal to inspection Ears: hearing grossly normal bilaterally Face and sinus: Yes normal facial exam Mouth: moist mucous membranes Eyes General: appearance normal, both eyes and all related structures Neck Neck: Yes normal visual inspection Chest Chest palpation & inspection: normal inspection of the chest Resp Effort & Inspection: normal respiratory effort and able to speak in complete sentences GI Inspection: Yes normal to inspection Back/Spine/Pelvis Cervical Spine: normal cervical lordosis Thoracic/Lumbar Spine: thoracic and lumbar spine normal to inspection Skin General skin exam: no rashes or lesions noted Neuro General: patient oriented x3, gait normal, tone normal and moves all extremities Extrem General: Yes normal to inspection and Yes capillary refill normal Telehealth Telehealth Telehealth Platform: Telephone Location of provider rendering services: practice address Location of patient: address on file Patient Identification confirmed using: Name, : Yes Telehealth method: voice only Patient verbally consented to treatment: Yes Patient verbally consented to billing insurance company: Yes Patient informed of any privacy concerns related to visit: Yes Assessment & Plan Assessment & Plan (1) Bladder instability: Code(s): N32.89 - Other specified disorders of bladder Category: Medical Plan We discussed the nature of the decision and reasonable options for performing a prostate intervention. Interventions include TURP, GreenLight laser enucleation of the prostate, GreenLight laser ablation of the prostate, transurethral incision of the prostate, and I-Tend prostate procedure. Options such as medical therapy were discussed. The relative uncertainties and benefits related to each alternate procedure were adequately discussed. General surgical risks including, but not limited to, pain, bleeding, infection, myocardial infarction, pulmonary embolus, deep vein thrombosis and cerebrovascular accident which may result in further hospitalization were discussed. Full disclosure of the procedure as well as all major risks, benefits and complications were discussed including but not limited to damage to the urethra or bladder neck, recurrent BPH, retrograde ejaculation, bladder infection, urge, de toya frequency, incomplete emptying, dysuria, remote chance of erectile dysfunction, epididymitis, and meatal stenosis. The success rate of the procedure was discussed. Success of the procedure in the short-term does not necessarily guarantee that long-term success will be maintained. Suitable follow up will need to be maintained. The patient showed understanding of discussion. An opportunity was provided for questions to be answered and wishes to proceed with the following procedure. - GreenLight laser prostatectomy Medications: New tolterodine ER 2 mg PO DAILY 30 days 30 caps 1RF N32.89 - Other specified disorders of bladder, R39.15 - Urgency of urination Patient Instructions: Imaging studies, laboratory and physical exam results were discussed and reviewed in detail. No major barriers to patient understanding were identified. An opportunity to ask questions regarding the treatment plan was provided. All questions were answered. The patient expressed understanding and agreement with the above treatment plan. The patient is aware they should contact our office by phone for worsening of their current condition or the appearance of new urologic symptoms. Compliance is encouraged with any medications and followup testing that is ordered. It is a privilege to participate in the urologic care of your patient. If you have any questions or concerns regarding treatment for the above conditions, or other urologic issues, please do not hesitate to contact me. The office telephone contact is [phone]. This note is constructed using voice recognition software. While every effort has been made to ensure accuracy furniture duster errors may have been included. Yours sincerely, Dr Thom Billingsley MD, [facility] - Urology Providers of Expert, Compassionate Care for the Genitourinary System Coding Level of Care Code Tele Est Pt Level 4 (30845) Diagnoses Bladder instability N32.89
== END 2024-08-10 10:37 | disposition home or self-care (01) ==
LOC: HO.HUSH 10:08
PROVIDERS: PCP Internal Medicine; Visit Provider Urology
DX: N32.89 Other specified disorders of bladder (principal)
CPT/HCPCS: 99442

== ENCOUNTER → 2024-08-10 10:08 | Outpatient (BNVA) | payer MEDICARE, SELFPAY | PROVIDERS: PCP Internal Medicine; Visit Provider Urology ==

== ENCOUNTER 2024-10-26 06:27 | Day surgery (SDC) | payer MEDICARE, SELFPAY ==
[2024-10-20 14:01] VITALS: BMI 30.3
--- NOTE | 2024-10-25 09:16 | HO.ANESPROP2 ---
Documented by User: Gail Rascon NP 10/25/24 09:18 HPI - Anesthesia Eval Consult details Narrative: 79yo M for s/p Wide Local Excision of pilonidal cyst molly cleft 04/2024 with TIVA Per PAT: No recent illness No CP/SOB with biking 5 miles daily (pedal bike) Follows [facility]. Last office visit 09/2024 and optimized Xarelto for afib CAD stable COPD/Chronic cough: productive clear, scheduled inhalers BID, Albuterol rescue 2-3 x weekly PAD/AAA: follows vascular, last visit 03/2024 with 1 year f/u PONV: Scop not effective. Will try aponvie [facility] Active Problems Active Problems: All Active Problems Bladder instability (Acute) Basal cell carcinoma (Acute) Tubular adenoma of colon (Acute) Postop check (Acute) Infected pilonidal cyst (Acute) Peripheral vascular disease (Acute) RLQ abdominal pain (Acute) Pneumonia (Acute) Upper respiratory infection (Acute) Sebaceous cyst (Acute) Abscess (Acute) Otitis externa of right ear (Acute) Diarrhea (Acute) Knee pain, right (Acute) Microscopic hematuria (Acute) Weak urinary stream (Acute) Calcaneal spur of right foot (Acute) Achilles tendinosis (Acute) Achilles tendinitis of right lower extremity (Acute) Ascending aorta dilatation (Acute) Medicare annual wellness visit, initial (Acute) Sacral pain (Acute) Low back pain (Acute) COPD (chronic obstructive pulmonary disease) (Acute) Obesity (BMI 30-39.9) (Acute) Coronary artery disease (Acute) BPH (benign prostatic hyperplasia) (Acute) Hyperlipidemia (Acute) Impaired glucose tolerance (Acute) Hypertension (Acute) Paroxysmal atrial fibrillation (Acute) Past Medical History Medical History Spondylosis Peripheral artery disease Hx of difficult intubation COVID-19 Elevated cholesterol Myocardial infarction Abdominal aortic aneurysm (AAA) Chronic bronchitis Renal calculi COPD (chronic obstructive pulmonary disease) Nephrolithiasis Hx of myocardial infarction PONV (postoperative nausea and vomiting) On beta didi at home On anticoagulant therapy Obesity (BMI 30-39.9) Coronary artery disease BPH (benign prostatic hyperplasia) Hyperlipidemia Impaired glucose tolerance Hypertension Paroxysmal atrial fibrillation Family History Family History Father No problems noted. Mother No problems noted. Family history of problems with anesthesia: No Surgical History Surgical History History of excision of pilonidal cyst History of cardiac ablation for atrial fibrillation Hx of surgical procedure (04/23/24) Hx of Achilles tendon repair (10/2022) Hx of basal cell carcinoma excision (~04/09/24) Hx of colonoscopy History of cardiac radiofrequency ablation (RFA) History of blepharoplasty Hx of appendectomy History of lumbar surgery H/O excision of lamina of cervical vertebra for decompression of spinal cord H/O rhinoplasty History of Problems with Anesthesia: No (PONV) Social History Social History Housing: House Are you a primary student career development specialist to a significant other at home: No Do you presently have visiting nurse or other home services: No Alcohol intake: never Patient Tobacco Use Status: Former Tobacco user Tobacco use type: Cigarette and Cigar Cigarettes Per Day: 0 (Cigar on occasion) Years Smoked: 48 e-Cigarette/Vaping Use: Never Used Second Hand Smoke Exposure: No Current occupational status: retired Cognitive needs: No Hearing needs: No Vision needs: Yes Meds Allergies Allergy/AdvReac Type Severity Reaction Status Date / Time morphine [MORPHINE] Allergy Unknown NAUSEA & Verified 08/10/24 10:12 VOMITING simvastatin Allergy Unknown muscle Verified 08/10/24 10:12 pains and med ineffective enviromental allergies Allergy Unknown Unknown Uncoded 08/10/24 10:12 Home Medications ?Medication ?Instructions ?Recorded ?Confirmed ?Last Taken ?Type aspirin 81 mg tablet,delayed 81 mg PO DAILY 09/13/20 10/20/24 10/16/24 History release (Adult Aspirin Regimen) rivaroxaban 20 mg tablet (Xarelto) 20 mg PO DAILY 07/17/22 10/20/24 10/21/24 History losartan 50 mg tablet 50 mg PO DAILY 01/27/24 10/20/24 10/25/24 History celecoxib 200 mg capsule (Celebrex) 200 mg PO DAILY PRN Pain 04/15/24 10/20/24 09/26/24 History dronedarone 400 mg tablet (Multaq) 400 mg PO BID 04/15/24 10/20/24 10/26/24 History finasteride 5 mg tablet 5 mg PO DAILY@1700 04/15/24 10/20/24 10/25/24 History fluticasone propionate 50 1 spray intranasal BID 10/20/24 10/20/24 10/25/24 History mcg/actuation nasal spray,suspension rosuvastatin 5 mg tablet (Crestor) 5 mg PO DAILY 10/20/24 10/20/24 10/25/24 History Exam Height,Weight and Vital Signs: Height 5 ft 8.5 in Weight 91.626 kg Pertinent Lab Results Pertinent Lab Results: Laboratory Tests 02/28/24 12:51 WBC 9.4 Hgb 12.3 L Hct 36.5 L Plt Count 241 Sodium 141 Potassium 4.0 Chloride 110 H Carbon Dioxide 26 BUN 19 H Creatinine 0.92 Narrative Narrative: EKG 03/2024 Vent. Rate : 073 BPM Atrial Rate : 073 BPM P-R Int : 158 ms QRS Dur : 096 ms QT Int : 378 ms P-R-T Axes : -12 013 049 degrees QTc Int : 416 ms Normal sinus rhythm Normal ECG When compared with ECG of 26-JAN-2018 09:37, Premature ventricular complexes are no longer Present ECHO 01/2024 Conclusions: - Normal left ventricular size and systolic function. The visually estimated ejection fraction is between 55-60%. There is no evidence of regional wall motion abnormalities. Abnormal diastolic function is noted. Spectral Doppler is indicative of an impaired relaxation filling pattern. E/E prime ratio is between 8 and 15 consistent with indeterminate filling pressures. There is severe septal asymmetric hypertrophy. - Normal right ventricular cavity size and systolic function. - There is mild aortic valve stenosis. - There is mild aortic valve regurgitation. - There is mild dilatation of the sinuses of Valsalva measuring 4.17 cm and mild dilatation of the ascending aorta measuring 4.10 cm. Airway Mallampati Class: III TM Dist: >3cm Neck ROM: Limited Loose/Missing/Broken Teeth: Yes (2 x pulled, 1 x crown) Heart: RRR Lungs: RLL coarse, but clears wih deep cough Assessment and Plan Assessment Anesthesia Assessment: Chart Reviewed Final Anesthetic Review Family History of Problems with Anesthesia: No History of Problems with Anesthesia: No (PONV) Documented by User: Kristen Wu MD 10/26/24 08:12 HPI - Anesthesia Eval Consult details Narrative: 79yo M for s/p Wide Local Excision of pilonidal cyst cleft 04/2024 with TIVA Per PAT: No recent illness No CP/SOB with biking 5 miles daily (pedal bike) [facility]. Last office visit 09/2024 and optimized Xarelto for afib CAD stable COPD/Chronic cough: productive clear, scheduled inhalers BID, Albuterol rescue 2-3 x weekly PAD/AAA: follows vascular, last visit 03/2024 with 1 year f/u PONV: Scop not effective. Will try aponvie 10/26/24: Hx of Difficult Intubation for Donato's tendon surgery at [facility] Active Problems Active Problems: All Active Problems Bladder instability (Acute) Basal cell carcinoma (Acute) Tubular adenoma of colon (Acute) Postop check (Acute) Infected pilonidal cyst (Acute) Peripheral vascular disease (Acute) RLQ abdominal pain (Acute) Pneumonia (Acute) Upper respiratory infection (Acute) Sebaceous cyst (Acute) Abscess (Acute) Otitis externa of right ear (Acute) Diarrhea (Acute) Knee pain, right (Acute) Microscopic hematuria (Acute) Weak urinary stream (Acute) Calcaneal spur of right foot (Acute) Achilles tendinosis (Acute) Achilles tendinitis of right lower extremity (Acute) Ascending aorta dilatation (Acute) Medicare annual wellness visit, initial (Acute) Sacral pain (Acute) Low back pain (Acute) COPD (chronic obstructive pulmonary disease) (Acute) Obesity (BMI 30-39.9) (Acute) Coronary artery disease (Acute) BPH (benign prostatic hyperplasia) (Acute) Hyperlipidemia (Acute) Impaired glucose tolerance (Acute) Hypertension (Acute) Paroxysmal atrial fibrillation (Acute) H/o Difficult Intubation Past Medical History Medical History Spondylosis Peripheral artery disease Hx of difficult intubation COVID-19 Elevated cholesterol Myocardial infarction Abdominal aortic aneurysm (AAA) Chronic bronchitis Renal calculi COPD (chronic obstructive pulmonary disease) Nephrolithiasis Hx of myocardial infarction PONV (postoperative nausea and vomiting) On beta didi at home On anticoagulant therapy Obesity (BMI 30-39.9) Coronary artery disease BPH (benign prostatic hyperplasia) Hyperlipidemia Impaired glucose tolerance Hypertension Paroxysmal atrial fibrillation Family History Family History Father No problems noted. Mother No problems noted. Family history of problems with anesthesia: No Surgical History Surgical History History of excision of pilonidal cyst History of cardiac ablation for atrial fibrillation Hx of surgical procedure (04/23/24) Hx of Achilles tendon repair (10/2022) Hx of basal cell carcinoma excision (~04/09/24) Hx of colonoscopy History of cardiac radiofrequency ablation (RFA) History of blepharoplasty Hx of appendectomy History of lumbar surgery H/O excision of lamina of cervical vertebra for decompression of spinal cord H/O rhinoplasty History of Problems with Anesthesia: Yes (DI, PONV) Social History Social History Housing: House Are you a primary student career development specialist to a significant other at home: No Do you presently have visiting nurse or other home services: No Alcohol intake: never Patient Tobacco Use Status: Former Tobacco user Tobacco use type: Cigarette and Cigar Cigarettes Per Day: 0 (Cigar on occasion) Years Smoked: 48 e-Cigarette/Vaping Use: Never Used Second Hand Smoke Exposure: No Current occupational status: retired Cognitive needs: No Hearing needs: No Vision needs: Yes Meds Allergies Allergy/AdvReac Type Severity Reaction Status Date / Time morphine [MORPHINE] Allergy Unknown NAUSEA & Verified 08/10/24 10:12 VOMITING simvastatin Allergy Unknown muscle Verified 08/10/24 10:12 pains and med ineffective enviromental allergies Allergy Unknown Unknown Uncoded 08/10/24 10:12 Home Medications ?Medication ?Instructions ?Recorded ?Confirmed ?Last Taken ?Type aspirin 81 mg tablet,delayed 81 mg PO DAILY 09/13/20 10/20/24 10/16/24 History release (Adult Aspirin Regimen) rivaroxaban 20 mg tablet (Xarelto) 20 mg PO DAILY 07/17/22 10/20/24 10/21/24 History losartan 50 mg tablet 50 mg PO DAILY 01/27/24 10/20/24 10/25/24 History celecoxib 200 mg capsule (Celebrex) 200 mg PO DAILY PRN Pain 04/15/24 10/20/24 09/26/24 History dronedarone 400 mg tablet (Multaq) 400 mg PO BID 04/15/24 10/20/24 10/26/24 History finasteride 5 mg tablet 5 mg PO DAILY@1700 04/15/24 10/20/24 10/25/24 History fluticasone propionate 50 1 spray intranasal BID 10/20/24 10/20/24 10/25/24 History mcg/actuation nasal spray,suspension rosuvastatin 5 mg tablet (Crestor) 5 mg PO DAILY 10/20/24 10/20/24 10/25/24 History Exam Height,Weight and Vital Signs: Height 5 ft 8.5 in Weight 91.626 kg Vital Signs Temp Pulse Resp BP Pulse Ox O2 Del Method 10/26/24 06:41 98.5 F 72 18 154/78 H 94 Room Air Airway Mallampati Class: III TM Dist: >3cm Neck ROM: Limited Loose/Missing/Broken Teeth: Yes (Some missing- 2 extractions, 1 cap intact) and No Lungs: CTAB Other: Baseline RA sats 93%. Increased to 96% with deep breathing Assessment and Plan Assessment Anesthesia Assessment: Anesthesia Plan Discussed and Chart Reviewed Final Anesthetic Review Family History of Problems with Anesthesia: No History of Problems with Anesthesia: Yes (DI, PONV) NPO: Yes ASA Class: III Final Preanesthetic Review: No Changes in Pt Med Stat, Meds/Allgs Chart Reviewed, Consent Obtained/Reviewed and Anes Risks/Benef Reviewed Patient Risk: Intermediate Procedure Risk: Low Assessment/Block/Sedation in SS: Assess/Block/Sedation-SS Anesthetic Plan Anesthetic Plan: TIVA Disposition: Standard PACU
[2024-10-26 06:41] VITALS: BP 154/78; PULSE 72; RESP 18; TEMP 36.9; O2SAT 94
[2024-10-26] MEDS: Lactated Ringers 1,000 ML 100 ML IVCONT (07:08)
--- NOTE | 2024-10-26 07:30 | MHC.SHP ---
Pre-Procedural Eval Section A - 24 Hr Update-Section A only Date of Service: 10/26/24 Section B - Complete if H&P > 30 days Chief Complaint: Encounter for screening for malignant neoplasm of Details of Present Illness: see H&P , changes are noted on that Relevant Family History (Specify if Yes): No Relevant Social History: None Present Medications: see Short Stay Collaborative assessment Medical History: No relevant PMH History of Previous Operations: No relevant previous surgery Allergies: Allergies Allergy/AdvReac Type Severity Reaction Status Date / Time morphine [MORPHINE] Allergy Unknown NAUSEA & Verified 08/10/24 10:12 VOMITING simvastatin Allergy Unknown muscle Verified 08/10/24 10:12 pains and med ineffective enviromental allergies Allergy Unknown Unknown Uncoded 08/10/24 10:12 Review of Systems Sugical H&P ROS: Negative: Constitution, Cardiovascular, Respiratory, Neurological, Psychiatric, Hem-Onc, Allergic/Immunologic, Gastrointestinal, Genitourinary, Musculoskeletal, Integumentary, Endocrine and Eyes/Ears/Nose/Throat Exam Surgical H&P Exam: Normal: HEENT, Normal: Heart, Normal: Lungs, Normal: Extremities, Normal: Abdomen, Normal: Skin and Normal: Neurological Plan Diagnosis/Plan: Unchanged I have reviewed the history and physical and performed a pertinent physical examination on my patient. No changes have occurred unless specified. Time Spent With Patient Time: Total time managing care of this patient today ____ minutes.
[2024-10-26 08:37] VITALS: BP 116/50; PULSE 62; RESP 14; TEMP 36.4; O2SAT 95
--- NOTE | 2024-10-26 08:47 | OP_ITS ---
DATE OF SERVICE: 10/26/2024 SURGEON: Osmany Alcantar MD INDICATIONS: 1. Dysphagia. 2. Colon cancer screening. PREOPERATIVE DIAGNOSIS: POSTOPERATIVE DIAGNOSIS: PROCEDURE PERFORMED: Upper endoscopy with biopsy, colonoscopy to the terminal ileum with snare polypectomy and biopsy. ESTIMATED BLOOD LOSS: COMPLICATIONS: ANESTHESIA: Medications, monitored anesthesia care. ASSISTANTS: SPECIMENS: DESCRIPTION OF PROCEDURE: A history and physical performed. The risks and benefits of the procedure were explained to the patient. Informed consent was obtained. The patient was placed in the left lateral decubitus position. The Olympus video gastroscope was introduced into the esophagus, stomach, and duodenum. Examination was performed. The scope was removed. He tolerated the procedure well, was repositioned for colonoscopy. A digital rectal exam was performed and was found to be normal. The Olympus pediatric video colonoscope was introduced into the rectum and advanced to the cecum. The cecum was identified by transillumination, palpation, and identification of the ileocecal valve. Abdominal wall pressure was used to assist in advancement of the scope due to looping in the sigmoid. Examination was performed. The scope was removed. He tolerated both procedures well and was returned to recovery area in stable condition. FINDINGS: Upper endoscopy: 1. Esophagus the esophagus was somewhat tortuous, suggestive of dysmotility. No stricture was identified. No esophagitis was seen. 2. Stomach: The stomach showed no evidence of masses, ulcers, or polyps. Antral biopsies were obtained to rule out H pylori. 3. Duodenum: The bulb and 2nd portion showed duodenitis, mainly involving the bulb. Colonoscopy: The terminal ileum was examined and appeared normal. The visualized colonic mucosa was normal. There was some stool mainly in the right colon, cecum, and sigmoid. This was liquid and was washed and suctioned and did limit the examination for detection of small polyps. Multiple colonic polyps were seen and identified. These were removed with a snare and biopsy forceps. All measured less than 10 mm and were located in the cecum, right colon 70 cm, 65 cm, 60 cm, and 35 cm. Retroflexed examination was normal. There was mild sigmoid diverticulosis. IMPRESSION: 1. Duodenitis. 2. Colon polyps. RECOMMENDATION: Follow up the biopsy results. MD KADI Dockery/KELLEEL / [phone]
[2024-10-26 08:52] VITALS: BP 138/61; PULSE 58; RESP 14; TEMP 36.6; O2SAT 95
== END 2024-10-26 09:27 | disposition home or self-care (01) ==
PROVIDERS: PCP Internal Medicine; Visit Provider Internal Medicine Gastroenterology
PROC: (CPT 45385; principal; 2024-10-26 07:30)
DX: Z12.11 Encounter for screening for malignant neoplasm of colon (principal); Z86.0101 Personal history of adenomatous and serrated colon polyps; D12.0 Benign neoplasm of cecum; D12.2 Benign neoplasm of ascending colon; D12.4 Benign neoplasm of descending colon; D12.5 Benign neoplasm of sigmoid colon; K57.30 Diverticulosis of large intestine without perforation or abscess without bleeding; R13.10 Dysphagia, unspecified; K29.80 Duodenitis without bleeding; I25.10 Atherosclerotic heart disease of native coronary artery without angina pectoris; I25.2 Old myocardial infarction; I48.91 Unspecified atrial fibrillation; I10 Essential (primary) hypertension; E78.00 Pure hypercholesterolemia, unspecified; J44.9 Chronic obstructive pulmonary disease, unspecified; I73.9 Peripheral vascular disease, unspecified; Z79.01 Long term (current) use of anticoagulants; Z79.82 Long term (current) use of aspirin; Z79.51 Long term (current) use of inhaled steroids; Z79.899 Other long term (current) drug therapy; Z98.890 Other specified postprocedural states
CPT/HCPCS: 45385; 45380; 43239; 88305; 88313; 88342; J2003; J2704

== ENCOUNTER 2024-11-08 05:58 | Day surgery (SDC) | payer MEDICARE, SELFPAY ==
[2024-11-04 10:07] VITALS: BMI 30.3
--- NOTE | 2024-11-04 14:17 | P.CONAN_ITS ---
Documented by User: Gail Rascon NP 11/04/24 14:25 HPI - Anesthesia Eval Consult details Narrative: 79yo M for Laser Ablation Prostate w/Green Light Hx DI in PMHx. Only TIVA/MAC on record at [facility] s/p EGD and Alda 10/26/24 with TIVA Per 04/2024 PAT: No recent illness No CP/SOB with biking 5 miles daily (pedal bike) Follows [facility]. Last office visit 09/2024 and optimized Xarelto for afib CAD stable COPD/Chronic cough: productive clear, scheduled inhalers BID, Albuterol rescue 2-3 x weekly PAD/AAA: follows vascular, last visit 03/2024 with 1 year f/u PONV: Scop not effective. PMFSH Active Problems Active Problems: All Active Problems Bladder instability (Acute) Basal cell carcinoma (Acute) Tubular adenoma of colon (Acute) Postop check (Acute) Infected pilonidal cyst (Acute) Peripheral vascular disease (Acute) RLQ abdominal pain (Acute) Pneumonia (Acute) Upper respiratory infection (Acute) Sebaceous cyst (Acute) Abscess (Acute) Otitis externa of right ear (Acute) Diarrhea (Acute) Knee pain, right (Acute) Microscopic hematuria (Acute) Weak urinary stream (Acute) Calcaneal spur of right foot (Acute) Achilles tendinosis (Acute) Achilles tendinitis of right lower extremity (Acute) Ascending aorta dilatation (Acute) Medicare annual wellness visit, initial (Acute) Sacral pain (Acute) Low back pain (Acute) COPD (chronic obstructive pulmonary disease) (Acute) Obesity (BMI 30-39.9) (Acute) Coronary artery disease (Acute) BPH (benign prostatic hyperplasia) (Acute) Hyperlipidemia (Acute) Impaired glucose tolerance (Acute) Hypertension (Acute) Paroxysmal atrial fibrillation (Acute) Past Medical History Medical History Spondylosis Peripheral artery disease Hx of difficult intubation COVID-19 Elevated cholesterol Myocardial infarction Abdominal aortic aneurysm (AAA) Chronic bronchitis Renal calculi COPD (chronic obstructive pulmonary disease) Nephrolithiasis Hx of myocardial infarction PONV (postoperative nausea and vomiting) On beta didi at home On anticoagulant therapy Obesity (BMI 30-39.9) Coronary artery disease BPH (benign prostatic hyperplasia) Hyperlipidemia Impaired glucose tolerance Hypertension Paroxysmal atrial fibrillation Family History Family History Father No problems noted. Mother No problems noted. Family history of problems with anesthesia: No Surgical History Surgical History History of excision of pilonidal cyst History of cardiac ablation for atrial fibrillation Hx of surgical procedure (04/23/24) Hx of Achilles tendon repair (10/2022) Hx of basal cell carcinoma excision (~04/09/24) Hx of colonoscopy History of cardiac radiofrequency ablation (RFA) History of blepharoplasty Hx of appendectomy History of lumbar surgery H/O excision of lamina of cervical vertebra for decompression of spinal cord H/O rhinoplasty History of Problems with Anesthesia: Yes (DI, PONV) Social History Social History Housing: House Are you a primary child care education coordinator to a significant other at home: No Do you presently have visiting nurse or other home services: No Alcohol intake: never Patient Tobacco Use Status: Former Tobacco user Tobacco use type: Cigarette and Cigar Cigarettes Per Day: 0 (Cigar on occasion) Years Smoked: 48 e-Cigarette/Vaping Use: Never Used Second Hand Smoke Exposure: No Use of substances other than those prescribed or required for medical reasons: No Are you DNR?: No Advance Directives: No Advance Directives Information Provided: Yes Nutrition Risks: No Nutritional Risk Poor oral hygiene: No Current occupational status: retired Cognitive needs: No Hearing needs: No Vision needs: Yes Meds Allergies Allergy/AdvReac Type Severity Reaction Status Date / Time morphine [MORPHINE] Allergy Unknown NAUSEA & Verified 11/08/24 06:24 VOMITING simvastatin Allergy Unknown muscle Verified 11/08/24 06:24 pains and med ineffective enviromental allergies Allergy Unknown Unknown Uncoded 08/10/24 10:12 Home Medications ?Medication ?Instructions ?Recorded ?Confirmed ?Last Taken ?Type aspirin 81 mg tablet,delayed 81 mg PO DAILY 09/13/20 10/20/24 10/16/24 History release (Adult Aspirin Regimen) rivaroxaban 20 mg tablet (Xarelto) 20 mg PO DAILY 07/17/22 10/20/24 11/03/24 History losartan 50 mg tablet 50 mg PO DAILY 01/27/24 10/20/24 10/25/24 History celecoxib 200 mg capsule (Celebrex) 200 mg PO DAILY PRN Pain 04/15/24 10/20/24 09/26/24 History dronedarone 400 mg tablet (Multaq) 400 mg PO BID 04/15/24 11/08/24 11/08/24 History finasteride 5 mg tablet 5 mg PO DAILY@1700 04/15/24 10/20/24 10/25/24 History fluticasone propionate 50 1 spray intranasal BID 10/20/24 10/20/24 10/25/24 History mcg/actuation nasal spray,suspension rosuvastatin 5 mg tablet (Crestor) 5 mg PO DAILY 10/20/24 10/20/24 10/25/24 History Exam Height,Weight and Vital Signs: Height 5 ft 8.5 in Weight 91.62 kg Pertinent Lab Results Pertinent Lab Results: Laboratory Tests 02/28/24 12:51 WBC 9.4 Hgb 12.3 L Hct 36.5 L Plt Count 241 Sodium 141 Potassium 4.0 Chloride 110 H Carbon Dioxide 26 BUN 19 H Creatinine 0.92 Narrative Narrative: EKG 03/2024 Vent. Rate : 073 BPM Atrial Rate : 073 BPM P-R Int : 158 ms QRS Dur : 096 ms QT Int : 378 ms P-R-T Axes : -12 013 049 degrees QTc Int : 416 ms Normal sinus rhythm Normal ECG When compared with ECG of 26-JAN-2018 09:37, Premature ventricular complexes are no longer Present ECHO 01/2024 Conclusions: - Normal left ventricular size and systolic function. The visually estimated ejection fraction is between 55-60%. There is no evidence of regional wall motion abnormalities. Abnormal diastolic function is noted. Spectral Doppler is indicative of an impaired relaxation filling pattern. E/E prime ratio is between 8 and 15 consistent with indeterminate filling pressures. There is severe septal asymmetric hypertrophy. - Normal right ventricular cavity size and systolic function. - There is mild aortic valve stenosis. - There is mild aortic valve regurgitation. - There is mild dilatation of the sinuses of Valsalva measuring 4.17 cm and mild dilatation of the ascending aorta measuring 4.10 cm. Assessment and Plan Assessment Anesthesia Assessment: Chart Reviewed Final Anesthetic Review Family History of Problems with Anesthesia: No History of Problems with Anesthesia: Yes (DI, PONV) Documented by User: Kristen Wu MD 11/08/24 07:49 HPI - Anesthesia Eval Consult details Narrative: 79yo M for Laser Ablation Prostate w/Green Light Hx DI in PMHx. Only TIVA/MAC on record at [facility] s/p EGD and Alda 10/26/24 with TIVA Per 04/2024 PAT: No recent illness No CP/SOB with biking 5 miles daily (pedal bike) Follow[facility]. Last office visit 09/2024 and optimized Xarelto for afib CAD stable COPD/Chronic cough: productive clear, scheduled inhalers BID, Albuterol rescue 2-3 x weekly PAD/AAA: follows vascular, last visit 03/2024 with 1 year f/u PONV: Scop not effective. 11/08/24: SpO2 93% at baseline, up to 97% with deep breathing. H/o difficult intubation for Donato's tendon surgery at [facility] Active Problems Active Problems: All Active Problems Bladder instability (Acute) Basal cell carcinoma (Acute) Tubular adenoma of colon (Acute) Postop check (Acute) Infected pilonidal cyst (Acute) Peripheral vascular disease (Acute) RLQ abdominal pain (Acute) Pneumonia (Acute) Upper respiratory infection (Acute) Sebaceous cyst (Acute) Abscess (Acute) Otitis externa of right ear (Acute) Diarrhea (Acute) Knee pain, right (Acute) Microscopic hematuria (Acute) Weak urinary stream (Acute) Calcaneal spur of right foot (Acute) Achilles tendinosis (Acute) Achilles tendinitis of right lower extremity (Acute) Ascending aorta dilatation (Acute) Medicare annual wellness visit, initial (Acute) Sacral pain (Acute) Low back pain (Acute) COPD (chronic obstructive pulmonary disease) (Acute) Obesity (BMI 30-39.9) (Acute) Coronary artery disease (Acute) BPH (benign prostatic hyperplasia) (Acute) Hyperlipidemia (Acute) Impaired glucose tolerance (Acute) Hypertension (Acute) Paroxysmal atrial fibrillation (Acute) Occasional smoker- usually cigars Past Medical History Medical History Spondylosis Peripheral artery disease Hx of difficult intubation COVID-19 Elevated cholesterol Myocardial infarction Abdominal aortic aneurysm (AAA) Chronic bronchitis Renal calculi COPD (chronic obstructive pulmonary disease) Nephrolithiasis Hx of myocardial infarction PONV (postoperative nausea and vomiting) On beta didi at home On anticoagulant therapy Obesity (BMI 30-39.9) Coronary artery disease BPH (benign prostatic hyperplasia) Hyperlipidemia Impaired glucose tolerance Hypertension Paroxysmal atrial fibrillation Family History Family History Father No problems noted. Mother No problems noted. Family history of problems with anesthesia: No Surgical History Surgical History History of excision of pilonidal cyst History of cardiac ablation for atrial fibrillation Hx of surgical procedure (04/23/24) Hx of Achilles tendon repair (10/2022) Hx of basal cell carcinoma excision (~04/09/24) Hx of colonoscopy History of cardiac radiofrequency ablation (RFA) History of blepharoplasty Hx of appendectomy History of lumbar surgery H/O excision of lamina of cervical vertebra for decompression of spinal cord H/O rhinoplasty History of Problems with Anesthesia: Yes (DI, PONV) Social History Social History Housing: House Are you a primary child care education coordinator to a significant other at home: No Do you presently have visiting nurse or other home services: No Alcohol intake: never Patient Tobacco Use Status: Former Tobacco user Tobacco use type: Cigarette and Cigar Cigarettes Per Day: 0 (Cigar on occasion) Years Smoked: 48 e-Cigarette/Vaping Use: Never Used Second Hand Smoke Exposure: No Use of substances other than those prescribed or required for medical reasons: No Are you DNR?: No Advance Directives: No Advance Directives Information Provided: Yes Nutrition Risks: No Nutritional Risk Poor oral hygiene: No Current occupational status: retired Cognitive needs: No Hearing needs: No Vision needs: Yes Meds Allergies Allergy/AdvReac Type Severity Reaction Status Date / Time morphine [MORPHINE] Allergy Unknown NAUSEA & Verified 11/08/24 06:24 VOMITING simvastatin Allergy Unknown muscle Verified 11/08/24 06:24 pains and med ineffective enviromental allergies Allergy Unknown Unknown Uncoded 08/10/24 10:12 Home Medications ?Medication ?Instructions ?Recorded ?Confirmed ?Last Taken ?Type aspirin 81 mg tablet,delayed 81 mg PO DAILY 09/13/20 10/20/24 10/16/24 History release (Adult Aspirin Regimen) rivaroxaban 20 mg tablet (Xarelto) 20 mg PO DAILY 07/17/22 10/20/24 11/03/24 History losartan 50 mg tablet 50 mg PO DAILY 01/27/24 10/20/24 10/25/24 History celecoxib 200 mg capsule (Celebrex) 200 mg PO DAILY PRN Pain 04/15/24 10/20/24 09/26/24 History dronedarone 400 mg tablet (Multaq) 400 mg PO BID 04/15/24 11/08/24 11/08/24 History finasteride 5 mg tablet 5 mg PO DAILY@1700 04/15/24 10/20/24 10/25/24 History fluticasone propionate 50 1 spray intranasal BID 10/20/24 10/20/24 10/25/24 History mcg/actuation nasal spray,suspension rosuvastatin 5 mg tablet (Crestor) 5 mg PO DAILY 10/20/24 10/20/24 10/25/24 History Exam Height,Weight and Vital Signs: Height 5 ft 8.5 in Weight 91.62 kg Vital Signs Temp Pulse Resp BP Pulse Ox O2 Del Method 11/08/24 06:30 98.6 F 77 18 145/74 H 96 Room Air Airway Mallampati Class: III TM Dist: >3cm Neck ROM: Limited Loose/Missing/Broken Teeth: Yes (2 extractions. 1 cap intact. Denies broken or loose teeth) Heart: RRR Lungs: CTAB Assessment and Plan Assessment Anesthesia Assessment: Anesthesia Plan Discussed and Chart Reviewed Final Anesthetic Review Family History of Problems with Anesthesia: No History of Problems with Anesthesia: Yes (DI, PONV) NPO: Yes ASA Class: III Final Preanesthetic Review: No Changes in Pt Med Stat, Meds/Allgs Chart Reviewed, Consent Obtained/Reviewed and Anes Risks/Benef Reviewed Patient Risk: Intermediate Procedure Risk: Low Assessment/Block/Sedation in SS: Assess/Block/Sedation-SS Anesthetic Plan Anesthetic Plan: GA Disposition: Standard PACU
[2024-11-08 06:30] VITALS: BP 145/74; PULSE 77; RESP 18; TEMP 37; O2SAT 96
[2024-11-08] MEDS: Lactated Ringers 1,000 ML 100 ML IVCONT (06:49)
--- NOTE | 2024-11-08 07:34 | P.HPSUR_ITS ---
Pre-Procedural Eval Section A - 24 Hr Update-Section A only Date of Service: 11/08/24 The patient is an INPATIENT: No Changes since office visit: No Cold of Flu in the past 2 weeks, No New Medical Problems, No Changes in Medication and No Patient answered all questions The patient has been examined within 24 hours of the surgical procedure. The History & Physical has been completed within 30 days and I have reviewed it.: Yes Section B - Complete if H&P > 30 days Chief Complaint: Bladder-neck obstruction Details of Present Illness: green light laser prostatectomy Relevant Family History (Specify if Yes): No Relevant Social History: None Present Medications: see Short Stay Collaborative assessment Medical History: No relevant PMH History of Previous Operations: No relevant previous surgery Allergies: Allergies Allergy/AdvReac Type Severity Reaction Status Date / Time morphine [MORPHINE] Allergy Unknown NAUSEA & Verified 11/08/24 06:24 VOMITING simvastatin Allergy Unknown muscle Verified 11/08/24 06:24 pains and med ineffective enviromental allergies Allergy Unknown Unknown Uncoded 08/10/24 10:12 Review of Systems Sugical H&P ROS: Negative: Constitution, Cardiovascular, Respiratory, Neurological, Psychiatric, Hem-Onc, Allergic/Immunologic, Gastrointestinal, Genitourinary, Musculoskeletal, Integumentary, Endocrine and E yes/Ears/Nose/Throat Exam Surgical H&P Exam: Normal: HEENT, Normal: Heart, Normal: Lungs, Normal: Extremities, Normal: Abdomen, Normal: Skin and Normal: Neurological Plan Diagnosis/Plan: Unchanged I have reviewed the history and physical and performed a pertinent physical examination on my patient. No changes have occurred unless specified. Time Spent With Patient Time: Total time managing care of this patient today ____ minutes.
--- NOTE | 2024-11-08 08:36 | P.OP_ITS ---
Operative Note Operative Note Date of Service: 11/08/24 Narrative: PreOperative Diagnosis: Bladder outlet obstruction Post Operative Diagnosis: Bladder outlet obstruction Procedure: GreenLight Laser Enucleation of the prostate CPT 34192 Surgeon: Dr Thom Billingsley Anesthesia: General History of bladder outlet obstruction. Prior procedure Cystoscopy with recurrent regrowth bilaterally Grade 2/3 trabeculation Procedure: After informed consent was verified the patient was brought to the operating room and placed in a supine position. Anesthesia was administered per protocol. Patient was placed in modified dorsal lithotomy position and prepped and draped in a sterile fashion. Safety pause time-out was confirmed. Antibiotics have been given. A Twenty-four Macanese laser cystoscope was inserted per urethra. No abnormalities were found of the anterior and bulbar urethra. The prostatic urethra shows bilateral regrowth with raised bladder neck The bladder was examined and both ureteric orifices were seen in their normal positions away from the area of interest. Bladder trabeculation grade 2/3. Using a GreenLight laser with settings of 80 smith incisions were made at the 5 and 7 o'clock position. The incisions were taken down from the bladder neck down to the level of the veru. These were gradually deepened in order to define the lateral aspects of the median lobe area. Once clearly defined they will also extended in the lateral directions in order to create a deep groove. As this was a redo procedure laser was kept at 01:20 w. We 1st addressed the regrowth from the right side. Starting with the patient's right lateral lobe. First the 07:00 o'clock groove was further developed. This was moved in the lateral direction to undermine the tissue on the lateral side running from the bladder neck to the prostate apex. The ureteric orifice was used to guide incisions. Focus was then placed on the laser at the 11 o'clock position to developing a secondary groove down to the level of bladder fibers. The creation of a second deep groove defined a segment of intervening tissue similar to a slice of orange. At the apex of the prostate the 2 grooves were linked the us releasing the intervening tissue. This tissue was then removed with a combination of enucleation and ablation working from the apex toward the bladder neck. A similar procedure was repeated on the patient's left-hand side. The only differences being the position of the lateral groove at the 5 o'clock position and the secondary groove at the 1 o'clock position, Otherwise the procedure was developed in a mirror fashion. After the majority of tissue had been debulked remnant tissue was ablated with the side fire laser and the curve of the prostate followed up each side wall clearly defining the anterior remnant strip that remained between the 11 and 1 o'clock positions. In this case the anterior tissue protruded into the prostatic fossa and was partially ablated with the laser When this was had been completed debris and pieces of prostate were removed from the bladder with irrigation. Both ureteric orifices were reviewed again in shown to be patent in away from any areas of energy damage. The apical area was reviewed in any stray ooze was controlled. A 22 Macanese 30 cc balloon Back catheter was placed over a stylet into the bladder. Clear efflux was obtained upon irrigation with a Dennis piston syringe. 30 cc was placed in the balloon and gentle traction was placed. A snap was used to hold tension on the catheter to control bleeding during patient moved and transported. A drainage bag was placed. Once transportation is complete to the PACU the snap will be removed. The patient tolerated the procedure well, he was extubated in the operating and transferred in a stable condition to the recovery area. Total Power 121 kW Lasing time 18:34 Pathology: Prostate tissue Drains: Back catheter
[2024-11-08 08:39] VITALS: BP 139/62; PULSE 62; RESP 16; TEMP 36.1; O2SAT 98
[2024-11-08 08:44] VITALS: BP 128/50; PULSE 54; RESP 16; O2SAT 98
[2024-11-08 08:49] VITALS: BP 128/56; PULSE 55; RESP 16; O2SAT 96
[2024-11-08 08:54] VITALS: BP 133/57; PULSE 55; RESP 16; O2SAT 96
[2024-11-08 09:09] VITALS: BP 134/56; PULSE 63; RESP 16; TEMP 36.4; O2SAT 96
[2024-11-08] MEDS: oxyCODONE HCl Immed Release 5 MG TABLET PO (09:17)
== END 2024-11-08 10:20 | disposition home or self-care (01) ==
PROVIDERS: PCP Internal Medicine; Visit Provider Urology
PROC: (CPT 52648; principal; 2024-11-08 07:30)
DX: N40.3 Nodular prostate with lower urinary tract symptoms (principal); N32.0 Bladder-neck obstruction; N32.89 Other specified disorders of bladder; R39.15 Urgency of urination; R35.0 Frequency of micturition; R31.29 Other microscopic hematuria; R73.01 Impaired fasting glucose; I48.0 Paroxysmal atrial fibrillation; I71.40 Abdominal aortic aneurysm, without rupture, unspecified; I10 Essential (primary) hypertension; I25.2 Old myocardial infarction; J42 Unspecified chronic bronchitis; E78.2 Mixed hyperlipidemia; Z79.01 Long term (current) use of anticoagulants; Z79.82 Long term (current) use of aspirin; Z79.51 Long term (current) use of inhaled steroids; Z79.899 Other long term (current) drug therapy; Z98.890 Other specified postprocedural states; Z88.5 Allergy status to narcotic agent; Z88.8 Allergy status to other drugs, medicaments and biological substances; Z87.891 Personal history of nicotine dependence
CPT/HCPCS: 52649; 88305; J0131; J1100; J1956; J2003; J2405; J2704; J3010

== ENCOUNTER → 2024-11-08 05:58 | Outpatient (BNV) | payer MEDICARE, SELFPAY | PROVIDERS: PCP Internal Medicine; Visit Provider Urology | DX: N32.0 Bladder-neck obstruction (principal) | CPT/HCPCS: 52649 ==

== ENCOUNTER → 2024-11-11 08:56 | Outpatient (BNVA) | payer MEDICARE, SELFPAY | PROVIDERS: PCP Internal Medicine; Visit Provider Urology | DX: N32.89 Other specified disorders of bladder (principal); N40.1 Benign prostatic hyperplasia with lower urinary tract symptoms; R39.12 Poor urinary stream | CPT/HCPCS: 51700 ==

== ENCOUNTER 2024-12-14 10:17 | Outpatient (AMB) | payer MEDICARE, SELFPAY ==
--- NOTE | 2024-12-14 10:19 | MHC.OFFVIS ---
Intake Visit Reasons: Greenlight- PVR Follow Up Intake Note: Patient is present for GREENLIGHT/PVR Urology Medication:VIBEGRON,FINASTERIDE Antibiotic Allergy:SIMVASTATIN Blood Thinner:ASPIRIN,RIVAROXABAN TODAY'S PVR: 0ML'S Rigging Worker Required: No Allergies morphine [MORPHINE] Allergy (Unknown, Verified 12/14/24 10:20) NAUSEA & VOMITING simvastatin Allergy (Unknown, Verified 12/14/24 10:20) muscle pains and med ineffective enviromental allergies Allergy (Unknown, Uncoded 12/14/24 10:20) Unknown HPI Comments Details: Dl TITUS is a very pleasant male. They are a patient of Dr Jones. They are seen in the office today for the following urologic conditions. 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 - lower urinary tract symptoms - microscopic hematuria GreenLight laser 11/16 Follow-up for bladder emptying PVR 0, blood 3+, leukocytes 2+ consistent with postprocedure Remains on finasteride Stop gemtessa Lower urinary tract symptoms Has urge and frequency with unstable bladder Cystoscopy shows enlarged right lateral lobe impinging on the bladder outlet Main issue currently is bone spur on right Achilles which wakes him at night Not waking to void Current medication finasteride every other day Microscopic Hematuria:? Stable ? Microscopic hematuria was diagnosed during?routine UA.? Since the last visit the patient has?noticed gross hematuria ?- occured when started xeralto at 20mg Jun 2017.? Relevant medical history for?anticoagulation therapy - xeralto and ASA ?, tobacco use 40 yppd ?,workplace exposures - organic solvents.? Radiographic imaging:?CT IVP 08/10 .? Radiology report?enlarged prostate , I have reviewed the films.? Other investigations?08/10 , cytology, normal.? Cystoscopy findings?08/10 enlarged prostate right lobe.? Therapeutic plan?follow in 12 months with appropriate investigations, continue medications.? [facility] Medical History Spondylosis Peripheral artery disease Hx of difficult intubation COVID-19 Elevated cholesterol Myocardial infarction Abdominal aortic aneurysm (AAA) Chronic bronchitis Renal calculi COPD (chronic obstructive pulmonary disease) Nephrolithiasis Hx of myocardial infarction PONV (postoperative nausea and vomiting) On beta didi at home On anticoagulant therapy Obesity (BMI 30-39.9) Coronary artery disease BPH (benign prostatic hyperplasia) Hyperlipidemia Impaired glucose tolerance Hypertension Paroxysmal atrial fibrillation Surgical History (Updated 11/10/24 @ 16:26 by Bianca You MD) S/P TURP History of excision of pilonidal cyst History of cardiac ablation for atrial fibrillation Hx of surgical procedure (04/23/24) Hx of Achilles tendon repair (10/2022) Hx of basal cell carcinoma excision (~04/09/24) Hx of colonoscopy History of cardiac radiofrequency ablation (RFA) History of blepharoplasty Hx of appendectomy History of lumbar surgery H/O excision of lamina of cervical vertebra for decompression of spinal cord H/O rhinoplasty Family History Father No problems noted. Mother No problems noted. Social History Housing: House Are you a primary healthcare risk control consultant to a significant other at home: No Do you presently have visiting nurse or other home services: No Alcohol intake: never Patient Tobacco Use Status: Former Tobacco user Tobacco use type: Cigarette and Cigar Cigarettes Per Day: 0 (Cigar on occasion) Years Smoked: 48 e-Cigarette/Vaping Use: Never Used Second Hand Smoke Exposure: No Current occupational status: retired Cognitive needs: No Hearing needs: No Vision needs: Yes Office Procedures Post Void Residual Post Residual Void Post Void Residual (PVR): 0 [id number]-[id number] Void Residual by ultrasound Results AMB Urinalysis, Automated UA Leukoctes 125 Whitney/uL Last Edit by UVALDO Maurice on 12/14/24 11:09 UA Nitrite Negative Last Edit by UVALDO Maurice on 12/14/24 11:09 UA Urobilinogen 0.2 mg/dL Last Edit by UVALDO Maurice on 12/14/24 11:09 UA Protein 300 mg/dL Last Edit by UVALDO Maurice on 12/14/24 11:09 UA pH 6.0 Last Edit by UVALDO Maurice on 12/14/24 11:09 UA Blood 200 G[place]ardo/uL Last Edit by UVALDO Maurice on 12/14/24 11:09 UA Specific [place] 1.025 Last Edit by UVALDO Maurice on 12/14/24 11:09 UA Ketone Positive Last Edit by UVALDO Maurice on 12/14/24 11:09 UA Bilirubin 0 mg/dL Last Edit by UVALDO Maurice on 12/14/24 11:09 UA Glucose 0 mg/dL Last Edit by UVALDO Maurice on 12/14/24 11:09 Assessment & Plan Assessment & Plan Orders: Orders AMB Urinalysis Automated Today Z13.9 - Encounter for screening, unspecified Coding CPT Codes Post Residual Void - PVR CPT Code: 36478-[id number] Void Residual by ultrasound ([id number])
--- OUTSIDE RECORDS SUMMARY | 2024-12-14 11:31 | XMS_ITS ---
Author Organization [facility] Address [address] [place] [phone] Care Team Providers Care Internal Communications Writer Name Role Phone Po Bianca GARCIA Primary Care Provider Osmany Ramires Jr [phone] REASON FOR VISIT pathology/3 yr colon recall. optional Encounters Encounter Location Date Provider Diagnosis [facility] [address] [place] [phone] 11/03/2024 Osmany Alcantar Jr PLAN OF TREATMENT No Information
--- OUTSIDE RECORDS SUMMARY | 2024-12-14 11:31 | XMS_ITS ---
Author Organization [facility] Address [address] [place] [address] Care Team Providers Care Command And Control Name Role Phone Po Bianca GARCIA Primary Care Provider Osmany Ramires Jr REASON FOR VISIT dysphagia,screening PROBLEMS Problem Type ICD Code Onset Dates Problem Status W/U Status Risk SNOMED Code Notes Problem Dysphagia (R13.10) Active confirmed Dysphagia (81773786) Encounters Encounter Location Date Provider Diagnosis [facility] [address] [place] [id number] 10/26/2024 Osmany Alcantar Jr Colon cancer screening Z12.11 ; Colon polyps K63.5 and Dysphagia R13.10 ASSESSMENTS Encounter Date Diagnosis Assessment Notes Treatment Notes Treatment Clinical Notes 10/26/2024 Colon cancer screening (ICD-10 - Z12.11) 10/26/2024 Colon polyps (ICD-10 - K63.5) 10/26/2024 Dysphagia (ICD-10 - R13.10) PLAN OF TREATMENT No Information
--- OUTSIDE RECORDS SUMMARY | 2024-12-14 11:31 | XMS_ITS | Clinical Summary ---
Author Organization [facility] Address [address] [place] [address] Care Team Providers Care Election Watcher Name Role Phone Unavailable Primary Care Provider Unavailabl e Social History Tobacco Use Types Packs/Day Years Used Date Smoking Tobacco: Never Assessed Sex and Gender Information Value Date Recorded Sex Assigned at Not on file Legal Sex Male 12:04 AM EDT Gender Identity Not on file Sexual Orientation Not on file Plan of Treatment Health Maintenance Due Date Last Done Comments Hepatitis C Screening 1945 DTaP/Tdap/Td (1 - Tdap) 1965 Pneumococcal 50+ years (1 of 1 - PCV) 1997 Zoster (Shingrix) (1 of 2) 1997 RSV (1 - 1-dose 75+ series) 2022 COVID-19 Vaccine ( - 2023-2 5 season) 2024 Influenza (#1) 2024 HPV Vaccine Aged Out No longer eligi ble based on patient's age to complete this topic Hep A Aged Out No longer eligi ble based on patient's age to complete this topic Hep B Aged Out No longer eligi ble based on patient's age to complete this topic Hib Aged Out No longer eligi ble based on patient's age to complete this topic Meningococcal ACWY Aged Out No longer eligible based on patient's age to complete this topic Zoster (Zostavax) Discontinued
--- OUTSIDE RECORDS SUMMARY | 2024-12-14 11:31 | XMS_ITS | Patient Health Record ---
Author Organization [facility] Address [address] [place] [phone] Care Team Providers Care Custom Shoe Designer And Maker Name Role Phone Bianca You MD Primary Care Provider Osmany Ramires Jr Unavailable ALLERGIES Allergen (clinical drug ingredient) Drug/Non Drug Allergy documented on EMR Reaction Allergy Type Onset Date Status morphine Morphine Sulfate Unknown Drug Allergy Active RESULTS Component Value Reference Range Notes Pathology Reviewed date:11/03/2024 08:11:32 AM Interpretation: Performing Lab:[facility], [address] [place] [phone] Notes/Report: REASON FOR REFERRAL No Information MEDICATIONS Medication SIG (Take, Route, Frequency, Duration) Notes Start Date End Date Status Flonase Active Albuterol Sulfate Ac tive Losartan Potassium 50 MG 1 tablet Orally Once a day for 30 day(s) Active Multaq 400 MG 1 tablet with meals Orally Twice a day for 30 day(s) Active Incruse Ellipta 62.5 MCG/ACT 1 puff Inhalation Once a day Active Breo Ellipta 100-25 MCG/ACT 1 puff Inhalation Once a day Active Crestor 5 MG 1 tablet Orally Once a day Active Aspir-81 81 MG 1 tablet Orally Once a day Active Xarelto 20 MG Orally Active Finasteride 5 MG Orally Act debby CeleBREX 200 MG Orally as needed Acti ve MiraLax (colon prep) 17 GM/SCOOP mixed with Gatorade or Crystal Light Orally begin at 5:00 p.m. 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) use of anticoagulants (Z79.01) Active confirmed 540558242 Problem Special screening for malignant neoplasms, colon (Z12.11) Active confirmed 831965075 Problem Dysphagia (R13.10) Active confirmed Dys phagia (63209303) Problem Long-term use of aspirin therapy (Z79.82) Active confirmed 425795628 Problem Dysphagia, unspecified type (R13.10) Active confirmed 60561700 Problem FH: colon cancer (Z80.0) Active confirmed 562040172 VITAL SIGNS Temperature 98.4 degrees Fahrenheit 08/05/2024 Blood pressure diastolic 00 mm Hg 08/05/2024 Height 68.5 in 08/05/2024 Blood pressure systolic 000 mm Hg 08/05/2024 Weight 202 lbs 08/05/2024 BMI 30.26 kg/m2 08/05/2024 Encounters Encounter Location Date Provider Diagnosis [facility] [place] [facility] [address] [place] [id number] 10/26/2024 Osmany Alcantar Jr Colon cancer screening Z12.11 ; Colon polyps K63.5 and Dysphagia R13.10 [facility] [address] [place] [phone] 08/05/2024 Osmany Alcantar Jr Special screening for malignant neoplasms, colon Z12.11 and Dysphagia, unspecified type R13.10 [facility] [address] [place] [phone] 10/07/2024 Osmany Alcantar Jr [facility] [address] [place] [phone] 11/03/2024 Osmany Alcantar Jr ASSESSMENTS Encounter Date Diagnosis Assessment Notes Treatment Notes Treatment Clinical Notes 10/26/2024 Colon cancer screening (ICD-10 - Z12.11) 10/26/2024 Colon polyps (ICD-10 - K63.5) 08/05/2024 Special screening for malignant neoplasms, colon (ICD-10 - Z12.11) 08/05/2024 Dysphagia, unspecified type (ICD-10 - R13.10) 10/26/2024 Dysphagia (ICD-10 - R13.10) PLAN OF TREATMENT Future Test Test Name Order Date COLONOSCOPY 11/29/2015 COLONOSCOPY 04/09/2021 UPPER GI ENDOSCOPY 08/05/2024 COLONOSCOPY 08/05/2024 Insurance Providers Payer Name Payer Address Payer Phone Subscriber Number Group Number Insured Name Patient Relationship to Insured Coverage Start Date Coverage End Date MEDICARE OF [place] [address] [facility] [address] [id number] TANNER WILSON Self - patient is the insured [employer] ATT[employer] CLAIMS [address] [place] [address] [id number] TANNER WILSON Self - patient is the insured MEDICAL (GENERAL) HISTORY Medical History History ICD Code personal history of tubular adenomas, last colonoscopy 05/14, multiple polyps, three-year followup coronary artery disease with history of [place], 1995 elevated cholesterol nehprolithiasis Atrial fibrillation, status post cardiac ablation 10/13 COPD Difficult intubation at the time of his Achilles surgery Covid 19 infection, November 2023 Spondylosis Peripheral arterial disease Surgical History Surgery Date(Month/Year) rhinoplasty L4-5 disc surgery for compression appendectomy 01/2019 cardiac ablation 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
--- OUTSIDE RECORDS SUMMARY | 2024-12-14 11:31 | XMS_ITS ---
Author Organization [facility] Address [address] [place] [phone] Care Team Providers Care Oliver Filter Operator Name Role Phone Po Bianca GARCIA Primary Care Provider Osmany Ramires Jr [phone] REASON FOR VISIT cardiology clearance Encounters Encounter Location Date Provider Diagnosis [facility] [address] [place] [phone] 10/07/2024 Osmany Alcantar Jr PLAN OF TREATMENT No Information
--- OUTSIDE RECORDS SUMMARY | 2024-12-14 11:31 | XMS_ITS | Clinical Summary ---
Author Organization [facility] Address [address] [place] [address] Phone Care Team Providers Care Public Health Worker Name Role Phone Bianca Bass MD Primary Care Provider [phone] Allergies Active Allergy Reactions Criticality Noted Date Comments Morphine 09/30/2017 Simvastatin Other 09/30/2017 Muscle pains. Med ineffective Medications Medication Sig Dispensed Refills Start Date End Date Status dronedarone (Multaq) 400 mg tablet Take 1 tablet (400 mg total) by mouth 2 (two) times a day. 05/14/2024 Active rivaroxaban (Xarelto) 20 mg tablet Take 1 tablet (20 mg total) by mouth 1 (one) time each day with dinner. 05/10/2024 Active umeclidinium (Incruse Ellipta) 62.5 mcg/actuation inhalation Inhale 1 Puff into the lungs every morning. Active rosuvastatin (CRESTOR) 10 mg tablet Take 1 tablet (10 mg total) by mouth 2 (two) times a day. Active fluticasone furoate-vilanteroL (BREO ELLIPTA) 200-25 mcg/dose inhaler Inhale 1 Puff into the lungs at bedtime. Active losartan (COZAAR) 50 mg tablet Take 1 tablet (50 mg total) by mouth 1 (one) time each day. 10/08/2023 Active finasteride (PROSCAR) 5 mg tablet Take 1 tablet (5 mg total) by mouth 1 (one) time each day. 01/15/2023 Active celecoxib (CeleBREX) 200 mg capsule Take 1 Cap by mouth daily as needed. with food. Once a day Active albuterol sulfate (ProAir RespiClick) 90 mcg/actuation aerosol powdr breath activated Inhale into the lungs as needed. Active aspirin 81 mg EC tablet Take 1 Tab by mouth daily. Active tolterodine (DETROL) 2 mg tablet Take 1 tablet (2 mg total) by mouth 1 (one) time each day. Active Active Problems Problem Noted Date Diagnosed Date Preop cardiovascular exam 10/13/2024 Assessment & Plan (10/13/2024 10:20 AM EST): Patient's cardiac problems are optimized on current medical therapy. Patient's activity level represents greater than 4 METS. Patient does not require any further testing at this time. Using the KOROMA cardiac risk assessment patient is at a 0.3% risk for perioperative myocardial infarction or cardiac arrest. Patient is at acceptable risk for the proposed surgical procedure. Given his history of atrial fibrillation, would recommend to maintain the patient on close cardiac monitoring throughout the procedure. He may consider holding his anticoagulation therapy with xarelto for 2 to 3 days prior to the proposed procedure. I would recommend to restart the patient's anticoagulation therapy after the procedure, once hemostasis had been achieved under the discretion of the surgeon. Ascending aorta dilation 12/24/2022 Overview (10/04/2024): Last Assessment & Plan: Last echocardiogram was January 2023. Ascending aorta dilatation measured at 4.2 cm. Patient denies chest pain, back pain, shortness of breath or syncope. We will consider updating annual surveillance echocardiogram to further evaluate for aortic dilatation progression at his next office visit in 6 months. Assessment & Plan (10/13/2024 10:20 AM EST): Last echocardiogram January 2023 showed ascending aorta 4.2 cm and dilatation. Will update a new echocardiogram to reevaluate for progression. Orders: ECG 12 lead Transthoracic echocardiogram (TTE) complete with PRN contrast, bubble, strain, and 3D order panel; Future Peripheral artery disease 10/09/2021 Overview (10/04/2024): Last Assessment & Plan: The patient has a history of claudication and has seen vascular surgery in the past. He denies significant symptoms today. He will continue to follow with vascular and he has an appointment coming up next month and will have a repeat vascular study done prior. He continues on aspirin and statin. Chronic cough 01/07/2018 Cigar smoker 01/07/2018 Allergic rhinitis 12/24/2017 Nasal polyp 12/24/2017 BPH (benign prostatic hyperplasia) 09/30/2017 CAD (coronary artery disease) 09/30/2017 Overview (10/04/2024): 1997 Last Assessment & Plan: Patient denies chest pain,pressure or decreased activity tolerance. He continues to be active without exertional symptoms. He will continue on guideline directed medical therapy of isosorbide and aspirin. Metoprolol was discontinued by Dr. Yoder when the patient was placed back on Multaq to avoid bradycardia. Patient instructed to call 911 or go to the emergency room should he begin to experience chest pain lasting greater than 10 minutes that is not relieved with rest. Assessment & Plan (10/13/2024 10:20 AM EST): Patient has a history of coronary artery disease. He denies any exertional anginal symptoms or episodes of chest pain. He continues on medical therapy with aspirin and statin therapy. Patient advised to seek emergency medical attention by calling 911 if they were to develop severe dyspnea, chest pain that did not resolve with rest or nitroglycerin, or if they were to faint. Carotid stenosis 09/30/2017 Hyperlipidemia 09/30/2017 Overview (10/04/2024): Last Assessment & Plan: Last lipid profile was May 2023. This revealed an LDL of 98 which is not at goal of less than 70 in the setting of coronary artery disease. I have asked the patient to update a fasting lipid profile to further evaluate current lipid control. We could consider increasing his statin dose should his LDL continue to remain elevated. Assessment & Plan (10/13/2024 10:20 AM EST): Patient has a history of hyperlipidemia as well as history of coronary artery disease. His primary care provider Dr. Bass recently checked his cholesterol levels and he notes that his bad cholesterol was 84 and therefore his rosuvastatin was increased from 10 mg to 20 mg. He will continue on his regimen. We discussed that his goal LDL should ideally be less than 70 given his history. I have reviewed with the patient the importance of a heart healthy lifestyle which includes eating a low- fat low-salt diet, getting regular exercise, maintaining a healthy weight, not smoking, and following up with routine medical care. Hypertension 09/30/2017 Overview (10/04/2024): Last Assessment & Plan: Patient endorses elevated blood pressure readings with systolic pressures in the 160s to 170s. I will increase his losartan from 25 mg to 50 mg. Patient will continue to monitor blood pressure at home with a goal of less than 130/80. Patient will have blood work drawn 1 week after increasing dose. He will monitor for signs of hypotension such as dizziness, lightheadedness presyncope or syncope. He will call our office should he begin to experience symptoms listed above. Educated on the importance of continuing with diet and lifestyle modification to help further assist in lowering blood pressure. He will continue to follow a low-fat, low-salt diet, make purposeful strides towards weight loss and engage in routine aerobic exercise 30 minutes daily 4-5 times a week as tolerated. Assessment & Plan (10/13/2024 10:20 AM EST): Patient's blood pressure is borderline. He does check his blood pressures at home and has been undergoing changes to his antihypertensive medication regimen by his primary care provider recently. His losartan was recently increased to 50 mg orally daily for better blood pressure control. He will continue to monitor his blood pressures and notify me of any consistently elevated blood pressure readings. Orders: ECG 12 lead Impaired fasting glucose 09/30/2017 Palpable mass of neck 09/30/2017 Paroxysmal atrial fibrillation 09/30/2017 Overview (10/04/2024): Last Assessment & Plan: Patient denies perception of recurrence of atrial fibrillation since being placed on Multaq in July 2023 and presents in sinus rhythm today . [id number] score of 3 for hypertension and age greater than 75. He continues to be anticoagulated on full dose Xarelto appropriately in the setting of normal GFR. Patient educated on the risks and benefits of continuing anticoagulation such as increased risk for hemorrhage and decreased risk for stroke. He was educated on the importance of seeking emergent medical attention should he sustain a fall involving head strike. Patient understands these risks and agrees to proceed. Assessment & Plan (10/13/2024 10:20 AM EST): Patient has a history of atrial fibrillation status post ablation in August 2020 with reoccurrence. He was seen in consultation last year by Dr. Beba ortiz who recommended starting Multaq for rhythm control and his metoprolol was discontinued at that time to avoid bradycardia. He has been doing well on this regimen and denies any concerns today. He denies any sustained palpitations or perception. He will continue on Xarelto as prescribed. He denies any excessive bruising or bleeding. Orders: ECG 12 lead Transthoracic echocardiogram (TTE) complete with PRN contrast, bubble, strain, and 3D order panel; Future Resolved Problems Problem Noted Date Diagnosed Date Resolved Date Chest pain 06/11/2023 10/13/2024 Overview (10/04/2024): Last Assessment & Plan: The patient is reporting episodes of chest discomfort which have increased in frequency since his hospitalization last week. Symptoms are atypical in nature. Given his history and description of symptoms, the patient will complete a cardiac PET stress test to evaluate for ischemia as a cause of his symptoms as outlined above. Encounters Date Type Department Care Team Description 10/19/2024 Telephone [facility] Cardiology [facility] [address] [facility] [address] [place] [address] Fam Argueta MD Call from MD office 10/13/2024 9:10 AM EST Consult [facility] Card[facility] [address] [facility] [address] [place] [address] Salina Jennings NP Chest pain, unspecified type (Primary Dx); Ascending aorta dilation (CMS/HCC); Hypertension, unspecified type; Paroxysmal atrial fibrillation (CMS/HCC); Coronary artery disease involving chitina coronary artery of chitina heart without angina pectoris; Mixed hyperlipidemia; Preop cardiovascular exam 10/13/2024 Telephone [facility] [address] [facility] [address] [place] [address] Salina Jnenings NP Pre-Op 10/07/2024 Telephone [facility] [address] [place] [address] Fam Argueta MD from Last 3 Months Immunizations Name Administration Dates Next Due Influenza trivalent, 0.5mL (Fluad) 65yo and olde r 09/05/2017,12/12/2016 Tdap Tetanus diptheria acell ular pertussis (Boostrix; Adacel) 7yo and older 12/12/2016 Surgical History Surgery Date Site/Laterality Comments OTHER SURGICAL HISTORY 1992 PROCEDURE: HISTORY OTHER; COMMENT: Rhinoplasty BACK SURGERY 2003 PROCEDURE: HISTORICAL BACK SURGERY; COMMENT: Cervical Decompression Medical History Medical History Date Comments Hypertension 09/30/2017 DX:Hypertension Hyperlipidemia 09/30/2017 DX:Hyperlipidemi a Paroxysmal atrial fibrillati on (CMS/HCC) 09/30/2017 DX:Paroxysmal atrial fibrill ation (HCC) Impaired fasting glucose 09/30/2017 DX:Impa ired fasting glucose BPH (benign prostatic hyperplasia) 09/30/2017 DX:BPH (benign prostatic hyperplasia) Palpable mass of neck 09/30/2017 DX:Palpabl e mass of neck Old OR (myocardial infarction) 09/30/2017 D X:Old OR (myocardial infarction); COMMENT: 1996 Carotid stenosis 09/30/2017 DX:Carotid sten osis Social History Tobacco Use Types Packs/Day Years Used Date Smoking Tobacco: Former Smokeless Tobacco: Never Alcohol Use Standard Drinks/Week Comments No 0 (1 standard drink = 0.6 oz pur e alcohol) Sex and Gender Information Value Date Recorded Sex Assigned at Not on file Gender Identity Not on file Sexual Orientation Not on file Job Start Date Occupation Industry Not on file Not on file Not on file Obstetrics History Last Filed Vital Signs Vital Sign Reading Time Taken Comments Blood Pressure 138/88 10/13/2024 9:12 AM EST Pulse 63 10/13/2024 9:12 AM EST Temperature - - Respiratory Rate - - Oxygen Saturation - - Inhaled Oxygen Concentration - - Weight 91.6 kg (202 lb) 10/13/2024 9:12 AM EST Height 172.7 cm (5' 8 ) 10/13/2024 9:12 AM EST Body Mass Index 30.71 10/13/2024 9:12 AM EST Plan of Treatment Upcoming Encounters Date Type Department Care Team (Late st Contact Info) Description 12/29/2024 8:00 AM EST Ancillary Procedure [facility] [address] [facility] [address] [place] [address] 04/05/2025 1:00 PM EDT Appointment [facility] Ultrasound [address] [place] [address] 04/20/2025 2:00 PM EDT Office Visit Vascular Surgery - [place] [address] [place] [address] Elsy Khan MD [address] [facility] [address] [place] [address] Health Maintenance Due Date Last Done Comments Zoster Vaccines (1 of 2) 1995 Cholesterol Screening (Lipid Panel) 11/03/2022 Depression Screening 11/03/2022 Falls Risk Assessment 11/03/2022 Hepatitis C Screening 11/03/2022 Medicare Annual Wellness Visit 11/03/2022 Social Influencers of Health Screening 11/03/2022 Hypertension/CHF/CAD Annual BMP Blood Test 01/28/2025 01/29/2024 DTaP,Tdap,and Td Vaccines (2 - Td or Tdap) 12/12/2026 12/12/2016 Pneumococcal Vaccine: 65+ Years Completed 12/11/2022 RSV Immunization Patients 60+ Years Old Completed 08/21/2023 COVID-19 Vaccine Completed 08/09/2024, 10/2023, 04/02/2023, Additional history exists Influenza Vaccine Completed 09/10/2024, , 09/20/2022, Additional history exists HIB Vaccines Aged Out No longer eligi ble based on patient's age to complete this topic HPV Vaccines Aged Out No longer eligi ble based on patient's age to complete this topic Hepatitis A Vaccines Aged Out No long er eligible based on patient's age to complete this topic Hepatitis B Vaccines Aged Out No long er eligible based on patient's age to complete this topic IPV Vaccines Aged Out No longer eligi ble based on patient's age to complete this topic MMR Vaccines Aged Out No longer eligi ble based on patient's age to complete this topic Meningococcal ACWY Vaccine Aged Out N o longer eligible based on patient's age to complete this topic RSV Immunization Patients Under 20 months Aged Out No longer eligible based on patient's age to complete this topic Varicella Vaccines Aged Out No longer eligible based on patient's age to complete this topic Procedures Procedure Name Priority Date/Time Associated Diagnosis Comments ECG 12-LEAD Routine 10/13/2024 10:20 AM EST Chest pain, unspecified type Ascending aorta dilation (CMS/HCC) Hypertension, unspecified type Paroxysmal atrial fibrillation (CMS/HCC) ANNUAL BMP BLOOD TEST Routine 01/29/2024 from Last 3 Months or Most Recently Relevant to Health Maintenance Results * ECG 12 lead (10/13/2024 10:20 AM EST) Ventricular Rate ECG 63 BPM GEMUSE Atrial Rate 63 BPM GEMUSE P-R Interval 162 ms GEMUSE QRS Duration 92 ms GEMUSE Q-T Interval 412 ms GEMUSE QTc 421 ms GEMUSE P Wave [place] -12 degrees GEMUSE R [place] 10 degrees GEMUSE T [place] 47 degrees GEMUSE ECG Interpretation Normal sinus rhythm Normal ECG When compared with ECG of 29-AUG-2015 14:00, No significant change was found Confirmed by FAM ARGUETA ([id number]) on 10/13/2024 1:36:29 PM GEMUSE 10/13/2024 9:18 AM EST 10/13/2024 1:36 PM EST Salina Jennings NP ECG ORDERABLES GEMUSE * Annual BMP Blood Test (01/29/2024) Annual BMP Blood Test Abstracted Historical Provider MD KAREN Hooker from Last 3 Months or Most Recently Relevant to Health Maintenance Care Teams Public Health Worker Relationship Specialty Start Date End Date Bianca Bass MD [address] [facility] [place] [address] PCP - General Internal Medicine 11/08/21
== END 2024-12-14 11:29 | disposition home or self-care (01) ==
PROVIDERS: PCP Internal Medicine; Visit Provider Urology
DX: Z13.9 Encounter for screening, unspecified (principal)

== ENCOUNTER → 2024-12-14 10:17 | Outpatient (BNVA) | payer MEDICARE, SELFPAY | PROVIDERS: PCP Internal Medicine; Visit Provider Urology | DX: N40.1 Benign prostatic hyperplasia with lower urinary tract symptoms (principal); N32.89 Other specified disorders of bladder; R39.12 Poor urinary stream; R33.8 Other retention of urine | CPT/HCPCS: 51798; 81003; 99212 ==

== ENCOUNTER 2025-01-07 12:36 | Outpatient (AMB) | payer MEDICARE, SELFPAY ==
[2025-01-07 12:57] VITALS: BP 148/88; PULSE 79; O2SAT 98; BMI 29.8
--- NOTE | 2025-01-07 12:57 | A.OFFPC_ITS ---
Vital Signs 01/07/25 12:57 Height 5 ft 8.5 in Weight 199 lb BMI 29.8 BP 148/88 H Blood Pressure Location Lt brachial Position Sitting Pulse 79 Pulse Source Pulse Oximeter Pulse Oximetry (%) 98 Oxygen Delivery Method Room Air Intake Visit Reasons: CAD, A fib Allergies morphine [MORPHINE] Allergy (Unknown, Verified 01/07/25 12:57) NAUSEA & VOMITING simvastatin Allergy (Unknown, Verified 01/07/25 12:57) muscle pains and med ineffective enviromental allergies Allergy (Unknown, Uncoded 01/07/25 12:57) Unknown Medication List - Last Reconciled 01/07/25 by Bianca Alicea Po, albuterol sulfate 90 mcg/actuation 2 puffs inhalation Q6H PRN aspirin (Adult Aspirin Regimen) 81 mg PO DAILY celecoxib (Celebrex) 200 mg PO DAILY PRN dronedarone (Multaq) 400 mg PO BID finasteride 5 mg PO DAILY 90 days fluticasone furoate-vilanterol 200-25 mcg/dose (Breo Ellipta) 1 inh inhalation .QEVENING fluticasone propionate 50 mcg/actuation 1 spray intranasal BID losartan 50 mg PO DAILY rivaroxaban (Xarelto) 20 mg PO DAILY rosuvastatin (Crestor) 5 mg PO DAILY umeclidinium 62.5 mcg/actuation (Incruse Ellipta) 1 inh inhalation DAILY vibegron (Gemtesa) 75 mg PO DAILY 30 days Tobacco use date assessed: 01/07/25 Fall risk assessment: No Falls in past year Last assessed Fall Risk: 01/07/25 Dental Screening Dental Screen Date: 01/07/25 Did you have a dental visit in the last 12 months?: Yes Did you have a dental problem in the last 6 months where you did not have access to dental care?: No Was dental information given to patient?: Patient has dentist HPI CAD, A fib HPI Details The patient is a 79-year-old male presenting for a follow-up appointment to monitor and manage multiple chronic conditions and review a new dermatological diagnosis. The patient has a history of atrial fibrillation for which he is currently on Multac (twice daily) and Xarelto. His hypertension is being managed with losartan 50 mg once daily. He has impaired glucose tolerance with a noted fasting blood sugar of 126 and hypercholesterolemia with the most recent LDL level of 51, managed with rosuvastatin 5 mg once daily. He also has a history of coronary artery disease and uses aspirin as part of his treatment regimen. The patient has chronic obstructive pulmonary disease and utilizes Breo and Incruse daily, with albuterol as a rescue inhaler. Regarding urological issues, he has benign prostatic hyperplasia managed with finasteride, and has experienced bladder neck obstruction in the past. He was advised to discontinue Gentessa for managing an overactive bladder and feels improvement in symptoms. His medical history also includes ascending aortic dilatation, previously monitored via CTA, with the last cardiology review held in September 2024. He had a tubular adenoma of the colon, with the latest colonoscopy performed in October 2024, noting a polyp which has been managed without further intervention needed at this time. Anemia was identified in February 2024 bloodwork. Recently, the patient was diagnosed with basal cell carcinoma on the tip of his nose, confirmed by a biopsy, and is awaiting consultation for possible Mohs ashley rgery. He is aware of the potential uses of Ozempic for weight loss, which is being considered despite normal glucose levels. Additionally, the patient maintains an active lifestyle, involving in activities with [employer] organizations and utilizing a golf simulator. [facility] Medical History Spondylosis Peripheral artery disease Hx of difficult intubation COVID-19 Elevated cholesterol Myocardial infarction Abdominal aortic aneurysm (AAA) Chronic bronchitis Renal calculi COPD (chronic obstructive pulmonary disease) Nephrolithiasis Hx of myocardial infarction PONV (postoperative nausea and vomiting) On beta didi at home On anticoagulant therapy Obesity (BMI 30-39.9) Coronary artery disease BPH (benign prostatic hyperplasia) Hyperlipidemia Impaired glucose tolerance Hypertension Paroxysmal atrial fibrillation Surgical History (Updated 11/10/24 @ 16:26 by Bianca You MD) S/P TURP History of excision of pilonidal cyst History of cardiac ablation for atrial fibrillation Hx of surgical procedure (04/23/24) Hx of Achilles tendon repair (10/2022) Hx of basal cell carcinoma excision (~04/09/24) Hx of colonoscopy History of cardiac radiofrequency ablation (RFA) History of blepharoplasty Hx of appendectomy History of lumbar surgery H/O excision of lamina of cervical vertebra for decompression of spinal cord H/O rhinoplasty Family History Father No problems noted. Mother No problems noted. Social History Housing: House Are you a primary director career services to a significant other at home: No Do you presently have visiting nurse or other home services: No Alcohol intake: never Patient Tobacco Use Status: Former Tobacco user Tobacco use type: Cigarette and Cigar Cigarettes Per Day: 0 (Cigar on occasion) Years Smoked: 48 e-Cigarette/Vaping Use: Never Used Second Hand Smoke Exposure: No Current occupational status: retired Cognitive needs: No Hearing needs: No Vision needs: Yes Questionnaire PHQ-9 Over the last 2 weeks, how often have you been bothered by any of the following problems? 1. Little interest or pleasure in doing things: not at all 2. Feeling down, depressed, or hopeless: not at all 3. Trouble falling or staying asleep, or sleeping too much: not at all 4. Feeling tired or having little energy: not at all 5. Poor appetite or overeating: not at all 6. Feeling bad about yourself - or that you are a failure or have let yourself or your family down: not at all 7. Trouble concentrating on things, such as reading the newspaper or watching television: not at all 8. Moving or speaking so slowly that other people could have noticed. Or the opposite - being so fidgety or restless that you have been moving around a lot more than usual: not at all 9. Thoughts that you would be better off or of hurting yourself in some way: not at all Total score: 0 Depression Screening Interpretation: Negative (Patient refused to answer questions. ) Depression Screening Done: Yes 13150 - PHQ-9 Billing: Patient declined-do not bill Source: Developed by Drs. Pierce Nair, Malena Crowell, James Huynh and colleagues, with an educational yonas from [employer]. Thrive Questionnaire Date Thrive assessed: 01/07/25 I am a: Patient What is your living situation today?: I choose not to answer this question Within the past 12 months, did the food you bought not last and you didn't have the money to get more?: I choose not to answer this question Within the past 12 months, did you worry whether your food would run out before you got money to buy more?: I choose not to answer this question Do you have trouble paying for medicines?: I choose not to answer this question Do you have trouble getting transportation to medical appointments?: I choose not to answer this question Do you have trouble paying your heating and electricity bill?: I choose not to answer this question Do you have trouble taking care of your child, family member or friend?: I choose not to answer this question Do you have trouble with day-to-day activities such as bathing, preparing meals, shopping, managing finances, etc.?: I choose not to answer this question Are you currently unemployed and looking for a job?: I choose not to answer this question Are you interested in more education?: I choose not to answer this question Please select the resources that you would like help with: None Currently or been in a relationship where the following occur: I choose not to answer THRIVE Score: 0 AUDIT C Alcohol Use Questionnaire (AUDIT-C) 3. How often do you have six or more drinks on one occasion?: Never Total Score: 0 FLYNN-7 AMB Questionnaire FLYNN-7 Date FLYNN - 7 assessed: 01/07/25 Source: Developed by Drs. Pierce Nair, Malena Crowell, James Huynh and colleagues, with an educational yonas from [employer]. Physical exam (Primary Care) Vital Signs: Last Vital Signs Pulse 79 01/07/25 12:57 BP 148/88 H 01/07/25 12:57 Pulse Ox 98 01/07/25 12:57 Oxygen Delivery Method Room Air 01/07/25 12:57 BMI result Body Mass Index 29.8 Tobacco/Smoking Status: Tobacco use Status Tobacco use date assessed 01/07/25 01/07/25 12:58 Patient Tobacco Use Status Former Tobacco user 01/07/25 12:58 Tobacco use type Cigarette,Cigar 01/07/25 12:58 e-Cigarette/Vaping Use Never Used 01/07/25 12:58 PHQ-9: PHQ-9 Score PHQ-9: Total score 0 01/07/25 13:31 Depression Screening Interpretation: Negative (Patient refused to answer questions. ) Thrive Assessment: Date of Thrive Assessment Date Thrive assessed 01/07/25 01/07/25 12:58 Currently or been in a relationship where the following occur: I choose not to answer Const General: alert; No acute distress Eyes Conjunctivae: conjunctivae normal Resp Auscultation: clear to auscultation bilaterally Cardio Rate: regular rate Rhythm: regular rhythm GI Inspection: Yes normal to inspection Extrem General: Yes normal to inspection and No edema Coding Level of Care Code Est Pt Level 4 (28705) Complex EM visit Add On G2211 Diagnoses Paroxysmal atrial fibrillation I48.0 Essential hypertension I10 Hypertension type: essential hypertension Impaired glucose tolerance R73.02 Pure hypercholesterolemia E78.00 Hyperlipidemia type: pure hypercholesterolemia Benign prostatic hyperplasia with weak urinary stream N40.1; R39.12 Lower urinary tract symptom detail: weak urinary stream Lower urinary tract symptom presence: symptoms present Coronary artery disease involving [place] coronary artery of [place] heart without angina pectoris I25.10 Associated angina: without angina Coronary Disease-Associated Artery/Lesion type: [place] artery [place] vs. transplanted heart: [place] heart Obesity (BMI 30-39.9) E66.9 COPD (chronic obstructive pulmonary disease) J44.9 Peripheral vascular disease I73.9 Assessment & Plan Assessment & Plan (1) Paroxysmal atrial fibrillation: Comment: June 2019 echo normal LV impaired relaxation, November 2019 ear 55-60% her tick dilatation [address] Bonner 08/2020 Code(s): I48.0 - Paroxysmal atrial fibrillation Category: Medical Plan: Patient has been followed up by the apron trimmer has been placed on Multaq and continuing with anticoagulation with Xarelto. (2) Hypertension: Code(s): I10 - Essential (primary) hypertension Category: Medical Qualifiers: Hypertension type: essential hypertension Qualified Code(s): I10 - Essential (primary) hypertension Plan: Continue with blood pressure medication. Decrease salt intake and exercise on losartan 50 mg once a day (3) Impaired glucose tolerance: Code(s): R73.02 - Impaired glucose tolerance (oral) Category: Medical Plan: Decrease the amount of carbohydrate intake, pasta, bread, rice and potatoes are all sugar and that is aside from all the sweet stuff, remember that fruits are good but they are Sweet also. Need to repeat blood work (4) Hyperlipidemia: Code(s): E78.5 - Hyperlipidemia, unspecified Category: Medical Qualifiers: Hyperlipidemia type: pure hypercholesterolemia Qualified Code(s): E78.00 - Pure hypercholesterolemia, unspecified Plan: Avoid fried foods, chicken skin, eggs, butter margarine, pastries and meat. Be it pork or beef they have a lot of cholesterol LDL goal of below 70 preferably lower on rosuvastatin 5 mg once a day (5) BPH (benign prostatic hyperplasia): Code(s): N40.0 - Benign prostatic hyperplasia without lower urinary tract symptoms Category: Medical Qualifiers: Lower urinary tract symptom detail: weak urinary stream Lower urinary tract symptom presence: symptoms present Qualified Code(s): N40.1 - Benign prostatic hyperplasia with lower urinary tract symptoms; R39.12 - Poor urinary stream Plan: Continue with urology follow-up on finasteride 5 mg once a day (6) Coronary artery disease: Comment: [address] Dr. tSacy Code(s): I25.10 - Atherosclerotic heart disease of [place] coronary artery without angina pectoris Category: Medical Qualifiers: Associated angina: without angina Coronary Disease-Associated Artery/Lesion type: [place] artery [place] vs. transplanted heart: [place] heart Qualified Code(s): I25.10 - Atherosclerotic heart disease of [place] coronary artery without angina pectoris Plan: Control the cholesterol, weight, blood pressure, presently on anticoagulation and aspirin (7) Obesity (BMI 30-39.9): Code(s): E66.9 - Obesity, unspecified Category: Medical Plan: Diet and exercise (8) COPD (chronic obstructive pulmonary disease): Code(s): J44.9 - Chronic obstructive pulmonary disease, unspecified Category: Medical Plan: Stable on albuterol inhaler and Breo (9) Peripheral vascular disease: Comment: December 2023 ankle-brachial index right below 0.8, left below 0.7 Code(s): I73.9 - Peripheral vascular disease, unspecified Category: Medical Plan: When sitting down elevate the legs, exercise, and support stockings patient is being followed up by vascular surgeon Plan 1. - Continue CAD management with Xarelto and aspirin; encourage dietary and physical activity modifications: - For COPD, continue Breo and Incruse daily, with albuterol available for exacerbations; monitor breathing status. - Continue finasteride 5 mg once daily for BPH management; monitor urinary symptoms and adjust as necessary. - Monitor ascending aortic dilatation with periodic imaging as per cardiac consultations. - Follow-up with dermatology for Mohs surgery consultation for basal cell carcinoma treatment. - Address lifestyle modifications and preventive measures such as influenza, COVID, and pneumonia vaccinations; educate patient on COVID-19, flu, and RSV safety practices. - Reinforce importance of hygiene and social distancing measures during travels and social gatherings for infection prevention. - Encourage patient participation in physical and recreational activities under safe conditions and with appropriate PPE if needed. Orders: Orders Lipid Panel Today E78.00 - Pure hypercholesterolemia, unspecified, N40.1 - Benign prostatic hyperplasia with lower urinary tract symptoms, R39.12 - Poor urinary stream Magnesium Today N40.1 - Benign prostatic hyperplasia with lower urinary tract symptoms, R39.12 - Poor urinary stream Vitamin B12 and Folate Today N40.1 - Benign prostatic hyperplasia with lower urinary tract symptoms, R39.12 - Poor urinary stream B Type Natriuretic Peptide Today N40.1 - Benign prostatic hyperplasia with lower urinary tract symptoms, R39.12 - Poor urinary stream Medications: New semaglutide (Ozempic) for 4 weeks 0.25 mg (0.368 mL) subcut QWEEK 3 mL 1RF R73.02 - Impaired glucose tolerance (oral)
--- OUTSIDE RECORDS SUMMARY | 2025-01-07 13:01 | XMS_ITS | Clinical Summary ---
Author Organization [facility] Address [address] [place] [address] Phone Care Team Providers Care Coding Tech Name Role Phone Bianca You MD Primary Care Provider [phone] Allergies Active Allergy Reactions Criticality Noted Date Comments Morphine 09/30/2017 Simvastatin Other 09/30/2017 Muscle pains. Med ineffective Medications umeclidinium (Incruse Ellipta) 62.5 mcg/actuation inhalation Inhale 1 Puff into the lungs every morning. Active rosuvastatin (CRESTOR) 10 mg tablet Take 1 tablet (10 mg total) by mouth 2 (two) times a day. Active fluticasone furoate-vilant Teresa (BREO ELLIPTA) 200-25 mcg/dose inhaler Inhale 1 Puff into the lungs at bedtime. Active finasteride (PROSCAR) 5 mg tablet Take 1 tablet (5 mg total) by mouth 1 (one) time each day. 3 Active celecoxib (CeleBREX) 200 mg capsule Take [...] mouth 1 (one) time each day. Active losartan (COZAAR) 50 mg tablet TAKE 1 TABLET DAILY 90 tablet 3 5 Active rivaroxaban (Xarelto) 20 mg tablet Take 1 tablet (20 mg total) by mouth 1 (one) time each day with dinner. 90 tablet 1 5 Active dronedarone (Multaq) 400 mg tablet Take 1 tablet (400 mg total) by mouth 2 (two) times a day. 180 tablet 1 5 Active dronedarone (Multaq) 400 mg tablet Take 1 tablet (400 mg total) by mouth 2 (two) times a day. 4 025 Discontinued(Re order) rivaroxaban (Xarelto) 20 mg tablet Take 1 tablet (20 mg total) by mouth 1 (one) time each day with dinner. 4 025 Discontinued(Re order) losartan (COZAAR) 50 mg tablet Take 1 tablet (50 mg total) by mouth 1 (one) time each day. 3 025 Discontinued dronedarone (Multaq) 400 mg tablet Take 1 tablet (400 mg total) by mouth 2 (two) times a day. 180 tablet 1 5 025 Discontinued(Re order) Active Problems Problem Noted Date Diagnosed Date [...] artery disease. His primary care provider Dr. You recently checked his cholesterol levels and he [...] and presents in sinus rhythm today . [id number] score of 3 for hypertension and age [...] seen in consultation last year by Dr. Yoder electrophysiology who recommended starting Multaq for rhythm control [...] Encounters Date Type Department Care Team Description 12/31/2024 Telephone [facility] [address] [place] [address] Fam Argueta MD Med Refill (Multaq) 12/29/2024 8:00 AM EST Ancillary Procedure [facility] [address] [place] [address] Ascending aorta dilation (CMS/HCC); Paroxysmal atrial fibrillation (CMS/HCC) 10/19/2024 Telephone [facility] [address] [place] [address] Fam Argueta MD Call from MD office 10/13/2024 9:10 AM EST Consult [facility] [address] [place] [address] Salina Jennings NP Chest pain, unspecified type (Primary Dx); Ascending aorta dilation (CMS/HCC); Hypertension, unspecified type; Paroxysmal atrial fibrillation (CMS/HCC); Coronary artery disease involving [place] coronary artery of [place] heart without angina pectoris; Mixed hyperlipidemia; Preop cardiovascular exam 10/13/2024 Telephone [facility] [address] [place] [address] Salina Jennings NP Pre-Op 10/07/2024 Telephone [facility] [address] [place] [address] Fam Argueta MD from Last [...] 09/30/2017 DX:Palpabl e mass of neck Old PA (myocardial infarction) 09/30/2017 D X:Old PA (myocardial infarction); COMMENT: 1996 Carotid stenosis 09/30/2017 DX:Carotid sten osis Social History Tobacco Use Types Packs/Day Years Used Date Smoking Tobacco: Former Smokeless Tobacco: Never Alcohol Use Standard Drinks/Week Comments No 0 (1 standard drink = 0.6 oz pur e alcohol) Sex and Gender Information Value Date Recorded Sex Assigned at Not on file Legal Sex Male 4:44 AM EST Gender Identity Not on file Sexual Orientation Not on file Obstetrics History Last Filed Vital Signs Vital Sign Reading Time Taken Comments Blood Pressure 110/60 12/29/2024 8:09 AM EST Pulse 63 10/13/2024 9:12 AM EST Temperature - - Respiratory Rate - - Oxygen Saturation - - Inhaled Oxygen Concentration - - Weight 90.7 kg (200 lb) 12/29/2024 8:09 AM EST Height 172.7 cm (5' 8 ) 12/29/2024 8:09 AM EST Body Mass Index 30.41 12/29/2024 8:09 AM EST Plan of Treatment Upcoming Encounters Date Type Department Care Team (Late st Contact Info) Description 04/05/2025 1:00 PM EDT Appointment [facility] Ultrasound [address] [place] [phone] 04/20/2025 2:00 PM EDT Office Visit [facility] [place] [address] [place] [phone] Elsy Khan MD [address] [place] [address] Health Maintenance Due Date Last Done Comments Zoster Vaccines (1 of 2) 1997 Cholesterol Screening (Lipid Panel) 11/03/2022 Depression Screening 11/03/2022 Falls Risk Assessment 11/03/2022 Hepatitis C Screening 11/03/2022 Medicare Annual Wellness Visit 11/03/2022 Social Influencers of Health Screening 11/03/2022 Hypertension/CHF/CAD Annual BMP Blood Test 01/28/2025 01/29/2024 DTaP,Tdap,and Td Vaccines (2 - Td or Tdap) 12/12/2026 12/12/2016 Pneumococcal Vaccine: 50+ Years Completed 12/11/2022 RSV Immunization Patients 60+ [...] patient's age to complete this topic Meningococcal B Vacine Aged Out No lo nger eligible based on patient's age to complete [...] GEMUSE QTc 421 ms GEMUSE P Wave Justice -12 degrees GEMUSE R Justice 10 degrees GEMUSE T Justice 47 degrees GEMUSE ECG Interpretation Normal sinus rhythm Normal ECG When compared with ECG of 29-AUG-2015 14:00, No significant change was found Confirmed by FAM ARGUETA ([id number]) on 10/13/2024 1:36:29 PM GEMUSE 10/13/2024 9:18 AM EST 10/13/2024 1:36 PM EST Salina Jennings WAXER OPERATOR ECG ORDERABLES Edited Resu lt - Final GEMUSE * Annual BMP Blood Test (01/29/2024) Annual BMP Blood Test Abstracted Historical Provider HEALTH MAINTENANCE Final Result from Last 3 Months or Most Recently Relevant to Health Maintenance Insurance MEDICARE [facility] Care Teams Coding Tech Relationship Specialty Start Date End Date Bianca You MD [address] [place] [address] [address] [facility] [place] [address] PCP - General Internal Medicine 11/08/21
--- OUTSIDE RECORDS SUMMARY | 2025-01-07 13:01 | XMS_ITS ---
Author Organization [facility] Address [address] [place] [phone] Care Team Providers Care Outside Installation Machinist Name Role Phone Po Bianca GARCIA Primary Care Provider Osmany Ramires Jr REASON FOR VISIT cardiology clearance Encounters Encounter Location Date Provider Diagnosis [facility] [address] [place] [phone] 10/07/2024 Osmany Alcantar Jr PLAN OF TREATMENT No Information
--- OUTSIDE RECORDS SUMMARY | 2025-01-07 13:01 | XMS_ITS ---
Author Organization [facility] Address [address] [place] [address] Care Team Providers Care Insurance Sales Specialist Name Role Phone Po Bianca GARCIA Primary Care Provider Osmany Ramires Jr [phone] REASON FOR VISIT dysphagia,screening PROBLEMS Problem Type ICD Code Onset Dates Problem Status W/U Status Risk SNOMED Code Notes Problem Dysphagia (R13.10) Active confirmed Dysphagia ([id number]) Encounters Encounter Location Date Provider Diagnosis [facility] [address] [place] [phone] 10/26/2024 Osmany Alcantar Jr Colon cancer screening Z12.11 ; Colon polyps K63.5 and Dysphagia R13.10 ASSESSMENTS Encounter Date Diagnosis Assessment Notes Treatment Notes Treatment Clinical Notes 10/26/2024 Colon cancer screening (ICD-10 - Z12.11) 10/26/2024 Colon polyps (ICD-10 - K63.5) 10/26/2024 Dysphagia (ICD-10 - R13.10) PLAN OF TREATMENT No Information
--- OUTSIDE RECORDS SUMMARY | 2025-01-07 13:01 | XMS_ITS ---
Author Organization [facility] Address [address] [place] [phone] Care Team Providers Care Senior Receptionist Name Role Phone Po Bianca GARCIA Primary Care Provider Osmany Ramires Jr [phone] REASON FOR VISIT pathology/3 yr colon recall. optional Encounters Encounter Location Date Provider Diagnosis [facility] [address] [place] [phone] 11/03/2024 Osmany Alcantar Jr PLAN OF TREATMENT No Information
--- OUTSIDE RECORDS SUMMARY | 2025-01-07 13:01 | XMS_ITS | Patient Health Record ---
Author Organization [facility] Address [address] [place] [address] Care Team Providers Care Ballet Master/Mistress Name Role Phone Bianca You MD Primary Care Provider Osmany Ramires Jr Unavailable [phone] ALLERGIES Allergen (clinical drug ingredient) Drug/Non Drug Allergy documented on EMR Reaction Allergy Type Onset Date Status morphine Morphine Sulfate Unknown Drug Allergy Active RESULTS Component Value Reference Range Notes Pathology Reviewed date:11/03/2024 08:11:32 AM Interpretation: Performing Lab:[facility], [address] [place] [id number] Notes/Report: REASON FOR REFERRAL No Information MEDICATIONS [...] W/U Status Risk SNOMED Code Notes Problem FPC (current) use of anticoagulants (Z79.01) Active confirmed 689095735 Problem Special screening for malignant neoplasms, colon (Z12.11) Active confirmed 782248251 Problem Dysphagia (R13.10) Active confirmed Dys phagia (95605508) Problem Long-term use of aspirin therapy (Z79.82) Active confirmed 101713788 Problem Dysphagia, unspecified type (R13.10) Active confirmed 00263439 Problem FH: colon cancer (Z80.0) Active confirmed 703234167 VITAL SIGNS Temperature 98.4 degrees Fahrenheit 08/05/2024 Blood pressure diastolic 00 mm Hg 08/05/2024 Height 68.5 in 08/05/2024 Blood pressure systolic 000 mm Hg 08/05/2024 Weight 202 lbs 08/05/2024 BMI 30.26 kg/m2 08/05/2024 Encounters Encounter Location Date Provider Diagnosis [facility] [address] [place] [phone] 10/26/2024 Osmany Alcantar Jr Colon cancer screening Z12.11 ; Colon polyps K63.5 and Dysphagia R13.10 [facility] [address] [place] [phone] 08/05/2024 Osmany Alcantar Jr Special screening for malignant neoplasms, colon Z12.11 and Dysphagia, unspecified type R13.10 [facility] [address] [place] [phone] 10/07/2024 Osmany Alcantar Jr [facility] [address] [place] [phone] 11/03/2024 Osmany Alcantar Jr ASSESSMENTS Encounter Date [...] Date MEDICARE OF [place] [address] [facility] [place] [address] [id number] TANNER WILSON Self - patient is the insured [employer] CLAIMS [address] [place] [address] [phone] [id number] TANNER WILSON Self - patient is the insured MEDICAL (GENERAL) HISTORY Medical History History ICD Code personal history of tubular adenomas, last colonoscopy 05/14, multiple polyps, three-year followup coronary artery disease with history of [place], 1995 elevated cholesterol nehprolithiasis Atrial fibrillation, status post cardiac ablation 10/13 COPD Difficult intubation at the time of his Achilles surgery Covid 19 infection, November 2023 Spondylosis Peripheral arterial disease Surgical History Surgery Date(Month/Year) rhinoplasty L4-5 disc surgery for compression appendectomy 01/2019 cardiac ablation 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
--- OUTSIDE RECORDS SUMMARY | 2025-01-07 13:01 | XMS_ITS | Clinical Summary ---
Author Organization [facility] Address [address] [place] [address] Care Team Providers Care Mid Wife Name Role Phone Unavailable Primary Care Provider [...]
--- OUTSIDE RECORDS SUMMARY | 2025-01-07 13:01 | XMS_ITS | Encounter Summary ---
Author Organization [facility] Address [address] [place] [address] Care Team Providers Care Alcohol And Drug Counselor Name Role Phone Bianca You MD Primary Care Provider [phone] Reason for Visit * Imaging (Routine) - Closed Specialty Diagnoses / Procedures Referred By Contac t Referred To Contact Cardiology Diagnoses Ascending aorta dilation (CMS/HCC) Paroxysmal atrial fibrillation (CMS/HCC) Procedures Transthoracic echocardiogram (TTE) complete with PRN contrast, bubble, strain, and 3D order panel MO TTE W 2D IMAGE COMPLETE W DOPPLER ECHO & COLOR FLOW DOPPLER ECHO MO ARNIE 2D COMPLETE W/CONTRAST OR W & WO CONTRAST WITH DOPPLER Salina Jennings NP [address] [place] [address] Dr [place] [address] [place] [address] Phone: tel: fax: [facility] Referral ID Status Reason Start Date Expiration Date Visits Re quested Visits Authorized [id number] Closed 10/13/2024 10/13/2025 1 1 Encounter Details Date Type Department Care Team (Latest Contact Info) Description 12/29/2024 8:00 AM EST Ancillary Procedure [facility] - [address] [place] [phone] Ascending aorta dilation (CMS/HCC); Paroxysmal atrial fibrillation (CMS/HCC) Social History Tobacco Use Types Packs/Day Years Used Date Smoking Tobacco: Former Smokeless Tobacco: Never Alcohol Use Standard Drinks/Week Comments No 0 (1 standard drink = 0.6 oz pur e alcohol) Sex and Gender Information Value Date Recorded Sex Assigned at Not on file Legal Sex Male 4:44 AM EST Gender Identity Not on file Sexual Orientation Not on file documented as of this encounter Last Filed Vital Signs Vital Sign Reading Time Taken Comments Blood Pressure 110/60 12/29/2024 8:09 AM EST Pulse - - Temperature - - Respiratory Rate - - Oxygen Saturation - - Inhaled Oxygen Concentration - - Weight 90.7 kg (200 lb) 12/29/2024 8:09 AM EST Height 172.7 cm (5' 8 ) 12/29/2024 8:09 AM EST Body Mass Index 30.41 12/29/2024 8:09 AM EST documented in this encounter Plan of Treatment Upcoming Encounters Date Type Department Care Team (Late st Contact Info) Description 04/05/2025 1:00 PM EDT Appointment [facility] Ultrasound [address] [place] [address] 04/20/2025 2:00 PM EDT Office Visit [facility] [place] [address] [place] [address] Elsy Khan MD [address] [place] [address] Pending Results Name Type Priority Associated Diagnoses Date /Time Transthoracic echocardiogram (TTE) complete with PRN contrast, bubble, strain, and 3D order panel Echocardiography Routine Ascending aorta dilation (CMS/HCC) Paroxysmal atrial fibrillation (CMS/HCC) 12/29/2024 8:41 AM EST documented as of this encounter Visit Diagnoses Diagnosis Ascending aorta dilation (CMS/HCC) Thoracic aneurysm without mention of rupture Paroxysmal atrial fibrillation (CMS/HCC) Atrial fibrillation documented in this encounter Care Teams Alcohol And Drug Counselor Relationship Specialty Start Date End Date Bianca You MD [address] [place] [address] [address] [facility] [place] [address] PCP - General Internal Medicine 11/08/21 documented as of this encounter
--- OUTSIDE RECORDS SUMMARY | 2025-01-07 13:01 | XMS_ITS | Encounter Summary ---
Author Organization [facility] Address [address] [place] [address] Care Team Providers Care Power System Electrical Engineer Name Role Phone Bianca You MD Primary Care Provider [phone] Reason for Visit * Reason Onset Date Comments Med Refill 12/31/2024 Multaq Encounter Details Date Type Department Care Team (Late st Contact Info) Description 12/31/2024 Telephone [facility] [address] [place] [address] Jaswinder Larson MD [address] [place] [address] [address] [place] [address] Med Refill (Multaq) Social History Tobacco Use Types Packs/Day Years [...] on file documented as of this encounter Ordered Prescriptions Prescription Sig Dispense Quantity Refills Last Filled Start Date End Date dronedarone (Multaq) 400 mg tablet Take 1 tablet (400 mg total) by mouth 2 (two) times a day. 180 tablet 1 12/31/2024 documented in this encounter Progress Notes * Sweta Berg RN - 12/31/2024 4:29 PM EST Resent to [facility] * Felicia Esteban - 12/31/2024 4:24 PM EST Patients refill for Multaq 400 mg 2 times a day was previously sent to the wrong pharmacy on 12/29/24. Please send 30 day supply to [facility], patient does not want this sent to [facility] on [facility] in [facility]. documented in this encounter Plan of Treatment Upcoming Encounters Date Type Department Care Team (Late st Contact Info) Description 04/05/2025 1:00 PM EDT Appointment [facility] Ultrasound [address] [place] [phone] 04/20/2025 2:00 PM EDT Office Visit [facility] - [place] [address] [place] [address] Elsy Khan MD [address] [place] [address] documented as of this encounter Visit Diagnoses Not on filedocumented in this encounter Discontinued Medications Medication Sig Discontinue Reason Start Date End Da te dronedarone (Multaq) 400 mg tablet Take 1 tablet (400 mg total) by mouth 2 (two) times a day. Reorder 12/29/2024 12/31/2024 documented as of this encounter Care Teams Power System Electrical Engineer Relationship Specialty Start Date End Date Bianca You MD [address] [place] [address] [address] [facility] [place] [address] PCP - General Internal Medicine 11/08/21 documented as of this encounter
== END 2025-01-07 13:46 | disposition home or self-care (01) ==
PROVIDERS: PCP Internal Medicine; Visit Provider Internal Medicine
DX: I48.0 Paroxysmal atrial fibrillation (principal); I10 Essential (primary) hypertension; R73.02 Impaired glucose tolerance (oral); E78.00 Pure hypercholesterolemia, unspecified; N40.1 Benign prostatic hyperplasia with lower urinary tract symptoms; R39.12 Poor urinary stream; I25.10 Atherosclerotic heart disease of native coronary artery without angina pectoris; E66.9 Obesity, unspecified; J44.9 Chronic obstructive pulmonary disease, unspecified; I73.9 Peripheral vascular disease, unspecified

== ENCOUNTER → 2025-01-07 12:36 | Outpatient (BNVA) | payer MEDICARE, SELFPAY | PROVIDERS: PCP Internal Medicine; Visit Provider Internal Medicine | DX: I48.0 Paroxysmal atrial fibrillation (principal); I10 Essential (primary) hypertension; E78.00 Pure hypercholesterolemia, unspecified; N40.1 Benign prostatic hyperplasia with lower urinary tract symptoms; R39.12 Poor urinary stream; I25.10 Atherosclerotic heart disease of native coronary artery without angina pectoris; E66.9 Obesity, unspecified; J44.9 Chronic obstructive pulmonary disease, unspecified; I73.9 Peripheral vascular disease, unspecified | CPT/HCPCS: 99212 ==

== ENCOUNTER 2025-01-28 07:52 | Outpatient (REF) | payer MEDICARE, SELFPAY ==
--- OUTSIDE RECORDS SUMMARY | 2025-01-28 07:56 | XMS_ITS ---
Author Organization [facility] Address [address] [place] [address] Care Team Providers Care Electrical Engineering Designer Name Role Phone Po Bianca GARCIA Primary Care Provider Osmany Ramires Jr REASON FOR VISIT dysphagia,screening Problems Problem Type SNOMED Code ICD Code Onset Dates Problem Status W/U Status Risk Notes Problem Dysphagia (90140410) Dysphagia (R13.10) Active confirmed Encounters Encounter Location Date Provider Diagnosis [facility] Out[facility] [address] [place] [phone] 10/26/2024 Osmany Alcantar Jr Colon cancer screening Z12.11 ; Colon polyps K63.5 and Dysphagia R13.10 Assessments Encounter Date Diagnosis (ICD Code) Assessment Notes Treatment Notes Treatment Clinical Notes Section Notes 10/26/2024 Colon cancer screening (ICD-10 - Z12.11) 10/26/2024 Colon polyps (ICD-10 - K63.5) 10/26/2024 Dysphagia (ICD-10 - R13.10) Plan Of Treatment No Information Progress Notes * TANNER TITUS BDOB:[birth year] (79 yo M)Acc No.[id number]:10/26/2024 EGD&COL/MAC Patient:?TANNER TITUS Provider:?Osmany Alcantar MD :1945???Age:79 Y???Sex:Male Randall e:10/26/2024 Address:[address] [place] [address] Pcp:Bianca You MD Subjective: * Chief Complaints: * ???1. Dysphagia,screening. * Medical History:? Objective: * Vitals:? Assessment: * Assessment: 1.?Colon cancer screening - Z12.11 (Primary)???2.?Colon polyps - K63.5???3.?Dysphagia - R13.10??? Plan: * Treatment: * Procedure Codes:?64330 LESIO N REMOVAL COLONOSCOPY, 22572 COLONOSCOPY AND BIOPSY, Modifiers: 59 , 0529F INTRVL 3+YRS PTS CLNSCP DOCD, 369[address] UPPER GI ENDOSCOPY, BIOPSY * * The named appointment provid er may or may not be the originator of this progress note, and it is not deemed complete until electronically signed by the appointment provider. Sign off status: Pending * Provider:?Osmany Alcantar MD Date:?1 12/27/2023 Generated for Darnell angulo/Ervin/Chavezsmitting on:?01/28/2025 07:56 AM EST
--- OUTSIDE RECORDS SUMMARY | 2025-01-28 07:56 | XMS_ITS ---
Author Organization [facility] Address [address] [place] [phone] Care Team Providers Care Tile Layer Helper Name Role Phone Po Bianca GARCIA Primary Care Provider Osmany Ramires Jr REASON FOR VISIT cardiology clearance Encounters Encounter Location Date Provider Diagnosis [facility] [address] [place] [phone] 10/07/2024 Osmany Alcantar Jr Plan Of Treatment No Information Progress Notes * TANNER TITUS BDOB:[birth year] (79 yo M)Acc No.[id number]:10/07/2024 Patient:?TANNER TITUS :1945???Age:79 Y???Sex:Male Address:[address] [place] [address] * true * Date:? Generated for Printi ng/Fareinaldog/eTransmitting on:?01/28/2025 07:56 AM EST
--- OUTSIDE RECORDS SUMMARY | 2025-01-28 07:56 | XMS_ITS | Clinical Summary ---
Author Organization [facility] Address [address] [place] [address] Care Team Providers Care High School Principal Name Role Phone Unavailable Primary Care Provider [...]
--- OUTSIDE RECORDS SUMMARY | 2025-01-28 07:56 | XMS_ITS | Clinical Summary ---
Author Organization [facility] [employer] [facility] Address [address] [place] [address] Phone Care Team Providers Care Hide Examiner Name Role Phone Bianca You MD Primary Care Provider [phone] Allergies Active Allergy Reactions Criticality Noted Date Comments Morphine 09/30/2017 Simvastatin Other 09/30/2017 Muscle pains. Med ineffective Medications umeclidinium (Incruse Ellipta) 62.5 mcg/actuation inhalation Inhale 1 Puff into the lungs every morning. Active rosuvastatin (CRESTOR) 10 mg tablet Take 1 tablet (10 mg total) by mouth 2 (two) times a day. Active fluticasone furoate-vilante roL (BREO ELLIPTA) 200-25 mcg/dose inhaler Inhale 1 [...] times a day. 180 tablet 1 5 12/31/19 25 Discontinu ed(Reorder ) Active Problems Problem Noted Date Diagnosed Date [...] and presents in sinus rhythm today . [id number] score of 3 for hypertension and age [...] Type Department Care Team Description 12/31/2024 Telephone [facility] [address] [place] [address] MarcellJaswinder Montilla MD Med Refill (Multaq) 12/29/2024 8:00 AM EST Ancillary Procedure [facility] Cardiology [facility] [address] [place] [address] Ascending aorta dilation (CMS/HCC); Paroxysmal atrial fibrillation (CMS/HCC) from Last 3 Months Immunizations Name Administration [...] 09/30/2017 DX:Palpabl e mass of neck Old DC (myocardial infarction) 09/30/2017 D X:Old DC (myocardial infarction); COMMENT: 1996 Carotid stenosis 09/30/2017 [...] Info) Description 04/05/2025 1:00 PM EDT Appointment [facility] Ultrasound [address] [place] [phone] 04/20/2025 2:00 PM EDT Office Visit [facility] [place] [address] [place] [address] lEsy Khan MD [address] [place] [address] Health Maintenance Due Date Last Done Comments [...] Procedure Name Priority Date/Time Associated Diagnosis Comments ANNUAL BMP BLOOD TEST Routine 01/29/2024 from Last 3 Months or Most Recently Relevant to Health Maintenance Results * Annual BMP Blood Test (01/29/2024) Annual BMP Blood Test Abstracted us Historical Provider HEALTH MAINTENANCE Final Result from Last 3 Months or Most Recently Relevant to Health Maintenance Insurance MEDICARE [facility] Care Teams Hide Examiner Relationship Specialty Start Date End Date Bianca You MD [address] [place] [address] [address] [facility] [place] [address] PCP - General Internal Medicine 11/08/21
--- OUTSIDE RECORDS SUMMARY | 2025-01-28 07:56 | XMS_ITS | Patient Health Record ---
Author Organization [facility] Address [address] [place] [address] Care Team Providers Care Booster Pump Operator Name Role Phone Bianca You MD Primary Care Provider Osmany Ramires Jr Allergies Allergen (clinical drug ingredient) Drug/Non Drug Allergy documented on EMR Reaction Allergy Type Onset Date Status morphine Morphine Sulfate Unknown Drug Allergy Active Results Component Value Reference Range Notes Pathology Reviewed date:11/03/2024 08:11:32 AM Interpretation: Performing Lab:[facility], [address] [place] [phone] Notes/Report: Name: Dean Titus Age/Sex: 79/M : 1945 Unit#: [id number] Attend Dr: Osmany Alcantar MD Re10/26/24 Status : [facility] Location: [facility] Disch: SPEC : [id number] RECD : 10/26/24 STATUS: RAFAEL NGUYEN NUM: [id number] HAO: 10/26/24 [facility] DR: Osmany Alcantar MD ENTERED: 10/26/24 SP TYPE: Surgical OTHR DR: Bianca You MD ORDERED: HE Stain/21 , Gross Micro L4/7, IHC, Special st. 2, H. pylori, AB/PAS Diagnosis A. Stomach, antrum, biopsy: Antral-type and oxyntic mucosa with mild chronic inactive inflammation; no Hel icobacter organisms seen. B. Cecum, polypectom y: Tubular adenoma; negative for high-grade dysplasia or carcinoma. C. Colon, right, sofi ypectomy: Fragments of tubular adenoma; negative for high-grade dysplasia or carcinoma. D. Colon, 70 cm, sofi ypectomy: Fragments of tubular adenoma; negative for high-grade dysplasia or carcinoma. E. Colon, 65 cm, sofi ypectomy: Colonic mucosa with mild surface hyperplastic changes. F. Colon, 60 cm, sofi ypectomy: Colonic mucosa with mild surface hyperplastic changes. G. Colon, 35 cm, sofi ypectomy: Tubular adenoma; negative for high-grade dysplasia or carcinoma. Clinical History Pre-Op Dx: Encounter for screening for malignant neoplasm of colon, screening Post-Op Dx: Duodenit is, colon polyps Microscopic Description A-G. Microscopic sec tions examined. No metaplastic changes are seen, supported by AB/PAS stains (A); no Helic obacter organisms are seen, supported by H. pylori immunostain (A). Material Received A. Antrum bx's B. Polyp cecum C. Right colon polyp D. Polyp @ 70cm E. Polyp @ 65 cm F. Polyp @ 60 cm G. Polyp @ 35 cm CONTINUED ON NEXT PAGE Name: Dean Titus Age/Sex: 79/M : 1945 Unit#: [id number] Attend Dr: Osmany Alcantar MD Re10/26/24 Status : [facility] Location: [facility] Disch: SPEC : [id number] RECD : 10/26/24 STATUS: [facility] NUM: [id number] HAO: 10/26/24 [facility] DR: Osmany Alcantar MD ENTERED: 10/26/24 SP TYPE: Surgical OTHR DR: Bianca You MD ORDERED: HE Stain/21 , Gross Micro L4/7, IHC, Special st. 2, H. pylori, AB/PAS Gross Description Received in seven parts. Part A: Received in formalin labeled ?antrum bx's? are 2 matson-pink irregular tissue fragments measuring 0.25 and 0.35 cm, submitted in toto in a cassette labeled A. Part B: Received in formalin labeled ?polyp cecum? are 2 matson-pink irregular and papular tissue fragments leatha suring 0.25 and 0.45 cm, submitted in toto in a cassette labeled B. Part C: Received in formalin labeled ?right colon polyp? are 4 matson-pink irregular tissue fragments ranging fr om 0.15-0.25 cm, submitted in toto in a cassette labeled C. Part D: Received in formalin labeled ?polyp at 70 cm? are 4 matson irregular and rectangular tissue fragments ran ging 0.25 to 0.35 cm, submitted in toto in a cassette labeled D. Part E: Received in formalin labeled ?polyp at 65 cm? is a 0.4 cm matson-pink papular tissue fragments with an at tached 0.5 cm tail of matson mucosa, submitted in toto in a cassette labeled E. Part F: Received in formalin labeled ?polyp at 60 cm? is a 0.3 cm matson-pink irregular tissue fragment, submitted in toto in a cassette labeled F. Part G: Received in formalin labeled ?polyp at 35 cm? is a 0.8 x 0.3 x 0.2 cm matson-pink rectangular-papular tissue fragment, submitted in toto in a cassette labeled G. CEDS Special studies orde red and performed: Immunostain for H. pylori on A; AB/PAS stains on A Copies To: Osmany Alcantar MD [facility] [address] [place] [address] Avelino,Bianca Alicea MD [facility],[address] [place] [address] CONTINUED ON NEXT PAGE Name: ArielaDean Age/Sex: 79/M : 1945 Unit#: [id number] Attend Dr: Osmany Alcantar MD Re10/26/24 Status : [facility] Location: [facility] Disch: SPEC : [id number] RECD : 10/26/24 STATUS: RAFAEL NGUYEN NUM: [id number] HAO: 10/26/24075 [facility] DR: Osmany Alcantar MD ENTERED: 10/26/24- 35 SP TYPE: Surgical OTHR DR: Bianca You MD ORDERED: HE Stain/21 , Gross Micro L4/7, IHC, Special st. 2, H. pylori, AB/PAS Signed (si gnature on file) Elmo Ricks MD 10/28/24 1139 END OF REPORT Reason For Referral No Information Medications Medication SIG (Take, Route, Frequency, Duration) Notes [...] the procedure for 1 day 08/05/2024 Active Immunizations Vaccine Route Administration Date Status Comme nts Influenza Unknown 09/06/2020 Administered Influenza Unknown 09/16/2023 Administered Problems Problem Type SNOMED Code ICD Code Onset Dates Problem Status W/U Status Risk Notes Problem 472335565 retirement (current) use of anticoagulants (Z79.01) Active confirmed Problem 389874862 Special screenin g for malignant neoplasms, colon (Z12.11) Active confirmed Problem Dysphagia (08108577) Dysphagia (R13.10) Active confirmed Problem 292524003 Long-term use of aspirin therapy (Z79.82) Active confirmed Problem 66940356 Dysphagia, unspecified type (R13.10) Active confirmed Problem 629755118 FH: colon cancer (Z80.0) Active confirmed Vital Signs Temperature 98.4 degrees Fahrenheit 08/05/2024 Blood pressure diastolic 00 mm Hg 08/05/2024 Height 68.5 in 08/05/2024 Blood pressure systolic 000 mm Hg 08/05/2024 Weight 202 lbs 08/05/2024 BMI 30.26 kg/m2 08/05/2024 Encounters Encounter Location Date Provider Diagnosis [facility] [address] [place] [phone] 10/26/2024 Osmany Alcantar Jr Colon cancer screening Z12.11 ; Colon polyps K63.5 and Dysphagia R13.10 [facility] [address] [phone] 08/05/2024 Osmany Alcantar Jr Special screening for malignant neoplasms, colon Z12.11 and Dysphagia, unspecified type R13.10 [facility] [address] [address] 10/07/2024 Osmany Alcantar Jr [facility] [address] [place] [phone] 11/03/2024 Osmany Alcantar Jr Assessments Encounter Date Diagnosis (ICD Code) Assessment Notes Treatment Notes Treatment Clinical Notes Section Notes 10/26/2024 Colon cancer screening (ICD-10 - Z12.11) 10/26/2024 Colon polyps (ICD-10 - K63.5) 08/05/2024 Special screening for malignant neoplasms, colon (ICD-10 - Z12.11) We discussed the causes of dysphagia. We discussed reflux disease including diet, lifestyle modifications, and weight management. He will have further evaluation with upper GI endoscopy. He is due for colonoscopy. This will be arranged. He understands risks and benefits and agrees to proceed. He is advised stop aspirin one week before the procedure and Xarelto 3 days before the procedure will 08/05/2024 Dysphagia, unspecified type (ICD-10 - R13.10) We discussed the causes of dysphagia. We discussed reflux disease including diet, lifestyle modifications, and weight management. He will have further evaluation with upper GI endoscopy. He is due for colonoscopy. This will be arranged. He understands risks and benefits and agrees to proceed. He is advised stop aspirin one week before the procedure and Xarelto 3 days before the procedure will 10/26/2024 Dysphagia (ICD-10 - R13.10) Plan Of Treatment Future Test Test Name Order Date COLONOSCOPY 11/29/2015 COLONOSCOPY 04/09/2021 UPPER GI ENDOSCOPY 08/05/2024 COLONOSCOPY 08/05/2024 Insurance Providers Payer Name Payer Address Payer Phone Subscriber Number Group Number Insured Name Patient Relationship to Insured Coverage Start Date Coverage End Date MEDICARE OF [place] [address] [place] [address] [phone] [id number] TANNER WILSON Self - patient is the insured [employer] ATT[employer] CLAIMS [address] [place] [address] [phone] [id number] TANNER WILSON Self - patient is the insured Medical (General) History Medical History History ICD Code personal history of tubular adenomas, last colonoscopy 05/14, multiple polyps, three-year followup coronary artery disease with history of CT, 1995 elevated cholesterol nehprolithiasis Atrial fibrillation, status post cardiac ablation 10/13 COPD Difficult intubation at the time of his Achilles surgery Covid 19 infection, November 2023 Spondylosis Peripheral arterial disease Surgical History Surgery Date(Month/Year) rhinoplasty L4-5 disc surgery for compression appendectomy 01/2019 cardiac ablation 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
--- OUTSIDE RECORDS SUMMARY | 2025-01-28 07:56 | XMS_ITS | Encounter Summary ---
Author Organization [facility] Address [address] [place] [address] Care Team Providers Care Erection Shop Supervisor Name Role Phone Bianca You MD Primary Care Provider [phone] Reason for Visit * Imaging (Routine) - Closed Specialty Diagnoses / Procedures Referred By Contac t Referred To Contact Cardiology Diagnoses Ascending aorta dilation (CMS/HCC) Paroxysmal atrial fibrillation (CMS/HCC) Procedures Transthoracic echocardiogram (TTE) complete with PRN contrast, bubble, strain, and 3D order panel MA TTE W 2D IMAGE COMPLETE W DOPPLER ECHO & COLOR FLOW DOPPLER ECHO MA ARNIE 2D COMPLETE W/CONTRAST OR W & WO CONTRAST WITH DOPPLER Salina Jennings NP [address] [place] [address] Dr [place] [address] [place] [address] Phone: tel: fax: [facility] Referral ID Status Reason Start Date Expiration Date Visits Re quested Visits Authorized [id number] Closed 10/13/2024 10/13/2025 1 1 Encounter Details Date Type Department Care Team (Latest Contact Info) Description 12/29/2024 8:00 AM EST Ancillary Procedure [facility] [address] [place] [phone] Ascending aorta dilation (CMS/HCC); Paroxysmal atrial fibrillation [...] Info) Description 04/05/2025 1:00 PM EDT Appointment [facility] Ultrasound [address] [place] [address] 04/20/2025 2:00 PM EDT Office Visit [facility] [place] [address] [place] [address] Elsy Khan MD [address] [place] [address] Pending Results Name Type Priority Associated Diagnoses [...] fibrillation documented in this encounter Care Teams Erection Shop Supervisor Relationship Specialty Start Date End Date Bianca You MD [address] [place] [address] Dr [address] [facility] [place] [address] PCP - General Internal Medicine 11/08/21 documented as of this encounter
--- OUTSIDE RECORDS SUMMARY | 2025-01-28 07:56 | XMS_ITS ---
Author Organization [facility] Address [address] [place] [address] Care Team Providers Care Dry Chain Offbearer Name Role Phone Bianca You MD Primary Care Provider Osmany Ramires Jr [phone] REASON FOR VISIT pathology/3 yr colon recall. optional Encounters Encounter Location Date Provider Diagnosis [facility] [address] [place] [phone] 11/03/2024 Osmany Alcantar Jr Plan Of Treatment No Information Progress Notes * TANNER TITUS BDOB:[birth year] (79 yo M)Acc No.[id number]:11/03/2024 Patient:?TANNER TITUS :1945???Age:79 Y???Sex:Male Address:[address] [place] [address] [place] [address] * true * Date:? Generated for Darnell angulo/Ervin/eTransmitting on:?01/28/2025 07:55 AM EST
--- OUTSIDE RECORDS SUMMARY | 2025-01-28 07:56 | XMS_ITS | Encounter Summary ---
Author Organization [facility] Address [address] [place] [address] Care Team Providers Care Kettleman Name Role Phone Bianca You MD Primary Care Provider [phone] Reason for Visit * Reason Onset Date Comments Med Refill 12/31/2024 Multaq Encounter Details Date Type Department Care Team (Late st Contact Info) Description 12/31/2024 Telephone [facility] [address] [place] [address] Jaswinder Larson MD [address] [place] [address] Dr [address] [place] [address] Med Refill (Multaq) Social History Tobacco Use [...] - 12/31/2024 4:29 PM EST Resent to [facility] * Felicia Esteban - 12/31/2024 4:24 PM EST Patients refill for Multaq 400 mg 2 times a day was previously sent to the wrong pharmacy on 12/29/24. Please send 30 day supply to [facility], patient does not want this sent to [facility] on [address] in [facility]. documented in this encounter Plan of Treatment Upcoming Encounters Date Type Department Care Team (Late st Contact Info) Description 04/05/2025 1:00 PM EDT Appointment [facility] Ultrasound [address] [place] [phone] 04/20/2025 2:00 PM EDT Office Visit Vascular Surgery - [place] [address] [place] [address] Elsy Khan MD [address] [place] [address] documented as of this encounter Visit Diagnoses Not on filedocumented in this encounter Discontinued Medications Medication Sig Discontinue Reason Start Date End Da te dronedarone (Multaq) 400 mg tablet Take 1 tablet (400 mg total) by mouth 2 (two) times a day. Reorder 12/29/2024 12/31/2024 documented as of this encounter Care Teams Kettleman Relationship Specialty Start Date End Date Bianca You MD [address] [place] [address] Dr [address] [facility] [place] [address] PCP - General Internal Medicine 11/08/21 documented as of this encounter
[2025-01-28 08:17] LABS: MANUAL DIFF FLAG NO
[2025-01-28 08:29] LABS: Basophils Absolute Auto 0.1 X10*3/uL (0.0-0.2); Eosinophils Absolute Auto 0.1 X10*3/uL (0.0-0.4); Hematocrit 41.9 % (42.0-52.0); Imm Gran Abs Auto 0.01 X10*3/uL (0.00-0.03); Imm Gran Pct Auto 0.1 % (0.0-0.4); Lymphocytes Absolute Auto 2.2 X10*3/uL (1.2-4.9); Lymphocytes Percent Auto 31.6 % (20-40); Mean Corpuscular HGB Conc 33.4 g/dl (31.0-36.0); Mean Corpuscular Hemoglobin 31.7 pg (27.0-33.0); Mean Platelet Volume 9.7 fL (9.4-12.4); Monocytes Absolute Auto 0.9 X10*3/uL (0.1-1.2); Monocytes Percent Auto 12.3 % (2-11); Neutrophils Absolute Auto 3.6 x10*3/uL (2.0-8.3); Platelet Count 269 X10*3/uL (160-400); Red Blood Count 4.41 X10*6/uL (4.60-5.80); White Blood Count 6.9 X10*3/uL (4.8-10.8)
[2025-01-28 09:07] LABS: B Type Natriuretic Peptide 13 pg/mL (<100)
[2025-01-28 09:24] LABS: Alanine Aminotransferase 24 U/L (0-40); Albumin Level 3.8 g/dL (3.5-5.0); Alkaline Phosphatase 75 U/L (39-117); Anion Gap 9 (12-20); Aspartate Amino Transferase 23 U/L (5-37); Bilirubin Total 0.3 mg/dL (0.0-1.0); Blood Urea Nitrogen 19 mg/dL (9-16); Calcium 9.2 mg/dL (8.4-10.2); Carbon Dioxide 26 mmol/L (22-29); Chloride 111 mmol/L (96-108); Cholesterol 128 mg/dL (<200); Estimated Glomerular Filt Rate > 60; Glucose Random 109 mg/dL (60-115); HDL Cholesterol 53 mg/dL (>40); LDL Cholesterol Calculated 60 mg/dL (<100); Potassium 4.4 mmol/L (3.3-5.1); Sodium 142 mmol/L (135-145); Total Protein 7.1 g/dL (6.5-8.0); Triglycerides 75 mg/dL (<150)
[2025-01-28 09:41] LABS: Free T4 (Free Thyroxine) 0.97 ng/dL (0.71-1.85); Thyroid Stimulating Hormone 2.28 uIU/mL (0.32-4.0)
[2025-01-28 09:47] LABS: Folate 11.4 ng/mL (> or = 4.0); Vitamin B12 355 pg/mL (200-900)
[2025-01-28 10:08] LABS: Estimated Average Glucose 120 mg/dL; Hemoglobin A1c % 5.8 % (<6.0)
== END 2025-01-28 07:53 | disposition home or self-care (01) ==
LOC: HO.LAB 07:52
PROVIDERS: PCP Internal Medicine; Visit Provider Internal Medicine
DX: N40.1 Benign prostatic hyperplasia with lower urinary tract symptoms (principal); R39.12 Poor urinary stream; E78.00 Pure hypercholesterolemia, unspecified; R73.02 Impaired glucose tolerance (oral)
CPT/HCPCS: 36415; 80053; 80061; 82607; 82746; 83036; 83735; 83880; 84439; 84443; 85025

== ENCOUNTER 2025-03-15 13:58 | Outpatient (AMB) | payer MEDICARE, SELFPAY ==
--- NOTE | 2025-03-15 14:35 | A.OFFVIS_ITS ---
Intake Visit Reasons: 3m/PVR/UA Intake Note: Patient presents for a follow up Urology Medication:FINASTERIDE Antibiotic Allergy:SIMVASTATIN Blood Thinner:ASPIRIN Network Relay Tester Required: No Allergies morphine [MORPHINE] Allergy (Unknown, Verified 03/15/25 14:36) NAUSEA & VOMITING simvastatin Allergy (Unknown, Verified 03/15/25 14:36) muscle pains and med ineffective enviromental allergies Allergy (Unknown, Uncoded 03/15/25 14:36) Unknown HPI Comments Details: Dl TITUS is a very pleasant male. They are a patient of Dr Jones. They are seen in the office today for the following urologic conditions. 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 - lower urinary tract symptoms - microscopic hematuria GreenLight laser 11/16 Follow-up for bladder emptying Required Gemtesa postprocedure for urinary urgency and frequency Baseline on anticoagulation Will stop finasteride PVR 170 Has upcoming rotation flap surgery on nose Lower urinary tract symptoms GreenLight laser 11/16 Prior Cystoscopy shows enlarged right lateral lobe impinging on the bladder outlet Current medication finasteride every other day Microscopic Hematuria:? Stable ? Microscopic hematuria was diagnosed during?routine UA.? Since the last visit the patient has?noticed gross hematuria ?- occured when started xeralto at 20mg Jun 2017.? Relevant medical history for?anticoagulation therapy - xeralto and ASA ?, tobacco use 40 yppd ?,workplace exposures - organic solvents.? Radiographic imaging:?CT IVP 08/10 .? Radiology report?enlarged prostate , I have reviewed the films.? Other investigations?08/10 , cytology, normal.? Cystoscopy findings?08/10 enlarged prostate right lobe.? Therapeutic plan?follow in 12 months with appropriate investigations, continue medications.? [facility] Medical History (Updated 01/24/25 @ 09:31 by Thom Billingsley MD) Spondylosis Peripheral artery disease Hx of difficult intubation COVID-19 Elevated cholesterol Myocardial infarction Abdominal aortic aneurysm (AAA) Chronic bronchitis Renal calculi COPD (chronic obstructive pulmonary disease) Nephrolithiasis Hx of myocardial infarction PONV (postoperative nausea and vomiting) On beta didi at home On anticoagulant therapy Obesity (BMI 30-39.9) Coronary artery disease BPH (benign prostatic hyperplasia) Hyperlipidemia Impaired glucose tolerance Hypertension Paroxysmal atrial fibrillation Surgical History S/P TURP History of excision of pilonidal cyst History of cardiac ablation for atrial fibrillation Hx of surgical procedure (04/23/24) Hx of Achilles tendon repair (10/2022) Hx of basal cell carcinoma excision (~04/09/24) Hx of colonoscopy History of cardiac radiofrequency ablation (RFA) History of blepharoplasty Hx of appendectomy History of lumbar surgery H/O excision of lamina of cervical vertebra for decompression of spinal cord H/O rhinoplasty Family History Father No problems noted. Mother No problems noted. Social History Housing: House Are you a primary palliative care nurse to a significant other at home: No Do you presently have visiting nurse or other home services: No Alcohol intake: never Patient Tobacco Use Status: Former Tobacco user Tobacco use type: Cigarette and Cigar Cigarettes Per Day: 0 (Cigar on occasion) Years Smoked: 48 e-Cigarette/Vaping Use: Never Used Second Hand Smoke Exposure: No Current occupational status: retired Cognitive needs: No Hearing needs: No Vision needs: Yes Review of Systems Const Denies chills and Denies fever(s) Card Reports no additional complaints and Denies syncope Resp Denies cough GI Denies abdominal pain and Denies heartburn Reports as per HPI and Denies change in libido Neuro Denies syncope Psych Denies change in libido Endo Denies change in libido Physical Exam Const General: cooperative, healthy appearing, comfortable and no acute distress Orientation/consciousness: patient oriented x3 HEENT Face and sinus: Yes normal facial exam Mouth: moist mucous membranes Neck Neck: Yes normal visual inspection, Yes full ROM and Yes trachea midline Chest Chest palpation & inspection: normal inspection of the chest Resp Effort & Inspection: normal respiratory effort, able to speak in complete sentences and no respiratory distress GI Inspection: Yes normal to inspection Back/Spine/Pelvis Cervical Spine: normal cervical lordosis Thoracic/Lumbar Spine: thoracic and lumbar spine normal to inspection Skin General skin exam: no rashes or lesions noted Neuro General: patient oriented x3, gait normal, tone normal and moves all extremities Extrem General: Yes normal to inspection and Yes capillary refill normal Office Procedures Post Void Residual Post Residual Void Post Void Residual (PVR): 176 [id number]-Yabt Void Residual by ultrasound Assessment & Plan Assessment & Plan (1) BPH (benign prostatic hyperplasia): Code(s): N40.0 - Benign prostatic hyperplasia without lower urinary tract symptoms Category: Medical Qualifiers: Lower urinary tract symptom presence: symptoms present Lower urinary tract symptom detail: weak urinary stream Qualified Code(s): N40.1 - Benign prostatic hyperplasia with lower urinary tract symptoms; R39.12 - Poor urinary stream (2) Bladder instability: Code(s): N32.89 - Other specified disorders of bladder Category: Medical Plan Six-month follow-up PVR Stop finasteride Orders: Orders AMB Post Void Residual by ultrasound Today N32.89 - Other specified disorders of bladder Prostate Specific Antigen 6 Months N40.1 - Benign prostatic hyperplasia with lower urinary tract symptoms, R33.9 - Retention of urine, unspecified Medications: Discontinued finasteride Discontinued Reason: Patient Completed Course 5 mg PO DAILY 90 days 90 tabs 3RF Patient Instructions: This note is constructed using voice recognition software. While every effort has been made to ensure accuracy independent living instructor errors may have been included. Imaging studies, laboratory and physical exam results were discussed and reviewed in detail. No major barriers to patient understanding were identified. An opportunity to ask questions regarding the treatment plan was provided. All questions were answered. The patient expressed understanding and agreement with the above treatment plan. The patient is aware they should contact our office by phone for worsening of their current condition or the appearance of new urologic symptoms. Compliance is encouraged with any medications and followup testing that is ordered. It is a privilege to participate in the urologic care of your patient. If you have any questions or concerns regarding treatment for the above conditions, or other urologic issues, please do not hesitate to contact me. The office telephone contact is [phone]. Sincerely, Dr Thom Billingsley MD, [facility] - Urology Compassionate Specialist Care for the Genitourinary System Coding Level of Care Code Est Pt Level 3 (95196) Complex EM visit Add On G2211 Diagnoses Benign prostatic hyperplasia with weak urinary stream N40.1; R39.12 Lower urinary tract symptom presence: symptoms present Lower urinary tract symptom detail: weak urinary stream Bladder instability N32.89 CPT Codes Post Residual Void - PVR CPT Code: 91873-Eopd Void Residual by ultrasound ([id number])
--- OUTSIDE RECORDS SUMMARY | 2025-03-15 16:45 | XMS_ITS ---
Author Organization [facility] Address [address] [place] [address] Care Team Providers Care Acid Filler Name Role Phone Bianca You MD Primary Care Provider Osmany Ramires Jr REASON FOR VISIT pathology/3 yr colon recall. optional Encounters Encounter Location Date Provider Diagnosis [facility] [address] [place] [phone] 11/03/2024 Osmany Alcantar Jr Plan Of Treatment No Information Progress Notes * TANNER TITUS BDOB:[birth year] (79 yo M)Acc No.[id number]:11/03/2024 Patient:?TANNER TITUS :1945???Age:79 Y???Sex:Male Address:[address] [place] [address] [place] [address] * true * Date:? Generated for Printi kev/Ervin/eTransmitting on:?03/15/2025 04:45 PM EDT
--- OUTSIDE RECORDS SUMMARY | 2025-03-15 16:45 | XMS_ITS | Patient Health Record ---
Author Organization [facility] Address [address] [place] [phone] Care Team Providers Care Workers Compensation Legal Secretary Name Role Phone Bianca You MD Primary Care Provider Osmany Ramires Jr Allergies Allergen (clinical drug ingredient) Drug/Non Drug Allergy documented on EMR Reaction Allergy Type Onset Date Status morphine Morphine Sulfate Unknown Drug Allergy Active Results Component Value Reference Range Notes Pathology Reviewed date:11/03/2024 08:11:32 AM Interpretation: Performing Lab:[facility], [address] [place] [phone] Notes/Report: Name: Dean Titus Age/Sex: 79/M : 1945 Unit#: [id number] Attend Dr: Osmany Alcantar MD Re10/26/24 Status : [facility] Location: [facility] Disch: SPEC : [id number] RECD : 10/26/24 STATUS: RAFAEL NGUYEN NUM: [id number] HAO: 10/26/24 [facility] DR: Osmany Alcantar MD ENTERED: 10/26/24 SP [...] Dean Titus Age/Sex: 79/M : 1945 Unit#: [id number] Attend Dr: Osmany Alcantar MD Re10/26/24 Status : [facility] Location: [facility] Disch: SPEC : [id number] RECD : 10/26/24 STATUS: [facility] NUM: [id number] HAO: 10/26/24 [facility] DR: Osmany Alcantar MD ENTERED: 10/26/24 SP [...] on A Copies To: Osmany Alcantar MD [facility] [address] [place] [address] Avelino,Bianca Alicea MD [facility] Primary Care,[address] [place] [address] CONTINUED ON NEXT PAGE Name: ArielaDean Age/Sex: 79/M : 1945 Unit#: [id number] Attend Dr: Osmany Alcantar MD Re10/26/24 Status : [facility] Location: [facility] Disch: SPEC : [id number] RECD : 10/26/24 STATUS: RAFAEL NGUYEN NUM: [id number] HAO: 10/26/[address] [facility] DR: Osmany Alcantar MD ENTERED: 10/26/24- 37 [...] Problem Status W/U Status Risk Notes Problem 916062550 MCC (current) use of anticoagulants (Z79.01) Active confirmed Problem 158745539 Special screenin g for malignant neoplasms, colon (Z12.11) Active confirmed Problem Dysphagia (78460676) Dysphagia (R13.10) Active confirmed Problem 876908591 Long-term use of aspirin therapy (Z79.82) Active confirmed Problem 34445594 Dysphagia, unspecified type (R13.10) Active confirmed Problem 606355824 FH: colon cancer (Z80.0) Active confirmed Vital Signs Temperature 98.4 degrees Fahrenheit 08/05/2024 Blood pressure diastolic 00 mm Hg 08/05/2024 Height 68.5 in 08/05/2024 Blood pressure systolic 000 mm Hg 08/05/2024 Weight 202 lbs 08/05/2024 BMI 30.26 kg/m2 08/05/2024 Encounters Encounter Location Date Provider Diagnosis [facility] Outpatient [address] [place] [phone] 10/26/2024 Osmany Alcantar Jr Colon cancer screening Z12.11 ; Colon polyps K63.5 and Dysphagia R13.10 [facility] [address] [phone] 08/05/2024 Osmany Alcantar Jr Special screening for malignant neoplasms, colon Z12.11 and Dysphagia, unspecified type R13.10 [facility] [address] [phone] 10/07/2024 Osmany Alcantar Jr [facility] [address] [place] [phone] 11/03/2024 Osmany Alcantar Jr Assessments Encounter Date [...] Date MEDICARE OF [place] [address] [place] [phone] [id number] TANNER WILSON Self - patient is the insured [employer] ATTN CLAIMS [address] [place] [address] [id number] TANNER WILSON Self - patient is the insured Medical (General) History Medical History History ICD Code personal history of tubular adenomas, last colonoscopy 05/14, multiple polyps, three-year followup coronary artery disease with history of GA, 1995 elevated cholesterol nehprolithiasis Atrial fibrillation, status post cardiac ablation 10/13 COPD Difficult intubation at the time of his Achilles surgery Covid 19 infection, November 2023 Spondylosis Peripheral arterial disease Surgical History Surgery Date(Month/Year) rhinoplasty L4-5 disc surgery for compression appendectomy 01/2019 cardiac ablation 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
--- OUTSIDE RECORDS SUMMARY | 2025-03-15 16:45 | XMS_ITS | Clinical Summary ---
Author Organization [facility] Address [address] [place] [address] Care Team Providers Care Gluer Name Role Phone Unavailable Primary Care Provider [...]
--- OUTSIDE RECORDS SUMMARY | 2025-03-15 16:45 | XMS_ITS ---
Author Organization [facility] Address [address] [place] [phone] Care Team Providers Care Dairy Store Manager Name Role Phone Po Bianca GARCIA Primary Care Provider Osmany Ramires Jr REASON FOR VISIT cardiology clearance Encounters Encounter Location Date Provider Diagnosis [facility] [address] [place] [phone] 10/07/2024 Osmany Alcantar Jr Plan Of Treatment No Information Progress Notes * TANNER TITUS BDOB:[birth year] (79 yo M)Acc No.[id number]:10/07/2024 Patient:?TANNER TITUS :1945???Age:79 Y???Sex:Male Address:[address] [place] [address] * true * Date:? Generated for Printi ng/Faxing/eTransmitting on:?03/15/2025 04:45 PM EDT
--- OUTSIDE RECORDS SUMMARY | 2025-03-15 16:46 | XMS_ITS ---
Author Organization [facility] Address [address] [place] [phone] Care Team Providers Care Baker Bread Name Role Phone Po Bianca GARCIA Primary Care Provider Osmany Ramires Jr REASON FOR VISIT dysphagia,screening Problems Problem Type SNOMED Code ICD Code Onset Dates Problem Status W/U Status Risk Notes Problem Dysphagia (22297017) Dysphagia (R13.10) Active confirmed Encounters Encounter Location Date Provider Diagnosis [facility] Outpatient [address] [place] [id number] 10/26/2024 Osmany Alcantar Jr Colon cancer screening Z12.11 ; Colon polyps K63.5 and Dysphagia R13.10 Assessments Encounter Date Diagnosis (ICD Code) Assessment Notes Treatment Notes Treatment Clinical Notes Section Notes 10/26/2024 Colon cancer screening (ICD-10 - Z12.11) 10/26/2024 Colon polyps (ICD-10 - K63.5) 10/26/2024 Dysphagia (ICD-10 - R13.10) Plan Of Treatment No Information Progress Notes * TANNER TITUS BDOB:[birth year] (80 yo M)Acc No.[id number]:10/26/2024 EGD and COL/MAC Patient:?TANNER TITUS Provider:?Osmany Alcantar MD :1945???Age:79 Y???Sex:Male Randall e:10/26/2024 Address:[address] [place] [address] Pcp:Bianca You MD Subjective: * Chief Complaints: * ???1. Dysphagia,screening. * Medical History:? Objective: * Vitals:? Assessment: * Assessment: 1.?Colon cancer screening - Z12.11 (Primary)???2.?Colon polyps - K63.5???3.?Dysphagia - R13.10??? Plan: * Treatment: * Procedure Codes:?94614 LESIO N REMOVAL COLONOSCOPY, 57169 COLONOSCOPY AND BIOPSY, Modifiers: 59 , 0529F INTRVL 3+YRS PTS CLNSCP DOCD, 65182 UPPER GI ENDOSCOPY, BIOPSY * * The named appointment provid er may or may not be the originator of this progress note, and it is not deemed complete until electronically signed by the appointment provider. Sign off status: Pending * Provider:?Osmany Alcantar MD Date:?1 12/27/2023 Generated for Darnell angulo/Ervin/Chavezsmitting on:?03/15/2025 04:45 PM EDT
--- OUTSIDE RECORDS SUMMARY | 2025-03-15 16:46 | XMS_ITS | Clinical Summary ---
Author Organization [facility] [facility] 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 Med ineffective Medications umeclidinium (Incruse Ellipta) 62.5 mcg/actuation inhalation Inhale 1 Puff into the lungs every morning. Active rosuvastatin (CRESTOR) 10 mg tablet Take 1 tablet (10 mg total) by mouth 2 (two) times a day. Active fluticasone furoate-vilanter oL (BREO ELLIPTA) 200-25 mcg/dose inhaler Inhale 1 [...] TAKE 1 TABLET DAILY 90 tablet 3 12/17/2024 Active rivaroxaban (Xarelto) 20 mg tablet Take 1 tablet (20 mg total) by mouth 1 (one) time each day with dinner. 90 tablet 1 12/22/2024 Active dronedarone (Multaq) 400 mg tablet Take 1 tablet (400 mg total) by mouth 2 (two) times a day. 180 tablet 1 12/31/2024 Active Active Problems Problem Noted Date Diagnosed [...] discretion of the surgeon. Ascending aorta dilation ([facility] V24) 3 Overview (10/04/2024): Last Assessment & Plan: Last [...] 3D order panel; Future Peripheral artery disease ([facility]/HCC V24) 10/09/20 21 Overview (10/04/2024): Last Assessment & Plan: The [...] mass of neck 09/30/2017 Paroxysmal atrial fibrillation (CMS/HCC V24, CMS /HCC V28) 09/30/2017 Overview (10/04/2024): Last Assessment & Plan: Patient denies perception of recurrence of atrial fibrillation since being placed on Multaq in July 2023 and presents in sinus rhythm today . [id number] score of 3 for hypertension and age [...] Type Department Care Team Description 12/31/2024 Telephone [facility] [address] [place] [address] MarcellJaswinder Driscoll MD Med Refill (Multaq) 12/29/2024 8:00 AM EST Ancillary Procedure [facility] Cardiology [facility] [address] [place] [address] Ascending aorta dilation (CMS/HCC V24); Paroxysmal atrial fibrillation (CMS/HCC V24, CMS/HCC V28) from Last 3 Months Immunizations Name Administration [...] 09/30/2017 DX:Hyperlipidemi a Paroxysmal atrial fibrillati on (CMS/HCC V24, CMS/HCC V28) 09/30/2017 DX:Paroxysmal atrial fibrill ation (HCC) Impaired fasting glucose 09/30/2017 DX:Impa ired fasting glucose BPH (benign prostatic hyperplasia) 09/30/2017 DX:BPH (benign prostatic hyperplasia) Palpable mass of neck 09/30/2017 DX:Palpabl e mass of neck [place] (myocardial infarction) 09/30/2017 D X:[place] (myocardial infarction); COMMENT: 1996 Carotid stenosis 09/30/2017 [...] Info) Description 04/05/2025 1:00 PM EDT Appointment [facility] Ultrasound [address] [place] [phone] 04/20/2025 2:00 PM EDT Office Visit [facility] [place] [address] [place] [phone] Elsy Khan MD [address] [place] [phone] Health Maintenance Due Date Last Done Comments Zoster Vaccines (1 of 2) 1997 Cholesterol Screening (Lipid Panel) 11/03/2022 Depression Screening 11/03/2022 Falls Risk Assessment 11/03/2022 Hepatitis C Screening 11/03/2022 Medicare Annual Wellness Visit 11/03/2022 Social Influencers of Health Screening 11/03/2022 Hypertension/CHF/CAD Annual BMP Blood Test 01/28/2025 01/29/2024 COVID-19 Vaccine ( season) 2025 08/09/2024, 09/04/2023, 04/02/2023, Additional history exists DTaP,Tdap,and Td Vaccines (2 - Td or Tdap) 12/12/2026 12/12/2016 Pneumococcal Vaccine: 50+ Years Completed 12/11/2022 RSV Immunization Adult Patients Completed 08/21/2023 Influenza Vaccine Completed 09/10/2024, , 09/20/2022, Additional [...] age to complete this topic Meningococcal B Vaccine Aged Out No l onger eligible based on patient's age to complete this topic RSV Immunization Patients Under 20 months Aged Out No longer eligible based on patient's age to complete this topic Varicella Vaccines Aged Out No longer eligible based on patient's age to complete this topic Procedures Procedure Name Priority Date/Time Associated Diagnosis Comments TRANSTHORACIC ECHOCARDIOGRAM (TTE) COMPLETE Routine 12/29/2024 8:41 AM EST Ascending aorta dilation (CMS/HCC V24) Paroxysmal atrial fibrillation (CMS/HCC V24, CMS/HCC V28) ANNUAL BMP BLOOD TEST Routine 01/29/2024 from Last 3 Months or Most Recently Relevant to Health Maintenance Results * (ABNORMAL) TRANSTHORACIC ECHOCARDIOGRAM (TTE) COMPLETE (12/29/2024 8:41 AM EST) Left Atrium Major Safford 5.9 cm CV PACS LA Area Sys (A4C) 18 cm2 CV PACS RA Area 13.3 cm2 CV PACS RA 2D Volume 27 mL CV PACS Aortic Sinus Valsalva 4.3 cm CV PACS Ascending Aorta 4.3 cm CV PACS IVSD 1.1(A) 0.6 - 1.0 cm CV PACS LVIDD 4.3 4.2 - 5.8 cm CV PACS LVIDS 3.0 2.5 - 4.0 cm CV PACS LVOT Diameter 2.1 cm CV PACS LVPWD 1.0 0.6 - 1.0 cm CV PACS MV E' Tissue Velocity Lateral 6 cm/s CV PACS MV E' Tissue Velocity Septal 6 cm/s CV PACS LVOT Area 3.5 cm2 CV PACS MV Deceleration [facility] 3.1 m/s2 CV PACS E Wave Deceleration Time 278(A) 119 - 242 ms CV PACS MV PHT 81 ms CV PACS MV Peak A Sukhdev 1.20 m/s CV PACS MV Peak E Sukhdev 0.80 m/s CV PACS MV Area PHT 2.7 cm2 CV PACS RV Diastolic Basal Dimension 3.1 2.5 - 4.1 cm CV PACS RV S' 10 cm/s CV PACS TAPSE 18 mm CV PACS E/E' Ratio Septal 13 CV PACS E/E' Ratio Averaged 13 CV PACS Relative Wall Thickness ratio 0.47(A) 0.24 - 0.42 CV PACS FS 30 % CV PACS LV Mass 2D 153 96 - 200 g CV PACS Ascending Aorta Index 2.11 cm/m2 CV PACS RA 2D Volume Index 13 18 - 32 mL/m2 CV PACS LVIDD Index 2.11 cm/m2 CV PACS LVIDS Index 1.47 cm/m2 CV PACS E/A Ratio 0.7 0.8 - 2.0 CV PACS E/E' Ratio Lateral 13 CV PACS LV Mass Index 2D 75 50 - 102 g/m2 CV PACS BSA 2.09 m2 CV PACS LA Volume (BP) 55 mL CV PACS LA Volume Index (BP) 27 mL/m2 CV PACS LA Area Sys (A2C) 20 cm2 CV PACS RV Free Wall Peak S' 10 cm/s CV PACS RA Major Safford 5.4 cm CV PACS RA Major [place]ord Index 2.6 2.1 - 2.7 cm/m2 CV PACS Anatomical Region Laterality Modality Ultrasound Narrative 02/02/2025 9:17 AM EDT ?Left ventricle cavity size is normal. Left ventricular systolic function is in the normal range with an ejection fraction of 55-60%. ?No regional LV wall motion abnormalities noted. ?Left ventricle mild hypertrophy. ?Right ventricle cavity is normal. Right ventricular systolic function is normal. ?Aortic??Valve: There is mild regurgitation. ?Mitral??Valve: There is mild regurgitation. ?Aorta: The aortic root at the sinus of Valsalva is dilated (4.3 cm). The ascending aorta is dilated (4.3 cm). Left Ventricle Left ventricle cavity size is normal. False tendon noted in the LV apex. There is mild hypertrophy. Systolic function is normal with an ejection fraction of 55- 60%. There are no regional LV wall motion abnormalities. Indeterminate diastolic function. Right Ventricle Right ventricle cavity appears normal. Systolic function is normal. Left Atrium Left atrium cavity size is normal. Right Atrium Right atrium cavity is normal. IVC/SVC Inferior vena cava structure is normal. Mitral Valve The leaflets are mildly thickened. There is annular calcification. There is mild regurgitation. There is no evidence of mitral valve stenosis. Tricuspid Valve The leaflets exhibit normal excursion. There is trace regurgitation. There is no evidence of tricuspid valve stenosis. Aortic Valve The aortic valve is probably trileaflet. There is mild regurgitation. There is no evidence of aortic valve stenosis. Pulmonic Valve Visualized portions of the pulmonic valve appear normal. There is no regurgitation or stenosis. Ascending Aorta The aortic root at the sinus of Valsalva is dilated (4.3 cm). The ascending aorta is dilated (4.3 cm). Pericardium There is an anterior fat pad. There is no pericardial effusion. Study Details Overall the study quality was adequate. Salina Jennings GROUNDS KEEPER CV ECHO PROCEDURES Final Re sult * Annual BMP Blood Test (01/29/2024) Annual BMP Blood Test Abstracted Historical Provider HEALTH MAINTENANCE Final Result from Last 3 Months or Most Recently Relevant to Health Maintenance Insurance MEDICARE [facility] Care Teams High [employer] Combination Teacher Relationship Specialty Start Date End Date Bianca You MD [address] [place] [address] [address] [facility] [place] [address] PCP - General Internal Medicine 11/08/21
== END 2025-03-15 15:00 | disposition home or self-care (01) ==
LOC: HO.HUSH 13:59
PROVIDERS: PCP Internal Medicine; Visit Provider Urology
DX: N40.1 Benign prostatic hyperplasia with lower urinary tract symptoms (principal); R39.12 Poor urinary stream; N32.89 Other specified disorders of bladder
CPT/HCPCS: 99213; G2211

== ENCOUNTER → 2025-03-15 13:58 | Outpatient (BNVA) | payer MEDICARE, SELFPAY | PROVIDERS: PCP Internal Medicine; Visit Provider Urology | DX: N40.1 Benign prostatic hyperplasia with lower urinary tract symptoms (principal); N32.89 Other specified disorders of bladder; R33.8 Other retention of urine; R39.12 Poor urinary stream | CPT/HCPCS: 51798; 99212 ==

== ENCOUNTER 2025-04-07 14:24 | Outpatient (AMB) | payer MEDICARE, SELFPAY ==
[2025-04-07 14:26] VITALS: BP 142/72; PULSE 83; TEMP 36.2; O2SAT 97; BMI 28.1
--- NOTE | 2025-04-07 14:26 | A.OFFPC_ITS ---
Vital Signs 04/07/25 14:26 Height 5 ft 8.5 in Weight 187 lb 6 oz BMI 28.1 BP 142/72 H Blood Pressure Location Lt brachial Position Sitting Pulse 83 Pulse Source Pulse Oximeter Temp 97.1 F Temp Source Temporal Artery Scan Pulse Oximetry (%) 97 Oxygen Delivery Method Room Air Intake Visit Reasons: IGT, Supervisor Display Fabrication Required: No Visual Presentation Manager: Not Required per policy Accompanied by: Self / Same As Patient Allergies morphine [MORPHINE] Allergy (Unknown, Verified 04/07/25 14:27) NAUSEA & VOMITING simvastatin Allergy (Unknown, Verified 04/07/25 14:27) muscle pains and med ineffective enviromental allergies Allergy (Unknown, Uncoded 04/07/25 14:27) Unknown Tobacco use date assessed: 01/07/25 Fall risk assessment: No Falls in past year Last assessed Fall Risk: 04/07/25 Dental Screening Dental Screen Date: 01/07/25 HPI IGT, HPI Details nose basal cell cancer . and will have a procedure july and then rencostruction. compounded semaglutide- for the COPD - on the controlleds [facility] Medical History (Updated 04/07/25 @ 15:49 by HUMZA Stephenson) History of basal cell carcinoma Spondylosis Peripheral artery disease Hx of difficult intubation COVID-19 Elevated cholesterol Myocardial infarction Abdominal aortic aneurysm (AAA) Chronic bronchitis Renal calculi COPD (chronic obstructive pulmonary disease) Nephrolithiasis Hx of myocardial infarction PONV (postoperative nausea and vomiting) On beta didi at home On anticoagulant therapy Obesity (BMI 30-39.9) Coronary artery disease BPH (benign prostatic hyperplasia) Hyperlipidemia Impaired glucose tolerance Hypertension Paroxysmal atrial fibrillation Surgical History (Updated 04/07/25 @ 15:49 by HUMZA Stephenson) History of biopsy S/P TURP History of excision of pilonidal cyst History of cardiac ablation for atrial fibrillation Hx of surgical procedure (04/23/24) Hx of Achilles tendon repair (10/2022) Hx of basal cell carcinoma excision (~04/09/24) Hx of colonoscopy History of cardiac radiofrequency ablation (RFA) History of blepharoplasty Hx of appendectomy History of lumbar surgery H/O excision of lamina of cervical vertebra for decompression of spinal cord H/O rhinoplasty Family History Father No problems noted. Mother No problems noted. Social History Housing: House Are you a primary palliative care nurse practitioner to a significant other at home: No Do you presently have visiting nurse or other home services: No Alcohol intake: never Patient Tobacco Use Status: Former Tobacco user Tobacco use type: Cigarette and Cigar Cigarettes Per Day: 0 (Cigar on occasion) Years Smoked: 48 e-Cigarette/Vaping Use: Never Used Second Hand Smoke Exposure: Yes Current occupational status: retired Cognitive needs: No Hearing needs: No Vision needs: Yes Questionnaire PHQ-9 Over the last 2 weeks, how often have you been bothered by any of the following problems? 1. Little interest or pleasure in doing things: not at all 2. Feeling down, depressed, or hopeless: not at all 3. Trouble falling or staying asleep, or sleeping too much: not at all 4. Feeling tired or having little energy: not at all 5. Poor appetite or overeating: not at all 6. Feeling bad about yourself - or that you are a failure or have let yourself or your family down: not at all 7. Trouble concentrating on things, such as reading the newspaper or watching television: not at all 8. Moving or speaking so slowly that other people could have noticed. Or the opposite - being so fidgety or restless that you have been moving around a lot more than usual: not at all 9. Thoughts that you would be better off or of hurting yourself in some way: not at all Total score: 0 Source: Developed by Drs. Pierce Nair, Malena Crowell, James Huynh and colleagues, with an educational yonas from [employer]. Thrive Questionnaire Date Thrive assessed: 04/05/25 I am a: Patient What is your living situation today?: I choose not to answer this question Within the past 12 months, did the food you bought not last and you didn't have the money to get more?: I choose not to answer this question Within the past 12 months, did you worry whether your food would run out before you got money to buy more?: I choose not to answer this question Do you have trouble paying for medicines?: I choose not to answer this question Do you have trouble getting transportation to medical appointments?: I choose not to answer this question Do you have trouble paying your heating and electricity bill?: I choose not to answer this question Do you have trouble taking care of your child, family member or friend?: I choos e not to answer this question Do you have trouble with day-to-day activities such as bathing, preparing meals, shopping, managing finances, etc.?: I choose not to answer this question Are you currently unemployed and looking for a job?: I choose not to answer this question Are you interested in more education?: I choose not to answer this question Please select the resources that you would like help with: None Currently or been in a relationship where the following occur: I choose not to answer THRIVE Score: 0 FLYNN-7 AMB Questionnaire FLYNN-7 Date FLYNN - 7 assessed: 01/07/25 Source: Developed by Drs. Pierce Nair, Malena Crowell, James Huynh and colleagues, with an educational yonas from [employer]. Physical exam (Primary Care) Vital Signs: Last Vital Signs Temp 97.1 F 04/07/25 14:26 Pulse 83 04/07/25 14:26 BP 142/72 H 04/07/25 14:26 Pulse Ox 97 04/07/25 14:26 Oxygen Delivery Method Room Air 04/07/25 14:26 BMI result Body Mass Index 28.1 Tobacco/Smoking Status: Tobacco use Status Tobacco use date assessed 01/07/25 04/07/25 14:27 Patient Tobacco Use Status Former Tobacco user 04/07/25 14:27 Tobacco use type Cigarette,Cigar 04/07/25 14:27 e-Cigarette/Vaping Use Never Used 04/07/25 14:27 PHQ-9: PHQ-9 Score PHQ-9: Total score 0 04/07/25 16:21 Thrive Assessment: Date of Thrive Assessment Date Thrive assessed 04/05/25 04/07/25 14:27 Currently or been in a relationship where the following occur: I choose not to answer Const General: alert; No acute distress Eyes Conjunctivae: conjunctivae normal Resp Auscultation: clear to auscultation bilaterally Cardio Rate: regular rate Rhythm: regular rhythm GI Inspection: Yes normal to inspection Extrem General: Yes normal to inspection and No edema Coding Level of Care Code Est Pt Level 4 (94293) Complex EM visit Add On G2211 Diagnoses Peripheral vascular disease I73.9 Ascending aorta dilatation I77.810 COPD (chronic obstructive pulmonary disease) J44.9 Coronary artery disease involving [place] coronary artery of [place] heart without angina pectoris I25.10 Associated angina: without angina Coronary Disease-Associated Artery/Lesion type: [place] artery [place] vs. transplanted heart: [place] heart Benign prostatic hyperplasia with weak urinary stream N40.1; R39.12 Lower urinary tract symptom detail: weak urinary stream Lower urinary tract symptom presence: symptoms present Pure hypercholesterolemia E78.00 Hyperlipidemia type: pure hypercholesterolemia Impaired glucose tolerance R73.02 Essential hypertension I10 Hypertension type: essential hypertension Paroxysmal atrial fibrillation I48.0 Assessment & Plan Assessment & Plan (1) Peripheral vascular disease: Comment: December 2023 ankle-brachial index right below 0.8, left below 0.7 Code(s): I73.9 - Peripheral vascular disease, unspecified Category: Medical Plan: When sitting down elevate the legs, exercise, and support stockings continue to follow-up with vascular surgeon (2) Ascending aorta dilatation: Comment: April 2022Normal LV systolic function with impaired relaxation ? ? ? filling pattern? 2.? Mild aortic regurgitation mos January 2023echocardiogram left ventricular hypertrophy ejection fraction 55-60% normal left ventricular diastolic function. ascending aorta 4.2 cm January 202301/2024 4.1 cm Code(s): I77.810 - Thoracic aortic ectasia Category: Medical Plan: 2024 workup 4.3 cm continue to monitor (3) COPD (chronic obstructive pulmonary disease): Code(s): J44.9 - Chronic obstructive pulmonary disease, unspecified Category: Medical Plan: Continue with albuterol inhaler as needed and Incruse (4) Coronary artery disease: Comment: 1995 Dr. Stacy Code(s): I25.10 - Atherosclerotic heart disease of [place] coronary artery without angina pectoris Category: Medical Qualifiers: Associated angina: without angina Coronary Disease-Associated Artery/Lesion type: [place] artery [place] vs. transplanted heart: [place] heart Qualified Code(s): I25.10 - Atherosclerotic heart disease of [place] coronary artery without angina pectoris Plan: Control the cholesterol, weight, blood pressure, on aspirin 81 mg once a day and on Xarelto (5) BPH (benign prostatic hyperplasia): Code(s): N40.0 - Benign prostatic hyperplasia without lower urinary tract symptoms Category: Medical Qualifiers: Lower urinary tract symptom detail: weak urinary stream Lower urinary tract symptom presence: symptoms present Qualified Code(s): N40.1 - Benign prostatic hyperplasia with lower urinary tract symptoms; R39.12 - Poor urinary stream Plan: Continue with urology follow-up. (6) Hyperlipidemia: Code(s): E78.5 - Hyperlipidemia, unspecified Category: Medical Qualifiers: Hyperlipidemia type: pure hypercholesterolemia Qualified Code(s): E78.00 - Pure hypercholesterolemia, unspecified Plan: Avoid fried foods, chicken skin, eggs, butter margarine, pastries and meat. Be it pork or beef they have a lot of cholesterol rosuvastatin 5 mg once a day patient is at goal. (7) Impaired glucose tolerance: Code(s): R73.02 - Impaired glucose tolerance (oral) Category: Medical Plan: Decrease the amount of carbohydrate intake, pasta, bread, rice and potatoes are all sugar and that is aside from all the sweet stuff, remember that fruits are good but they are Sweet also. Presently on semaglutide (8) Hypertension: Code(s): I10 - Essential (primary) hypertension Category: Medical Qualifiers: Hypertension type: essential hypertension Qualified Code(s): I10 - Essential (primary) hypertension Plan: Continue with blood pressure medication. Decrease salt intake and exercise continue with losartan 50 mg once a day (9) Paroxysmal atrial fibrillation: Comment: June 2019 echo normal LV impaired relaxation, November 2019 ear 55-60% her tick dilatation [address] Bonner 08/2020 Code(s): I48.0 - Paroxysmal atrial fibrillation Category: Medical Plan: Continuing with anticoagulation renal function in January 2025 Plan History of Present Illness The patient is a 80-year-old male presenting for a follow-up of chronic conditions. He reports a substantial weight loss attributed to compounded semaglutide after insurance issues with other medications. His past medical history includes atrial fibrillation, hypertension, hyperlipidemia, coronary artery disease, BPH, and COPD. The patient's recent vascular studies identified stenosis in the SFA, and his aortic dilation is under active monitoring foll owing an echo in December 2024. He has stopped using finasteride per urology advice. 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 - Tests: Echocardiograms from January 2023 and December 2024; colonoscopy October 2024; ultrasound of lower extremities showing stenosis in March 2025. Plan Continuation of Xarelto and losartan is advised, with careful monitoring of blood pressure relevant to weight changes. Rosuvastatin will continue to manage hyperlipidemia effectively. Scheduled monitoring and follow-up for aortic dilatation, and upcoming surgery on August 23 concludes with follow-up at [facility]. The cessation of aspirin and Xarelto before the surgical procedure is noted. The patient will continue participation in PGA activities for maintained physical activity levels and improved vascular health. Patient was informed and verbally consented to the use of an ambient scribe for clinic note documentation during this visit. Discussion Notes I discussed the management of the patient's atrial fibrillation with continued Xarelto use, alongside a stable antihypertensive regimen with losartan. We addressed his compounded semaglutide use for weight management, with a plan to continue therapy while observing the modifications needed for his antihypertensive dose. Scheduled monitoring of his aortic dilation noted in the recent echocardiogram is crucial, and ongoing urology follow-ups will address BPH concerns. I clarified the timeline for discontinuing aspirin and Xarelto ahead of his planned nose reconstruction surgery, setting expectations on expected surgical outcomes and recovery timelines. Patient Instructions - Continue losartan and Xarelto at current dosages. - Maintain use of compounded semaglutide and engage in regular physical activity. - Adhere to rosuvastatin as prescribed. - Discontinue aspirin and Xarelto five days prior to surgery on August 23. - Attend all scheduled follow-ups and upcoming echocardiograms. - Monitor blood pressure regularly and report significant fluctuations. - Maintain engagement in PGA activities to promote cardiovascular and general health. - Follow any additional instructions from specialists as given.
--- OUTSIDE RECORDS SUMMARY | 2025-04-07 15:00 | XMS_ITS ---
Author Organization [facility] Address [address] [place] [phone] Care Team Providers Care File Clerk Data Entry Name Role Phone Po Bianca GARCIA Primary Care Provider Osmany Ramires Jr REASON FOR VISIT cardiology clearance Encounters Encounter Location Date Provider Diagnosis [facility] [address] [place] [phone] 10/07/2024 Osmany Alcantar Jr Plan Of Treatment No Information Progress Notes * TANNER TITUS BDOB:[birth year] (79 yo M)Acc No.[id number]:10/07/2024 Patient:?TANNER TITUS :1945???Age:79 Y???Sex:Male Address:[address] [place] [id number] * true * Date:? Generated for Printi ng/Faxing/eTransmitting on:?04/07/2025 02:59 PM EDT
--- OUTSIDE RECORDS SUMMARY | 2025-04-07 15:01 | XMS_ITS ---
Author Organization [facility] Address [address] [place] [phone] Care Team Providers Care Technology Manager Name Role Phone Po Bianca GARCIA Primary Care Provider Osmany Ramires Jr REASON FOR VISIT dysphagia,screening Problems Problem Type SNOMED Code ICD Code Onset Dates Problem Status W/U Status Risk Notes Problem Dysphagia ([id number]) Dysphagia (R13.10) Active confirmed Encounters Encounter Location Date Provider Diagnosis [facility] [address] [place] [phone] 10/26/2024 Osmany Alcantar Jr Colon cancer screening Z12.11 ; Colon polyps K63.5 and Dysphagia R13.10 Assessments Encounter Date Diagnosis (ICD Code) Assessment Notes Treatment Notes Treatment Clinical Notes Section Notes 10/26/2024 Colon cancer screening (ICD-10 - Z12.11) 10/26/2024 Colon polyps (ICD-10 - K63.5) 10/26/2024 Dysphagia (ICD-10 - R13.10) Plan Of Treatment No Information Progress Notes * TANNER TITUS BDOB:[birth year] (80 yo M)Acc No.[id number]:10/26/2024 EGD and COL/MAC Patient:?TANNER TITUS Provider:?Osmany Alcantar MD :1945???Age:79 Y???Sex:Male Randall e:10/26/2024 Address:[address] [place] [phone] Pcp:Bianca You MD Subjective: * Chief Complaints: * ???1. Dysphagia,screening. * Medical History:? Objective: * Vitals:? Assessment: * Assessment: 1.?Colon cancer screening - Z12.11 (Primary)???2.?Colon polyps - K63.5???3.?Dysphagia - R13.10??? Plan: * Treatment: * Procedure Codes:?04854 LESIO N REMOVAL COLONOSCOPY, 09239 COLONOSCOPY AND BIOPSY, Modifiers: 59 , 0529F INTRVL 3+YRS PTS CLNSCP DOCD, 43719 UPPER GI ENDOSCOPY, BIOPSY * * The named appointment provid er may or may not be the originator of this progress note, and it is not deemed complete until electronically signed by the appointment provider. Sign off status: Pending * Provider:?Osmany Alcantar MD Date:?1 12/27/2023 Generated for Darnell angulo/Ervin/eTventurasmitting on:?04/07/2025 03:00 PM EDT
--- OUTSIDE RECORDS SUMMARY | 2025-04-07 15:01 | XMS_ITS ---
Author Organization [facility] Address [address] [place] [phone] Care Team Providers Care Pets And Pet Supplies Salesperson Name Role Phone Bianca You MD Primary Care Provider Osmany Ramires Jr REASON FOR VISIT pathology/3 yr colon recall. optional Encounters Encounter Location Date Provider Diagnosis [facility] [address] [place] [phone] 11/03/2024 Osmany Alcantar Jr Plan Of Treatment No Information Progress Notes * TANNER TITUS BDOB:[birth year] (79 yo M)Acc No.[id number]:11/03/2024 Patient:?TANNER TITUS :1945???Age:79 Y???Sex:Male Address:[address] [place] [address] [place] [address] * true * Date:? Generated for Printi kev/Ervin/eTransmitting on:?04/07/2025 03:00 PM EDT
--- OUTSIDE RECORDS SUMMARY | 2025-04-07 15:01 | XMS_ITS | Encounter Summary ---
Author Organization [facility] Address [address] [place] [address] Care Team Providers Care Body Builder Name Role Phone Bianca You MD Primary Care Provider [phone] Reason for Visit * Imaging (Routine) - Authorized Specialty Diagnoses / Procedures Referred By Contac t Referred To Contact Diagnoses Peripheral artery disease ([facility]/HCC V24) Claudication ([facility]/HCC V24) Procedures Vascular US duplex lower extremity arteries bilateral with LIA Vascular US lower extremity arterial multi-level segmental Doppler Elsy Khan MD [address] [address] Phone: tel: fax: [facility] Referral ID Status Reason Start Date Expiration Date V isits Requested Visits Authorized [id number] Authorized 09/11/2024 09/11/2025 1 1 Encounter Details Date Type Department Care Team (Latest Contact Info) Description 04/05/2025 12:36 PM EDT - 04/05/2025 11:59 PM EDT Hospital Encounter [facility] Ultrasound [address] [place] [address] Peripheral artery disease ([facility]/HCC V24); Claudication ([facility] V24) Discharge Disposition: Home or Self Care Social History Tobacco Use Types Packs/Day Years [...] on file documented as of this encounter Medications at Time of Discharge albuterol sulfate (ProAir RespiClick) 90 mcg/actuation aerosol powdr breath activated Inhale into the lungs as needed. aspirin 81 mg EC tablet Take 1 Tab by mouth daily. celecoxib (CeleBREX) 200 mg capsule Take 1 Cap by mouth daily as needed. with food. Once a day dronedarone (Multaq) 400 mg tablet Take 1 tablet (400 mg total) by mouth 2 (two) times a day. 180 tablet 1 12/31/2024 finasteride (PROSCAR) 5 mg tablet Take 1 tablet (5 mg total) by mouth 1 (one) time each day. 01/15/2023 fluticasone furoate-vilantero L (BREO ELLIPTA) 200-25 mcg/dose inhaler Inhale 1 Puff into the lungs at bedtime. losartan (COZAAR) 50 mg tablet TAKE 1 TABLET DAILY 90 tablet 3 12/17/2024 rivaroxaban (Xarelto) 20 mg tablet Take 1 tablet (20 mg total) by mouth 1 (one) time each day with dinner. 90 tablet 1 12/22/2024 rosuvastatin (CRESTOR) 10 mg tablet Take 1 tablet (10 mg total) by mouth 2 (two) times a day. tolterodine (DETROL) 2 mg tablet Take 1 tablet (2 mg total) by mouth 1 (one) time each day. umeclidinium (Incruse Ellipta) 62.5 mcg/actuation inhalation Inhale 1 Puff into the lungs every morning. documented as of this encounter Discharge Disposition Disposition Code Departure Means Destination Home or Self Care documented in this encounter Plan of Treatment Upcoming Encounters Date Type Department Care Team (Late st Contact Info) Description 04/20/2025 2:00 PM EDT Office Visit Vascular Surgery - [place] [address] [place] [phone] Elsy Khan MD [address] [place] [address] documented as of this encounter Procedures Procedure Name Priority Date/Time Associated Diagnosis Comments VAS US DUPLEX LOWER EXT ARTERIES BILAT WITH LIA Routine 04/05/2025 1:52 PM EDT Peripheral artery disease (CMS/HCC V24) Claudication (CMS/HCC V24) documented in this encounter Results * Vascular US duplex lower extremity arteries bilateral with LIA (04/05/2025 1:52 PM EDT) Anatomical Region Laterality Modality Vascular, Abdomen Ultrasound 04/05/2025 2:24 PM EDT Impressions 04/05/2025 2:29 PM EDT 1. ??Focal stenosis of the mid left SFA. ??Mild stenoses of the proximal left and mid right SFA. 2. ??Mild trifurcation disease. -------- FINAL REPORT -------- Dictated By: Abiel Delacruz Dictated Date: 04/05/2025 14:24 ET Assigned Physician: Abiel Delacruz Reviewed and Electronically Signed By: Abiel Delacruz Signed Date: 04/05/2025 14:29 ET Workstation ID: [id number] Transcribed By: Self Edit Transcribed Date: 04/05/2025 14:24 ET Narrative 04/05/2025 2:29 PM EDT PROCEDURE: Bilateral lower extremity arterial duplex ultrasound. HISTORY: peripheral vascular disease claudication. TECHNIQUE: Grayscale, color Doppler, and spectral Doppler ultrasound evaluation of the arteries of both lower extremities. COMPARISON: CT angiogram dated 02/27/2024. FINDINGS: Right lower extremity: Multiphasic waveforms in the common femoral artery. ??Waveforms are somewhat degraded in the profunda branch. ??Biphasic waveforms in the SFA. ??Mildly elevated peak systolic velocity 163 cm/s in the mid SFA. ??Biphasic waveforms in the popliteal artery and SUPERVISOR BINDERY. ??Biphasic waveforms the proximal RENNY, becoming blunted and monophasic in the mid RENNY, and mono-biphasic waveforms in the distal RENNY. ??Biphasic waveforms in the dorsalis pedis. Left lower extremity: Biphasic waveforms in the common femoral artery and profunda branch. ??Elevated peak systolic velocity of 154 cm/s in the profunda. ??Elevated peak systolic velocity of 192 cm/s in the proximal SFA and 312 cm/s in the mid SFA. ??Biphasic wave forms throughout the SFA. ??Biphasic waveforms in the popliteal artery and SUPERVISOR BINDERY. ??Monophasic waveforms in the proximal and mid RENNY, becoming biphasic in the lower RENNY and dorsalis pedis. Procedure Note Abiel Delacruz MD - 04/05/2025 PROCEDURE: Bilateral lower extremity arterial duplex ultrasound. HISTORY: peripheral vascular disease claudication. TECHNIQUE: Grayscale, color Doppler, and spectral Doppler ultrasoundevaluation of the arteries of both lower extremities. COMPARISON: CT angiogram dated 02/27/2024. FINDINGS: Right lower extremity: Multiphasic waveforms in the common femoral artery.Waveforms are somewhat degraded in the profunda branch. Biphasicwaveforms in the SFA. Mildly elevated peak systolic velocity 163 cm/s inthe mid SFA. Biphasic waveforms in the popliteal artery and SUPERVISOR BINDERY.Biphasic waveforms the proximal RENNY, becoming blunted and monophasic inthe mid RENNY, and mono-biphasic waveforms in the distal RENNY. Biphasicwaveforms in the dorsalis pedis. Left lower extremity: Biphasic waveforms in the common femoral artery andprofunda branch. Elevated peak systolic velocity of 154 cm/s in theprofunda. Elevated peak systolic velocity of 192 cm/s in the proximal SFAand 312 cm/s in the mid SFA. Biphasic wave forms throughout the SFA.Biphasic waveforms in the popliteal artery and SUPERVISOR BINDERY. Monophasic waveformsin the proximal and mid RENNY, becoming biphasic in the lower RENNY anddorsalis pedis. IMPRESSION: 1. Focal stenosis of the mid left SFA. Mild stenoses of the proximalleft and mid right SFA. 2. Mild trifurcation disease. -------- FINAL REPORT -------- Dictated By: Abiel Delacruz Dictated Date: 04/05/2025 14:24 ET Assigned Physician: Abiel Delacruz Reviewed and Electronically Signed By: Abiel Delacruz Signed Date: 04/05/2025 14:29 ET Workstation ID: [id number] Transcribed By: Self Edit Transcribed Date: 04/05/2025 14:24 ET us Elsy Khan MD CV VASCULAR PROCEDURES Fi nal Result documented in this encounter Visit Diagnoses Diagnosis Peripheral artery disease ([facility] V24) Claudication ([facility] V24) Unspecified peripheral vascular disease documented in this encounter Care Teams Body Builder Relationship Specialty Start Date End Date Bianca You MD [address] [place] [address] [address] [facility] [place] [address] PCP - General Internal Medicine 11/08/21 documented as of this encounter
--- OUTSIDE RECORDS SUMMARY | 2025-04-07 15:01 | XMS_ITS | Clinical Summary ---
Author Organization [facility] Address [address] [place] [phone] Phone Care Team Providers Care Medical Education Coordinator Name Role Phone Bianca You MD Primary Care Provider [phone] Allergies Active Allergy Reactions Criticality Noted Date [...] discretion of the surgeon. Ascending aorta dilation ([facility] V24) 3 Overview (10/04/2024): Last Assessment & [...] 3D order panel; Future Peripheral artery disease ([facility]/HCC V24) 10/09/20 21 Overview (10/04/2024): Last Assessment [...] and presents in sinus rhythm today . [id number] score of 3 for hypertension and age [...] Encounters Date Type Department Care Team Description 04/05/2025 12:36 PM EDT - 04/05/2025 11:59 PM EDT Hospital Encounter [facility] Ultrasound [address] [place] [address] Peripheral artery disease ([facility] V24); Claudication ([facility] V24) Discharge Disposition: Home or Self Care from Last 3 Months Immunizations Name Administration [...] 09/30/2017 DX:Palpabl e mass of neck Old AL (myocardial infarction) 09/30/2017 D X:Old AL (myocardial infarction); COMMENT: 1996 Carotid stenosis 09/30/2017 [...] PM EDT Office Visit Vascular Surgery - [place] [address] [place] [address] Elsy Khan MD [address] [place] [address] Health Maintenance Due Date Last Done Comments [...] Completed 09/10/2024, , 09/20/2022, Additional history exists COVID-19 Vaccine Completed 02/04/2025, , 09/04/2023, Additional history exists HIB Vaccines Aged Out [...] artery disease (CMS/HCC V24) Claudication (CMS/HCC V24) ANNUAL BMP BLOOD TEST Routine 01/29/2024 from Last 3 Months or Most Recently Relevant to Health Maintenance Results * Vascular US duplex lower extremity [...] Signed Date: 04/05/2025 14:29 ET Workstation ID: [id number] Transcribed By: Self Edit Transcribed Date: 04/05/2025 [...] ??Biphasic waveforms in the popliteal artery and FRONT MAKER. ??Biphasic waveforms the proximal RENNY, becoming blunted [...] ??Biphasic waveforms in the popliteal artery and FRONT MAKER. ??Monophasic waveforms in the proximal and mid [...] Biphasic waveforms in the popliteal artery and FRONT MAKER.Biphasic waveforms the proximal RENNY, becoming blunted and [...] SFA.Biphasic waveforms in the popliteal artery and FRONT MAKER. Monophasic waveformsin the proximal and mid RENNY, [...] Signed Date: 04/05/2025 14:29 ET Workstation ID: [id number] Transcribed By: Self Edit Transcribed Date: 04/05/2025 14:24 ET Elsy Khan MD CV VASCULAR PROCEDURES Fi nal Result * Annual BMP Blood Test (01/29/2024) [facility] Annual BMP Blood Test Abstracted Historical Provider HEALTH MAINTENANCE Final Result from Last 3 Months or Most Recently Relevant to Health Maintenance Insurance MEDICARE [facility] Care Teams Medical Education Coordinator Relationship Specialty Start Date End Date Bianca You MD [address] [place] [address] [address] [place] [facility] [place] [address] PCP - General Internal Medicine 11/08/21
--- OUTSIDE RECORDS SUMMARY | 2025-04-07 15:01 | XMS_ITS | Clinical Summary ---
Author Organization [facility] Address [address] [place] [address] Care Team Providers Care Carpenter Refrigerator Name Role Phone Unavailable Primary Care Provider [...]
--- OUTSIDE RECORDS SUMMARY | 2025-04-07 15:01 | XMS_ITS | Patient Health Record ---
Author Organization [facility] Address [address] [place] [address] Care Team Providers Care Manager Property Name Role Phone Bianca You MD Primary Care Provider Osmany Ramires Jr Allergies Allergen (clinical drug ingredient) Drug/Non Drug Allergy documented on EMR Reaction Allergy Type Onset Date Status morphine Morphine Sulfate Unknown Drug Allergy Active Results Component Value Reference Range Notes Pathology Reviewed date:11/03/2024 08:11:32 AM Interpretation: Performing Lab:[facility], [address] [place] [phone] Notes/Report: Name: Dean Titus Age/Sex: 79/M : 1945 Unit#: [id number] Attend Dr: Osmany Alcantar MD Re10/26/24 Status : [facility] Location: [facility] Disch: SPEC : [id number] RECD : 10/26/24 STATUS: RAFAEL NGUYEN NUM: [id number] HAO: 10/26/[address] [facility] [address]: Osmany Alcantar MD ENTERED: 10/26/24 SP [...] Dean Titus Age/Sex: 79/M : 1945 Unit#: [id number] Attend Dr: Osmany Alcantar MD Re10/26/24 Status : [facility] Location: [facility] Disch: SPEC : [id number] RECD : 10/26/24 STATUS: [facility] NUM: [id number] HAO: 10/26/[address] [facility] [address]: Osmany Alcantar MD ENTERED: 10/26/24 SP [...] on A Copies To: Osmany Alcantar MD [facility] [address] [place] [address] Avelino,Bianca Alicea MD [facility] [place] [facility],[address] [place] [address] CONTINUED ON NEXT PAGE Name: ArielaDean Age/Sex: 79/M : 1945 Unit#: [id number] Attend Dr: Osmany Alcantar MD Re10/26/24 Status : [facility] Location: [facility] Disch: SPEC : [id number] RECD : 10/26/24 STATUS: RAFAEL NGUYEN NUM: [id number] HAO: 10/26/[address] [facility] DR: Osmany Alcantar MD ENTERED: 10/26/24- 35 [...] Problem Status W/U Status Risk Notes Problem 163712231 alf (curre nt) use of anticoagulants (Z79.01) Active confirmed Problem 379381638 Special screenin g for malignant neoplasms, colon (Z12.11) Active confirmed Problem Dysphagia (R13.10) Active confirmed Problem 200537329 Long-term use of aspirin therapy (Z79.82) Active confirmed Problem 62481447 Dysphagia, unspecified type (R13.10) Active confirmed Problem 866255732 FH: colon cancer (Z80.0) Active confirmed Vital Signs Temperature 98.4 degrees Fahrenheit 08/05/2024 Blood pressure diastolic 00 mm Hg 08/05/2024 Height 68.5 in 08/05/2024 Blood pressure systolic 000 mm Hg 08/05/2024 Weight 202 lbs 08/05/2024 BMI 30.26 kg/m2 08/05/2024 Encounters Encounter Location Date Provider Diagnosis [facility] [address] [place] [id number] 10/26/2024 Osmany Alcantar Jr Colon cancer screening Z12.11 ; Colon polyps K63.5 and Dysphagia R13.10 [facility] [address] [place] [phone] 08/05/2024 Osmany Alcantar Jr Special screening for malignant neoplasms, colon Z12.11 and Dysphagia, unspecified type R13.10 [facility] [address] [address] 10/07/2024 Osmany Alcantar Jr [facility] [address] [place] [phone] 11/03/2024 Osmany Alcantar Jr Assessments Encounter Date [...] Date MEDICARE OF [place] [address] [place] [address] [id number] TANNER WILSON Self - patient is the insured [employer] CLAIMS [address] [place] [address] [id number] TANNER WILSON Self - patient is the insured Medical (General) History Medical History History ICD Code personal history of tubular adenomas, last colonoscopy 05/14, multiple polyps, three-year followup coronary artery disease with history of VT, 1995 elevated cholesterol nehprolithiasis Atrial fibrillation, status post cardiac ablation 10/13 COPD Difficult intubation at the time of his Achilles surgery Covid 19 infection, November 2023 Spondylosis Peripheral arterial disease Surgical History Surgery Date(Month/Year) rhinoplasty L4-5 disc surgery for compression appendectomy 01/2019 cardiac ablation 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
== END 2025-04-07 16:34 | disposition home or self-care (01) ==
LOC: HO.HMCH 14:25
PROVIDERS: PCP Internal Medicine; Visit Provider Internal Medicine
DX: I73.9 Peripheral vascular disease, unspecified (principal); J44.9 Chronic obstructive pulmonary disease, unspecified; I48.0 Paroxysmal atrial fibrillation; I77.810 Thoracic aortic ectasia; I25.10 Atherosclerotic heart disease of native coronary artery without angina pectoris; N40.1 Benign prostatic hyperplasia with lower urinary tract symptoms; R39.12 Poor urinary stream; E78.00 Pure hypercholesterolemia, unspecified; R73.02 Impaired glucose tolerance (oral); I10 Essential (primary) hypertension

== ENCOUNTER → 2025-04-07 14:24 | Outpatient (BNVA) | payer MEDICARE, SELFPAY | PROVIDERS: PCP Internal Medicine; Visit Provider Internal Medicine | DX: I73.9 Peripheral vascular disease, unspecified (principal); I77.810 Thoracic aortic ectasia; J44.9 Chronic obstructive pulmonary disease, unspecified; I25.10 Atherosclerotic heart disease of native coronary artery without angina pectoris; N40.1 Benign prostatic hyperplasia with lower urinary tract symptoms; R39.12 Poor urinary stream; E78.00 Pure hypercholesterolemia, unspecified; R73.02 Impaired glucose tolerance (oral); I10 Essential (primary) hypertension; I48.0 Paroxysmal atrial fibrillation | CPT/HCPCS: 99212 ==

== ENCOUNTER 2025-07-01 13:46 | Outpatient (AMB) | payer MEDICARE, SELFPAY ==
--- OUTSIDE RECORDS SUMMARY | 2024-10-26 03:30 | XMS_ITS ---
Author Organization [facility] Address [address] [place] [phone] Care Team Providers Care Sql Architect Name Role Phone Bianca You MD Primary Care Provider Osmany Ramires Jr REASON FOR VISIT dysphagia,screening Problems Problem Type SNOMED Code ICD Code Onset Dates Problem Status W/U Status Risk Notes Problem Dysphagia (R13.10) Active confirmed Encounters Encounter Location Date Provider Diagnosis [facility] Outpatient [address] [place] [phone] 10/26/2024 Osmany Alcantar Jr Colon cancer screening Z12.11 ; Colon polyps K63.5 and Dysphagia R13.10 Assessments Encounter Date Diagnosis (ICD Code) Assessment Notes Treatment Notes Treatment Clinical Notes Section Notes 10/26/2024 Colon cancer screening (ICD-10 - Z12.11) 10/26/2024 Colon polyps (ICD-10 - K63.5) 10/26/2024 Dysphagia (ICD-10 - R13.10) Plan Of Treatment No Information Progress Notes * TANNER TITUS BDOB:[birth year] (80 yo M)Acc No.[id number]:10/26/2024 EGD and COL/MAC Patient: Enio TANNER PHELAN Provider: Rayray Alcantar MD :1945 A ge:79 Y S ex:Male Date:10/26/2024 Address:[address] [place] [address] [facility] Pcp:Bianca You MD Subjective: * Chief Complaints: * 1 . Dysphagia,screening. * Medical History: Objective: * Vitals: Assessment: * Assessment: 1. C olon cancer screening - Z12.11 (Primary) 2 . C olon polyps - K63.5? 3. D ysphagia - R13.10 Plan: * Treatment: * Procedure Codes: 4 5385 LESION REMOVAL COLONOSCOPY, 01861 COLONOSCOPY AND BIOPSY, Modifiers: 59 , 0529F INTRVL 3+YRS PTS CLNSCP DOCD, 54213 UPPER GI ENDOSCOPY, BIOPSY * * The named appointment provid er may or may not be the originator of this progress note, and it is not deemed complete until electronically signed by the appointment provider. Sign off status: Pending * Provider: Rayray Alcantar MD Date: 12/27/2023 Generated for Darnell angulo/Ervin/Shobhaitting on: 0 07/01/2025 09:43 AM EDT
--- OUTSIDE RECORDS SUMMARY | 2025-07-01 13:52 | XMS_ITS | Clinical Summary ---
Author Organization [facility] Address [address] [place] [address] Care Team Providers Care Display Carver Name Role Phone Unavailable Primary Care Provider [...] - 1-dose 75+ series) 2022 COVID-19 Vaccine (1 - 2023-2 5 season) 2024 Influenza (#1) 2025 HPV Vaccine (No Doses Required) Completed Hep A Aged Out No longer eligi [...]
--- OUTSIDE RECORDS SUMMARY | 2025-07-01 13:52 | XMS_ITS | Clinical Summary ---
Author Organization [facility] Address [address] [place] [phone] Phone Care Team Providers Care Photocopying Equipment Mechanic Name Role Phone Bianca You MD Primary Care Provider [phone] Allergies Active Allergy Reactions Criticality Noted Date [...] with dinner. 90 tablet 1 5 Active Multaq 400 mg tablet TAKE 1 TABLET TWICE A DAY 180 tablet 1 5 Active dronedarone (Multaq) 400 mg tablet Take 1 tablet (400 mg total) by mouth 2 (two) times a day. 180 tablet 1 5 07/01/20 25 Discontinued Active Problems Problem Noted Date Diagnosed Date [...] discretion of the surgeon. Ascending aorta dilation (CMS/HCC V24) 3 Overview (10/04/2024): Last Assessment & [...] 3D order panel; Future Peripheral artery disease (CMS/HCC V24) 10/09/20 21 Overview (10/04/2024): Last Assessment [...] and presents in sinus rhythm today . [id number] score of 3 for hypertension and age [...] Encounters Date Type Department Care Team Description 04/20/2025 2:00 PM EDT Office Visit Vascular Surgery - [place] [address] [place] [phone] Elsy Khan MD PAD (peripheral artery disease) ([facility] V24) (Primary Dx) 04/05/2025 12:36 PM EDT - 04/05/2025 11:59 PM EDT Hospital Encounter [facility] Ultrasound [address] [place] [phone] Peripheral artery disease (CMS/HCC V24); Claudication (CMS/HCC V24) Discharge Disposition: Home or Self Care [...] 09/30/2017 DX:Palpabl e mass of neck Old [place] (myocardial infarction) 09/30/2017 D X:Old SD (myocardial infarction); COMMENT: 1996 Carotid stenosis 09/30/2017 [...] Sign Reading Time Taken Comments Blood Pressure 100/70 04/20/2025 1:58 PM EDT Pulse 72 04/20/2025 1:58 PM EDT Temperature - - Respiratory Rate 16 04/20/2025 1:58 PM EDT Oxygen Saturation - - Inhaled Oxygen Concentration - - Weight 83 kg (183 lb) 04/20/2025 1:58 PM EDT Height 172.7 cm (5' 8 ) 04/20/2025 1:58 PM EDT Body Mass Index 27.83 04/20/2025 1:58 PM EDT Plan of Treatment Upcoming Encounters Date Type Department Care Team (Late st Contact Info) Description 04/26/2026 11:30 AM EDT Office Visit Vascular Surgery - [place] [address] [facility] [address] [place] [phone] Elsy Khan MD [address] [facility] [address] [place] [address] Health Maintenance Due Date Last Done Comments Zoster Vaccines (1 of 2) 1997 Cholesterol Screening (Lipid Panel) 11/03/2022 Falls Risk Assessment 11/03/2022 Hepatitis C Screening 11/03/2022 Medicare Annual Wellness Visit 11/03/2022 Social Influencers of Health Screening 11/03/2022 Depression Screening 11/24/2024 Hypertension/CHF/CAD Annual BMP Blood Test 01/28/2025 01/29/2024 Influenza Vaccine (#1) 2025 , 09/04/2023, 09/20/2022, Additional history exists DTaP,Tdap,and Td Vaccines (2 - Td or Tdap) 12/12/2026 12/12/2016 Pneumococcal Vaccine: 50+ Years Completed 12/11/2022 RSV Immunization Adult Patients Completed 08/21/2023 COVID-19 Vaccine Completed 02/04/2025, , 09/04/2023, Additional [...] EDT Impressions 04/05/2025 2:29 PM EDT 1. Focal stenosis of the mid left SFA. Mild stenoses of the proximal left and mid right SFA. 2. Mild trifurcation disease. -------- FINAL REPORT -------- Dictated By: Abiel Delacruz Dictated Date: 04/05/2025 14:24 ET Assigned Physician: Abiel Delacruz Reviewed and Electronically Signed By: Abiel Delacruz Signed Date: 04/05/2025 14:29 ET Workstation ID: [id number] Transcribed By: Self Edit Transcribed Date: 04/05/2025 14:24 ET Narrative 04/05/2025 2:29 PM EDT PROCEDURE: Bilateral lower extremity arterial duplex ultrasound. HISTORY: peripheral vascular disease claudication. TECHNIQUE: Grayscale, color Doppler, and spectral Doppler ultrasound evaluation of the arteries of both lower extremities. COMPARISON: CT angiogram dated 02/27/2024. FINDINGS: Right lower extremity: Multiphasic waveforms in the common femoral artery. Waveforms are somewhat degraded in the profunda branch. Biphasic waveforms in the SFA. Mildly elevated peak systolic velocity 163 cm/s in the mid SFA. Biphasic waveforms in the popliteal artery and HAND BASEBALL SEWER. Biphasic waveforms the proximal RENNY, becoming blunted and monophasic in the mid RENNY, and mono-biphasic waveforms in the distal RENNY. Biphasic waveforms in the dorsalis pedis. Left lower extremity: Biphasic waveforms in the common femoral artery and profunda branch. Elevated peak systolic velocity of 154 cm/s in the profunda. Elevated peak systolic velocity of 192 cm/s in the proximal SFA and 312 cm/s in the mid SFA. Biphasic wave forms throughout the SFA. Biphasic waveforms in the popliteal artery and HAND BASEBALL SEWER. Monophasic waveforms in the proximal and mid RENNY, [...] Biphasic waveforms in the popliteal artery and HAND BASEBALL SEWER.Biphasic waveforms the proximal RENNY, becoming blunted and [...] SFA.Biphasic waveforms in the popliteal artery and HAND BASEBALL SEWER. Monophasic waveformsin the proximal and mid RENNY, [...] Signed Date: 04/05/2025 14:29 ET Workstation ID: [id number] Transcribed By: Self Edit Transcribed Date: 04/05/2025 14:24 ET Elsy Khan MD CV VASCULAR PROCEDURES Fi nal Result * Annual BMP Blood Test (01/29/2024) Pathologist [facility] Annual BMP Blood Test Abstracted us Historical Provider HEALTH MAINTENANCE Final Result from Last 3 Months or Most Recently Relevant to Health Maintenance Insurance MEDICARE [facility] Care Teams Photocopying Equipment Mechanic Relationship Specialty Start Date End Date Bianca You MD [address] [place] [address] [address] [facility] [place] [address] PCP - General Internal Medicine 11/08/21
--- NOTE | 2025-07-01 13:56 | A.OFFPC_ITS ---
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 Instructions: Resume on 05/22/21. restart in 1 week celecoxib (Celebrex) 200 mg PO DAILY PRN dronedarone (Multaq) 400 mg PO BID fluticasone furoate-vilanterol 200-25 mcg/dose (Breo Ellipta) 1 inh inhalation .QEVENING losartan 50 mg PO DAILY rivaroxaban (Xarelto) 20 mg PO DAILY rosuvastatin (Crestor) 5 mg PO DAILY semaglutide (weight loss) (Wegovy) 0.25 mg (0.5 mL) subcut QWEEK umeclidinium 62.5 mcg/actuation (Incruse Ellipta) 1 inh inhalation DAILY Tobacco use date assessed: 07/01/25 Fall risk assessment: No Falls in past year Last assessed Fall Risk: 07/01/25 Dental Screening Dental Screen Date: 07/01/25 Did you have a dental visit in the last 12 months?: Yes Did you have a dental problem in the last 6 months where you did not have access to dental care?: No Was dental information given to patient?: Patient has dentist HPI AWV HPI Details 80 year old male with past medical histo ry of atrial fibrillation, hypertension, impaired we will diastolic, edema, BPH, coronary artery disease, COPD, ascending aorta dilation, peripheral vascular disease last seen 04/17 coming in for annual wellness visit.? He was seen by [facility] 04/20/2025 for peripheral arterial disease no vascular intervention is needed at present continue on aspirin daily as well as statin medication and recheck in 1 year.? He is following with [facility] for basal cell carcinoma with plans for Mohs surgery 08/23/2025.? Presenting with an annual wellness examination. The patient is scheduled for surgery to address nodular basal cell carcinoma on his nose, with reconstruction planned subsequently. The patient reports severe sciatica due to spinal stenosis and spondylitis, which affects his sleep and daily activities. He reports back pain that radiates down the right side and interrupts his sleep. He describes the pain as a burning sensation down the right leg. Colonoscopy: 10/2024 PSA: Up-to-date Vaccines: Up-to-date [facility] Medical History History of basal cell carcinoma Spondylosis Peripheral artery disease Hx of difficult intubation COVID-19 Elevated cholesterol Myocardial infarction Abdominal aortic aneurysm (AAA) Chronic bronchitis Renal calculi COPD (chronic obstructive pulmonary disease) Nephrolithiasis Hx of myocardial infarction PONV (postoperative nausea and vomiting) On beta didi at home On anticoagulant therapy Obesity (BMI 30-39.9) Coronary artery disease BPH (benign prostatic hyperplasia) Hyperlipidemia Impaired glucose tolerance Hypertension Paroxysmal atrial fibrillation Surgical History History of biopsy S/P TURP History of excision of pilonidal cyst History of cardiac ablation for atrial fibrillation Hx of surgical procedure (04/23/24) Hx of Achilles tendon repair (10/2022) Hx of basal cell carcinoma excision (~04/09/24) Hx of colonoscopy History of cardiac radiofrequency ablation (RFA) History of blepharoplasty Hx of appendectomy History of lumbar surgery H/O excision of lamina of cervical vertebra for decompression of spinal cord H/O rhinoplasty Family History Father No problems noted. Mother No problems noted. Social History Housing: House Are you a primary medicare nurse to a significant other at home: No Do you presently have visiting nurse or other home services: No Alcohol intake: never Patient Tobacco Use Status: Former Tobacco user Tobacco use type: Cigarette and Cigar Cigarettes Per Day: 0 (Cigar on occasion) Years Smoked: 48 e-Cigarette/Vaping Use: Never Used Second Hand Smoke Exposure: Yes Current occupational status: retired Cognitive needs: No Hearing needs: No Vision needs: Yes Questionnaire PHQ-9 Over the last 2 weeks, how often have you been bothered by any of the following problems? 1. Little interest or pleasure in doing things: not at all 2. Feeling down, depressed, or hopeless: not at all 3. Trouble falling or staying asleep, or sleeping too much: more than half the days 4. Feeling tired or having little energy: several days 5. Poor appetite or overeating: not at all 6. Feeling bad about yourself - or that you are a failure or have let yourself or your family down: not at all 7. Trouble concentrating on things, such as reading the newspaper or watching television: not at all 8. Moving or speaking so slowly that other people could have noticed. Or the opposite - being so fidgety or restless that you have been moving around a lot more than usual: not at all 9. Thoughts that you would be better off or of hurting yourself in some way: not at all Total score: 3 Depression Screening Interpretation: Negative Depression Screening Done: Yes 14875 - PHQ-9 Billing: Yes Source: Developed by Drs. Pierce Nair, James Gregory and colleagues, with an educational yonas from [employer]. Thrive Questionnaire Date Thrive assessed: 07/01/25 I am a: Patient FLYNN-7 AMB Questionnaire FLYNN-7 Date FLYNN - 7 assessed: 07/01/25 Source: Developed by Drs. Pierce Nair, James Gregory and colleagues, with an educational yonas from [employer]. Review of Systems Const Denies body aches, Denies chills, Denies fever(s), Denies headache(s) and Denies poor appetite Eyes Reports no additional complaints ENT Denies dysphagia, Denies dizziness, Denies headache(s) and Denies odynophagia Card Denies chest pain, Denies syncope, Denies edema, Denies irregular heart rhythm, Denies lightheadedness and Denies dyspnea Resp Denies cough and Denies dyspnea GI Denies abdominal pain, Reports constipation, Denies dysphagia, Denies diarrhea, Denies nausea, Denies odynophagia and Denies vomiting Reports no additional complaints Musc Details: low back pain with right sided radiation Denies abnormal gait Skin/Breast Reports system reviewed and no additional complaints, except as documented Neuro Denies abnormal gait, Denies dizziness, Denies syncope and Denies headache(s) Psych Reports no additional complaints Physical exam (Primary Care) Vital Signs: Last Vital Signs Pulse 97 07/01/25 13:58 BP 130/62 07/01/25 13:58 Pulse Ox 96 07/01/25 13:58 Oxygen Delivery Method Room Air 07/01/25 13:58 BMI result Body Mass Index 26.6 Tobacco/Smoking Status: Tobacco use Status Tobacco use date assessed 07/01/25 07/01/25 14:02 Patient Tobacco Use Status Former Tobacco user 07/01/25 14:02 Tobacco use type Cigarette,Cigar 07/01/25 14:02 e-Cigarette/Vaping Use Never Used 07/01/25 14:02 PHQ-9: PHQ-9 Score PHQ-9: Total score 3 07/01/25 14:53 Depression Screening Interpretation: Negative Thrive Assessment: Date of Thrive Assessment Date Thrive assessed 07/01/25 07/01/25 14:02 Coding Diagnoses Medicare annual wellness visit, subsequent Z00.00 Basal cell carcinoma C44.91 Essential hypertension I10 Hypertension type: essential hypertension Coronary artery disease involving [place] coronary artery of [place] heart without angina pectoris I25.10 Associated angina: without angina Coronary Disease-Associated Artery/Lesion type: [place] artery [place] vs. transplanted heart: [place] heart Paroxysmal atrial fibrillation I48.0 Ascending aorta dilatation I77.810 Peripheral vascular disease I73.9 Pure hypercholesterolemia E78.00 Hyperlipidemia type: pure hypercholesterolemia Impaired glucose tolerance R73.02 Obesity (BMI 30-39.9) E66.9 Tubular adenoma of colon D12.6 Benign prostatic hyperplasia with weak urinary stream N40.1; R39.12 Lower urinary tract symptom detail: weak urinary stream Lower urinary tract symptom presence: symptoms present Low back pain M54.5 COPD (chronic obstructive pulmonary disease) J44.9 Additional Codes PHQ-9 - 92324 - PHQ-9 Billing: Yes ([id number]) Assessment & Plan Assessment & Plan (1) Medicare annual wellness visit, subsequent: Code(s): Z00.00 - Encounter for general adult medical examination without abnormal findings Category: Medical Plan: Patient is up-to-date on all recommended routine screenings and vaccinations for his age. Blood work is up-to-date and has been reviewed with the patient today. [place] of care was reviewed with patient patient was provided with a written sc reening schedule. MOLST forms were reviewed with patient patient advised to bring completed forms to office to be scanned to chart (2) Basal cell carcinoma: Comment: [facility] Code(s): C44.91 - Basal cell carcinoma of skin, unspecified Category: Medical Plan: Patient having basal cell carcinoma of the nose and is scheduled to undergo surgery 08/23/2025 and reconstructive surgery on 08/24/2025. With [facility] and [facility]. (3) Hypertension: Code(s): I10 - Essential (primary) hypertension Category: Medical Qualifiers: Hypertension type: essential hypertension Qualified Code(s): I10 - Essential (primary) hypertension Plan: Continue on current blood pressure medication. Avoid salt intake and encourage healthy diet and regular exercise. (4) Coronary artery disease: Comment: 1995 Dr. Stacy Code(s): I25.10 - Atherosclerotic heart disease of [place] coronary artery without angina pectoris Category: Medical Qualifiers: Associated angina: without angina Coronary Disease-Associated Artery/Lesion type: [place] artery [place] vs. transplanted heart: [place] heart Qualified Code(s): I25.10 - Atherosclerotic heart disease of [place] coronary artery without angina pectoris Plan: Continue to follow up with manufacturing quality engineer. Patient is on Xarelto, losartan. Advised good control of blood pressure, cholesterol and blood sugars. LDL goal less than 70 (5) Paroxysmal atrial fibrillation: Comment: June 2019 echo normal LV impaired relaxation, November 2019 ear 55-60% her tick dilatation [address] Bonner 08/2020 Code(s): I48.0 - Paroxysmal atrial fibrillation Category: Medical Plan: Patient having history of atrial fibrillation currently on full oral anticoagulation with Xarelto and Multaq. Asymptomatic at this time (6) Ascending aorta dilatation: Comment: April 2022Normal LV systolic function with impaired relaxation ? ? ? filling pattern? 2.? Mild aortic regurgitation mos January 2023echocardiogram left ventricular hypertrophy ejection fraction 55-60% normal left ventricular diastolic function. ascending aorta 4.2 cm January 202301/2024 4.1 cm Code(s): I77.810 - Thoracic aortic ectasia Category: Medical Plan: Continue to monitor with Cardiology. Continue to work on good control of blood pressure (7) Peripheral vascular disease: Comment: December 2023 ankle-brachial index right below 0.8, left below 0.7 Code(s): I73.9 - Peripheral vascular disease, unspecified Category: Medical Plan: History of peripheral vascular disease currently on blood thinner. (8) Hyperlipidemia: Code(s): E78.5 - Hyperlipidemia, unspecified Category: Medical Qualifiers: Hyperlipidemia type: pure hypercholesterolemia Qualified Code(s): E78.00 - Pure hypercholesterolemia, unspecified Plan: Avoid foods that are high in cholesterol such as red meat, fried foods, eggs and baked goods. Triglyceride goal of less than 150 and LDL goal of less than 70. Continue on rosuvastatin (9) Impaired glucose tolerance: Code(s): R73.02 - Impaired glucose tolerance (oral) Category: Medical Plan: Decrease the amount of carbohydrates such as pasta, bread, rice, and potatoes and limit the amount of sweets. Although fruits are generally healthy they should be eaten in moderation as they are still high in sugar. (10) Obesity (BMI 30-39.9): Code(s): E66.9 - Obesity, unspecified Category: Medical Plan: Healthy diet and regular exercise is encouraged. Recent 10 lb weight loss since last visit continue on Wegovy 0.25 mg. (11) Tubular adenoma of colon: Code(s): D12.6 - Benign neoplasm of colon, unspecified Category: Medical Plan: Continue to follow with Dr. Alcantar last colonoscopy 09/2024. (12) BPH (benign prostatic hyperplasia): Code(s): N40.0 - Benign prostatic hyperplasia without lower urinary tract symptoms Category: Medical Qualifiers: Lower urinary tract symptom detail: weak urinary stream Lower urinary tract symptom presence: symptoms present Qualified Code(s): N40.1 - Benign pr ostatic hyperplasia with lower urinary tract symptoms; R39.12 - Poor urinary stream Plan: Patient having a history of BPH not currently on medication and is asymptomatic at this time. Continue to monitor PSA and continue to follow with Urology (13) Low back pain: Code(s): M54.5 - Low back pain Category: Medical Plan: Patient has a history of low back pain with radiculopathy down the right leg. (14) COPD (chronic obstructive pulmonary disease): Code(s): J44.9 - Chronic obstructive pulmonary disease, unspecified Category: Medical Plan: COPD well controlled on current inhalers. Orders: Orders Comprehensive Met. Panel Today I73.9 - Peripheral vascular disease, unspecified, Z00.00 - Encounter for general adult medical examination without abnormal findings Vitamin D 25-OH Total Today Z13.21 - Encounter for screening for nutritional disorder Hemoglobin A1c Today E11.65 - Type 2 diabetes mellitus with hyperglycemia, R73.02 - Impaired glucose tolerance (oral) TSH reflex Free T4 Today I48.0 - Paroxysmal atrial fibrillation, Z00.00 - Encounter for general adult medical examination without abnormal findings Complete Blood Count Auto Diff Today I73.9 - Peripheral vascular disease, unspecified, Z00.00 - Encounter for general adult medical examination without abnormal findings Vitamin B12 and Folate Today Z13.21 - Encounter for screening for nutritional disorder Lipid Panel Today E78.00 - Pure hypercholesterolemia, unspecified Medications: New gabapentin 100 mg PO BEDTIME 30 caps 0RF
[2025-07-01 13:58] VITALS: BP 130/62; PULSE 97; O2SAT 96; BMI 26.6
--- NOTE | 2025-07-01 17:05 | A.OFFVIS_ITS ---
Intake Vital Signs 07/01/25 13:58 07/01/25 17:06 Height 5 ft 8.5 in Weight 177 lb 4 oz BMI 26.6 26.6 BP 130/62 Blood Pressure Location Lt brachial Position Sitting Pulse 97 Pulse Source Pulse Oximeter Pulse Oximetry (%) 96 Oxygen Delivery Method Room Air Intake Visit Reasons: AWV Allergies morphine (MORPHINE) Allergy (Unknown, Verified 07/01/25 14:35) NAUSEA & VOMITING simvastatin Allergy (Unknown, Verified 07/01/25 14:35) muscle pains and med ineffective enviromental allergies Allergy (Unknown, Uncoded 07/01/25 14:35) Unknown Medication List - Last Reconciled 07/01/25 by Cassie Guadalupe PA-C albuterol sulfate 90 mcg/actuation 2 puffs inhalation Q6H PRN aspirin (Adult Aspirin Regimen) 81 mg PO DAILY Held on 05/15/21. Instructions: Resume on 05/22/21. restart in 1 week celecoxib (Celebrex) 200 mg PO DAILY PRN dronedarone (Multaq) 400 mg PO BID fluticasone furoate-vilanterol 200-25 mcg/dose (Breo Ellipta) 1 inh inhalation .QEVENING losartan 50 mg PO DAILY rivaroxaban (Xarelto) 20 mg PO DAILY rosuvastatin (Crestor) 5 mg PO DAILY semaglutide (weight loss) (Wegovy) 0.25 mg (0.5 mL) subcut QWEEK umeclidinium 62.5 mcg/actuation (Incruse Ellipta) 1 inh inhalation DAILY HPI AWV HPI Details 80 year old male with past medical histo ry of atrial fibrillation, hypertension, impaired we will diastolic, edema, BPH, coronary artery disease, COPD, ascending aorta dilation, peripheral vascular disease last seen 04/17 coming in for annual wellness visit.? He was seen by [facility] for peripheral arterial disease no vascular intervention is needed at present continue on aspirin daily as well as statin medication and recheck in 1 year.? He is following with [facility] for basal cell carcinoma with plans for Mohs surgery 08/23/2025. Presenting with an annual wellness examination. The patient experiences chronic pain attributed to spinal stenosis, impacting his daily activities. The patient reports severe sciatica due to spinal stenosis and spondylitis, which affects his sleep and daily activities. The patient is scheduled for surgery to address nodular basal cell carcinoma on his nose, with reconstruction planned subsequently. The patient reports severe sciatica due to spinal stenosis and spondylitis, which affects his sleep and daily activities. Eye exam: Yearly Colonoscopy: 09/[address] Alcantar Vaccinations: Up-to-date PSA: Up-to-date and follows with [facility] Medical History History of basal cell carcinoma Spondylosis Peripheral artery disease Hx of difficult intubation COVID-19 Elevated cholesterol Myocardial infarction Abdominal aortic aneurysm (AAA) Chronic bronchitis Renal calculi COPD (chronic obstructive pulmonary disease) Nephrolithiasis Hx of myocardial infarction PONV (postoperative nausea and vomiting) On beta didi at home On anticoagulant therapy Obesity (BMI 30-39.9) Coronary artery disease BPH (benign prostatic hyperplasia) Hyperlipidemia Impaired glucose tolerance Hypertension Paroxysmal atrial fibrillation Surgical History History of biopsy S/P TURP History of excision of pilonidal cyst History of cardiac ablation for atrial fibrillation Hx of surgical procedure (04/23/24) Hx of Achilles tendon repair (10/2022) Hx of basal cell carcinoma excision (~04/09/24) Hx of colonoscopy History of cardiac radiofrequency ablation (RFA) History of blepharoplasty Hx of appendectomy History of lumbar surgery H/O excision of lamina of cervical vertebra for decompression of spinal cord H/O rhinoplasty Family History Father No problems noted. Mother No problems noted. Social History Housing: House Are you a primary resident care supervisor to a significant other at home: No Do you presently have visiting nurse or other home services: No Alcohol intake: never Patient Tobacco Use Status: Former Tobacco user Tobacco use type: Cigarette and Cigar Cigarettes Per Day: 0 (Cigar on occasion) Years Smoked: 48 e-Cigarette/Vaping Use: Never Used Second Hand Smoke Exposure: Yes Current occupational status: retired Cognitive needs: No Hearing needs: No Vision needs: Yes Questionnaire Medicare Wellness Checkup [age] What gender do you identify with?: male During the past 4 weeks, how much have you been bothered by emotional problems such as feeling anxious, depressed, irritable, sad or downhearted, and blue?: not at all During the past 4 weeks, has your physical & emotional health limited your social activities with family, friends, neighbors, or groups?: not at all During the past 4 weeks, how much bodily pain have you generally had?: mild pain During the past 4 weeks, was someone available to help you if you needed & wanted help?: yes, as much as I wanted During the past 4 weeks, what was the hardest physical activity you could do for at least 2 minutes?: heavy Can you get to places out of walking distance without help? (For eg., can you travel alone on buses, taxis or drive your car?): Yes Can you go shopping for groceries or clothes without someone's help?: Yes Can you prepare your own meals?: Yes Can you do your housework without help?: Yes Because of any health problems, do you need the help of another person with your personal care needs such as eating, bathing, dressing or getting around the house?: Yes Can you handle your own money without help?: Yes During the past 4 weeks, how would you rate your health in general?: very good During the past 4 weeks how have things been going for you?: pretty well Are you having difficulties driving your car?: no Do you always fasten your seat belt when you are in a car?: yes, usually During past 4 weeks, have you been bothered by the following: never: Falling or dizzy when standing up, Sexual problems?, Trouble eating well?, Teeth or denture problems?, Problems using the telephone? and Tiredness or fatigue? Have you fallen 2 or more times in the past year?: No Are you afraid of falling?: No Are you a smoker?: no During the past 4 weeks, how many drinks of wine, beer, or other alcoholic beverages did you have?: no alcohol at all Do you exercise for about 20 minutes 3 or more times a week?: yes, all the time Have you been given information to help with the following?: yes: Hazards in your house that might hurt you? and yes: Keeping track of your medications? How often do you have trouble taking medicines the way you have been told to take them?: I always take medicine as prescribed How confident are you that you can control & manage most of your health problems?: very confident What is your race?: White PHQ-9 Over the last 2 weeks, how often have you been bothered by any of the following problems? 1. Little interest or pleasure in doing things: not at all 2. Feeling down, depressed, or hopeless: not at all 3. Trouble falling or staying asleep, or sleeping too much: not at all 4. Feeling tired or having little energy: not at all 5. Poor appetite or overeating: not at all 6. Feeling bad about yourself - or that you are a failure or have let yourself or your family down: not at all 7. Trouble concentrating on things, such as reading the newspaper or watching television: not at all 8. Moving or speaking so slowly that other people could have noticed. Or the opposite - being so fidgety or restless that you have been moving around a lot more than usual: not at all 9. Thoughts that you would be better off or of hurting yourself in some way: not at all Total score: 0 Depression Screening Interpretation: Negative Depression Screening Done: Yes Source: Developed by Drs. Pierce Nair, Malena Crowell, James Huynh and colleagues, with an educational yonas from [employer] Review of Systems Const Denies body aches, Denies fatigue, Denies fever(s), Denies frequent falls, Denies headache(s) and Denies weakness Eyes Reports no additional complaints and Denies change in vision ENT Denies dysphagia, Denies dizziness, Denies facial pain, Denies headache(s), Denies nasal congestion and Denies odynophagia Card Denies chest pain, Denies syncope, Denies irregular heart rhythm, Denies leg edema, Denies lightheadedness and Denies dyspnea Resp Denies cough and Denies dyspnea GI Denies constipation, Denies dysphagia, Denies dyspepsia, Denies diarrhea, Denies nausea, Denies odynophagia and Denies vomiting Denies dysuria, Denies urinary frequency, Denies urinary hesitancy and Denies urinary urgency Musc Details: Low back pain with right-sided radiculopathy Denies back pain and Denies myalgias Skin/Breast Reports system reviewed and no additional complaints, except as documented Neuro Denies dizziness, Denies syncope, Denies frequent falls, Denies headache(s) and Denies weakness Psych Reports no additional complaints Endo Denies fatigue Physical Exam Vital Signs: Last Vital Signs Pulse 97 07/01/25 13:58 BP 130/62 07/01/25 13:58 Pulse Ox 96 07/01/25 13:58 Oxygen Delivery Method Room Air 07/01/25 13:58 BMI result Body Mass Index 26.6 Const General: cooperative, healthy appearing, comfortable and no acute distress Orientation/consciousness: patient oriented x3 HEENT Head: Yes normocephalic Ears: hearing grossly normal bilaterally, external ears normal, TM's normal bilaterally and EAC's normal General nose exam: Normal external nose present Face and sinus: Yes normal facial exam and Yes sinuses nontender Mouth: Normal oral and palatal mucosa present and tongue normal Throat: Yes posterior oropharynx normal Eyes General: appearance normal, both eyes and all related structures Conjunctivae: conjunctivae normal Pupils: Equal, round and reactive pupils present EOM: EOMs intact bilaterally and No Nystagmus present Neck Neck: Yes normal visual inspection, Yes full ROM and Yes no lymphadenopathy Chest Chest palpation & inspection: normal inspection of the chest Resp Effort & Inspection: normal respiratory effort Auscultation: clear to auscultation bilaterally, no crackles, no rales, no rhonchi, no wheezes and breath sounds present Cardio Rate: regular rate Rhythm: regular rhythm Peripheral pulses: radial pulses present and dorsalis pedis present GI Inspection: Yes normal to inspection and No Abdominal wall edema Palpation (GI): Soft to palpation, not firm and nontender Auscultation: normal bowel sounds Rectal Exam - Male: Yes deferred General: Yes no CVA tenderness Back/Spine/Pelvis Back: no CVA tenderness Skin General skin exam: no rashes or lesions noted Neuro General: patient oriented x3 Cranial nerves: Yes Equal, round and reactive pupils present, Yes Midline tongue present, Yes Ability to bilaterally elevate shoulders present and No Nystagmus present Gait exam (Neuro): Normal gait present Extrem General: Yes normal to inspection, Yes full ROM, No no pedal edema and No edema Psych Speech and movement: Normal speech and movement present Affect: normal affect Insight: Good insight present (Psych) Judgement: Good judgement present (Psych) Assessment & Plan Assessment & Plan (1) Medicare annual wellness visit, subsequent: Code(s): Z00.00 - Encounter for general adult medical examination without abnormal findings Plan: [place] of care was reviewed with patient patient was provided with a written screening schedule. MOLST forms were reviewed with patient patient advised to bring completed forms to office to be scanned to chart. Patient is up-to-date on all recommended routine screenings and vaccinations for his age. Blood work is up-to-date and has been reviewed with the patient today. Patient has overall good cognition is able to make informed decisions about his own health. (2) Low back pain: Code(s): M54.5 - Low back pain Plan: Patient complaining of low back pain with radiculopathy that interrupts his sleep and daily life. Plan to initiate gabapentin 100 mg at bedtime (3) Basal cell carcinoma: Comment: [facility] Code(s): C44.91 - Basal cell carcinoma of skin, unspecified Plan: Patient is scheduled to undergo excision of basal cell 08/23/2025 and elizabeth nstructive surgery 08/24/2025 this year. Continue to follow up [facility] and [facility]. (4) Hypertension: Code(s): I10 - Essential (primary) hypertension Qualifiers: Hypertension type: essential hypertension Qualified Code(s): I10 - Essential (primary) hypertension Plan: Continue on current blood pressure medication. Avoid salt intake and encourage healthy diet and regular exercise. (5) Coronary artery disease: Comment: 1995 Dr. Stacy Code(s): I25.10 - Atherosclerotic heart disease of [place]' coronary artery without angina pectoris Qualifiers: Coronary Disease-Associated Artery/Lesion type: [place] artery [place] vs. transplanted heart: [place] heart Associated angina: without angina Qualified Code(s): I25.10 - Atherosclerotic heart disease of [place] coronary artery without angina pectoris Plan: Patient is no longer on aspirin and is on full oral anticoagulation with Xarelto. he continues on rosuvastatin with LDL goal less than 70. Advised good control of blood pressure and blood sugars as well. (6) Paroxysmal atrial fibrillation: Comment: June 2019 echo normal LV impaired relaxation, November 2019 ear 55-60% her tick dilatation [address] Bonner 08/2020 Code(s): I48.0 - Paroxysmal atrial fibrillation Plan: Currently on full oral anticoagulation with Xarelto and Multaq. Continue to follow up Cardiology (7) Ascending aorta dilatation: Comment: April 2022Normal LV systolic function with impaired relaxation ? ? ? filling pattern? 2.? Mild aortic regurgitation mos January 2023echocardiogram left ventricular hypertrophy ejection fraction 55-60% normal left ventricular diastolic function. ascending aorta 4.2 cm January 202301/2024 4.1 cm Code(s): I77.810 - Thoracic aortic ectasia Plan: Continue to follow with Cardiology continue with tight control of blood pressure medication. (8) Peripheral vascular disease: Comment: December 2023 ankle-brachial index right below 0.8, left below 0.7 Code(s): I73.9 - Peripheral vascular disease, unspecified Plan: Currently on anticoagulation with Xarelto. Continue to follow with vascular surgery (9) Hyperlipidemia: Code(s): E78.5 - Hyperlipidemia, unspecified Qualifiers: Hyperlipidemia type: pure hypercholesterolemia Qualified Code(s): E78.00 - Pure hypercholesterolemia, unspecified Plan: Avoid foods that are high in cholesterol such as red meat, fried foods, eggs and baked goods. Triglyceride goal of less than 150 and LDL goal of less than 70. Continue on rosuvastatin (10) Impaired glucose tolerance: Code(s): R73.02 - Impaired glucose tolerance (oral) Plan: Decrease the amount of carbohydrates such as pasta, bread, rice, and potatoes and limit the amount of sweets. Although fruits are generally healthy they should be eaten in moderation as they are still high in sugar. (11) Obesity (BMI 30-39.9): Code(s): E66.9 - Obesity, unspecified Plan: Healthy diet and regular exercise is encouraged. Recent intentional 10 lb weight loss while using Ozempic. (12) Tubular adenoma of colon: Code(s): D12.6 - Benign neoplasm of colon, unspecified Plan: Last colonoscopy 09/[address] Alcantar (13) BPH (benign prostatic hyperplasia): Code(s): N40.0 - Benign prostatic hyperplasia without lower urinary tract symptoms Qualifiers: Lower urinary tract symptom presence: symptoms present Lower urinary tract symptom detail: weak urinary stream Qualified Code(s): N40.1 - Benign prostatic hyperplasia with lower urinary tract symptoms; R39.12 - Poor urinary stream Plan: Not currently on medical management continue to monitor PSA and continue to follow with Urology. (14) COPD (chronic obstructive pulmonary disease): Code(s): J44.9 - Chronic obstructive pulmonary disease, unspecified Plan: Continue to follow with current inhalers feels symptoms are well managed at this time. Plan Gabapentin will be initiated at the lowest dose to manage sciatica and improve sleep quality, with monitoring for any side effects. The patient is scheduled for surgery to address nodular basal cell carcinoma, followed by reconstruction, and will continue regular dermatological evaluations. He is advised to maintain hydration to manage constipation, a side effect of GLP-1 medication, and to space out water intake throughout the day. Regular follow-ups with specialists, including a vascular surgeon, operations engineer, blood bank laboratory technologist, and GI specialist, a re planned to monitor ongoing conditions. The patient will undergo PSA blood screening in July and follow up with the urologist in August. This note was constructed using voice recognition software. While every effort has been made to ensure accuracy and metal leaf layer, still areas may have been included sometimes these areas may affect the content or meeting of the given symptoms. Total time spent caring for the patient today was 30 minutes. This includes time spent before the visit reviewing the chart, time spent during the visit, and time spent after the visit and documentation. Patient was informed and verbally consented to the use of an ambient scribe for clinic note documentation during this visit. Orders: Orders Comprehensive Met. Panel Today I73.9 - Peripheral vascular disease, unspecified, Z00.00 - Encounter for general adult medical examination without abnormal findings Vitamin D 25-OH Total Today Z13.21 - Encounter for screening for nutritional disorder Hemoglobin A1c Today E11.65 - Type 2 diabetes mellitus with hyperglycemia, R73.02 - Impaired glucose tolerance (oral) TSH reflex Free T4 Today I48.0 - Paroxysmal atrial fibrillation, Z00.00 - Encounter for general adult medical examination without abnormal findings Complete Blood Count Auto Diff Today I73.9 - Peripheral vascular disease, unspecified, Z00.00 - Encounter for general adult medical examination without abnormal findings Vitamin B12 and Folate Today Z13.21 - Encounter for screening for nutritional disorder Lipid Panel Today E78.00 - Pure hypercholesterolemia, unspecified Medications: New gabapentin 100 mg PO BEDTIME 30 caps 0RF Quality Reporting (2019) Adult ([facility] 138/2/22/69) Body Mass Index: 26.6 Depression/Bipolar (159/160/161/177) PHQ-9: Total score: 0 Coding Level of Care Code Medicare Subsequent (G0439) Diagnoses Medicare annual wellness visit, subsequent Z00.00 Low back pain M54.5 Basal cell carcinoma C44.91 Essential hypertension I10 Hypertension type: essential hypertension Coronary artery disease involving [place]' coronary artery of [place] heart without angina pectoris I25.10 Coronary Disease-Associated Artery/Lesion type: [place] artery [place] vs. transplanted heart: [place]' heart Associated angina: without angina Paroxysmal atrial fibrillation I48.0 Ascending aorta dilatation I77.810 Peripheral vascular disease I73.9 Pure hypercholesterolemia E78.00 Hyperlipidemia type: pure hypercholesterolemia Impaired glucose tolerance R73.02 Obesity (BMI 30-39.9) E66.9 Tubular adenoma of colon D12.6 Benign prostatic hyperplasia with weak urinary stream N40.1; R39.12 Lower urinary tract symptom presence: symptoms present Lower urinary tract symptom detail: weak urinary stream COPD (chronic obstructive pulmonary disease) J44.9 CPT Codes Advance Care Planning - Time spent: 1-15 minutes, not on file ([id number]) Advance Care Planning Advance Care Planning discussion: Completed/Scanned Date of discussion: 07/01/25 Who was present: Patient, myself Forms completed: JOSELITO Time spent: 1-15 minutes, not on file Actual minutes spent: 2 Did not discuss due to Cultural/Spiritual beliefs: No
[2025-07-01 17:06] VITALS: BMI 26.6
== END 2025-07-01 14:55 | disposition home or self-care (01) ==
LOC: HO.HMCH 13:46
PROVIDERS: PCP Internal Medicine
DX: Z00.00 Encounter for general adult medical examination without abnormal findings (principal); I48.0 Paroxysmal atrial fibrillation; J44.9 Chronic obstructive pulmonary disease, unspecified; M54.50 Low back pain, unspecified; C44.91 Basal cell carcinoma of skin, unspecified; I10 Essential (primary) hypertension; I25.10 Atherosclerotic heart disease of native coronary artery without angina pectoris; I77.810 Thoracic aortic ectasia; I73.9 Peripheral vascular disease, unspecified; E78.00 Pure hypercholesterolemia, unspecified; R73.02 Impaired glucose tolerance (oral); D12.6 Benign neoplasm of colon, unspecified

== ENCOUNTER 2025-08-09 07:25 | Outpatient (REF) | payer MEDICARE, SELFPAY ==
--- OUTSIDE RECORDS SUMMARY | 2024-10-26 03:30 | XMS_ITS ---
Author Organization [facility] Address [address] [place] [id number] Care Team Providers Care Licensed Physical Therapist Assistant Name Role Phone Po Bianca GARCIA Primary Care Provider Osmany Ramires Jr REASON FOR VISIT dysphagia,screening Problems Problem Type SNOMED Code ICD Code Onset Dates Problem Status W/U Status Risk Notes Problem Dysphagia (65914112) Dysphagia (R13.10) Active confirmed Encounters Encounter Location Date Provider Diagnosis [facility] Outpatient [address] [place] [phone] 10/26/2024 Osmany Alcantar Jr Colon cancer screening Z12.11 ; Colon polyps K63.5 and Dysphagia R13.10 Assessments Encounter Date Diagnosis (ICD Code) Assessment Notes Treatment Notes Treatment Clinical Notes Section Notes 10/26/2024 Colon cancer screening (ICD-10 - Z12.11) 10/26/2024 Colon polyps (ICD-10 - K63.5) 10/26/2024 Dysphagia (ICD-10 - R13.10) Plan Of Treatment No Information Progress Notes * TANNER TITUS BDOB:[birth year] (80 yo M)Acc No.[id number]:10/26/2024 EGD and COL/MAC Patient: TANNER ORTEGA Provider: Rayray Alcantar MD :[id number] A ge:79 Y S ex:Male Date:10/26/2024 Address:[address] [place], [place] [id number] Pcp:Bianca You MD Subjective: * Chief Complaints: * 1 . Dysphagia,screening. * Medical History: Objective: * Vitals: Assessment: * Assessment: 1. C olon cancer screening - Z12.11 (Primary) 2 . C olon polyps - K63.5? 3. D ysphagia - R13.10 Plan: * Treatment: * Procedure Codes: 4 5385 LESION REMOVAL COLONOSCOPY, 59462 COLONOSCOPY AND BIOPSY, Modifiers: 59 , 0529F INTRVL 3+YRS PTS CLNSCP DOCD, 79763 UPPER GI ENDOSCOPY, BIOPSY * * The named appointment provid er may or may not be the originator of this progress note, and it is not deemed complete until electronically signed by the appointment provider. Sign off status: Pending * Provider: Rayray Alcantar MD Date: 12/27/2023 Generated for Darnell angulo/Ervin/Shobhaitting on: 0 08/09/2025 07:28 AM EDT
--- OUTSIDE RECORDS SUMMARY | 2025-08-09 07:28 | XMS_ITS | Clinical Summary ---
Author Organization [facility] Address [address] [place] [phone] Phone Care Team Providers Care Shipping Team Leader Name Role Phone Bianca You MD Primary Care Provider [phone] Allergies Active Allergy Reactions Criticality Noted Date [...] with dinner. 90 tablet 1 12/22/2024 Active Multaq 400 mg tablet TAKE 1 TABLET TWICE A DAY 180 tablet 1 07/01/2025 Active Active Problems Problem Noted Date Diagnosed [...] and presents in sinus rhythm today . [id number] score of 3 for hypertension and age [...] cause of his symptoms as outlined above. Immunizations Name Administration Dates Next Due Influenza [...] 09/30/2017 DX:Palpabl e mass of neck Old [place] (myocardial infarction) 09/30/2017 D X:Old NM (myocardial infarction); COMMENT: 1996 Carotid stenosis 09/30/2017 [...] AM EDT Office Visit Vascular Surgery - [facility] [address] [facility] [facility] [address] [place] [address] Elsy Khan MD [address] [place] [phone] Health Maintenance Due Date Last Done Comments Zoster Vaccines (1 of 2) 1997 Cholesterol Screening (Lipid Panel) 11/03/2022 Falls Risk Assessment 11/03/2022 Hepatitis C Screening 11/03/2022 Medicare Annual Wellness Visit 11/03/2022 Social Influencers of Health Screening 11/03/2022 Depression Screening 11/24/2024 Hypertension/CHF/CAD Annual BMP Blood Test 01/28/2025 01/29/2024 Influenza Vaccine (#1) 2025 4, 09/04/2023, 09/20/2022, Additional history exists DTaP,Tdap,and Td [...] Recently Relevant to Health Maintenance Insurance MEDICARE [facility] Care Teams Shipping Team Leader Relationship Specialty Start Date End Date Bianca You MD [address] [place] [address] [address] [facility] [place] [address] PCP - General Internal Medicine 11/08/21
--- OUTSIDE RECORDS SUMMARY | 2025-08-09 07:28 | XMS_ITS | Clinical Summary ---
Author Organization [facility] Address [address] [place] [address] Care Team Providers Care Search Manager Name Role Phone Unavailable Primary Care Provider [...] COVID-19 Vaccine (1 - 2023-2 5 season) 2025 Influenza (#1) 2025 HPV Vaccine (No Doses [...]
--- OUTSIDE RECORDS SUMMARY | 2025-08-09 07:28 | XMS_ITS | Encounter Summary ---
Author Organization [facility] Address [address] [place] [address] Phone Care Team Providers Care Marketing Coordinator Name Role Phone Bianca You MD Primary Care Provider [phone] Encounter Details Date Type Department Care Team (Late st Contact Info) Description 10/29/2022 Procedure Pass OR Admitting Dept - Virtual Department [address] [place] [phone] Social History Tobacco Use Types Packs/Day Years Used Date Smoking Tobacco: Some Days Cigars Smokeless Tobacco: Never Alcohol Use Standard Drinks/Week Comments Never 0 (1 standard drink = 0.6 oz pur e alcohol) Sex and Gender Information Value Date Recorded Sex Assigned at Not on file Legal Sex Male 3:08 PM EDT Gender Identity Not on file Sexual Orientation Not on file documented as of this encounter Plan of Treatment Not on file documented as of this encounter Visit Diagnoses Not on filedocumented in this encounter Care Teams Marketing Coordinator Relationship Specialty Start Date End Date Bianca You MD [address] [place] [phone] PCP - General Internal Medicine 09/03/22 documented as of this encounter Additional Source Comments The information contained in this document represents components of the legal health record. It is not the complete legal health record.[facility]
--- OUTSIDE RECORDS SUMMARY | 2025-08-09 07:28 | XMS_ITS | Clinical Summary ---
Author Organization [facility] Address [email or web address] [facility] [address] [place] [id number] Phone Care Team Providers Care Bobbin Dumper Name Role Phone Bianca You MD Primary Care Provider [phone] Allergies Active Allergy Reactions Criticality Noted Date Comments Morphine 10/03/2022 Severe n/v Medications XARELTO 20 mg Tab 20 mg daily with dinner. 09/15/2022 Active rosuvastatin (CRESTOR) 10 MG tablet Take 10 mg by mouth daily. 09/16/2022 Active albuterol 90 mcg/actuation inhaler Inhale 2 puffs into the lungs every 6 (six) hours as needed for wheezing. Active metoprolol succinate (TOPROL-XL) 50 MG 24 hr tablet Take 37.5 mg by mouth daily. 25 mg tablets and takes 1.5 tabs a day Active finasteride (PROSCAR) 5 mg tablet Take 5 mg by mouth daily. Active aspirin 81 MG EC tablet Take 81 mg by mouth daily. Active fluticasone propionate (FLONASE) 50 mcg/actuation nasal spray 1 spray by Nasal route daily. Active Active Problems Problem Noted Date Diagnosed Date S/P Achilles tendon repair 12/12/2022 Achilles tendinitis of right lower extremity Robyn's deformity of right heel Social History Tobacco Use Types Packs/Day Years Used Date Smoking Tobacco: Some Days Cigars Smokeless Tobacco: Never Tobacco Cessation:Ready to Q uit: Not Asked; Counseling Given: Not Answered Alcohol Use Standard Drinks/Week Comments Never 0 (1 standard drink = 0.6 oz pur e alcohol) Education Answer Date Recorded Are you interested in more education? Not on mitchell e 03/22/2023 Are you concerned about learning? Not on file 03/22/2023 No 03/22/2023 No 03/22/2023 Digital Access Answer Date Recorded No 04/22/2023 No 04/22/2023 Reliable internet access at home? Not on file 04/22/2023 Device with a working camera? Not on file Sex and Gender Information Value Date Recorded Sex Assigned at Not on file Legal Sex Male 3:08 PM EDT Gender Identity Not on file Sexual Orientation Not on file Last Filed Vital Signs Vital Sign Reading Time Taken Comments Blood Pressure 156/57 10/29/2022 5:01 PM EST Pulse 58 10/29/2022 4:15 PM EST Temperature 36.6 C (97.9 F) 10/29/2022 5:01 PM EST Respiratory Rate 16 10/29/2022 5:01 PM EST Oxygen Saturation 100% 10/29/2022 5:01 PM EST Inhaled Oxygen Concentration - - Weight 88.7 kg (195 lb 9.6 oz) 10/29/2022 11:15 AM EST Height 171.5 cm (5' 7.5 ) 10/29/2022 11:15 AM ES T Body Mass Index 30.18 10/29/2022 11:15 AM EST Plan of Treatment Health Maintenance Due Date Last Done Comments LIPID PANEL 1947 DEPRESSION SCREENING 1959 SMOKING Hx and SMOKELESS TOBACCO SCREENING 02/20/1960 HEPATITIS C SCREENING 1965 ZOSTER VACCINES (1 of 2) 1997 RSV VACCINE (1 - 1-dose 75+ series) 2022 CREATININE LEVEL 10/04/2023 10/04/2022 INFLUENZA VACCINE (#1) 2025 2, 09/24/2021, 08/31/2019, Additional history exists COVID-19 VACCINE ( season) 2025 04/02/2023, 08/17/2022, 02/21/2022, Additional history exists Adult Td,Tdap Booster 12/12/2026 12/12/2016 PNEUMOCOCCAL VACCINES (50+ years) Completed 12/11/2022 HEPATITIS A VACCINES Aged Out No long er eligible based on patient's age to complete this topic HIB VACCINES Aged Out No longer eligi ble based on patient's age to complete this topic MENINGOCOCCAL VACCINES (ACWY) Aged Out No longer eligible based on patient's age to complete this topic MENINGOCOCCAL VACCINES (B) Aged Out N o longer eligible based on patient's age to complete this topic Medical Devices Implanted Type Area Quality Control Analyst Device Identifier Shelf Expiration Date Model / Serial / Lot Pin Pin Spine Lumbar Description:Pt has had 2 lum bar surgeries and has implants from those procecdures coflex l4-5 System Implant Achilles Speedbridge Biocomposite - [id number] Implanted:Qty: 1 on 10/29/2022 by Jared Church MD at [facility] Right: Achilles Tendon [employer] 06/23/2026 [id number] / / [id number] Procedures Procedure Name Priority Date/Time Associated Diagnosis Comments BASIC METABOLIC PANEL Routine 10/04/2022 9:02 AM EST Achilles tendinitis of right lower extremity from Last 3 Months or Most Recently Relevant to Health Maintenance Results * (ABNORMAL) Basic metabolic panel (10/04/2022 9:02 AM EST) SODIUM 140 133 - 146 mmol/L [facility] CHLORIDE 106 96 - 108 mmol/L [facility] POTASSIUM 4.3 3.3 - 5.1 mmol/L [facility] CO2 28 21 - 35 mmol/L [facility] BUN 17 6 - 19 mg/dL [facility] CREATININE 0.90 0.5 - 1.5 mg/dL [facility] GLUCOSE 113(H) 70 - 99 mg/dL [facility] CALCIUM 9.4 8.4 - 10.3 mg/dL [facility] EGFR 89 >59 mL/min/1.7 3m2 [facility] Comment:Estimated glomerular filtration rate calculated using the CKD-EPI refit equation. ANION GAP 10 10 - 20 mmol/L [facility] Blood 10/04/2022 9:02 AM EST 10/04/2022 9:06 AM EST us Jared Church MD LAB BLOOD ORDERABLES Final Re sult [facility] [address] [place] [address] from Last 3 Months or Most Recently Relevant to Health Maintenance Insurance MEDICARE PART A & B [employer] MEDEX SUPPLEMENT MEDICARE PART A & B [employer] MEDEX SUPPLEMENT MEDICARE PART A & B [employer] MEDEX SUPPLEMENT MEDICARE PART A & B Member Subscriber Plan / Payer ( fective 2017-Present) Name:Dl Rollins Member ID:[id number] Relation to Subscriber:Self Name:RialD Subscriber ID:[id number] Payer ID:[id number] Group ID:Not on file Type:Medicare Address: [employer] [address] [place] [phone] [employer] MEDEX SUPPLEMENT MEDICARE PART A & B [employer] MEDEX SUPPLEMENT MEDICARE PART A & B [employer] MEDEX SUPPLEMENT MEDICARE PART A & B [employer] MEDEX SUPPLEMENT MEDICARE PART A & B [employer] MEDEX SUPPLEMENT MEDICARE PART A & B [employer] MEDEX SUPPLEMENT Care Teams Bobbin Dumper Relationship Specialty Start Date End Date Bianca You MD [address] [place] [id number] PCP - General Internal Medicine 09/03/22 Additional Source Comments The information contained in this document represents components of the legal health record. It is not the complete legal health record.[facility]
--- OUTSIDE RECORDS SUMMARY | 2025-08-09 07:29 | XMS_ITS | Patient Health Record ---
Author Organization [facility] Address [address] [place] [phone] Care Team Providers Care Hand Driller Name Role Phone Bianca You MD Primary Care Provider Osmany Ramires Jr Unavailable [phone] Allergies Allergen (clinical drug ingredient) Drug/Non Drug Allergy documented on EMR Reaction Allergy Type Onset Date Status morphine Morphine Sulfate Unknown Drug Allergy Active Results Component Value Reference Range Notes Pathology Reviewed date:11/03/2024 08:11:32 AM Interpretation: Performing Lab:[facility], [address] [place] [phone] Notes/Report: Reason For Referral No Information Medications Medication [...] Problem Status W/U Status Risk Notes Problem 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 (Z79.01) Active confirmed Problem 816249066 Special screenin g for malignant neoplasms, colon (Z12.11) Active confirmed Problem Dysphagia (78960525) Dysphagia (R13.10) Active confirmed Problem 641525992 Long-term use of aspirin therapy (Z79.82) Active confirmed Problem 26470390 Dysphagia, unspecified type (R13.10) Active confirmed Problem 116147343 FH: colon cancer (Z80.0) Active confirmed Encounters Encounter Location Date Provider Diagnosis [facility] [place] [place] Outpatient [address] [place] [id number] 10/26/2024 Osmany Alcantar Jr Colon cancer screening Z12.11 ; Colon polyps K63.5 and Dysphagia R13.10 [facility] [address] [place] [phone] 10/07/2024 Osmany Alcantar Jr [facility] [address] [place] [phone] 11/03/2024 Osmany Alcantar Jr Assessments Encounter Date [...] Date MEDICARE OF [place] [address] [place] [address] [id number] TANNER WILSON Self - patient is the insured MEDEX ATTN CLAIMS [address] [place] [address] [id number] TANNER WILSON Self - patient is the [...]
[2025-08-09 08:50] LABS: Prostate Specific Antigen 0.99 ng/mL (<0.05-4.0)
== END 2025-08-09 07:26 | disposition home or self-care (01) ==
LOC: HO.LAB 07:25
PROVIDERS: PCP Internal Medicine; Visit Provider Urology
DX: N40.1 Benign prostatic hyperplasia with lower urinary tract symptoms (principal); R33.8 Other retention of urine; Z12.5 Encounter for screening for malignant neoplasm of prostate
CPT/HCPCS: 36415; 84153

== ENCOUNTER 2025-09-26 13:24 | Outpatient (AMB) | payer MEDICARE, SELFPAY ==
--- NOTE | 2025-09-26 13:26 | A.OFFVIS_ITS ---
Vital Signs 3 09/26/25 13:37 Height 5 ft 8 in Weight 203 lb BMI 30.9 BP 139/65 Blood Pressure Location Lt brachial Position Sitting Pulse 82 Intake Visit Reasons: Bilateral inguinal hernias Intake Note: Patient is seen in office for evaluation of bilateral hernias. Pt c/o: hernia where incidental findings, hurting when he was golfing, right side does pop out , left side reducible and discomfort, recent weight loss 35 lbs, admits to constipation, denies any other concerns. See Hydrant Setter @ [facility] Dr[address] Faith CT:02/22/25 Vocational Rehabilitation Teacher Required: No Accompanied by: Self / Same As Patient Allergies morphine (MORPHINE) Allergy (Unknown, Verified 09/26/25 13:34) NAUSEA & VOMITING simvastatin Allergy (Unknown, Verified 09/26/25 13:34) muscle pains and med ineffective enviromental allergies Allergy (Unknown, Uncoded 09/26/25 13:34) Unknown Medication List - Last Reconciled 09/26/25 by Main Leblanc MD albuterol sulfate 90 mcg/actuation 2 puffs inhalation Q6H PRN aspirin (Adult Aspirin Regimen) 81 mg PO DAILY Held on 05/15/21. Instructions: Resume on 05/22/21. restart in 1 week celecoxib (Celebrex) 200 mg PO DAILY PRN dronedarone (Multaq) 400 mg PO BID fluticasone furoate-vilanterol 200-25 mcg/dose (Breo Ellipta) 1 inh inhalation .QEVENING losartan 50 mg PO DAILY rivaroxaban (Xarelto) 20 mg PO DAILY rosuvastatin (Crestor) 5 mg PO DAILY semaglutide (weight loss) (Wegovy) 0.25 mg (0.5 mL) subcut QWEEK umeclidinium 62.5 mcg/actuation (Incruse Ellipta) 1 inh inhalation DAILY HPI Comments Details: 80-year-old male patient presenting for evaluation of a right inguinal hernia. He was diagnosed with bilateral fat containing inguinal hernias in February 2024. Since this time he has lost 35 lb using a GLP 1 medication. As he has lost weight hernias increased in size and is now causing discomfort. He reports golfing at least 4 times weekly which seems to increase the pain associated with the right inguinal hernia. He denies any symptoms in the left side. He is currently wearing a hernia truss which seems to help the discomfort. He denies any nausea, vomiting, but does report constipation which he attributes to the weight loss medication. He also has a history of COPD which exacerbates the hernia. [facility] Medical History History of basal cell carcinoma Spondylosis Peripheral artery disease Hx of difficult intubation COVID-19 Elevated cholesterol Myocardial infarction Abdominal aortic aneurysm (AAA) Chronic bronchitis Renal calculi COPD (chronic obstructive pulmonary disease) Nephrolithiasis Hx of myocardial infarction PONV (postoperative nausea and vomiting) On beta didi at home On anticoagulant therapy Obesity (BMI 30-39.9) Coronary artery disease BPH (benign prostatic hyperplasia) Hyperlipidemia Impaired glucose tolerance Hypertension Paroxysmal atrial fibrillation Surgical History History of biopsy S/P TURP History of excision of pilonidal cyst History of cardiac ablation for atrial fibrillation Hx of surgical procedure (04/23/24) Hx of Achilles tendon repair (10/2022) Hx of basal cell carcinoma excision (~04/09/24) Hx of colonoscopy History of cardiac radiofrequency ablation (RFA) History of blepharoplasty Hx of appendectomy History of lumbar surgery H/O excision of lamina of cervical vertebra for decompression of spinal cord H/O rhinoplasty Family History Father No problems noted. Mother No problems noted. Social History Housing: House Are you a primary housekeeper child care to a significant other at home: No Do you presently have visiting nurse or other home services: No Alcohol intake: never Patient Tobacco Use Status: Former Tobacco user Tobacco use type: Cigarette and Cigar Cigarettes Per Day: 0 (Cigar on occasion) Years Smoked: 48 e-Cigarette/Vaping Use: Never Used Second Hand Smoke Exposure: Yes Current occupational status: retired Cognitive needs: No Hearing needs: No Vision needs: Yes Review of Systems Const All systems reviewed & are unremarkable except as noted in HPI and below Physical Exam Const General: cooperative and no acute distress Nutritional Appearance: well nourished Orientation/consciousness: patient oriented x3 Limitations: no limitations HEENT Head: Yes normocephalic and Yes atraumatic Ears: hearing grossly normal bilaterally Resp Effort & Inspection: normal respiratory effort, no audible wheezes, no cough and no respiratory distress Cardio Jugular venous distension: no JVD GI Other: Examination in the standing position reveals a palpable right inguinal hernia with no evidence of a left inguinal hernia. The of the right inguinal hernia increases in size with Valsalva maneuvers but then is reducible with light pressure. There is some tenderness to palpation. Inspection: Yes normal to inspection Palpation (GI): Soft to palpation, nontender, no guarding, not rigid and No hepatosplenomegaly present Percussion: Yes normal to percussion Auscultation: normal bowel sounds Abdomen image: 2 1. Right inguinal hernia, reducible Skin Other: Warm, dry, no rash Neuro General: patient oriented x3 Extrem General: Yes no clubbing, cyanosis or edema Assessment & Plan Assessment & Plan (1) Reducible right inguinal hernia: Code(s): K40.90 - Unilateral inguinal hernia, without obstruction or gangrene, not specified as recurrent Category: Medical Plan 80-year-old male patient presenting with a right inguinal hernia which is now asymptomatic. He was also noted to have a left inguinal hernia on CT however on examination no hernias appreciated. We discussed repair of the symptomatic right inguinal hernia with mesh and after discussion of the procedure, risks, and alternatives, he consents to repair of the right inguinal hernia with mesh. Coding Level of Care Code Est Pt Level 4 (46586) Diagnoses Reducible right inguinal hernia K40.90
[2025-09-26 13:37] VITALS: BP 139/65; PULSE 82; BMI 30.9
== END 2025-09-26 13:56 | disposition home or self-care (01) ==
LOC: HO.HGS 13:24
PROVIDERS: PCP Internal Medicine; Referring Provider Internal Medicine; Visit Provider Surgery
DX: K40.90 Unilateral inguinal hernia, without obstruction or gangrene, not specified as recurrent (principal)
CPT/HCPCS: 99214

== ENCOUNTER → 2025-09-26 13:24 | Outpatient (BNVA) | payer MEDICARE, SELFPAY | PROVIDERS: PCP Internal Medicine; Referring Provider Internal Medicine; Visit Provider Surgery | DX: K40.90 Unilateral inguinal hernia, without obstruction or gangrene, not specified as recurrent (principal) | CPT/HCPCS: 99212 ==

== ENCOUNTER 2025-10-05 13:26 | Outpatient (AMB) | payer MEDICARE, SELFPAY ==
--- OUTSIDE RECORDS SUMMARY | 2024-10-26 02:30 | XMS_ITS ---
Author Organization [facility] Address [address] [place] [phone] Care Team Providers Care Teaching Dietitian Name Role Phone Po Bianca GARCIA Primary Care Provider Osmany Ramires Jr [phone] REASON FOR VISIT dysphagia,screening Problems Problem Type SNOMED Code ICD Code Onset Dates Problem Status W/U Status Risk Notes Problem Dysphagia (15433425) Dysphagia (R13.10) Active confirmed Encounters Encounter Location Date Provider Diagnosis [facility] Outpatient [address] [place] [phone] 10/26/2024 Osmany Alcantar Jr Colon cancer screening Z12.11 ; Colon polyps K63.5 and Dysphagia R13.10 Assessments Encounter Date Diagnosis (ICD Code) Assessment Notes Treatment Notes Treatment Clinical Notes Section Notes 10/26/2024 Colon cancer screening (ICD-10 - Z12.11) 10/26/2024 Colon polyps (ICD-10 - K63.5) 10/26/2024 Dysphagia (ICD-10 - R13.10) Plan Of Treatment No Information Progress Notes * TANNER TITUS BDOB:[birth year] (80 yo M)Acc No.[id number]:10/26/2024 EGD and COL/MAC Patient: TANNER ORTEGA Provider: Rayray Alcantar MD :1945 A ge:79 Y S ex:Male Date:10/26/2024 Address:[address] [place], [place] [address] Pcp:Bianca You MD Subjective: * Chief Complaints: * 1 . Dysphagia,screening. * Medical History: Objective: * Vitals: Assessment: * Assessment: 1. C olon cancer screening - Z12.11 (Primary) 2 . C olon polyps - K63.5? 3. D ysphagia - R13.10 Plan: * Treatment: * Procedure Codes: 4 5385 LESION REMOVAL COLONOSCOPY, 76432 COLONOSCOPY AND BIOPSY, Modifiers: 59 , 0529F INTRVL 3+YRS PTS CLNSCP DOCD, 31781 UPPER GI ENDOSCOPY, BIOPSY * * The named appointment provid er may or may not be the originator of this progress note, and it is not deemed complete until electronically signed by the appointment provider. Sign off status: Pending * Provider: Rayray Alcantar MD Date: 12/27/2023 Generated for Darnell angulo/Ervin/Shobhaitting on: 12/05/2024 04:18 PM EST
--- OUTSIDE RECORDS SUMMARY | 2025-10-03 23:59 | XMS_ITS | Continuity of Care Document ---
Author Organization [facility] Iftikhar clement Address [address] [place] [address] [address] [place] [address]- Care Team Providers Care Helper Chicken Farm Name Role Phone Bianca You MD Primary Care Physician En[place] [facility] [place](s): 09/26/25 - 10/03/25 [facility] [address] [place] [id number] Attending Physician: Akhil Machado MD Encounter Type: Office Visit Allergies, Adverse Reactions, Alerts Substance Criticality Severity Reaction Reaction Severity Status morphine Active simvastatin 1 Other Active 1Outside Source Comment: Muscle pains. Med ineffective Functional Status Functional Status Assessment Assessment Assessment Component Result Effecti ve Disability status [CUBS] I'm Thriving - no identified disability 09/26/25 Because of a physica l, mental, or emotional condition, do you have difficulty doing errands alone such as visiting a physician's office or shopping Unknown 09/26/25 Are you deaf, or do you have serious difficulty hearing Unknown 09/26/25 Difficulty communica ting in usual language Unknown 09/26/25 Are you blind, or do you have serious difficulty seeing, even when wearing glasses Unknown 09/26/25 Do you need any pete tional assistance or accommodations during your visit Unknown 09/26/25 Do you have difficul ty dressing or bathing Unknown 09/26/25 Difficulty Reading O r Writing Unknown 09/26/25 Because of a physica l, mental, or emotional condition, do you have serious difficulty concentrating, remembering, or making decisions Unknown 09/26/25 Do you have serious difficulty walking or climbing stairs Unknown 09/26/25 Medications aspirin 81 mg oral delayed release tablet 81 mg, 1, tablet, By Mouth, Daily, # 30 tablet, Refills 0, Maintenance, 09/07/20 7:19:00 AM EDT Start Date: 09/07/20 Status: Ordered Medication Dispense Status: Completed Quantity: 30.0 Unit: tablet Total Allowed Fills: 1 Fills Dispensed: 0 Breo Ellipta 200 mcg-25 mcg/inh inhalation powder INHALE 1 DOSE BY MOUTH EVERY EVENING Start Date: 01/31/25 Status: Ordered Medication Dispense Status: Completed Total Allowed Fills: 1 Fills Dispensed: 0 celecoxib 200 mg oral capsule 1 capsule = 200 mg, By Mouth, Daily, PRN Pain , Severe, # 30 capsule, 0 Refills, Maintenance, 09/07/20 7:22:00 AM EDT, Capsule Start Date: 09/07/20 Status: Ordered Medication Dispense Status: Completed Quantity: 30.0 Unit: capsule Total Allowed Fills: 1 Fills Dispensed: 0 Incruse Ellipta = 62.5 mcg, Inhalation, Every 24 hours, 0 Refills, Maintenance, 08/19/25 12:58:00 PM EDT, Partial fill upon patient request if the prescription is for a schedule II opioid drug. Start Date: 08/19/25 Status: Ordered Medication Dispense Status: Completed Total Allowed Fills: 1 Fills Dispensed: 0 Losartan = 50 mg, By Mouth, Daily, 0 Refills, Maintenance, 09/11/23 3:19:00 PM EDT, Partial fill upon patient request if the prescription is for a schedule II opioid drug. Start Date: 09/11/23 Status: Ordered Medication Dispense Status: Completed Total Allowed Fills: 1 Fills Dispensed: 0 Multaq 400 mg oral tablet 1 tablet = 400 mg, By Mouth, 2 times a day, PRN Other, afib, # 60 tablet, 0 Refills, Maintenance, 09/07/20 7:18:00 AM EDT, Tablet Start Date: 09/07/20 Status: Ordered Medication Dispense Status: Completed Quantity: 60.0 Unit: tablet Total Allowed Fills: 1 Fills Dispensed: 0 ProAir RespiClick 90 mcg/inh inhalation powder 0 Refill(s), Inhale into the lungs as needed., 0 Refills, 09/26/25 10:14:00 AM EST, Partial fill upon patient request if the prescription is for a schedule II opioid drug. Start Date: 09/26/25 Status: Ordered Medication Dispense Status: Completed Total Allowed Fills: 1 Fills Dispensed: 0 rosuvastatin 5 mg oral capsule 1 capsule = 5 mg, By Mouth, Daily, # 30 capsule, 0 Refills, Maintenance, 09/07/20 7:17:00 AM EDT, Capsule Start Date: 09/07/20 Status: Ordered Medication Dispense Status: Completed Quantity: 30.0 Unit: capsule Total Allowed Fills: 1 Fills Dispensed: 0 Xarelto 20 mg oral tablet 1 tablet = 20 mg, By Mouth, Daily in PM, # 30 tablet, 0 Refills, Maintenance, 01/31/25 2:42:00 PM EDT, Tablet, Partial fill upon patient request if the prescription is for a schedule II opioid drug. Start Date: 01/31/25 Status: Ordered Medication Dispense Status: Completed Quantity: 30.0 Unit: tablet Total Allowed Fills: 1 Fills Dispensed: 0 Problem List Condition Confirmation Course Effective Dates Status H ealth Status Informant Atrial fibrillation Confirmed Active BPH (benign prostatic hyperplasia) Confirmed Active HX: anticoagulation Confirmed Active Hyperlipidemia Confirmed Active Hypertension Confirmed Active Vital Signs Most recent to oldest [Reference Range]: 1 Height 173 cm (09/26/25 10:23 AM) Weight 79.6 kg (09/26/25 10:23 AM) Oxygen Saturation [94-100 %] 100 % (09/26/25 10: AM) Pulse Rate [55-90 bpm] 75 bpm (09/26/25 10:23 AM) Body Mass Index [18.5-24.99 kg/m2] 26.6 kg/m2 *H* (09/26/25 10:23 AM) Blood Pressure [90-138/55-84 mm Hg] 122/ 44mm Hg (09/26/25 10:23 AM) Respiratory Rate [16-30 br/min] 16 br/mi n (09/26/25 10:23 AM) Temperature [96.8-100.4 DegF] 98.7 DegF (09/26/25 10:23 AM) Blood pressure sites Arm, left (09/26/25 10:23 AM) Temperature Route Temporal (09/26/25 10: AM) Weight Obtained Via Standing scale (09/26/25 10:23 AM) Social History Social History Type Response Smoking Status Former smoker, quit more than 30 days ago entered on: 08/10/25 Sex Sex Representation Male (finding) Patient Care team information Care Team Personnel Name: Eve Pritchett RN Position: JERED RN Member Role: Primary Care Nurse Name: Bianca You MD Position: Reference Physician Member Role: PCP Address: [address] [place] [address] Telecom: Care Team Related Persons Name: MAHSA TITUS Insurance Providers Guarantor name: TANNER TITUS Health Plan Information #: 1 Payer: MEDICARE B Payer Identifier: Member Number: [id number] Group Number: Subscriber Identifier: [id number] Relationship to Subscriber: self Coverage Type: NA Coverage Verification Date: NA Telecom: NA Address: NA Health Plan Information #: 2 Payer: MEDEX SECONDARY ONLY Payer Identifier: Member Number: [id number] Group Number: NA Subscriber Identifier: [id number] Relationship to Subscriber: self Coverage Type: Medicare Other Coverage Verification Date: NA Telecom: NA Address:
--- NOTE | 2025-10-05 13:43 | MHC.OFFVIS ---
Intake Visit Reasons: 6M PSA/PVR Intake Note: Patient is present for PSA/PVR Urology Med: None Antibiotic Allergy: None Blood Thinner: Xarelto, Aspirin LAST PVR:176ML PVR: 0ml 08/09/2025- PSA- 0.99 Floral Specialist Required: No Accompanied by: Self / Same As Patient Allergies morphine (MORPHINE) Allergy (Unknown, Verified 10/05/25 13:49) NAUSEA & VOMITING simvastatin Allergy (Unknown, Verified 10/05/25 13:49) muscle pains and med ineffective enviromental allergies Allergy (Unknown, Uncoded 10/05/25 13:49) Unknown HPI Comments Details: Dl TITUS is a very pleasant male. They are a patient of Dr Jones. They are seen in the office today for the following urologic conditions. 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 - lower urinary tract symptoms - microscopic hematuria Six-month follow-up PVR 0 cc Happy with urination Nocturia down to x1 12 month follow-up GreenLight laser 11/16 Follow-up for bladder emptying Required Gemtesa postprocedure for urinary urgency and frequency Baseline on anticoagulation Lower urinary tract symptoms GreenLight laser 11/16 Prior Cystoscopy shows enlarged right lateral lobe impinging on the bladder outlet Current medication finasteride every other day Microscopic Hematuria:? Stable ? Microscopic hematuria was diagnosed during?routine UA.? Since the last visit the patient has?noticed gross hematuria ?- occured when started xeralto at 20mg Jun 2017.? Relevant medical history for?anticoagulation therapy - xeralto and ASA ?, tobacco use 40 yppd ?,workplace exposures - organic solvents.? Radiographic imaging:?CT IVP 08/10 .? Radiology report?enlarged prostate , I have reviewed the films.? Other investigations?08/10 , cytology, normal.? Cystoscopy findings?08/10 enlarged prostate right lobe.? Therapeutic plan?follow in 12 months with appropriate investigations, continue medications.? [facility] Medical History History of basal cell carcinoma Spondylosis Peripheral artery disease Hx of difficult intubation COVID-19 Elevated cholesterol Myocardial infarction Abdominal aortic aneurysm (AAA) Chronic bronchitis Renal calculi COPD (chronic obstructive pulmonary disease) Nephrolithiasis Hx of myocardial infarction PONV (postoperative nausea and vomiting) On beta didi at home On anticoagulant therapy Obesity (BMI 30-39.9) Coronary artery disease BPH (benign prostatic hyperplasia) Hyperlipidemia Impaired glucose tolerance Hypertension Paroxysmal atrial fibrillation Surgical History History of biopsy S/P TURP History of excision of pilonidal cyst History of cardiac ablation for atrial fibrillation Hx of surgical procedure (04/23/24) Hx of Achilles tendon repair (10/2022) Hx of basal cell carcinoma excision (~04/09/24) Hx of colonoscopy History of cardiac radiofrequency ablation (RFA) History of blepharoplasty Hx of appendectomy History of lumbar surgery H/O excision of lamina of cervical vertebra for decompression of spinal cord H/O rhinoplasty Family History Father No problems noted. Mother No problems noted. Social History Housing: House Are you a primary child caregiver private home to a significant other at home: No Do you presently have visiting nurse or other home services: No Alcohol intake: never Patient Tobacco Use Status: Former Tobacco user Tobacco use type: Cigarette and Cigar Cigarettes Per Day: 0 (Cigar on occasion) Years Smoked: 48 e-Cigarette/Vaping Use: Never Used Second Hand Smoke Exposure: Yes Current occupational status: retired Cognitive needs: No Hearing needs: No Vision needs: Yes Review of Systems Const Denies chills and Denies fever(s) Card Reports no additional complaints and Denies syncope Resp Denies cough GI Denies abdominal pain and Denies heartburn Reports as per HPI and Denies change in libido Neuro Denies syncope Psych Denies change in libido Endo Denies change in libido Physical Exam Const General: cooperative, healthy appearing, comfortable and no acute distress Orientation/consciousness: patient oriented x3 HEENT Face and sinus: Yes normal facial exam Mouth: moist mucous membranes Neck Neck: Yes normal visual inspection, Yes full ROM and Yes trachea midline Chest Chest palpation & inspection: normal inspection of the chest Resp Effort & Inspection: normal respiratory effort, able to speak in complete sentences and no respiratory distress GI Inspection: Yes normal to inspection Back/Spine/Pelvis Cervical Spine: normal cervical lordosis Thoracic/Lumbar Spine: thoracic and lumbar spine normal to inspection Skin General skin exam: no rashes or lesions noted Neuro General: patient oriented x3, gait normal, tone normal and moves all extremities Extrem General: Yes normal to inspection and Yes capillary refill normal Office Procedures Post Void Residual Post Residual Void Post Void Residual (PVR): 0 [id number] Void Residual by ultrasound Assessment & Plan Assessment & Plan (1) Weak urinary stream: Code(s): R39.12 - Poor urinary stream Category: Medical (2) BPH (benign prostatic hyperplasia): Code(s): N40.0 - Benign prostatic hyperplasia without lower urinary tract symptoms Category: Medical Qualifiers: Lower urinary tract symptom presence: symptoms present Lower urinary tract symptom detail: weak urinary stream Qualified Code(s): N40.1 - Benign prostatic hyperplasia with lower urinary tract symptoms; R39.12 - Poor urinary stream (3) Bladder instability: Code(s): N32.89 - Other specified disorders of bladder Category: Medical Plan Twelve month follow-up Orders: Orders AMB Post Void Residual by ultrasound Today N40.1 - Benign prostatic hyperplasia with lower urinary tract symptoms, R33.9 - Retention of urine, unspecified Patient Instructions: This note is constructed using voice recognition software. While every effort has been made to ensure accuracy commercial collections specialist errors may have been included. Imaging studies, laboratory and physical exam results were discussed and reviewed in detail. No major barriers to patient understanding were identified. An opportunity to ask questions regarding the treatment plan was provided. All questions were answered. The patient expressed understanding and agreement with the above treatment plan. The patient is aware they should contact our office by phone for worsening of their current condition or the appearance of new urologic symptoms. Compliance is encouraged with any medications and followup testing that is ordered. It is a privilege to participate in the urologic care of your patient. If you have any questions or concerns regarding treatment for the above conditions, or other urologic issues, please do not hesitate to contact me. The office telephone contact is [phone]. Sincerely, Dr Thom Billingsley MD, [facility] - Urology Compassionate Specialist Care for the Genitourinary System Coding Level of Care Code Est Pt Level 3 (73750) Complex EM visit Add On G2211 Diagnoses Weak urinary stream R39.12 Benign prostatic hyperplasia with weak urinary stream N40.1; R39.12 Lower urinary tract symptom presence: symptoms present Lower urinary tract symptom detail: weak urinary stream Bladder instability N32.89 CPT Codes Post Residual Void - PVR CPT Code: 17851-Awkz Void Residual by ultrasound ([id number])
--- OUTSIDE RECORDS SUMMARY | 2025-10-05 16:18 | XMS_ITS | Clinical Summary ---
Author Organization [facility] Address [address] [place] [address] Care Team Providers Care Assistant Professor Nurse Education Name Role Phone Unavailable Primary Care Provider [...] 75+ series) 2022 COVID-19 Vaccine ( - 2024-2 6 season) 2025 Influenza (#1) 2025 HPV Vaccine [...]
--- OUTSIDE RECORDS SUMMARY | 2025-10-05 16:18 | XMS_ITS | Encounter Summary ---
Author Organization [facility] Address [address] [place] [address] Phone Care Team Providers Care Control Clerk Name Role Phone Bianca You MD Primary Care Provider [phone] Encounter Details Date Type Department Care Team (Late st Contact Info) Description 10/29/2022 Procedure Pass OR Admitting Dept - Virtual Department [address] [place] [id number] Social History Tobacco Use Types Packs/Day Years [...] on filedocumented in this encounter Care Teams Control Clerk Relationship Specialty Start Date End Date Bianca You MD [address] [place] [phone] PCP - General Internal Medicine 09/03/22 documented as of this encounter Additional Source Comments The information contained in this document represents components of the legal health record. It is not the complete legal health record.[facility]
--- OUTSIDE RECORDS SUMMARY | 2025-10-05 16:18 | XMS_ITS | Patient Health Record ---
Author Organization [facility] Address [address] [place] [phone] Care Team Providers Care Oil Field Operator Name Role Phone Bianca You MD Primary Care Provider Osmany Ramires Jr Unavailable Allergies Allergen (clinical drug ingredient) Drug/Non Drug Allergy documented on EMR Reaction Allergy Type Onset Date Status morphine Morphine Sulfate Unknown Drug Allergy Active Results Component Value Reference Range Notes Pathology Reviewed date:11/03/2024 08:11:32 AM Interpretation: Performing Lab:[facility], [address] [place] [phone] Notes/Report: Reason For Referral No Information Medications Medication SIG (Take, Route, Frequency, Duration) Notes Start Date End Date Status Flonase Active Albuterol Sulfate Ac tive Losartan Potassium 50 MG 1 tablet Orally Once a day; Duration: 30 day(s) Active Multaq 400 MG 1 tablet with meals Orally Twice a day; Duration: 30 day(s) Active Incruse Ellipta 62.5 MCG/ACT [...] at 5:00 p.m. the day before the procedure; Duration: 1 day 08/05/2024 Active Immunizations Vaccine Route Administration Date Status Comme nts Influenza Unknown 09/06/2020 Administered Influenza Unknown 09/16/2023 Administered Problems Problem Type SNOMED Code ICD Code Onset Dates Problem Status W/U Status Risk Notes Problem Long-term current use of anticoagulant (525708189) detention (current) use of anticoagulants (Z79.01) Active confirmed Problem Screening for malignant neoplasm of colon (104505250) Special screening for malignant neoplasms, colon (Z12.11) Active confirmed Problem Dysphagia (76273132) Dysphagia (R13.10) Active confirmed Problem Long-term current use of antiplatelet drug (229100727497442) Long-term use of aspirin therapy (Z79.82) Active confirmed Problem Dysphagia (42048284) Dysphagia, unspecified type (R13.10) Active confirmed Problem Family history of malignant neoplasm of gastrointestinal tract (882833797) FH: colon cancer (Z80.0) Active confirmed Encounters Encounter Location Date Provider Diagnosis [facility] [address] [place] [id number] 10/26/2024 Osmany Alcantar Jr Colon cancer screening Z12.11 ; Colon polyps K63.5 and Dysphagia R13.10 [facility] [address] [place] [phone] 10/07/2024 Osmany Alcantar Jr [facility] [address] [place] [phone] 11/03/2024 Osmany Alcantar Jr Assessments Encounter Date [...] Date MEDICARE OF [place] [address] [place] [address] [id number] TANNER WILSON Self - patient is the insured MEDEX ATTN CLAIMS [address] [place] [address] [id number] TANNER WILSON Self - patient is the insured Medical (General) History Medical History History ICD Code personal history of tubular adenomas, last colonoscopy 05/14, multiple polyps, three-year followup coronary artery disease with history of SD, 1995 elevated cholesterol nehprolithiasis Atrial fibrillation, status post cardiac ablation 10/13 COPD Difficult intubation at the time of his Achilles surgery Covid 19 infection, November 2023 Spondylosis Peripheral arterial disease Surgical History Surgery Date(Month/Year) rhinoplasty L4-5 disc surgery for compression appendectomy 01/2019 cardiac ablation 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
--- OUTSIDE RECORDS SUMMARY | 2025-10-05 16:18 | XMS_ITS | Clinical Summary ---
Author Organization [facility] Address [address] [place] [phone] Phone Care Team Providers Care Line Haul Truck Driver Name Role Phone Bianca You MD Primary Care Provider [phone] Allergies Active Allergy Reactions Criticality Noted Date [...] TABLET DAILY 90 tablet 3 5 Active Multaq 400 mg tablet TAKE 1 TABLET TWICE A DAY 180 tablet 1 5 Active rivaroxaban (Xarelto) 20 mg tablet TAKE 1 TABLET ONCE DAILY WITH DINNER 90 tablet 1 5 Active rivaroxaban (Xarelto) 20 mg tablet Take 1 tablet (20 mg total) by mouth 1 (one) time each day with dinner. 90 tablet 1 5 09/22/20 25 Discontinued Active Problems Problem Noted Date [...] and presents in sinus rhythm today . [id number] score of 3 for hypertension and age [...] Encounters Date Type Department Care Team Description 09/27/2025 Telephone [facility] [address] [place] [address] MarcellJaswinder Montilla MD from Last 3 Months Immunizations Immunization Administration Dates Next Due Influenza trivalent, 0.5mL [...] 09/30/2017 DX:Palpabl e mass of neck Old LA (myocardial infarction) 09/30/2017 D X:Old LA (myocardial infarction); COMMENT: 1996 Carotid stenosis 09/30/2017 [...] Care Team (Late st Contact Info) Description 10/12/2025 12:40 PM EST Consult [facility] [address] [place] [address] Salina Jennings NP [address] [place] [address] [place] [address] 04/26/2026 11:30 AM EDT Office Visit [facility] [place] [address] [place] [address] Elsy Khan MD [facility] [place] [phone] Health Maintenance Due Date Last Done Comments Zoster Vaccines (1 of 2) 1997 Cholesterol Screening (Lipid Panel) 11/03/2022 Falls Risk Assessment 11/03/2022 Hepatitis C Screening 11/03/2022 Medicare Annual Wellness Visit 11/03/2022 Social Influencers of Health Screening 11/03/2022 Depression Screening 11/24/2024 Hypertension/CHF/CAD Annual BMP Blood Test 01/28/2025 01/29/2024 COVID-19 Vaccine ( season) 2025 02/04/2025, 08/09/2024, 09/04/2023, Additional history exists Influenza Vaccine (#1) 2025 , 09/04/2023, 09/20/2022, Additional history exists DTaP,Tdap,and Td Vaccines (2 - Td or Tdap) 12/12/2026 12/12/2016 Pneumococcal Vaccine: 50+ Years Completed 12/11/2022 RSV Immunization Adult Patients Completed 08/21/2023 HIB Vaccines Aged Out No longer eligi [...] BMP Blood Test Abstracted us Historical Provider MD HEALTH MAINTENANCE Final Result from Last 3 Months or Most Recently Relevant to Health Maintenance Insurance MEDICARE [facility] Care Teams Line Haul Truck Driver Relationship Specialty Start Date End Date Bianca You MD [address] [place] [address] [address] [facility] [place] [address] PCP - General Internal Medicine 11/08/21
--- OUTSIDE RECORDS SUMMARY | 2025-10-05 16:18 | XMS_ITS | Clinical Summary ---
Author Organization [facility] Address [address] [place] [phone] Phone Care Team Providers Care Car Cooper Name Role Phone Bianca You MD Primary Care Provider [phone] Allergies Active Allergy Reactions Criticality Noted Date [...] patient's age to complete this topic IPV VACCINES Aged Out No longer eligi ble based on patient's age to complete this topic MENINGOCOCCAL VACCINES (ACWY) Aged Out No longer eligible based on patient's age to complete this topic MENINGOCOCCAL VACCINES (B) Aged Out N o longer eligible based on patient's age to complete this topic Medical Devices Implanted Type Area [employer] Adviser Device Identifier Shelf Expiration Date Model / Serial / Lot Pin Pin Spine Lumbar Description:Pt has had 2 lum bar surgeries and has implants from those procecdures coflex l4-5 System Implant Achilles Speedbridge [employer] - [id number] Implanted:Qty: 1 on 10/29/2022 by Jared Church MD at [facility] Right: Achilles Tendon [employer] 06/23/2026 [id number] / / [id number] Procedures Procedure Name Priority Date/Time Associated Diagnosis Comments BASIC METABOLIC PANEL (BMP) Routine 10/04/2022 9:02 AM EST Achilles tendinitis of right lower extremity from Last 3 Months or Most Recently Relevant to Health Maintenance Results * (ABNORMAL) Basic metabolic panel (10/04/2022 9:02 AM EST) SODIUM 140 133 - 146 mmol/L [facility] CHLORIDE 106 96 - 108 mmol/L [facility] POTASSIUM 4.3 3.3 - 5.1 mmol/L [facility] CO2 28 21 - 35 mmol/L [facility] BUN 17 6 - 19 mg/dL [facility] CREATININE 0.90 0.5 - 1.5 mg/dL [facility] GLUCOSE 113(H) 70 - 99 mg/dL [facility] CALCIUM 9.4 8.4 - 10.3 mg/dL [facility] EGFR 89 >59 mL/min/1.7 3m2 [facility] Comment:Estimated glomerular filtration rate calculated using the CKD-EPI refit equation. ANION GAP 10 10 - 20 mmol/L [facility] Blood 10/04/2022 9:02 AM EST 10/04/2022 9:06 AM EST Jared Church MD LAB BLOOD BKR ORDERABLES Lila lucero Result [facility] [address] [place] [address] from Last 3 Months or Most Recently Relevant to Health Maintenance Insurance MEDICARE PART A & B [employer] MEDEX SUPPLEMENT MEDICARE PART A & B Member Subscriber Plan / Payer (Ef fective 2017-Present) Name:Dl Rollins Member ID:[id number] Relation to Subscriber:Self Name:Dl Rollins Subscriber ID:[id number] Payer ID:[id number] Group ID:Not on file Type:Medicare Address: [employer] [address] [employer] CROSS MEDEX SUPPLEMENT MEDICARE PART A & B [employer] CROSS MEDEX SUPPLEMENT MEDICARE PART A & B [employer] MEDEX SUPPLEMENT MEDICARE PART A & B [employer] CROSS MEDEX SUPPLEMENT MEDICARE PART A & B [employer] CROSS MEDEX SUPPLEMENT MEDICARE PART A & B [employer] CROSS MEDEX SUPPLEMENT MEDICARE PART A & B [employer] MEDEX SUPPLEMENT MEDICARE PART A & B [employer] MEDEX SUPPLEMENT Care Teams Car Cooper Relationship Specialty Start Date End Date Bianca You MD [address] [place] [phone] PCP - General Internal Medicine 09/03/22 Additional Source Comments The information contained in this document represents components of the legal health record. It is not the complete legal health record.[facility]
== END 2025-10-05 14:35 | disposition home or self-care (01) ==
LOC: HO.HUSH 13:27
PROVIDERS: PCP Internal Medicine; Visit Provider Urology
DX: N40.1 Benign prostatic hyperplasia with lower urinary tract symptoms (principal); R39.12 Poor urinary stream; N32.89 Other specified disorders of bladder
CPT/HCPCS: 99213; G2211

== ENCOUNTER → 2025-10-05 13:26 | Outpatient (BNVA) | payer MEDICARE, SELFPAY | PROVIDERS: PCP Internal Medicine; Visit Provider Urology | DX: N40.1 Benign prostatic hyperplasia with lower urinary tract symptoms (principal); R39.12 Poor urinary stream; N32.89 Other specified disorders of bladder; Z79.01 Long term (current) use of anticoagulants; Z79.82 Long term (current) use of aspirin; Z87.891 Personal history of nicotine dependence | CPT/HCPCS: 51798; 99212 ==

== ENCOUNTER 2025-11-02 10:25 | Day surgery (SDC) | payer MEDICARE, SELFPAY ==
--- OUTSIDE RECORDS SUMMARY | 2024-10-26 02:30 | XMS_ITS ---
Author Organization [facility] Address [address] [place] [phone] Care Team Providers Care Solderer Assembly Repair Name Role Phone Po Bianca GARCIA Primary Care Provider Osmany Ramires Jr REASON FOR VISIT dysphagia,screening Problems Problem Type SNOMED Code ICD Code Onset Dates Problem Status W/U Status Risk Notes Problem Dysphagia (15643690) Dysphagia (R13.10) Active confirmed Encounters Encounter Location Date Provider Diagnosis [facility] [place] Outpatient [address] [place] [id number] 10/26/2024 Osmany Alcantar Jr Colon cancer screening Z12.11 ; Colon polyps K63.5 and Dysphagia R13.10 Assessments Encounter Date Diagnosis (ICD Code) Assessment Notes Treatment Notes Treatment Clinical Notes Section Notes 10/26/2024 Colon cancer screening (ICD-10 - Z12.11) 10/26/2024 Colon polyps (ICD-10 - K63.5) 10/26/2024 Dysphagia (ICD-10 - R13.10) Plan Of Treatment No Information Progress Notes * TANNER TITUS BDOB:[birth year] (80 yo M)Acc No.[id number]:10/26/2024 EGD and COL/MAC Patient: TANNER ORTEGA Provider: Rayray Alcantar MD :1945 A ge:79 Y S ex:Male Date:10/26/2024 Address:[address] [place], [place] [address] Pcp:Bianca You MD Subjective: * Chief Complaints: * D ysphagia,screening Assessment: * Assessment: 1. C olon cancer screening - Z12.11 (Primary) 2 . C olon polyps - K63.5? 3. D ysphagia - R13.10 Plan: * Procedure Codes: 4 5385 LESION REMOVAL [id number] COLONOSCOPY AND BIOPSY, Modifiers: 59 0529F INTRVL 3+YRS PTS CLNSCP [id number] UPPER GI ENDOSCOPY, BIOPSY Billing Information: * Procedure Codes: 46068 LESION REMOVAL COLONOSCOPY. 68451 COLONOSCOPY AND BIOPSY. Modifiers: 59 0529F INTRVL 3+YRS PTS CLNSCP DOCD. 83114 UPPER GI ENDOSCOPY, BIOPSY. * The named appointment provid er may or may not be the originator of this progress note, and it is not deemed complete until electronically signed by the appointment provider. Sign off status: Pending * Provider: Rayray Alcantar MD Date: 12/27/2023 Generated for Darnell angulo/Ervin/Shobhaitting on: 12/14/2024 08:18 AM EST
--- OUTSIDE RECORDS SUMMARY | 2025-10-12 12:40 | XMS_ITS | Encounter Summary ---
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 Arc Name Role Phone Bianca You MD Primary Care Provider Reason for Referral * Imaging (Routine) - Authorized Specialty Diagnoses / Procedures Referred By Contac t Referred To Contact Radiology Diagnoses Ascending aorta dilation (CMS/HCC V24) Procedures CT Angio Chest wo and/or w Contrast Salina Jennings NP [address] [place] [address] [address] [place] [address] Phone: tel: fax: External Performed Referral ID Status Reason Start Date Expiration Date V isits Requested Visits Authorized [id number] Authorized 10/12/2025 10/12/2026 1 1 Reason for Visit * Reason Comments Follow-up Encounter Details Date Type Department Care Team (Late st Contact Info) Description 10/12/2025 12:40 PM EST Consult [facility] [address] [place] [address] Salina Jennings NP [address] [place] [address] [address] [place] [address] Coronary artery disease involving [place] coronary artery of [place] heart without angina pectoris (Primary Dx); Ascending aorta dilation (CMS/HCC V24); Primary hypertension; Mixed hyperlipidemia; Preop cardiovascular exam Social History Tobacco Use Types Packs/Day Years [...] Sign Reading Time Taken Comments Blood Pressure 138/80 10/12/2025 12:33 PM EST Pulse 71 10/12/2025 12:33 PM EST Temperature - - Respiratory Rate - - Oxygen Saturation 98% 10/12/2025 12:33 PM EST Inhaled Oxygen Concentration - - Weight 79.6 kg (175 lb 8 oz) 10/12/2025 12:33 PM EST Height 172.7 cm (5' 8 ) 10/12/2025 12:33 PM EST Body Mass Index 26.68 10/12/2025 12:33 PM EST documented in this encounter Progress Notes * Salina Jennings NP - 10/12/2025 12:40 PM ESTAssociated Problem(s): CAD (coronary artery disease) Patient has a history of coronary artery disease. Currently, he denies any anginal symptoms or episodes of chest pain. He will continue on his current cardioprotective medical therapy with statin, aspirin as prescribed. Orders: ECG 12 lead Comprehensive metabolic panel; Future * Salina Jennings NP - 10/12/2025 12:40 PM ESTAssociated Problem(s): Ascending aorta dilation (CMS/HCC V24) Patient has a history of a ascending aorta dilation at 4.3 cm and aortic root of 4.3 cm. He does follow with vascular surgery and has undergone CT angiogram of abdomen and pelvis in the past. Given his risk profile, the criteria for repair according to the 2022 ACC aortic disease guidelinesare: Ascending thoracic aneurysm measuring more than 5.5 cm (level 1 recommendation) or measuring more than 5.0 cm (level 2A recommendation) or rapid growth (defined as a growth of more than 0.3 cm/year in 2 consecutive years or more than 0.5 cm /year in a single year-level 1 recommendation). Has this patient met guideline recommended criteria for repair: no Blood pressure controlled: yes Is the patient on beta-blockers or JACKIE inhibitors: On losartan Management plan: Recommend he undergo CTA chest in December 2024 to reevaluate his ascending aorta and to visualize the descending thoracic aorta for involvement. Education plan: 1. The patient was extensively counseled during today's visit regarding the warning symptoms that should prompt an urgent evaluation in the emergency room given his history of an aortic aneurysm. Specifically, the patient was instructed to go to the emergency room immediately if he had any symptomsof sudden chest, back, or abdominal pain. 2. The patient was extensively counseled during today's visit regarding the weight lifting restrictions that he should maintain in order to avoid worsening dilation of his aneurysm or an acute aorticsyndrome such as an aortic dissection. The patient was counseled regarding the fact that an acute aortic syndrome such as an aortic dissection could be fatal. As such, he was instructed to avoid lifting any objects weighing more than 30 pounds. The patient was also counseled to avoid participating in any contact sports. Orders: CT Angio Chest wo and/or w Contrast; Future * Salina Jennings NP - 10/12/2025 12:40 PM ESTAssociated Problem(s): Hypertension Blood pressure adequate today. In the past, we have discussed increasing his losartan which we had, however ultimately did not continue increased dose due to increased dizziness. He continues to monitor his blood pressures at home which have been adequate. He will continue to monitor and let me know of any consistently elevated readings. * Salina Jennings NP - 10/12/2025 12:40 PM ESTAssociated Problem(s): Hyperlipidemia Patient has a history of hyperlipidemia as well as a history of coronary disease. Will obtain fasting lipid panel to reassess his lipid control. In the meantime, he will continue his current statin therapy. Orders: Lipid panel with reflex to direct LDL; Future * Salina Jennings NP - 10/12/2025 12:40 PM ESTAssociated Problem(s): Preop cardiovascular exam Patient's cardiac problems are optimized on current medical therapy. Patient's activity level represents greater than 4 METS. Patient does not require any further testing at this time. Using the KOROMA cardiac risk assessment patient is at a 0.4% risk for perioperative myocardial infarction or cardiac arrest. Patient is at acceptable risk for the proposed surgical procedure. Given his history of atrial fibrillation, would recommend to maintain the patient on close cardiac monitoring throughout the procedure. He may consider holding his anticoagulation therapy with Xarelto for 2 to 3 days prior to the proposed procedure. I would recommend to restart the patient's anticoagulation therapy after the procedure, once hemostasis had been achieved under the discretion of thesurgeon. * Salina Jennings NP - 10/12/2025 12:40 PM EST Images from the original note were not included. [facility] PRIMARY DEBRANDER: Jaswinder Larson MD PCP: Bianca You MD HPI: Dl Rollins is a 80 y.o. old male with a history of paroxysmal atrial fibrillation status post ablation in August 2020, coronary artery disease status post an inferior myocardial infarction in 1995 (at that time, a left heart catheterization was done which showed a CONTENT PRODUCTION SPECIALIST of the diagonal branch, a CONTENT PRODUCTION SPECIALIST of the PLVB and a 50% occlusion of the OM which has been managed medically), current cigarsmoker, COPD, arterial hypertension, ascending aorta dilation, PAD followed by vascular surgery, and spinal stenosis. Patient presents today for preoperative cardiovascular risk assessment. He is being considered for right inguinal hernia with mesh. Patient denies any chest pain, dyspnea, dizziness, palpitations, orthopnea, PND, syncope, near syncope, or peripheral edema. He is taking all his medications as prescribed and denies cardiac concerns today. Cardiac Testin. Echocardiogram completed in January 2023 showed normal left ventricular chamber size. Mild concentric LVH. Normal regional motion. LVEF 55 to 60%. Normal left ventricular diastolic function. The RV is normal in size and systolic function. Mild aortic insufficiency. Ascending aorta 4.2 cm dilatation. No significant changes when compared to the prior echocardiogram. 2. Lower extremity arterial duplex completed 2020 revealed right leg was less than 50% stenosis in the right external iliac artery/right COAT PRESSER/right SFA. Left leg was less than 50% stenosis in the left external iliac artery/left COAT PRESSER, diffuse disease in the distal left SFA without elevated velocities.The patient was seen by vascular surgery and no vascular intervention was indicated at that time. He was recommended he continue on statin and aspirin therapies. 3. 30-day Holter monitor May 2023 in the setting of paroxysmal atrial fibrillation. The predominant rhythm was sinus rhythm with an average heart rate of 73 bpm. Occasional PACs and PVCs were noted.There were no sustained arrhythmias. 4. Stress echocardiogram June 2023: The patient was able to exercise for 4 minutes and 53 seconds. He achieved 85% of the maximum predicted heart rate on a standard Jesús protocol. There was no EKGchanges suggestive of ischemia and patient denied chest pain during exercise protocol. There was no echocardiographic evidence of exercise-induced cardiac ischemia. 5. Echocardiogram 12/29/2024 showed normal left ventricular cavity size and systolic function with LVEF 55 to 60%. No regional wall motion abnormalities. Mild LVH. Normal RV size and function. Mild aortic valve regurgitation. Mild mitral valve regurgitation. Aortic root 4.3 cm and ascending aorta 4.3cm. ACTIVE MEDICATIONS: Medications Taking[1] PAST MEDICAL HISTORY: Problem List[2] ALLERGIES: Allergies[3] SOCIAL HISTORY: Social History Tobacco Use Smoking status: Former Smokeless tobacco: Never Substance Use Topics Alcohol use: No PHYSICAL EXAM: Vitals: 10/12/25 1233 BP: 138/80 BP Location: Right arm Patient Position: Sitting BP Cuff Size: Small adult Pulse: 71 SpO2: 98% Weight: 79.6 kg (175 lb 8 oz) Height: 1.727 m (68 ) Physical Exam Constitutional: General: He is awake. He is not in acute distress. Appearance: He is well-developed. He is not diaphoretic. HENT: Head: Normocephalic. Eyes: Pupils: Pupils are equal, round, and reactive to light. Neck: Vascular: No carotid bruit, hepatojugular reflux or JVD. Cardiovascular: Rate and Rhythm: Normal rate and regular rhythm. Pulses: Normal pulses and intact distal pulses. Heart sounds: Normal heart sounds, S1 normal and S2 normal. No murmur heard. Pulmonary: Effort: Pulmonary effort is normal. No respiratory distress. Breath sounds: Normal breath sounds. No wheezing, rhonchi or rales. Chest: Chest wall: No tenderness. Abdominal: General: Bowel sounds are normal. There is no distension. Palpations: Abdomen is soft. Tenderness: There is no abdominal tenderness. Musculoskeletal: General: No swelling or deformity. Normal range of motion. Right lower leg: No edema. Left lower leg: No edema. Skin: General: Skin is warm and dry. Neurological: Mental Status: He is oriented to person, place, and time. Psychiatric: Attention and Perception: Attention normal. Mood and Affect: Mood normal. Speech: Speech normal. EKG: Encounter Date: 10/12/25 ECG 12 lead Result Value Ventricular Rate ECG 71 Atrial Rate 71 P-R Interval 164 QRS Duration 98 Q-T Interval 384 QTc 417 P Wave Dexter 30 R Dexter 63 T Dexter 46 ECG Interpretation Normal sinus rhythm Normal ECG When compared with ECG of 13-OCT-2024 09:18, No significant change was found *Note: Due to a large number of results and/or encounters for the requested time period, some results have not been displayed. A complete set of results can be found in Results Review. ASSESSMENT/PLAN: Assessment & Plan Coronary artery disease involving [place] coronary artery of [place] heart without angina pectoris Patient has a history of coronary artery disease. Currently, he denies any anginal symptoms or episodes of chest pain. He will continue on his current cardioprotective medical therapy with statin, aspirin as prescribed. Orders: ECG 12 lead Comprehensive metabolic panel; Future Ascending aorta dilation (CMS/HCC V24) Patient has a history of a ascending aorta dilation at 4.3 cm and aortic root of 4.3 cm. He does follow with vascular surgery and has undergone CT angiogram of abdomen and pelvis in the past. Given his risk profile, the criteria for repair according to the 202 ACC aortic disease guidelinesare: Ascending thoracic aneurysm measuring more than 5.5 cm (level 1 recommendation) or measuring more than 5.0 cm (level 2A recommendation) or rapid growth (defined as a growth of more than 0.3 cm/year in 2 consecutive years or more than 0.5 cm /year in a single year-level 1 recommendation). Has this patient met guideline recommended criteria for repair: no Blood pressure controlled: yes Is the patient on beta-blockers or JACKIE inhibitors: On losartan Management plan: Recommend he undergo CTA chest in December 2024 to reevaluate his ascending aorta and to visualize the descending thoracic aorta for involvement. Education plan: 1. The patient was extensively counseled during today's visit regarding the warning symptoms that should prompt an urgent evaluation in the emergency room given his history of an aortic aneurysm. Specifically, the patient was instructed to go to the emergency room immediately if he had any symptomsof sudden chest, back, or abdominal pain. 2. The patient was extensively counseled during today's visit regarding the weight lifting restrictions that he should maintain in order to avoid worsening dilation of his aneurysm or an acute aorticsyndrome such as an aortic dissection. The patient was counseled regarding the fact that an acute aortic syndrome such as an aortic dissection could be fatal. As such, he was instructed to avoid lifting any objects weighing more than 30 pounds. The patient was also counseled to avoid participating in any contact sports. Orders: CT Angio Chest wo and/or w Contrast; Future Primary hypertension Blood pressure adequate today. In the past, we have discussed increasing his losartan which we had,however ultimately did not continue increased dose due to increased dizziness. He continues to monitor his blood pressures at home which have been adequate. He will continue to monitor and let me know of any consistently elevated readings. Mixed hyperlipidemia Patient has a history of hyperlipidemia as well as a history of coronary disease. Will obtain fasting lipid panel to reassess his lipid control. In the meantime, he will continue his current statin therapy. Orders: Lipid panel with reflex to direct LDL; Future Preop cardiovascular exam Patient's cardiac problems are optimized on current medical therapy. Patient's activity level represents greater than 4 METS. Patient does not require any further testing at this time. Using the KOROMA cardiac risk assessment patient is at a 0.4% risk for perioperative myocardial infarction or cardiac arrest. Patient is at acceptable risk for the proposed surgical procedure. Given his history of atrial fibrillation, would recommend to maintain the patient on close cardiac monitoring throughout the procedure. He may consider holding his anticoagulation therapy with Xarelto for 2 to 3 days prior to the proposed procedure. I would recommend to restart the patient's anticoagulation therapy after the procedure, once hemostasis had been achieved under the discretion of thesurgeon. Thank you for allowing us to participate in the care of this patient. The patient will follow up in6 mos, sooner PRN. As per AHA guidelines and previously established plan of care by Dr. Jaswinder Faith-Roldan GARCIA, we discussed the following today: 1. Coronary artery disease involving [place] coronary artery of [place] heart without angina pectoris 2. Ascending aorta dilation (CMS/HCC V24) 3. Primary hypertension 4. Mixed hyperlipidemia 5. Preop cardiovascular exam [facility] [1] Outpatient Medications Marked as Taking for the 10/12/25 encounter (Consult) with Salina Jennings NP Medication Sig Dispense Refill albuterol sulfate (ProAir RespiClick) 90 mcg/actuation aerosol powdr breath activated Inhale into the lungs as needed. aspirin 81 mg EC tablet Take 1 Tab by mouth daily. celecoxib (CeleBREX) 200 mg capsule Take 1 Cap by mouth daily as needed. with food. Once a day fluticasone furoate-vilanteroL (BREO ELLIPTA) 200-25 mcg/dose inhaler Inhale 1 Puff into the lungs at bedtime. losartan (COZAAR) 50 mg tablet TAKE 1 TABLET DAILY 90 tablet 3 Multaq 400 mg tablet TAKE 1 TABLET TWICE A DAY 180 tablet 1 rivaroxaban (Xarelto) 20 mg tablet TAKE 1 TABLET ONCE DAILY WITH DINNER 90 tablet 1 rosuvastatin (CRESTOR) 10 mg tablet Take 1 tablet (10 mg total) by mouth 2 (two) times a day. (Patient taking differently: Take 1 tablet (10 mg total) by mouth 1 (one) time each day.) umeclidinium (Incruse Ellipta) 62.5 mcg/actuation inhalation Inhale 1 Puff into the lungs every morning. [2] Patient Active Problem List Diagnosis Allergic rhinitis Ascending aorta dilation (CMS/HCC V24) BPH (benign prostatic hyperplasia) CAD (coronary artery disease) Carotid stenosis Chronic cough Cigar smoker Hyperlipidemia Hypertension Impaired fasting glucose Nasal polyp Palpable mass of neck Paroxysmal atrial fibrillation (CMS/HCC V24, CMS/HCC V28) Peripheral artery disease (CMS/HCC V24) Preop cardiovascular exam [3] Allergies Allergen Reactions Morphine Simvastatin Other Muscle pains. Med ineffective Cosigned by Jaswinder Larson MD at 10/12/2025 1:29 PM EST documented in this encounter Plan of Treatment Upcoming Encounters Date Type Department Care Team (Late st Contact Info) Description 04/26/2026 11:30 AM EDT Office Visit Vascular Surgery - [place] [address] [place] [address] Elsy Khan MD [address] [place] [phone] Scheduled Orders Name Type Priority Associated Diagnoses Orde r Schedule CT Angio Chest wo and/or w Contrast Cardiac CT/MRI Routine Ascending aorta dilation (CMS/HCC V24) Expected: 12/07/2025, Expires: 10/12/2026 Lipid panel with reflex to direct LDL Lab Routine Mixed hyperlipidemia 1 Occurrences starting 10/12/2025 until 10/12/2026 Comprehensive metabolic panel Lab Routine Coronary artery disease involving [place] coronary artery of [place] heart without angina pectoris 1 Occurrences starting 10/12/2025 until 10/12/2026 documented as of this encounter Procedures Procedure Name Priority Date/Time Associated Diagnosis Comments ECG 12-LEAD Routine 10/12/2025 1:25 PM EST Coronary artery disease involving [place] coronary artery of [place] heart without angina pectoris documented in this encounter Results * ECG 12 lead (10/12/2025 1:25 PM EST) Ventricular Rate ECG 71 BPM GEMUSE Atrial Rate 71 BPM GEMUSE P-R Interval 164 ms GEMUSE QRS Duration 98 ms GEMUSE Q-T Interval 384 ms GEMUSE QTc 417 ms GEMUSE P Wave Dexter 30 degrees GEMUSE R Dexter 63 degrees GEMUSE T Dexter 46 degrees GEMUSE ECG Interpretation Normal sinus rhythm Normal ECG When compared with ECG of 13-OCT-2024 09:18, No significant change was found GEMUSE 10/12/2025 12:4 2 PM EST 10/12/2025 1:24 PM EST Salina Jeninngs NP ECG ORDERABLES Final Resul t GEMUSE documented in this encounter Visit Diagnoses Diagnosis Coronary artery disease involving [place] coronary artery of [place] heart without angina pectoris- Primary Ascending aorta dilation (CMS/HCC V24) Thoracic aneurysm without mention of rupture Primary hypertension Unspecified essential hypertension Mixed hyperlipidemia Preop cardiovascular exam Pre-operative cardiovascular examination documented in this encounter Discontinued Medications Medication Sig Discontinue Reason Start Date End Da te tolterodine (DETROL) 2 mg tablet Take 1 tablet (2 mg total) by mouth 1 (one) time each day. Therapy completed 10/12/2025 finasteride (PROSCAR) 5 mg tablet Take 1 tablet (5 mg total) by mouth 1 (one) time each day. Therapy completed 01/15/2023 10/12/2025 documented as of this encounter Care Teams Welding Machine Operator Arc Relationship Specialty Start Date End Date Bianca You MD [address] [place] [address] [address] [facility] [place] [address] PCP - General Internal Medicine 11/08/21 documented as of this encounter
--- OUTSIDE RECORDS SUMMARY | 2025-10-14 08:18 | XMS_ITS | Clinical Summary ---
Author Organization [facility] Address [address] [place] [phone] Phone Care Team Providers Care Hot Tar Roofer Name Role Phone Bianca You MD Primary Care Provider [phone] Allergies Active Allergy Reactions Criticality Noted Date [...] Puff into the lungs at bedtime. Active celecoxib (CeleBREX) 200 mg capsule Take 1 Cap by mouth daily as needed. with food. Once a day Active albuterol sulfate (ProAir RespiClick) 90 mcg/actuation aerosol powdr breath activated Inhale into the lungs as needed. Active aspirin 81 mg EC tablet Take 1 Tab by mouth daily. Active losartan (COZAAR) 50 mg tablet TAKE 1 TABLET DAILY 90 tablet 3 5 Active Multaq 400 mg tablet TAKE 1 TABLET TWICE A DAY 180 tablet 1 5 Active rivaroxaban (Xarelto) 20 mg tablet TAKE 1 TABLET ONCE DAILY WITH DINNER 90 tablet 1 5 Active finasteride (PROSCAR) 5 mg tablet Take 1 tablet (5 mg total) by mouth 1 (one) time each day. 3 025 Discontinued(Th erapy completed) tolterodine (DETROL) 2 mg tablet Take 1 tablet (2 mg total) by mouth 1 (one) time each day. 025 Discontinued(Th erapy completed) rivaroxaban (Xarelto) 20 mg tablet Take 1 tablet (20 mg total) by mouth 1 (one) time each day with dinner. 90 tablet 1 5 025 Discontinued Active Problems Problem Noted Date Diagnosed Date Preop cardiovascular exam 10/13/2024 Assessment & Plan (10/12/2025 1:26 PM EST): Patient's cardiac problems are optimized on [...] achieved under the discretion of the surgeon. Assessment & Plan (10/13/2024 10:20 AM EST): [...] visit in 6 months. 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 He does follow with vascular surgery and has undergone CT angiogram of abdomen and pelvis in the past. Given his risk profile, the criteria for repair according to the 2022 ACC aortic disease guidelines are: Ascending thoracic aneurysm measuring more than 5.5 [...] emergency room immediately if he had any symptoms of sudden chest, back, or abdominal pain. 2. The patient was extensively counseled during today's visit regarding the weight lifting restrictions that he should maintain in order to avoid worsening dilation of his aneurysm or an acute aortic syndrome such as an aortic dissection. The patient was counseled regarding the fact that an acute aortic syndrome such as an aortic dissection could be fatal. As such, he was instructed to avoid lifting any objects weighing more than 30 pounds. The patient was also counseled to avoid participating in any contact sports. Orders: CT Angio Chest wo and/or w Contrast; Future Assessment & Plan (10/13/2024 10:20 AM EST): Last echocardiogram January 2023 showed ascending aorta 4.2 cm and dilatation. Will update a new echocardiogram to reevaluate for progression. Orders: ECG 12 lead Transthoracic echocardiogram (TTE) complete with PRN contrast, bubble, strain, and 3D order panel; Future Peripheral artery disease ([facility]/HCC V24) 10/09/20 Overview (10/04/2024): Last Assessment & Plan: The [...] not relieved with rest. Assessment & Plan (10/12/2025 1:26 PM EST): Patient has a history of coronary artery disease. Currently, he denies any anginal symptoms or episodes of chest pain. He will continue on his current cardioprotective medical therapy with statin, aspirin as prescribed. Orders: ECG 12 lead Comprehensive metabolic panel; Future Assessment & Plan (10/13/2024 10:20 AM EST): [...] continue to remain elevated. Assessment & Plan (10/12/2025 1:26 PM EST): Patient has a history of hyperlipidemia as well as a history of coronary disease. Will obtain fasting lipid panel to reassess his lipid control. In the meantime, he will continue his current statin therapy. Orders: Lipid panel with reflex to direct LDL; Future Assessment & Plan (10/13/2024 10:20 AM EST): [...] a week as tolerated. Assessment & Plan (10/12/2025 1:26 PM EST): Blood pressure adequate today. In the past, we have discussed increasing his losartan which we had, however ultimately did not continue increased dose due to increased dizziness. He continues to monitor his blood pressures at home which have been adequate. He will continue to monitor and let me know of any consistently elevated readings. Assessment & Plan (10/13/2024 10:20 AM EST): [...] and presents in sinus rhythm today . [id number] score of 3 for hypertension and age [...] Encounters Date Type Department Care Team Description 10/13/2025 Telephone [facility] Cardiology [address] [place] [address] Jaswinder Larson MD 10/12/2025 12:40 PM EST Consult [address] [place] [address] Salina Jennings NP Coronary artery disease involving snoqualmie coronary artery of s[place]mie heart without angina pectoris (Primary Dx); Ascending aorta dilation (CMS/HCC V24); Primary hypertension; Mixed hyperlipidemia; Preop cardiovascular exam 09/27/[address] [place] [address] Jaswinder Larson MD from Last 3 Months Immunizations Immunization [...] 09/30/2017 DX:[place] mass of neck [place] (myocardial infarction) 09/30/2017 D X:[place] (myocardial infarction); COMMENT: 1996 Carotid stenosis 09/30/2017 [...] PM EST Temperature - - Respiratory Rate 16 04/20/2025 1:58 PM EDT Oxygen Saturation 98% 10/12/2025 12:33 PM EST Inhaled Oxygen Concentration - - Weight 79.6 kg (175 lb 8 oz) 10/12/2025 12:33 PM EST Height 172.7 cm (5' 8 ) 10/12/2025 12:33 PM EST Body Mass Index 26.68 10/12/2025 12:33 PM EST Plan of Treatment Upcoming Encounters Date Type Department Care Team (Late st Contact Info) Description 04/26/2026 11:30 AM EDT Office Visit Vascular Surgery - [place] [address] [place] [address] Elsy Khan MD [facility] [place] [address] Health Maintenance Due Date Last Done Comments Zoster Vaccines (1 of 2) 1997 Cholesterol Screening (Lipid Panel) 11/03/2022 Falls Risk Assessment 11/03/2022 Hepatitis C Screening 11/03/2022 Medicare Annual Wellness Visit 11/03/2022 Social Influencers of Health Screening 11/03/2022 Depression Screening 11/24/2024 Hypertension/CHF/CAD Annual BMP Blood Test 01/28/2025 01/29/2024 COVID-19 Vaccine ( season) 2026 08/06/2025, 02/04/2025, 08/09/2024, Additional history exists DTaP,Tdap,and Td Vaccines (2 - Td or Tdap) 12/12/2026 12/12/2016 Pneumococcal Vaccine: 50+ Years Completed 12/11/2022 RSV Immunization Adult Patients Completed 08/21/2023 Influenza Vaccine Completed 09/15/2025, , 09/04/2023, Additional history exists HIB Vaccines [...] 1:25 PM EST Coronary artery disease involving [place] coronary artery of [place] heart without angina pectoris ANNUAL BMP BLOOD TEST Routine 01/29/2024 from Last 3 Months or Most Recently Relevant to Health Maintenance Results * ECG 12 lead (10/12/2025 1:25 PM EST) Ventricular Rate ECG 71 BPM GEMUSE Atrial Rate 71 BPM GEMUSE P-R Interval 164 ms GEMUSE QRS Duration 98 ms GEMUSE Q-T Interval 384 ms GEMUSE QTc 417 ms GEMUSE P Wave [place] 30 degrees GEMUSE R [place] 63 degrees GEMUSE T [place] 46 degrees GEMUSE ECG Interpretation Normal sinus rhythm Normal ECG When compared with ECG of 13-OCT-2024 09:18, No significant change was found GEMUSE 10/12/2025 12:4 2 PM EST 10/12/2025 1:24 PM EST Salina Jennings CONSUMER INSIGHT ANALYST ECG ORDERABLES Final Resul t GEMUSE * Annual BMP Blood Test (01/29/2024) Annual BMP Blood Test Abstracted Historical Provider HEALTH MAINTENANCE Final Result from Last 3 Months or Most Recently Relevant to Health Maintenance Insurance MEDICARE [facility] Care Teams Hot Tar Roofer Relationship Specialty Start Date End Date Bianca You MD [address] [place] [address] [address] [facility] [place], [place] [phone] PCP - General Internal Medicine 11/08/21
--- OUTSIDE RECORDS SUMMARY | 2025-10-14 08:18 | XMS_ITS | Clinical Summary ---
Author Organization [facility] Address [address] [place] [address] Care Team Providers Care Classroom Instructional Aide Name Role Phone Unavailable Primary Care Provider [...]
--- OUTSIDE RECORDS SUMMARY | 2025-10-14 08:18 | XMS_ITS | Clinical Summary ---
Author Organization [facility] Address [address] [facility] [address] [place] [address] Phone Care Team Providers Care Colorer Machine Name Role Phone Bianca You MD Primary Care Provider [phone] Allergies Active Allergy Reactions Criticality Noted Date [...] this topic Medical Devices Implanted Type Area Associate Professor Of Forestry Device Identifier Shelf Expiration Date Model / Serial / Lot Pin Pin Spine Lumbar Description:Pt has had 2 lum bar surgeries and has implants from those procecdures coflex l4-5 System Implant Achilles Speedbridge [employer] - [id number] Implanted:Qty: 1 on 10/29/2022 by Jared Church MD at [facility] Right: Achilles Tendon [employer] 06/23/2026 [id number] / / [id number] Procedures Procedure Name Priority Date/Time Associated Diagnosis Comments BASIC METABOLIC PANEL (BMP) Routine 10/04/2022 9:02 AM EST Achilles tendinitis of right lower extremity from Last 3 Months or Most Recently Relevant to Health Maintenance Results * (ABNORMAL) Basic metabolic panel (10/04/2022 9:02 AM EST) SODIUM 140 133 - 146 mmol/L [facility] CHLORIDE 106 96 - 108 mmol/L [facility] POTASSIUM 4.3 3.3 - 5.1 mmol/L [facility] CO2 28 21 - 35 mmol/L [facility] BUN 17 6 - 19 mg/dL [facility] CREATININE 0.90 0.5 - 1.5 mg/dL [facility] GLUCOSE 113(H) 70 - 99 mg/dL [facility] CALCIUM 9.4 8.4 - 10.3 mg/dL [facility] EGFR 89 >59 mL/min/1.7 3m2 [facility] Comment:Estimated glomerular filtration rate calculated using the CKD-EPI refit equation. ANION GAP 10 10 - 20 mmol/L [facility] Blood 10/04/2022 9:02 AM EST 10/04/2022 9:06 AM EST us Jared Church MD LAB BLOOD BKR ORDERABLES Lila barker Result [address] [id number] from Last 3 Months or Most Recently Relevant to Health Maintenance Insurance MEDICARE PART A & B [employer] SUPPLEMENT MEDICARE PART A & B [employer] MED[employer] SUPPLEMENT MEDICARE PART A & B [facility] MEDEX SUPPLEMENT MEDICARE PART A & B Member Subscriber Plan / Payer ( fective 2017-Present) Name:[employer] Member ID:[id number] Relation to Subscriber:Self Name:[employer] Subscriber ID:[id number] Payer ID:[id number] Group ID:Not on file Type:Medicare Address: [employer] [address] [place] [phone] [employer] MEDEX SUPPLEMENT MEDICARE PART A & B [employer] MEDEX SUPPLEMENT MEDICARE PART A & B [employer] MEDEX SUPPLEMENT MEDICARE PART A & B [employer] MEDEX SUPPLEMENT MEDICARE PART A & B [employer] MED[employer] SUPPLEMENT MEDICARE PART A & B [employer] MEDEX SUPPLEMENT Care Teams Colorer Machine Relationship Specialty Start Date End Date Bianca You MD [address] [place] [address] [address] [place] [phone] PCP - General Internal Medicine 09/03/22 Additional Source Comments The information contained in this document represents components of the legal health record. It is not the complete legal health record.[facility]
--- OUTSIDE RECORDS SUMMARY | 2025-10-14 08:18 | XMS_ITS | Encounter Summary ---
Author Organization [facility] Address [address] [place] [address] Care Team Providers Care Sole Dyer Name Role Phone Bianca You MD Primary Care Provider [phone] Reason for Visit * Reason Onset Date Comments prop notes 10/13/2025 Encounter Details Date Type Department Care Team (Late st Contact Info) Description 10/13/2025 Telephone [facility] [address] [place] [address] [address] [place] [phone] Jaswinder Larson MD [address] [place] [address] [address] [place] [address] Social History Tobacco Use Types Packs/Day Years [...] on file documented as of this encounter Progress Notes * Cb Grace - 10/13/2025 9:06 AM EST [facility] General surgery [phone], f [phone] is requesting recent preop notes. documented in this encounter Plan of Treatment Upcoming Encounters Date Type Department Care Team (Late st Contact Info) Description 04/26/2026 11:30 AM EDT Office Visit Vascular Surgery - [place] [address] [facility] [address] [place] [phone] Elsy Khan MD [address] [place] [phone] documented as of this encounter Visit Diagnoses Not on filedocumented in this encounter Care Teams Sole Dyer Relationship Specialty Start Date End Date Bianca You MD [address] [place] [address] [address] [facility] [place] [address] PCP - General Internal Medicine 11/08/21 documented as of this encounter
--- OUTSIDE RECORDS SUMMARY | 2025-10-14 08:18 | XMS_ITS | Patient Health Record ---
Author Organization [facility] Address [address] [place] [address] Care Team Providers Care Client Success Manager Name Role Phone Bianca You MD Primary Care Provider Osmany Ramires Jr Unavailable [phone] Allergies Allergen (clinical drug ingredient) Drug/Non Drug Allergy documented on EMR Reaction Allergy Type Onset Date Status morphine Morphine Sulfate Unknown Drug Allergy Active Results Component Value Reference Range Notes Pathology Reviewed date:11/03/2024 08:11:32 AM Interpretation: Performing Lab:[facility], [address] [place] [phone] Notes/Report: Reason For Referral No Information Medications Medication SIG (Take, Route, Frequency, Duration) Notes Start Date End Date Status Flonase Active Albuterol Sulfate Ac tive Losartan Potassium 50 MG Tablet 1 tablet Orally Once a day; Duration: 30 day(s) Active Multaq 400 MG Tablet 1 tablet with meals Orally Twice a day; Duration: 30 day(s) Active Incruse Ellipta 62.5 MCG/ACT Aerosol Powder Breath Activated 1 puff Inhalation Once a day Active Breo Ellipta 100-25 MCG/ACT Aerosol Powder Breath Activated 1 puff Inhalation Once a day Active Crestor 5 MG Tablet 1 tablet Orally Once a day Active Aspir-81 81 MG Tablet Delayed Release 1 tablet Orally Once a day Active Xarelto 20 MG Tablet Orally Active Finasteride 5 MG Tablet Orally Active CeleBREX 200 MG Capsule Orally as needed Active MiraLax (colon prep) 17 GM/SCOOP Powder mixed with Gatorade or Crystal Light Orally begin at 5:00 p.m. the day before the procedure; Duration: 1 day 08/05/2024 Active Immunizations Vaccine Route Administration Date Status Comme nts Influenza Unknown 09/06/2020 Administered Influenza Unknown 09/16/2023 Administered Social History Social History Additional Details Category Social Info Options Details Miscellaneous: Marital status: Occupation: retired Problems Problem Type SNOMED Code ICD Code Onset Dates Problem Status W/U Status Risk Notes Problem Long-term current use of anticoagulant (933042781) MCC (current) use of anticoagulants (Z79.01) Active confirmed Problem Screening for malignant neoplasm of colon (360959144) Special screening for malignant neoplasms, colon (Z12.11) Active confirmed Problem Dysphagia (37265399) Dysphagia (R13.10) Active confirmed Problem Long-term current use of antiplatelet drug (359338359097232) Long-term use of aspirin therapy (Z79.82) Active confirmed Problem Dysphagia (98207167) Dysphagia, unspecified type (R13.10) Active confirmed Problem Family history of malignant neoplasm of gastrointestinal tract (869073217) FH: colon cancer (Z80.0) Active confirmed Encounters Encounter Location Date Provider Diagnosis [facility] [address] [place] [phone] 10/26/2024 Osmany Alcantar Jr Colon cancer screening Z12.11 ; Colon polyps K63.5 and Dysphagia R13.10 [facility] [address] [place] [address] 11/03/2024 Osmany Alcantar Jr Assessments Encounter Date [...] OF [place] [address] [place] [address] [id number] TANNER WILOSN Self - patient is the insured [employer] ATT[employer] CLAIMS [address] [place] [address] [id number] TANNER WILSON Self - patient is the insured Medical (General) History Medical History History ICD Code personal history of tubular adenomas, last colonoscopy 05/14, multiple polyps, three-year followup coronary artery disease with history of MS, 1995 elevated cholesterol nehprolithiasis Atrial fibrillation, status post cardiac ablation 10/13 COPD Difficult intubation at the time of his Achilles surgery Covid 19 infection, November 2023 Spondylosis Peripheral arterial disease Surgical History Surgery Date(Month/Year) rhinoplasty L4-5 disc surgery for compression appendectomy 01/2019 cardiac ablation 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
--- OUTSIDE RECORDS SUMMARY | 2025-10-14 08:18 | XMS_ITS | Encounter Summary ---
Author Organization [facility] Address [address] [facility] [address] [place] [address] Phone Care Team Providers Care Wood Cut Engraver Name Role Phone Bianca You MD Primary Care Provider [phone] Encounter Details Date Type Department Care Team (Late st Contact Info) Description 10/29/2022 Procedure Pass OR Admitting Dept - Virtual Department [address] [place] [address] Social History Tobacco Use Types Packs/Day Years [...] on filedocumented in this encounter Care Teams Wood Cut Engraver Relationship Specialty Start Date End Date Bianca You MD [address] [place] [phone] PCP - General Internal Medicine 09/03/22 documented as of this encounter Additional Source Comments The information contained in this document represents components of the legal health record. It is not the complete legal health record.[facility]
[2025-10-27 10:58] VITALS: BP 171/72; PULSE 72; RESP 16; O2SAT 98; BMI 25.9
--- NOTE | 2025-10-27 11:10 | P.CONAN_ITS ---
Documented by User: Gail Rascon NP 11/01/25 09:36 HPI - Anesthesia Eval Consult details Narrative: 79yo M for Right Repair Hernia Inguinal Reducible with mesh, 11/02/25 Hx DI in PMHx (at [facility] during Achilles surgery) s/p Laser Ablation Prostate w/Green Light 10/2024 with GA-LMA 4 without difficulty No recent illness No CP/SOB with biking ~5 miles daily (pedal bike) Follows [facility]. Last office visit 09/2025 and optimized to proceed Xarelto for afib, s/p ablation CAD stable COPD/Chronic cough: chronic productive clear, scheduled inhalers BID, Albuterol rescue infrequent PAD/AAA: follows vascular, last visit 03/2025 with 1 year f/u PONV: Scop not effective. Did well after prostate surgery 10/2024, no nausea. Anesthesia record on chart [facility]LY [facility] Active Problems Active Problems: All Active Problems Reducible right inguinal hernia (Acute) Hearing deficit (Acute) Screening for thyroid disorder (Acute) Medicare annual wellness visit, subsequent (Acute) Incomplete emptying of bladder due to benign prostatic hyperplasia (Acute) Bladder instability (Acute) Basal cell carcinoma (Acute) Tubular adenoma of colon (Acute) Postop check (Acute) Peripheral vascular disease (Acute) Knee pain, right (Acute) Microscopic hematuria (Acute) Weak urinary stream (Acute) Calcaneal spur of right foot (Acute) Achilles tendinosis (Acute) Achilles tendinitis of right lower extremity (Acute) Ascending aorta dilatation (Acute) Sacral pain (Acute) Low back pain (Acute) COPD (chronic obstructive pulmonary disease) (Acute) Obesity (BMI 30-39.9) (Acute) Coronary artery disease (Acute) BPH (benign prostatic hyperplasia) (Acute) Hyperlipidemia (Acute) Impaired glucose tolerance (Acute) Hypertension (Acute) Paroxysmal atrial fibrillation (Acute) Past Medical History Medical History History of basal cell carcinoma Spondylosis Peripheral artery disease Hx of difficult intubation COVID-19 Elevated cholesterol Myocardial infarction Abdominal aortic aneurysm (AAA) Chronic bronchitis Renal calculi COPD (chronic obstructive pulmonary disease) Nephrolithiasis Hx of myocardial infarction PONV (postoperative nausea and vomiting) On beta didi at home On anticoagulant therapy Obesity (BMI 30-39.9) Coronary artery disease BPH (benign prostatic hyperplasia) Hyperlipidemia Impaired glucose tolerance Hypertension Paroxysmal atrial fibrillation Family History Family History Father No problems noted. Mother No problems noted. Family history of problems with anesthesia: No Surgical History Surgical History History of prostate surgery (11/08/24) History of biopsy S/P TURP History of excision of pilonidal cyst History of cardiac ablation for atrial fibrillation Hx of surgical procedure (04/23/24) Hx of Achilles tendon repair (10/2022) Hx of basal cell carcinoma excision (~04/09/24) Hx of colonoscopy History of cardiac radiofrequency ablation (RFA) History of blepharoplasty Hx of appendectomy History of lumbar surgery H/O excision of lamina of cervical vertebra for decompression of spinal cord H/O rhinoplasty History of Problems with Anesthesia: Yes (DI, PONV) Social History Social History Household Members: Spouse Housing: House Are you a primary careers adviser to a significant other at home: No Do you presently have visiting nurse or other home services: No Alcohol intake: never Patient Tobacco Use Status: Former Tobacco user Tobacco use type: Cigarette Cigarettes Per Day: 0 (Cigar on occasion) Years Smoked: 48 Smoked in Last 30 Days: No e-Cigarette/Vaping Use: Never Used Second Hand Smoke Exposure: Yes Use of substances other than those prescribed or required for medical reasons: No Have you been hit, kicked, punched, or otherwise hurt by someone within the past year? If so, by whom?: No Advance Directives: No Advance Directives Information Provided: Yes Advance Directives on File: No Current occupational status: retired Cognitive needs: No Hearing needs: No Vision needs: Yes Meds Allergies Allergy/AdvReac Type Severity Reaction Status Date / Time morphine (MORPHINE) Allergy Intermediate NAUSEA & Verified 10/27/25 11:18 VOMITING simvastatin Allergy Intermediate muscle Verified 10/27/25 11:18 pains, cramps and ineffective med enviromental allergies Allergy Intermediate Unknown Uncoded 10/27/25 11:18 Home Medications ?Medication ?Instructions ?Recorded ?Confirmed ?Last Taken ?Type aspirin 81 mg tablet,delayed 81 mg PO DAILY 09/13/20 1 12/28/24 10/16/24 History release (Adult Aspirin Regimen) Held on 05/15/21. Instructions: Resume on 05/22/21. restart in 1 week rivaroxaban 20 mg tablet (Xarelto) 20 mg PO DAILY 06/2510/27/25 11/03/24 History losartan 50 mg tablet 50 mg PO DAILY 01/27/2403/1810/25/24 History celecoxib 200 mg capsule (Celebrex) 200 mg PO DAILY MS N Pain 04/15/24 10/27/25 09/26/24 History dronedarone 400 mg tablet (Multaq) 400 mg PO BID 04/1510/27/25 11/08/24 History fluticasone furoate 200 1 inh inhalation .DAILY AM 1 12/28/24 10/27/25 Unknown History mcg-vilanterol 25 mcg/dose inhalation powder (Breo Ellipta) umeclidinium 62.5 mcg/actuation 1 inh inhalation BEDTI ME 10/27/25 10/27/25 Unknown History blister powder for inhalation (Incruse Ellipta) Exam Height,Weight and Vital Signs: Height 5 ft 8 in Weight 77.281 kg Last Vital Signs Pulse 72 10/27/25 10:58 Resp 16 10/27/25 10:58 BP 171/72 H 10/27/25 10:58 Pulse Ox 98 10/27/25 10:58 O2 Del Method Room Air 10/27/25 10:58 Pertinent Lab Results Pertinent Lab Results: Lab Results 10/27/25 Range/Units 11:30 WBC 7.4 (4.8-10.8) X10*3/uL RBC 4.25 L (4.60-5.80) X10*6/uL Hgb 13.7 L (14.0-18.0) g/dl Hct 40.5 L (42.0-52.0) % MCV 95.3 (80.0-98.0) fL MCH 32.2 (27.0-33.0) pg MCHC 33.8 (31.0-36.0) g/dl RDW 14.0 (11.0-16.0) % Plt Count 245 (160-400) X10*3/uL MPV 9.4 (9.4-12.4) fL Absolute Nucleated RBC 0.000 (0.0-0.012) X10*3/uL Nucleated RBC % (auto) 0.0 (0.0-0.2) /100WBC Sodium 141 (135-145) mmol/L Potassium 4.6 (3.3-5.1) mmol/L Chloride 109 H (96-108) mmol/L Carbon Dioxide 28 (22-29) mmol/L Anion Gap 9 L (12-20) BUN 15 (9-16) mg/dL Creatinine 0.79 (0.5-1.4) mg/dL Estim Creat Clear Calc 74.5 Estimated GFR > 60 Random Glucose 114 (60-115) mg/dL Calcium 9.5 (8.4-10.2) mg/dL Narrative Narrative: EKG 09/2025 ECG 12 lead Result Value ? Ventricular Rate ECG 71 ? Atrial Rate 71 ? P-R Interval 164 ? QRS Duration 98 ? Q-T Interval 384 ? QTc 417 ? P Wave [place] 30 ? R [place] 63 ? T [place] 46 ? ECG Interpretation ? ? ? Normal sinus rhythmNormal ECGWhen compared with ECG of 13-OCT-2024 09:18,No significant change was found ECHO 2024 ? Left ventricle cavity size is normal. Left ventricular systolic function is in the normal range with an ejection fraction of 55-60%. ? No regional LV wall motion abnormalities noted. ? Left ventricle mild hypertrophy. ? Right ventricle cavity is normal. Right ventricular systolic function is normal. ? Aortic?Valve: There is mild regurgitation. ? Mitral?Valve: There is mild regurgitation. ? Aorta: The aortic root at the sinus of Valsalva is dilated (4.3 cm). The ascending aorta is dilated (4.3 cm). Airway Mallampati Class: III TM Dist: >3cm Neck ROM: Limited Loose/Missing/Broken Teeth: Yes (2 extractions. 1 cap intact. Denies broken or loose teeth) Heart: RRR Lungs: CTAB Assessment and Plan Assessment Anesthesia Assessment: Anesthesia Plan Discussed and PAT Visit Final Anesthetic Review Family History of Problems with Anesthesia: No History of Problems with Anesthesia: Yes (DI, PONV) Documented by User: Rica Zarate MD 11/02/25 09:40 [facility] Past Medical History Medical History History of basal cell carcinoma Spondylosis Peripheral artery disease Hx of difficult intubation COVID-19 Elevated cholesterol Myocardial infarction Abdominal aortic aneurysm (AAA) Chronic bronchitis Renal calculi COPD (chronic obstructive pulmonary disease) Nephrolithiasis Hx of myocardial infarction PONV (postoperative nausea and vomiting) On beta didi at home On anticoagulant therapy Obesity (BMI 30-39.9) Coronary artery disease BPH (benign prostatic hyperplasia) Hyperlipidemia Impaired glucose tolerance Hypertension Paroxysmal atrial fibrillation Family History Family History Father No problems noted. Mother No problems noted. Surgical History Surgical History History of prostate surgery (11/08/24) History of biopsy S/P TURP History of excision of pilonidal cyst History of cardiac ablation for atrial fibrillation Hx of surgical procedure (04/23/24) Hx of Achilles tendon repair (10/2022) Hx of basal cell carcinoma excision (~04/09/24) Hx of colonoscopy History of cardiac radiofrequency ablation (RFA) History of blepharoplasty Hx of appendectomy History of lumbar surgery H/O excision of lamina of cervical vertebra for decompression of spinal cord H/O rhinoplasty Social History Social History Household Members: Spouse Housing: House Are you a primary careers adviser to a significant other at home: No Do you presently have visiting nurse or other home services: No Alcohol intake: never Patient Tobacco Use Status: Former Tobacco user Tobacco use type: Cigarette Cigarettes Per Day: 0 (Cigar on occasion) Years Smoked: 48 Smoked in Last 30 Days: No e-Cigarette/Vaping Use: Never Used Second Hand Smoke Exposure: Yes Use of substances other than those prescribed or required for medical reasons: No Have you been hit, kicked, punched, or otherwise hurt by someone within the past year? If so, by whom?: No Advance Directives: No Advance Directives Information Provided: Yes Advance Directives on File: No Current occupational status: retired Cognitive needs: No Hearing needs: No Vision needs: Yes Meds Allergies Allergy/AdvReac Type Severity Reaction Status Date / Time morphine (MORPHINE) Allergy Intermediate NAUSEA & Verified 10/27/25 11:18 VOMITING simvastatin Allergy Intermediate muscle Verified 10/27/25 11:18 pains, cramps and ineffective med enviromental allergies Allergy Intermediate Unknown Uncoded 10/27/25 11:18 Home Medications ?Medication ?Instructions ?Recorded ?Confirmed ?Last Taken ?Type aspirin 81 mg tablet,delayed 81 mg PO DAILY 09/13/20 1 12/28/24 10/16/24 History release (Adult Aspirin Regimen) Held on 05/15/21. Instructions: Resume on 05/22/21. restart in 1 week rivaroxaban 20 mg tablet (Xarelto) 20 mg PO DAILY 06/2510/27/25 11/03/24 History losartan 50 mg tablet 50 mg PO DAILY 01/27/2403/1810/25/24 History celecoxib 200 mg capsule (Celebrex) 200 mg PO DAILY MS N Pain 04/15/24 10/27/25 09/26/24 History dronedarone 400 mg tablet (Multaq) 400 mg PO BID 04/1510/27/25 11/08/24 History fluticasone furoate 200 1 inh inhalation .DAILY AM 1 12/28/24 10/27/25 Unknown History mcg-vilanterol 25 mcg/dose inhalation powder (Breo Ellipta) umeclidinium 62.5 mcg/actuation 1 inh inhalation BEDTI ME 10/27/25 10/27/25 Unknown History blister powder for inhalation (Incruse Ellipta) Assessment and Plan Final Anesthetic Review NPO: Yes ASA Class: III Final Preanesthetic Review: No Changes in Pt Med Stat, Meds/Allgs Chart Reviewed, Consent Obtained/Reviewed and Anes Risks/Benef Reviewed Patient Risk: Intermediate Procedure Risk: Intermediate Anesthetic Plan Anesthetic Plan: GA Disposition: Standard PACU
[2025-10-27 11:55] LABS: Hematocrit 40.5 % (42.0-52.0); Hemoglobin 13.7 g/dl (14.0-18.0); Mean Corpuscular HGB Conc 33.8 g/dl (31.0-36.0); Mean Corpuscular Hemoglobin 32.2 pg (27.0-33.0); Mean Corpuscular Volume 95.3 fL (80.0-98.0); NRBC Abs Auto 0.000 X10*3/uL (0.0-0.012); NRBC Pct Auto 0.0 /100WBC (0.0-0.2); Platelet Count 245 X10*3/uL (160-400); Red Blood Count 4.25 X10*6/uL (4.60-5.80); White Blood Count 7.4 X10*3/uL (4.8-10.8)
[2025-10-27 12:17] LABS: Anion Gap 9 (12-20); Blood Urea Nitrogen 15 mg/dL (9-16); Calcium 9.5 mg/dL (8.4-10.2); Carbon Dioxide 28 mmol/L (22-29); Chloride 109 mmol/L (96-108); Creatinine Clr Calc Pharmacy 74.5; Estimated Glomerular Filt Rate > 60; Potassium 4.6 mmol/L (3.3-5.1); Sodium 141 mmol/L (135-145)
[2025-11-02] VITALS (13 sets, daily range): BP systolic 105–149; BP diastolic 43–65; PULSE 61–90; RESP 12–18; TEMP 36.1–36.4; O2SAT 93–97
[2025-11-02] MEDS: Lactated Ringers 1,000 ML 100 ML IVCONT (10:58)
--- NOTE | 2025-11-02 10:58 | MHC.SHP ---
Pre-Procedural Eval Section A - 24 Hr Update-Section A only Date of Service: 11/02/25 The patient is an INPATIENT: No Changes since office visit: Yes Patient answered all questions; No Cold of Flu in the past 2 weeks, No New Medical Problems and No Changes in Medication The patient has been examined within 24 hours of the surgical procedure. The History & Physical has been completed within 30 days and I have reviewed it.: No Section B - Complete if H&P > 30 days Chief Complaint: Unilateral inguinal hernia, without obstruction Details of Present Illness: No change in abdominal symptoms Relevant Family History (Specify if Yes): No Relevant Social History: None Present Medications: see Short Stay Collaborative assessment Medical History: Significant History (COPD, obesity, hyperlipidemia, PAF) History of Previous Operations: No relevant previous surgery Allergies: Allergies Allergy/AdvReac Type Severity Reaction Status Date / Time morphine (MORPHINE) Allergy Intermediate NAUSEA & Verified 10/27/25 11:18 VOMITING simvastatin Allergy Intermediate muscle Verified 10/27/25 11:18 pains, cramps and ineffective med enviromental allergies Allergy Intermediate Unknown Uncoded 10/27/25 11:18 Review of Systems Sugical H&P ROS: Negative: Constitution, Cardiovascular, Respiratory, Neurological, Psychiatric, Hem-Onc, Allergic/Immunologic, Gastrointestinal, Genitourinary, Musculoskeletal, Integumentary, Endocrine and Eyes/Ears/Nose/Throat Exam Surgical H&P Exam: Normal: HEENT, Normal: Heart, Normal: Lungs, Normal: Extremities, Normal: Abdomen, Normal: Skin and Normal: Neurological Plan Diagnosis/Plan: Unchanged I have reviewed the history and physical and performed a pertinent physical examination on my patient. No changes have occurred unless specified. Time Spent With Patient Time: Total time managing care of this patient today ____ minutes.
--- NOTE | 2025-11-02 12:43 | W.PM.OPN ---
Operative Note Operative Note Date of Service: 11/02/25 Narrative: Preoperative diagnosis: Bilateral inguinal hernias, reducible Postoperative diagnosis: Same Procedure: Repair bilateral inguinal hernias with mesh Surgeon: Main Leblanc MD [employer] Tender: Nuris Cesar PA-C; Rubia Rojas MS-3 Anesthesia: General LMA Indications for procedure: 80-year-old male patient presenting with pain in bilateral groins found on CT to have bilateral inguinal hernias. Operative findings: Bilateral indirect hernias Specimen: Bilateral inguinal hernia sac Estimated blood loss: 2 mL Complications: None Procedure details: Patient was brought to the OR and placed in a supine position. After administering general anesthesia the patient's bilateral abdomen/groins were prepped with ChloraPrep and draped in a sterile fashion. A surgical time-out was called the consent confirmed. Patient received preoperative antibiotics and Venodyne boots were in place. Local anesthesia was then infiltrated over the bilateral inguinal ligaments. Incision was made in the left inguinal region directly over the inguinal ligament and carried out through subcutaneous tissue, past Ganesh's fascia and up to the external oblique aponeurosis. Additional local was placed below the external oblique aponeurosis. This was then incised with a scalpel and widened with the Metzenbaum scissors. The spermatic cord was then dissected free from the surrounding inguinal canal and retracted using a Cynthia drain. The floor of the inguinal canal was found to be intact without a direct hernia. Fibers of the cremaster muscle were then and a indirect sac identified. This was dissected down to the internal ring. The sac was opened and contents reduced. There was noted to be a sliding component of peritoneal fat which was mobilized and returned to the abdominal cavity. The sac was then ligated with a 0 Polysorb suture and excised. This was sent as a specimen labeled as left hernia sac. Attention was then directed to the direct space. Fibers of the internal oblique and transversalis aponeurosis were incised between Allis clamps and the preperitoneal space entered. This was then widened using an open Ray-Cedrick sponge. A large PHS mesh was then obtained. The circular underlay was deployed within the preperitoneal space. The overlay was then secured to the pubic tubercle, conjoined tendon, and shelving edge of the inguinal ligament using a 0 Polysorb suture. A slit was made in the mesh in the mesh wrapped with on the spermatic cord at the internal ring. This was then secured to the shelving edge using the 0 Polysorb suture. This was made tight enough to allow passage of only the tip of the index finger. The remainder of the mesh was placed laterally below the external oblique aponeurosis. Wounds were then irrigated with saline solution and suctioned dry. External oblique aponeurosis was then closed using a running 2-0 Polysorb suture. Attention was directed to the right groin where again local anesthesia was placed over the inguinal canal. Incision was made in the right inguinal region directly over the inguinal ligament and carried out through subcutaneous tissue, past Ganesh's fascia and up to the external oblique aponeurosis. Additional local was placed below the external oblique aponeurosis. This was then incised with a scalpel and widened with the Metzenbaum scissors. The spermatic cord was then dissected free from the surrounding inguinal canal and retracted using a Cynhtia drain. The floor of the inguinal canal was found to be intact without a direct hernia. Fibers of the cremaster muscle were then and a indirect sac identified. This was dissected down to the internal ring. The sac was opened and contents reduced. The sac was then ligated with a 0 Polysorb suture and excised. This was sent as a specimen labeled as right hernia sac. Attention was then directed to the direct space. Fibers of the internal oblique and transversalis aponeurosis were incised between Allis clamps and the preperitoneal space entered. This was then widened using an open Ray-Cedrick sponge. A large PHS mesh was then obtained. The circular underlay was deployed within the preperitoneal space. The overlay was then secured to the pubic tubercle, conjoined tendon, and shelving edge of the inguinal ligament using a 0 Polysorb suture. A slit was made in the mesh in the mesh wrapped with on the spermatic cord at the internal ring. This was then secured to the shelving edge using the 0 Polysorb suture. This was made tight enough to allow passage of only the tip of the index finger. The remainder of the mesh was placed laterally below the external oblique aponeurosis. Wounds were then irrigated with saline solution and suctioned dry. External oblique aponeurosis was then closed using a running 2-0 Polysorb suture. Approximately 4 mL of Zenrelef was then placed below the external oblique aponeurosis bilaterally for a total of 8 mL. Both incisions were then closed simultaneously reapproximating the Ganesh's fascia with interrupted 3-0 Polysorb sutures. Dermis was reapproximated using interrupted 3-0 Polysorb sutures. Skin was then closed using a running subcuticular 4-0 Polysorb suture. Steri-Strips, 4 x 4 gauze and Tegaderm were then applied. The patient tolerated the procedure well. Sponge, instrument, and needle counts reported as correct. The patient was transferred to PACU in stable condition.
== END 2025-11-02 15:28 | disposition home or self-care (01) ==
PROVIDERS: Nurse Practitioner; PCP Internal Medicine; Visit Provider Surgery
PROC: (CPT 49505; principal; 2025-11-02 12:20)
DX: K40.90 Unilateral inguinal hernia, without obstruction or gangrene, not specified as recurrent (principal); R59.0 Localized enlarged lymph nodes; K40.20 Bilateral inguinal hernia, without obstruction or gangrene, not specified as recurrent; I25.10 Atherosclerotic heart disease of native coronary artery without angina pectoris; I25.2 Old myocardial infarction; I73.9 Peripheral vascular disease, unspecified; I10 Essential (primary) hypertension; E78.00 Pure hypercholesterolemia, unspecified; I71.40 Abdominal aortic aneurysm, without rupture, unspecified; I48.0 Paroxysmal atrial fibrillation; J44.9 Chronic obstructive pulmonary disease, unspecified; Z79.82 Long term (current) use of aspirin; R73.02 Impaired glucose tolerance (oral); N40.0 Benign prostatic hyperplasia without lower urinary tract symptoms; Z79.01 Long term (current) use of anticoagulants; Z79.85 Long-term (current) use of injectable non-insulin antidiabetic drugs; Z79.51 Long term (current) use of inhaled steroids; Z79.899 Other long term (current) drug therapy; Z88.5 Allergy status to narcotic agent; Z88.8 Allergy status to other drugs, medicaments and biological substances; Z85.828 Personal history of other malignant neoplasm of skin; Z98.890 Other specified postprocedural states; Z87.891 Personal history of nicotine dependence
CPT/HCPCS: 49505; 36415; 80048; 85027; 88302; 88305; C1781; J0131; J0668; J0690; J1100; J2003; J2405; J2704; J3010

== ENCOUNTER → 2025-11-02 10:25 | Outpatient (BNV) | payer MEDICARE, SELFPAY | PROVIDERS: PCP Internal Medicine; Visit Provider Surgery | DX: K40.20 Bilateral inguinal hernia, without obstruction or gangrene, not specified as recurrent (principal) | CPT/HCPCS: 49505 ==

== ENCOUNTER 2025-11-15 11:22 | Outpatient (AMB) | payer MEDICARE, SELFPAY ==
--- OUTSIDE RECORDS SUMMARY | 2024-10-26 02:30 | XMS_ITS ---
Author Organization [facility] Address [address] [place] [phone] Care Team Providers Care Rpg Developer Name Role Phone Po Bianca GARCIA Primary Care Provider Osmany Ramires Jr [phone] REASON FOR VISIT dysphagia,screening Problems Problem Type SNOMED Code ICD Code Onset Dates Problem Status W/U Status Risk Notes Problem Dysphagia (22813312) Dysphagia (R13.10) Active confirmed Encounters Encounter Location Date Provider Diagnosis [facility] Outpatient [address] [place] [phone] 10/26/2024 Osmany Alcantar Jr Colon cancer screening Z12.11 ; Colon polyps K63.5 and Dysphagia R13.10 Assessments Encounter Date Diagnosis (ICD Code) Assessment Notes Treatment Notes Treatment Clinical Notes Section Notes 10/26/2024 Colon cancer screening (ICD-10 - Z12.11) 10/26/2024 Colon polyps (ICD-10 - K63.5) 10/26/2024 Dysphagia (ICD-10 - R13.10) Plan Of Treatment No Information Progress Notes * TANNER TITUS BDOB:[birth year] (80 yo M)Acc No.[id number]:10/26/2024 EGD and COL/MAC Patient: TANNER ORTEGA Provider: Rayray Alcantar MD :1945 A ge:79 Y S ex:Male Date:10/26/2024 Address:[address] [place], [place] [address] Pcp:Bianca You MD Subjective: * Chief Complaints: * D ysphagia,screening Assessment: * Assessment: 1. C olon cancer screening - Z12.11 (Primary) 2 . C olon polyps - K63.5? 3. D ysphagia - R13.10 Plan: * Procedure Codes: 4 5385 LESION REMOVAL [id number] COLONOSCOPY AND BIOPSY, Modifiers: 59 0529F INTRVL 3+YRS PTS CLNSCP [id number] UPPER GI ENDOSCOPY, BIOPSY Billing Information: * Procedure Codes: 73722 LESION REMOVAL COLONOSCOPY. 85783 COLONOSCOPY AND BIOPSY. Modifiers: 59 0529F INTRVL 3+YRS PTS CLNSCP DOCD. 73715 UPPER GI ENDOSCOPY, BIOPSY. * The named appointment provid er may or may not be the originator of this progress note, and it is not deemed complete until electronically signed by the appointment provider. Sign off status: Pending * Provider: Rayray Alcantar MD Date: 12/27/2023 Generated for Darnell angulo/Ervin/Shobhaitting on: 01/16/2025 12:49 PM EST
--- NOTE | 2025-11-15 11:25 | MHC.OFFVIS ---
Vital Signs 11/15/25 11:31 Height 5 ft 8 in Weight 175 lb BMI 26.6 BP 146/62 H Blood Pressure Location Rt brachial Position Sitting Pulse 78 Intake Visit Reasons: s/p RIH w/mesh Intake Note: Patient here s/p Repair bilateral inguinal hernias with mesh. Patient c/o: lt groin is more painful. Taking tylenol as needed. Never filled Oxy rx. Normal BM. Surgery (): 11-02-2025 Special Client Bus Driver Required: No Accompanied by: Self / Same As Patient Allergies morphine (MORPHINE) Allergy (Intermediate, Verified 11/15/25 11:34) NAUSEA & VOMITING simvastatin Allergy (Intermediate, Verified 11/15/25 11:34) muscle pains, cramps and ineffective med enviromental allergies Allergy (Intermediate, Uncoded 11/15/25 11:34) Unknown HPI HPI s/p RIH w/mesh: Details: Doing okay. Struggling with some pain control on the left incision site. Has been making it difficult for him to walk. Has increased pain with ambulation. Additionally had some left-sided scrotal swelling and bruising on the inferior aspect of the scrotum. But this has resolved. Overall thinks that the swelling is improving but is still causing him a lot of pain. He has no concerns with the right side. He denies any fevers at home. Denies any drainage from incision sites. He reports his appetite and bowel function are at baseline. He has no issues with urination. He has only been taking Tylenol for pain, does not like to take oxycodone but so far the Tylenol has been working. He has been doing warm compresses to the area which he also thinks helps for [facility] Medical History (Updated 11/02/25 @ 20:57 by Bianca You MD) History of basal cell carcinoma Spondylosis Peripheral artery disease Hx of difficult intubation COVID-19 Elevated cholesterol Myocardial infarction Abdominal aortic aneurysm (AAA) Chronic bronchitis Renal calculi COPD (chronic obstructive pulmonary disease) Nephrolithiasis Hx of myocardial infarction PONV (postoperative nausea and vomiting) On beta didi at home On anticoagulant therapy Obesity (BMI 30-39.9) Coronary artery disease BPH (benign prostatic hyperplasia) Hyperlipidemia Impaired glucose tolerance Hypertension Paroxysmal atrial fibrillation Surgical History (Updated 11/15/25 @ 08:41 by HUMZA [place]) S/P right inguinal hernia repair (11/02/25) History of prostate surgery (11/08/24) History of biopsy S/P TURP History of excision of pilonidal cyst History of cardiac ablation for atrial fibrillation Hx of surgical procedure (04/23/24) Hx of Achilles tendon repair (10/2022) Hx of basal cell carcinoma excision (~04/09/24) Hx of colonoscopy History of cardiac radiofrequency ablation (RFA) History of blepharoplasty Hx of appendectomy History of lumbar surgery H/O excision of lamina of cervical vertebra for decompression of spinal cord H/O rhinoplasty Family History Father No problems noted. Mother No problems noted. Social History Household Members: Spouse Housing: House Are you a primary medical care manager to a significant other at home: No Do you presently have visiting nurse or other home services: No Alcohol intake: never Patient Tobacco Use Status: Former Tobacco user Tobacco use type: Cigarette Cigarettes Per Day: 0 (Cigar on occasion) Years Smoked: 48 e-Cigarette/Vaping Use: Never Used Second Hand Smoke Exposure: Yes Current occupational status: retired Cognitive needs: No Hearing needs: No Vision needs: Yes Physical Exam Vital Signs: Last Vital Signs Pulse 78 11/15/25 11:31 BP 146/62 H 11/15/25 11:31 BMI result Body Mass Index 26.6 Const General: comfortable and no acute distress Orientation/consciousness: patient oriented x3 GI Other: Right inguinal hernia: Moderate swelling, nontender incision site intact, dry. No palpable fluid collection, no surrounding cellulitis Left inguinal hernia: Moderate swelling very tender to palpation along the incision line. Remains intact. There was a moderate fluid collection deep to the incision. Mild left-sided scrotal swelling. No recurrence with Valsalva Neuro General: patient oriented x3 Assessment & Plan Assessment & Plan (1) S/P bilateral inguinal herniorrhaphy: Comment: October 2025 Dr. Leblanc Code(s): Z98.890 - Other specified postprocedural states; Z87.19 - Personal history of other diseases of the digestive system Category: Medical Plan 80-year-old male s/p bilateral inguinal hernia repairs with Dr. Leblanc on 11/02/2025. Patient doing okay, reports right side healing well minimal pain. Struggling with pain control and left side. Pain controlled currently with Tylenol. States both have significant swelling. Initially had some left-sided swelling and bruising this has improved but still swelling localized to the incision sites. He has had no issues with urination, bowel movements. He has been tolerating diet without nausea or vomiting. Has some difficulty with ambulation due to pain in the left. Denies any fevers or chills. There has been no drainage from incision sites. On exam moderate swelling of the groin bilaterally. Both incisions remained intact, without drainage. No significant ecchymosis. On the left there was a palpable fluid collection deep to the incision. There was no evidence of cellulitis surrounding incision, no evidence of skin compromise. Abdomen otherwise soft and benign. Likely that this is a hematoma, I did have Dr. Leblanc take a look at this patient agrees this is likely hematoma. We discussed options for treatment. We will treat this conservatively without draining is trying to drain this could result in infection of the mesh. Recommended warm compresses 3 times a day to the area. He can continue ambulation as tolerated. Continue to avoid heavy lifting greater than 15-20 lb. We will see him 2 weeks for follow up, can call sooner with any questions or concerns Coding Level of Care Code Global (93960) Diagnoses S/P bilateral inguinal herniorrhaphy Z98.890; Z87.19
[2025-11-15 11:31] VITALS: BP 146/62; PULSE 78; BMI 26.6
--- OUTSIDE RECORDS SUMMARY | 2025-11-15 12:49 | XMS_ITS | Encounter Summary ---
Author Organization [facility] Address [address] [facility] [address] [place] [address] Phone Care Team Providers Care Precision Lens Polisher Name Role Phone Bianca You MD Primary Care Provider [phone] Encounter Details Date Type Department Care Team (Late st Contact Info) Description 10/29/2022 Procedure Pass OR Admitting Dept - Virtual Department [address] [place] [id number] Social History Tobacco Use Types Packs/Day Years [...] on filedocumented in this encounter Care Teams Precision Lens Polisher Relationship Specialty Start Date End Date Bianca You MD [address] [place] [phone] PCP - General Internal Medicine 09/03/22 documented as of this encounter Additional Source Comments The information contained in this document represents components of the legal health record. It is not the complete legal health record.[facility]
--- OUTSIDE RECORDS SUMMARY | 2025-11-15 12:49 | XMS_ITS | Clinical Summary ---
Author Organization [facility] Address [address] [facility] [address] [place] [address] Phone Care Team Providers Care Site Foreman Name Role Phone Bianca You MD Primary Care Provider [phone] Allergies Active Allergy Reactions Criticality Noted Date [...] this topic Medical Devices Implanted Type Area Correctional Captain Device Identifier Shelf Expiration Date Model / Serial / Lot Pin Pin Spine Lumbar Description:Pt has had 2 lum bar surgeries and has implants from those procecdures coflex l4-5 System Implant Achilles Speedbridge Biocomposite - [id number] Implanted:Qty: 1 on 10/29/2022 by Jared Church MD at [facility] Right: Achilles Tendon [employer] 06/23/2026 [id number] / / [id number] Procedures Procedure Name Priority Date/Time Associated Diagnosis Comments BASIC METABOLIC PANEL (BMP) Routine 10/04/2022 9:02 AM EST Achilles tendinitis of right lower extremity from Last 3 Months or Most Recently Relevant to Health Maintenance Results * (ABNORMAL) Basic metabolic panel (10/04/2022 9:02 AM EST) SODIUM 140 133 - 146 mmol/L [facility] CHLORIDE 106 96 - 108 mmol/L [facility] POTASSIUM 4.3 3.3 - 5.1 mmol/L [facility] CO2 28 21 - 35 mmol/L [facility] BUN 17 6 - 19 mg/dL [facility] CREATININE 0.90 0.5 - 1.5 mg/dL [facility] GLUCOSE 113(H) 70 - 99 mg/dL [facility] CALCIUM 9.4 8.4 - 10.3 mg/dL [facility] EGFR 89 >59 mL/min/1.7 3m2 [facility] Comment:Estimated glomerular filtration rate calculated using the CKD-EPI refit equation. ANION GAP 10 10 - 20 mmol/L [facility] Blood 10/04/2022 9:02 AM EST 10/04/2022 9:06 AM EST us Jared Church MD LAB BLOOD BKR ORDERABLES Lila barker Result [address] [address] from Last 3 Months or Most Recently Relevant to Health Maintenance Insurance MEDICARE PART A & B [employer] MEDEX SUPPLEMENT MEDICARE PART A & B [employer] MEDEX SUPPLEMENT MEDICARE PART A & B [facility] MEDEX SUPPLEMENT MEDICARE PART A & B Member Subscriber Plan / Payer ( fective 2017-Present) Name:[employer] Member ID:[id number] Relation to Subscriber:Self Name:R[employer]l Subscriber ID:[id number] Payer ID:[id number] Group ID:Not on file Type:Medicare Address: [employer] [address] [place] [phone] [employer] CROSS MEDEX SUPPLEMENT MEDICARE PART A & B [employer] MEDEX SUPPLEMENT MEDICARE PART A & B [employer] MEDEX SUPPLEMENT MEDICARE PART A & B [employer] MEDEX SUPPLEMENT MEDICARE PART A & B [employer] MEDEX SUPPLEMENT MEDICARE PART A & B [employer] MEDEX SUPPLEMENT Care Teams Site Foreman Relationship Specialty Start Date End Date Bianca You MD [address] [place] [address] [address] [place] [phone] PCP - General Internal Medicine 09/03/22 Additional Source Comments The information contained in this document represents components of the legal health record. It is not the complete legal health record.[facility]
--- OUTSIDE RECORDS SUMMARY | 2025-11-15 12:49 | XMS_ITS | Clinical Summary ---
Author Organization [facility] Address [address] [place] [phone] Phone Care Team Providers Care Manager College Name Role Phone Bianca You MD Primary Care Provider [phone] Allergies Active Allergy Reactions Criticality Noted Date [...] TABLET DAILY 90 tablet 3 12/17/2024 Active Multaq 400 mg tablet TAKE 1 TABLET TWICE A DAY 180 tablet 1 07/01/2025 Active rivaroxaban (Xarelto) 20 mg tablet TAKE 1 TABLET ONCE DAILY WITH DINNER 90 tablet 1 09/22/2025 Active Active Problems Problem Noted Date Diagnosed [...] and presents in sinus rhythm today . [id number] score of 3 for hypertension and age [...] Type Department Care Team Description 10/13/2025 Telephone [facility] Cardiology [facility] [address] [place] [address] Fam Argueta MD 10/12/2025 12:40 PM EST Consult [facility] Cardiology [facility] [address] [place] [address] Salina Jennings NP Coronary artery disease involving [place] coronary artery of mentasta heart without angina pectoris (Primary Dx); Ascending aorta dilation (CMS/HCC V24); Primary hypertension; Mixed hyperlipidemia; Preop cardiovascular exam 09/27/2025 Telephone [facility] Cardiology [facility] [address] [place] [address] Fam Argueta MD from Last 3 Months Immunizations Immunization [...] 09/30/2017 DX:Palpabl e mass of neck Old [place] (myocardial infarction) 09/30/2017 D X:Old RI (myocardial infarction); COMMENT: 1996 Carotid stenosis 09/30/2017 [...] AM EDT Office Visit [facility] - [place] [address] [place] [address] Elsy Khan MD [address] [place] [phone] Health Maintenance Due Date Last Done Comments [...] 1:25 PM EST Coronary artery disease involving mentasta coronary artery of mentasta heart without angina pectoris ANNUAL BMP BLOOD TEST Routine 01/29/2024 from Last 3 Months or Most Recently Relevant to Health Maintenance Results * ECG 12 lead (10/12/2025 1:25 PM EST) Ventricular Rate ECG 71 BPM GEMUSE Atrial Rate 71 BPM GEMUSE P-R Interval 164 ms GEMUSE QRS Duration 98 ms GEMUSE Q-T Interval 384 ms GEMUSE QTc 417 ms GEMUSE P Wave [place] 30 degrees GEMUSE R Adel 63 degrees GEMUSE T [place]el 46 degrees GEMUSE ECG Interpretation Normal sinus rhythm Normal ECG When compared with ECG of 13-OCT-2024 09:18, No significant change was found Confirmed by FAM ARGUETA ([id number]) on 10/16/2025 7:03:00 PM GEMUSE 10/12/2025 12:4 2 PM EST 10/16/2025 7:03 PM EST us Salina Jennings NP ECG ORDERABLES Edited Resu lt - Final GEMUSE * Annual BMP Blood Test (01/29/2024) Annual BMP Blood Test Abstracted us Historical Provider HEALTH MAINTENANCE Final Result from Last 3 Months or Most Recently Relevant to Health Maintenance [facility] Care Teams Manager College Relationship Specialty Start Date End Date Bianca You MD [address] [place] [address] [address] [facility] [place] [address] PCP - General Internal Medicine 11/08/21
--- OUTSIDE RECORDS SUMMARY | 2025-11-15 12:49 | XMS_ITS | Patient Health Record ---
Author Organization [facility] Address [address] [place] [phone] Care Team Providers Care Biofuels Plant Operations Engineer Name Role Phone Bianca You MD Primary Care Provider Osmany Ramires Jr Unavailable [phone] Allergies Allergen (clinical drug ingredient) Drug/Non Drug Allergy documented on EMR Reaction Allergy Type Onset Date Status morphine Morphine Sulfate Unknown Drug Allergy Active Reason For Referral No Information Medications Medication [...] Notes Problem Long-term current use of anticoagulant (409853389) extermination supervisor (current) use of anticoagulants (Z79.01) Active confirmed Problem Screening for malignant neoplasm of colon (306227554) Special screening for malignant neoplasms, colon (Z12.11) Active confirmed Problem Dysphagia (23778308) Dysphagia (R13.10) Active confirmed Problem Long-term current use of antiplatelet drug (358584591438466) Long-term use of aspirin therapy (Z79.82) Active confirmed Problem Dysphagia (83809272) Dysphagia, unspecified type (R13.10) Active confirmed Problem Family history of malignant neoplasm of gastrointestinal tract (094986857) FH: colon cancer (Z80.0) Active confirmed Plan Of Treatment Future Test Test Name Order Date COLONOSCOPY 11/29/2015 COLONOSCOPY 04/09/2021 UPPER GI ENDOSCOPY 08/05/2024 COLONOSCOPY 08/05/2024 Insurance Providers Payer Name Payer Address Payer Phone Subscriber Number Group Number Insured Name Patient Relationship to Insured Coverage Start Date Coverage End Date MEDICARE OF [place] [address] [place] [address] [id number] TANNER WILSON Self - patient is the insured MEDEX ATTN CLAIMS [address] [place] [address] [id number] TANNER WILSON Self - patient is the insured Medical (General) History Medical History History ICD Code personal history of tubular adenomas, last colonoscopy 05/14, multiple polyps, three-year followup coronary artery disease with history of [place], 1995 elevated cholesterol nehprolithiasis Atrial fibrillation, status post cardiac ablation 10/13 COPD Difficult intubation at the time of his Achilles surgery Covid 19 infection, November 2023 Spondylosis Peripheral arterial disease Surgical History Surgery Date(Month/Year) rhinoplasty L4-5 disc surgery for compression appendectomy 01/2019 cardiac ablation 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
--- OUTSIDE RECORDS SUMMARY | 2025-11-15 12:49 | XMS_ITS | Clinical Summary ---
Author Organization [facility] Address [address] [place] [address] Care Team Providers Care Fabrication Operator Name Role Phone Unavailable Primary Care Provider [...]
== END 2025-11-15 11:42 | disposition home or self-care (01) ==
LOC: HO.HGS 11:23
PROVIDERS: PCP Internal Medicine
DX: Z98.890 Other specified postprocedural states (principal); Z87.19 Personal history of other diseases of the digestive system
CPT/HCPCS: 99024

== ENCOUNTER → 2025-11-15 11:22 | Outpatient (BNVA) | payer MEDICARE, SELFPAY | PROVIDERS: PCP Internal Medicine | DX: Z48.815 Encounter for surgical aftercare following surgery on the digestive system (principal); Z87.19 Personal history of other diseases of the digestive system | CPT/HCPCS: 99212 ==

== ENCOUNTER 2025-11-22 08:39 | Outpatient (REF) | payer MEDICARE, SELFPAY ==
--- OUTSIDE RECORDS SUMMARY | 2024-10-26 02:30 | XMS_ITS ---
Author Organization [facility] Address [address] [place] [phone] Care Team Providers Care Drapery Head Former Name Role Phone Po Bianca GARCIA Primary Care Provider Osmany Ramires Jr REASON FOR VISIT dysphagia,screening Problems Problem Type SNOMED Code ICD Code Onset Dates Problem Status W/U Status Risk Notes Problem Dysphagia (89960321) Dysphagia (R13.10) Active confirmed Encounters Encounter Location Date Provider Diagnosis [facility] [place] [address] [place] [phone] 10/26/2024 Osmany Alcantar Jr Colon cancer screening Z12.11 ; Colon polyps K63.5 and Dysphagia R13.10 Assessments Encounter Date Diagnosis (ICD Code) Assessment Notes Treatment Notes Treatment Clinical Notes Section Notes 10/26/2024 Colon cancer screening (ICD-10 - Z12.11) 10/26/2024 Colon polyps (ICD-10 - K63.5) 10/26/2024 Dysphagia (ICD-10 - R13.10) Plan Of Treatment No Information Progress Notes * TANNER TITUS BDOB:[birth year] (80 yo M)Acc No.[id number]:10/26/2024 EGD and COL/MAC Patient: TANNER ORTEGA Provider: Rayray Alcantar MD :1945 A ge:79 Y S ex:Male Date:10/26/2024 Address:[address] [place], [place] [address] Pcp:Bianca You MD Subjective: * Chief Complaints: * D ysphagia,screening Assessment: * Assessment: 1. C olon cancer screening - Z12.11 (Primary) 2 . C olon polyps - K63.5? 3. D ysphagia - R13.10 Plan: * Procedure Codes: 4 5385 LESION REMOVAL [id number] COLONOSCOPY AND BIOPSY, Modifiers: 59 0529F INTRVL 3+YRS PTS CLNSCP [id number] UPPER GI ENDOSCOPY, BIOPSY Billing Information: * Procedure Codes: 81337 LESION REMOVAL COLONOSCOPY. 58184 COLONOSCOPY AND BIOPSY. Modifiers: 59 0529F INTRVL 3+YRS PTS CLNSCP DOCD. 64767 UPPER GI ENDOSCOPY, BIOPSY. * The named appointment provid er may or may not be the originator of this progress note, and it is not deemed complete until electronically signed by the appointment provider. Sign off status: Pending * Provider: Rayray Alcantar MD Date: 12/27/2023 Generated for Darnell angulo/Ervin/Shobhaitting on: 08:13 AM EST
--- OUTSIDE RECORDS SUMMARY | 2025-11-22 10:27 | XMS_ITS | Encounter Summary ---
Author Organization [facility] Address [address] [facility] [address] [place] [address] Phone Care Team Providers Care Acquisitions Librarian Name Role Phone Bianca You MD Primary Care Provider [phone] Encounter Details Date Type Department Care Team (Late st Contact Info) Description 10/29/2022 Procedure Pass OR Admitting Dept - Virtual Department [address] [place] [address] Social History Tobacco Use Types Packs/Day Years [...] on filedocumented in this encounter Care Teams Acquisitions Librarian Relationship Specialty Start Date End Date Bianca You MD [address] [place] [phone] PCP - General Internal Medicine 09/03/22 documented as of this encounter Additional Source Comments The information contained in this document represents components of the legal health record. It is not the complete legal health record.[facility]
--- OUTSIDE RECORDS SUMMARY | 2025-11-22 10:27 | XMS_ITS | Clinical Summary ---
Author Organization [facility] Address [address] [place] [address] Care Team Providers Care Inspecting Engineer Name Role Phone Unavailable Primary Care Provider [...]
--- OUTSIDE RECORDS SUMMARY | 2025-11-22 10:27 | XMS_ITS | Clinical Summary ---
Author Organization [facility] Address [address] [place] [phone] Phone Care Team Providers Care Critical Care Transport Nurse Name Role Phone Bianca You MD Primary Care Provider [phone] Allergies Active Allergy Reactions Criticality Noted Date [...] and presents in sinus rhythm today . [id number] score of 3 for hypertension and age [...] Type Department Care Team Description 10/13/2025 Telephone [facility] Cardiology [facility] [address] [place] [address] Fam Argueta MD 10/12/2025 12:40 PM EST Consult [facility] Cardiology [facility] [address] [place] [address] Salina Jennings NP Coronary artery disease involving [place] coronary artery of [place] heart without angina pectoris (Primary Dx); Ascending aorta dilation (CMS/HCC V24); Primary hypertension; Mixed hyperlipidemia; Preop cardiovascular exam 09/27/2025 Telephone [facility] Cardiology [facility] [address] [place] [address] Fam Argueta MD from Last [...] 09/30/2017 DX:Palpabl e mass of neck Old PR (myocardial infarction) 09/30/2017 D X:Old PR (myocardial infarction); COMMENT: 1996 Carotid stenosis 09/30/2017 [...] AM EDT Office Visit V[facility] Surgery - [place] [address] [place] [address] Elsy Khan MD [address] [place] [phone] Health Maintenance Due Date Last Done Comments [...] 12/12/2026 12/12/2016 Pneumococcal Vaccine: 50+ Years Completed 12/11/2022, 09/13/2020 RSV Immunization Adult Patients Completed 08/21/2023 Influenza [...] 1:25 PM EST Coronary artery disease involving [place] coronary artery of [place] heart without angina pectoris ANNUAL BMP BLOOD TEST Routine 01/29/2024 from Last 3 Months or Most Recently Relevant to Health Maintenance Results * ECG 12 lead (10/12/2025 1:25 PM EST) Ventricular Rate ECG 71 BPM GEMUSE Atrial Rate 71 BPM GEMUSE P-R Interval 164 ms GEMUSE QRS Duration 98 ms GEMUSE Q-T Interval 384 ms GEMUSE QTc 417 ms GEMUSE P Wave [place] 30 degrees GEMUSE R [place] 63 degrees GEMUSE T [place] 46 degrees GEMUSE ECG Interpretation Normal sinus rhythm Normal ECG When compared with ECG of 13-OCT-2024 09:18, No significant change was found Confirmed by FAM ARGUETA ([id number]) on 10/16/2025 7:03:00 PM GEMUSE 10/12/2025 12:4 2 PM EST 10/16/2025 7:03 PM EST Salina Jennings NP ECG ORDERABLES Edited Resu lt - Final GEMUSE * Annual BMP Blood Test (01/29/2024) Annual BMP Blood Test Abstracted us Historical Provider HEALTH MAINTENANCE Final Result from Last 3 Months or Most Recently Relevant to Health Maintenance Insurance MEDICARE [facility] Care Teams Critical Care Transport Nurse Relationship Specialty Start Date End Date Bianca You MD [address] [place] [address] [address] [facility] [place] [address] PCP - General Internal Medicine 11/08/21
--- OUTSIDE RECORDS SUMMARY | 2025-11-22 10:27 | XMS_ITS | Clinical Summary ---
Author Organization [facility] Address [address] [facility] [address] [place] [address] Phone Care Team Providers Care Internal Control Consultant Name Role Phone Bianca You MD Primary Care Provider [phone] Allergies Active Allergy Reactions Criticality Noted Date [...] this topic Medical Devices Implanted Type Area Student Affairs Dean Device Identifier Shelf Expiration Date Model / Serial / Lot Pin Pin Spine Lumbar Description:Pt has had 2 lum bar surgeries and has implants from those procecdures coflex l4-5 System Implant Achilles Speedbridge Biocomposite - [id number] Implanted:Qty: 1 on 10/29/2022 by Jared Church MD at [facility] Right: Achilles Tendon [employer] 06/23/2026 [id number] / / [id number] Procedures Procedure Name Priority Date/Time Associated Diagnosis Comments BASIC METABOLIC PANEL (BMP) Routine 10/04/2022 9:02 AM EST Achilles tendinitis of right lower extremity from Last 3 Months or Most Recently Relevant to Health Maintenance Results * (ABNORMAL) Basic metabolic panel (10/04/2022 9:02 AM EST) SODIUM 140 133 - 146 mmol/L [facility] CHLORIDE 106 96 - 108 mmol/L [facility] POTASSIUM 4.3 3.3 - 5.1 mmol/L [facility] CO2 28 21 - 35 mmol/L [facility] BUN 17 6 - 19 mg/dL [facility] CREATININE 0.90 0.5 - 1.5 mg/dL [facility] GLUCOSE 113(H) 70 - 99 mg/dL [facility] CALCIUM 9.4 8.4 - 10.3 mg/dL [facility] EGFR 89 >59 mL/min/1.7 3m2 [facility] Comment:Estimated glomerular filtration rate calculated using the CKD-EPI refit equation. ANION GAP 10 10 - 20 mmol/L [facility] Blood 10/04/2022 9:02 AM EST 10/04/2022 9:06 AM EST us Jared Church MD LAB BLOOD BKR ORDERABLES Lila barker Result [address] [address] from Last 3 Months or Most Recently Relevant to Health Maintenance Insurance MEDICARE PART A & B [employer] MEDEX SUPPLEMENT MEDICARE PART A & B [employer] MEDEX SUPPLEMENT MEDICARE PART A & B [facility] MEDEX SUPPLEMENT MEDICARE PART A & B Member Subscriber Plan / Payer ( fective 2017-Present) Name:[employer] Member ID:[id number] Relation to Subscriber:Self Name:[employer]l Subscriber ID:[id number] Payer ID:[id number] Group ID:Not on file Type:Medicare Address: [employer] [address] [place] [phone] Pay with a Tweet CROSS MEDEX SUPPLEMENT MEDICARE PART A & B Pay with a T[employer]OSS MEDEX SUPPLEMENT MEDICARE PART A & B [employer] MEDEX SUPPLEMENT MEDICARE PART A & B [employer] MEDEX SUPPLEMENT MEDICARE PART A & B [employer] MEDEX SUPPLEMENT MEDICARE PART A & B [employer] MEDEX SUPPLEMENT Care Teams Internal Control Consultant Relationship Specialty Start Date End Date Bianca You MD [address] [place] [address] [address] [place] [phone] PCP - General Internal Medicine 09/03/22 Additional Source Comments The information contained in this document represents components of the legal health record. It is not the complete legal health record.[facility]
--- OUTSIDE RECORDS SUMMARY | 2025-11-22 10:27 | XMS_ITS | Patient Health Record ---
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) Active confirmed Problem Screening for malignant neoplasm of colon (108882887) Special screening for malignant neoplasms, colon (Z12.11) Active confirmed Problem Dysphagia (74256960) Dysphagia (R13.10) Active confirmed Problem Long-term current use of antiplatelet drug (450806480693738) Long-term use of aspirin therapy (Z79.82) Active confirmed Problem Dysphagia (99248903) Dysphagia, unspecified type (R13.10) Active confirmed Problem Family history of malignant neoplasm of gastrointestinal tract (336707147) FH: colon cancer (Z80.0) Active confirmed Plan Of Treatment Future Test Test Name Order Date COLONOSCOPY 11/29/2015 COLONOSCOPY 04/09/2021 UPPER GI ENDOSCOPY 08/05/2024 COLONOSCOPY 08/05/2024 Insurance Providers Payer Name Payer Address Payer Phone Subscriber Number Group Number Insured Name Patient Relationship to Insured Coverage Start Date Coverage End Date MEDICARE OF [place] [address] [place] [address] [id number] TANNER WILSON Self - patient is the insured [employer] ATT[employer] CLAIMS [address] [place] [phone] [id number] TANNER WILSON Self - patient is the insured Medical (General) History Medical History History ICD Code personal history of tubular adenomas, last colonoscopy 05/14, multiple polyps, three-year followup coronary artery disease with history of HI, 1995 elevated cholesterol nehprolithiasis Atrial fibrillation, status post cardiac ablation 10/13 COPD Difficult intubation at the time of his Achilles surgery Covid 19 infection, November 2023 Spondylosis Peripheral arterial disease Surgical History Surgery Date(Month/Year) rhinoplasty L4-5 disc surgery for compression appendectomy 01/2019 cardiac ablation 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
== END 2025-11-22 08:40 ==
LOC: HO.SH 08:39
PROVIDERS: PCP Internal Medicine; Visit Provider Internal Medicine
DX: H90.3 Sensorineural hearing loss, bilateral (principal)
CPT/HCPCS: 92557; 92567